=== PATIENT | female | born 1965 | race Caucasian/White ===

== ENCOUNTER 2023-07-30 04:08 | Emergency (ER) | payer OTHER, SELFPAY ==
[2023-07-30 04:13] VITALS: BP 110/76; PULSE 100; RESP 20; TEMP 36.5; O2SAT 95; BMI 40.0
--- NOTE | 2023-07-30 04:22 | ED.GENADUL1 ---
HPI - General Adult General Chief complaint: Urogenital-Female Stated complaint: flank/back pain Time Seen by Provider: 07/30/23 04:15 Source: patient Mode of arrival: walk-in Limitations: no limitations History of Present Illness HPI narrative: Patient developed right sided flank pain yesterday afternoon, which has been getting progressively worse since onset. She did not take anything for the pain. She is on macrobid for UTI diagnosed at [facility]. No fever or chills. No abdominal pain, nausea or vomiting. PMHx negative for kidney stones. Related Data Previous Rx's Medication Instructions Recorded levofloxacin 750 mg tablet 750 mg PO DAILY 6 days #6 tabs 07/30/23 metronidazole 500 mg tablet 500 mg PO Q8H 7 days #20 tabs 07/30/23 nabumetone 750 mg tablet 750 mg PO BID PRN pain #14 tabs 07/30/23 ondansetron 4 mg disintegrating 4 mg PO Q6H PRN nausea and 07/30/23 tablet vomiting #20 tabs Allergies Allergy/AdvReac Type Severity Reaction Status Date / Time codeine Allergy Unknown Verified 07/30/23 04:18 erythromycin base Allergy Unknown Verified 07/30/23 04:18 morphine Allergy Unknown Verified 07/30/23 04:18 tramadol [From Ultram] Allergy Unknown Verified 07/30/23 04:18 PFSH PFSH Social History Smoking status: Current every day smoker Exam Narrative Exam Narrative: Nurses notes and vital signs reviewed and patient is not hypoxic. afebrile General: Well-appearing and in no apparent distress. Skin: Warm, dry, no pallor noted. No rash to abdomen or flank. Eye: Pupils are equal, round and EOMI. No scleral icterus. Ears, Nose, Mouth, and Throat: Oral mucosa is moist Cardiovascular: Regular Rate and Rhythm without murmur, gallop or rub. Respiratory: No accessory muscle use or respiratory distress. Lungs are clear to auscultation, no wheezing, rales or rhonchi Back: No midline thoracic or lumbar vertebral tenderness. Right CVA tenderness Musculoskeletal: normal ROM GI: Abdomen is soft, non-distended. Normal bowel sounds. No masses appreciated. No tenderness to palpation. No rebound, guarding, or rigidity noted. Neurological: A&O x4. No cranial nerve dysfunction observed. No truncal ataxia. Moves all extremities. Sensation intact. Psychiatric: Cooperative and interactive. Normal mood and affect. Constitutional Vital Signs, click to edit/add: Last Vital Signs Temp 97.7 F 07/30/23 04:13 Pulse 100 H 07/30/23 04:13 Resp 20 07/30/23 04:13 BP 110/76 07/30/23 04:13 Pulse Ox 95 07/30/23 04:13 O2 Del Method Room Air 07/30/23 04:13 Course Vital Signs Vital signs: Vital Signs Temperature 97.7 F 07/30/23 04:13 Pulse Rate 100 H 07/30/23 04:13 Respiratory Rate 20 07/30/23 04:13 Blood Pressure 110/76 07/30/23 04:13 Pulse Oximetry 95 07/30/23 04:13 Oxygen Delivery Method Room Air 07/30/23 04:13 Temperature 97.7 F 07/30/23 04:13 Pulse Rate 100 H 07/30/23 04:13 Respiratory Rate 20 07/30/23 04:13 Blood Pressure 110/76 07/30/23 04:13 Pulse Oximetry 95 07/30/23 04:13 Oxygen Delivery Method Room Air 07/30/23 04:13 Medical Decision Making MDM Narrative Medical decision making narrative: peripheral IV established and blood drawn and sent for testing. Urine was also ordered to be sent for testing. Patient was ordered to undergo CT scanning of the abdomen pelvis without IV contrast. She was ordered to receive normal saline IV fluid bolus along with IV Zofran for nausea and IV Toradol for pain. White blood cell count. Normal electrolytes and renal function. CT scan, per radiologist, revealed 7mm appendix with some periappendiceal stranding. It also revealed pneumobilia and possible gas in the bladder. I called and spoke with Dr Newton, the general surgeon production engine repairer. It was decided that the patient would be treated non-surgically with antibiotics and instructions to see general surgeon for follow up if improving or return to the ED if she worsens or is not better within [address] Newton asked me to start the patient on Levaquin and Flagyl - she received the first dose of these in the ED before discharge. She is allergic to morphine and tramadol so I prescribed Relafen for pain.Zofran prescribed for nausea/vomiting. All this was explained to the patient and she was agreeable. Dr Alves is the general surgeon taking over call starting today and Dr Newton told me that he would speak to Dr Alves about this patient to ensure timely follow up. Lab Data Lab results reviewed: Yes I reviewed the patient's lab results Labs: Lab Results 07/30/23 07/30/23 Range/Units 04:20 05:20 WBC 10.6 (4.0-11.0) 10^3/uL RBC 5.08 (4.20-5.40) 10^6/uL Hgb 15.2 (12.0-16.0) g/dL Hct 45.7 (36.0-48.0) % MCV 90.0 (81.0-99.0) fL MCH 29.9 (26.7-34.0) pg MCHC 33.3 (29.9-35.2) g/dL RDW 13.0 (11.0-15.0) % Plt Count 254 (150-450) 10^3/uL MPV 8.8 L (9.5-13.5) fL Neut % (Auto) 70.1 (43.0-75.0) % Lymph % (Auto) 22.6 (20.5-60.0) % [place] % (Auto) 6.3 (1.7-12.0) % Eos % (Auto) 0.1 L (0.9-7.0) % Baso % (Auto) 0.3 (0.2-2.0) % Neut # (Auto) 7.5 H (1.4-6.5) 10^3/uL Lymph # (Auto) 2.4 (1.2-3.8) 10^3/uL [place] # (Auto) 0.7 (0.3-0.8) 10^3/uL Eos # (Auto) 0.0 (0.0-0.7) 10^3/uL Baso # (Auto) 0.0 (0.0-0.1) 10^3/uL Abs Immat Gran (auto) 0.06 H (0.00-0.03) 10^3/uL Imm/Tot Granulo (auto) 0.6 H (0.0-0.5) % Sodium 140 (136-145) mmol/L Potassium 4.1 (3.5-5.1) mmol/L Chloride 104 (98-107) mmol/L Carbon Dioxide 26.3 (21.0-32.0) mmol/L Anion Gap 13.8 BUN 6.0 L (7.0-18.0) mg/dL Creatinine 0.76 (0.55-1.02) mg/dL Est GFR ( Amer) >60 (>=60) Est GFR (Non-Af Amer) >60 (>=60) BUN/Creatinine Ratio 7.9 Glucose 101 (74-106) mg/dL Calcium 9.2 (8.5-10.1) mg/dL Total Bilirubin 0.4 (0.2-1.0) mg/dL AST 16 (15-37) U/L ALT 18 (14-59) U/L Alkaline Phosphatase 115 (46-116) U/L Total Protein 7.5 (6.4-8.2) g/dL Albumin 3.6 (3.4-5.0) g/dL Globulin 3.9 g/dL Albumin/Globulin Ratio 0.9 Urine Color Lt. yellow (YELLOW) Urine Clarity Clear (CLEAR) Urine pH 5.5 (5.0-9.0) Ur Specific [place] 1.025 (1.005-1.025) Urine Protein Negative (NEG/TRACE) mg/dL Urine Glucose (UA) Negative (NEGATIVE) mg/dL Urine Ketones Negative (NEGATIVE) mg/dL Urine Occult Blood Small A (NEGATIVE) Urine Nitrite Negative (NEGATIVE) Urine Bilirubin Negative (NEGATIVE) Urine Urobilinogen 0.2 (0.2-1.0) EU/dL Ur Leukocyte Esterase Small A (NEGATIVE) Urine RBC 2-5 A (0-2) #/HPF Urine WBC 2-5 A (NONE SEEN) #/HPF Ur Squamous Epith Cells Few A (NONE/RARE) #/LPF Urine Crystals None seen (None Seen) #/HPF Urine Bacteria Small A (NONE SEEN) #/HPF Urine Casts None seen (NONE SEEN) #/LPF Urine Mucus Small A (NONE SEEN) Ur Culture Indicated? Yes Imaging Data CT scan - abdomen: Radiologist's impression: Patient Name: ILIANA DOUGLAS MRN: [id number] date: 1965 Sex: F Assigned Patient Location: ER Current Patient Location: ED.MAIN Accession/Order Number: [id number] Exam Date: 07/30/2023 04:37 Report Date: 07/30/2023 05:24 At the request of: AMBER WINSOME Procedure: CT abdomen pelvis wo con EXAM: CT abdomen pelvis wo con HISTORY: right flank pain COMPARISON: Multiple priors, most recent CT abdomen pelvis 05/28/2022 TECHNIQUE: Multiple axial views CT abdomen pelvis with IV contrast. Coronal sagittal reformats. FINDINGS: Visualized lung bases demonstrate mild linear lung atelectasis. Visualized cardiac apex is unremarkable. Status post cholecystectomy. Mild pneumobilia, slightly increased compared to CT 05/28/2022. Liver, pancreas, spleen, adrenal glands, kidneys, and other pelvic structures are unremarkable. Uterus is surgically absent. A small focus of air within the urinary bladder lumen (image 132 series 3). 4.3 cm gastric diverticulum posterior to the gastric fundus, similar to prior exam. Mildly dilated appendix measuring 7 mm diameter with mild periappendiceal stranding (image 100 series 3). Scattered colonic diverticula. No evidence for small bowel obstruction, large ascites, or free air. No acute bony abnormality. IMPRESSION: Mildly dilated appendix measuring 7 mm diameter with mild periappendiceal stranding. Finding reflects acute appendicitis in the appropriate clinical setting. Recommend close clinical attention for right lower quadrant abdominal pain. A small focus of air within the urinary bladder lumen. Finding reflects sequela of recent instrumentation versus underlying gas forming infection. Correlate clinically and with urinalysis. Status post cholecystectomy. Mild pneumobilia, slightly increased compared to CT 05/28/2022. Posterior gastric diverticulum. Colonic diverticula. No radiopaque obstructing renal/ureteral stone or hydronephrosis. Electronically authenticated by: FINESSE MARISCAL Date: 07/30/2023 05:24 Discharge Plan Discharge Chief Complaint: Urogenital-Female Clinical Impression: Abdominal pain Patient Disposition: Home, Self-Care Time of Disposition Decision: 06:15 Prescriptions / Home Meds: New ondansetron 4 mg tablet,disintegrating 4 mg PO Q6H PRN (Reason: nausea and vomiting) Qty: 20 0RF nabumetone 750 mg tablet 750 mg PO BID PRN (Reason: pain) Qty: 14 0RF levofloxacin 750 mg tablet 750 mg PO DAILY 6 Days Qty: 6 0RF Rx Instructions: start 07/31/23 metronidazole 500 mg tablet 500 mg PO Q8H 7 Days Qty: 20 0RF Instructions: Abdominal Pain (ED) Stand Alone Forms: Portal Instructions Referrals: Pb Alves MD [Physician] - 07/31/23 (call to schedule appointment)
[2023-07-30 04:27] LABS: Basophils Percent Auto 0.3 % (0.2-2.0); Eosinophils Percent Auto 0.1 % (0.9-7.0); Hematocrit 45.7 % (36.0-48.0); Hemoglobin 15.2 g/dL (12.0-16.0); Immature Granulocytes Abs Auto 0.06 10^3/uL (0.00-0.03); Immature Granulocytes Pct Auto 0.6 % (0.0-0.5); Lymphocytes Absolute Auto 2.4 10^3/uL (1.2-3.8); Lymphocytes Percent Auto 22.6 % (20.5-60.0); Mean Corpuscular HGB Conc 33.3 g/dL (29.9-35.2); Mean Corpuscular Hemoglobin 29.9 pg (26.7-34.0); Mean Platelet Volume 8.8 fL (9.5-13.5); Monocytes Absolute Auto 0.7 10^3/uL (0.3-0.8); Monocytes Percent Auto 6.3 % (1.7-12.0); Neutrophils Absolute Auto 7.5 10^3/uL (1.4-6.5); Neutrophils Percent Auto 70.1 % (43.0-75.0); Platelet Count 254 10^3/uL (150-450); Red Blood Count 5.08 10^6/uL (4.20-5.40); White Blood Count 10.6 10^3/uL (4.0-11.0)
[2023-07-30] MEDS: KETOROLAC TROMETHAMINE 30 MG/ML VIAL IVP (04:30)
[2023-07-30] MEDS: 0.9 % SODIUM CHLORIDE 1,000 ML 999 ML IV (04:30)
[2023-07-30] MEDS: ONDANSETRON PF 4 MG/2 ML VIAL IV (04:35)
--- NOTE | 2023-07-30 04:40 | PC.NURSE ---
right side flank pain that started yesterday afternoon around 3-4pm. She states she has been taking Macrobid that she got from her PCP to treat a UTI. Her urine was not tested for a UTI, her father just , and she felt like she had a UTI, but was too busy to get into the doctor, so she called and asked for an antibiotic. The flank pain has been increasing in intensity since it began. She has not taken anything for the pain. She states there have been no changes in her urine, no change in frequency, no pain, no blood in her urine. She has never had a kidney stone, but states her daughter gets them frequently.
[2023-07-30 04:42] LABS: Alanine Aminotransferase 18 U/L (14-59); Albumin Globulin Ratio 0.9; Albumin Level 3.6 g/dL (3.4-5.0); Alkaline Phosphatase 115 U/L (46-116); Anion Gap 13.8; Aspartate Amino Transferase 16 U/L (15-37); BUN Creatinine Ratio 7.9; Bilirubin Total 0.4 mg/dL (0.2-1.0); Calcium 9.2 mg/dL (8.5-10.1); Carbon Dioxide 26.3 mmol/L (21.0-32.0); Chloride 104 mmol/L (98-107); Estimated GFR (African America >60 (>=60); Estimated GFR (Non-African Ame >60 (>=60); Globulin 3.9 g/dL; Glucose 101 mg/dL (74-106); Potassium 4.1 mmol/L (3.5-5.1); Sodium 140 mmol/L (136-145); Total Protein 7.5 g/dL (6.4-8.2)
[2023-07-30 05:24] LABS: Bilirubin Urine NEGATIVE (NEGATIVE); Blood Urine SMALL (NEGATIVE); Clarity Urine CLEAR (CLEAR); Color Urine LT. YELLOW (YELLOW); Glucose Urine UA NEGATIVE (NEGATIVE); Ketones Urine NEGATIVE (NEGATIVE); Leukocyte Esterase Urine SMALL (NEGATIVE); Nitrite Urine NEGATIVE (NEGATIVE); Protein Urine NEGATIVE (NEG/TRACE); Specific Gravity Urine 1.025 (1.005-1.025); Urobilinogen Urine 0.2 EU/dL (0.2-1.0); pH Urine 5.5 (5.0-9.0)
[2023-07-30 05:26] LABS: Urine Microscopic Indicated YES
[2023-07-30 05:31] LABS: Bacteria Urine SMALL #/HPF (NONE SEEN)
[2023-07-30 05:32] LABS: Cast Seen? NONE SEEN #/LPF (NONE SEEN); Crystals Seen? None Seen #/HPF (None Seen); Mucus Urine SMALL (NONE SEEN); Squamous Epithelial Cell Urine FEW #/LPF (NONE/RARE); Urine Culture Indicated YES
[2023-07-30] MEDS: HYDROMORPHONE HCL 0.5 MG/0.5 ML SYRINGE IV (06:15)
[2023-07-30] MEDS: LEVOFLOXACIN 750 MG TABLET PO (06:46)
[2023-07-30] MEDS: METRONIDAZOLE 250 MG TABLET 500 MG PO (06:46)
== END 2023-07-30 06:55 | disposition home or self-care (01) ==
PROVIDERS: Emergency Provider Emergency Medicine; PCP Family Medicine
DX: R10.9 Unspecified abdominal pain (principal); N39.0 Urinary tract infection, site not specified; Z79.899 Other long term (current) drug therapy; F17.210 Nicotine dependence, cigarettes, uncomplicated
CPT/HCPCS: 36415; 74176; 80053; 81001; 85025; 87086; 96374; 96375; 99284; J1170

== ENCOUNTER 2023-08-01 07:13 | Emergency (ER) | payer OTHER, SELFPAY ==
[2023-08-01 07:20] VITALS: BP 131/97; PULSE 84; RESP 20; TEMP 36.5; O2SAT 96; BMI 40.0
--- NOTE | 2023-08-01 07:40 | CT_ITS ---
[address] [address] Patient Name: ILIANA DOUGLAS MRN: [id number] date: 1965 Sex: F Assigned Patient Location: ER Current Patient Location: Accession/Order Number: [id number] Exam Date: 08/01/2023 07:52 Report Date: 08/01/2023 09:12 At the request of: ADI WHITESIDE Procedure: CT abdomen pelvis w con EXAMINATION: CT abdomen pelvis w con HISTORY: right lower quadrant pain, recent abnormal CT COMPARISON: CT abdomen pelvis 07/30/2023 TECHNIQUE: Axial, Coronal, and Sagittal images were obtained without and/or with IV contrast as indicated by examination type. Dose reduction techniques were achieved by using automated exposure control and/or adjustment of mA and/or kV according to patient size and/or use of iterative reconstruction technique. FINDINGS: LUNG BASES: No visible pulmonary or pleural disease. LIVER: No enlargement, atrophy, suspicious density, or significant focal lesion. BILIARY: Cholecystectomy. PANCREAS: No lesion, fluid collection, or abnormal duct dilatation. SPLEEN: No enlargement or focal lesion. ADRENALS: No mass or enlargement. KIDNEYS: No mass, obstruction, or calcification. BOWEL/MESENTERY: Stable, chronic gastric fundus diverticulum. No visible mass, obstruction, or bowel wall thickening. Normal appendix. AORTA/VASCULAR: No aneurysm or dissection. RETROPERITONEUM: No mass or adenopathy. LYMPH NODES: No adenopathy. URINARY BLADDER: No visible focal wall thickening, lesion, or calculus. PELVIC ORGANS: Hysterectomy. ABDOMINAL WALL: Eventration of the midline infraumbilical abdominal wall; no hernia sac. BONES: No bony lesion or fracture. OTHER: Negative. CT/CT abdomen pelvis w con IMPRESSION: 1. Normal, empty, noninflamed appendix. 2. No acute or suspicious findings to account for patient's symptoms. Electronically authenticated by: BLESSING THOMPSON Date: 08/01/2023 09:12
--- NOTE | 2023-08-01 07:41 | ED.ABDPAIN1 ---
HPI - Abdominal Pain General Chief Complaint: Abdominal Pain Stated Complaint: flank pain right side Time Seen by Provider: 08/01/23 07:32 Source: patient Mode of arrival: walk-in Limitations: no limitations History of Present Illness HPI narrative: [age] female presents for right lower quadrant abdominal pain. She was seen here on July 30 and at that time had a slightly enlarged appendix with. Appendiceal stranding. Surgery was consult today and she was discharged home on Levaquin and Flagyl which she has been taking. She has not been able to see the surgeon for follow-up. At 3:00 this morning the pain in her right lower quadrant became worse. It is severe and continuous. No fever or trauma. Related Data Previous Rx's Medication Instructions Recorded levofloxacin 750 mg tablet 750 mg PO DAILY 6 days #6 tabs 07/30/23 metronidazole 500 mg tablet 500 mg PO Q8H 7 days #20 tabs 07/30/23 nabumetone 750 mg tablet 750 mg PO BID PRN pain #14 tabs 07/30/23 ondansetron 4 mg disintegrating 4 mg PO Q6H PRN nausea and 07/30/23 tablet vomiting #20 tabs dicyclomine 10 mg capsule 10 mg PO QID PRN abdominal pain 08/01/23 #20 caps Allergies Allergy/AdvReac Type Severity Reaction Status Date / Time codeine Allergy Unknown Verified 07/30/23 04:18 erythromycin base Allergy Unknown Verified 07/30/23 04:18 morphine Allergy Unknown Verified 07/30/23 04:18 tramadol [From Ultram] Allergy Unknown Verified 07/30/23 04:18 Review of Systems ROS Narrative A ten point review of systems is negative except as noted above. PFSH PFSH Social History Smoking status: Current every day smoker Exam Narrative Exam Narrative: Nurses note and vital signs reviewed and patient is not hypoxic. General: The patient appears uncomfortable and in no apparent distress. Skin: Warm, dry, no pallor noted. There is no rash noted. Head: Normocephalic, atraumatic Eye: Normal conjunctiva, no drainage Ears, Nose, Mouth, and Throat: oral mucosa is moist. Nares patent. Mouth without vesicles. Ear canals patent. Tm's without Erythema Cardiovascular: Regular Rate and Rhythm Respiratory: Patient is in no distress, no accessory muscle use, lungs are clear to auscultation, no wheezing, rales or rhonchi Back: non-tender GI: tenderness present in the right lower quadrant Musculoskeletal: The patient has no evidence of calf tenderness, no pitting edema, symmetrical pulses noted bilaterally Neurological: A&O, normal speech Psychiatric: Cooperative Constitutional Vital Signs, click to edit/add: Last Vital Signs Temp 97.7 F 08/01/23 07:20 Pulse 87 08/01/23 10:40 Resp 18 08/01/23 10:09 BP 109/74 08/01/23 10:40 Pulse Ox 98 08/01/23 10:40 O2 Del Method Room Air 08/01/23 08:56 Course Vital Signs Vital signs: Vital Signs Temperature 97.7 F 08/01/23 07:20 Pulse Rate 84 08/01/23 07:20 Respiratory Rate 20 08/01/23 07:20 Blood Pressure 131/97 H 08/01/23 07:20 Pulse Oximetry 96 08/01/23 07:20 Temperature 97.7 F 08/01/23 07:20 Pulse Rate 87 08/01/23 10:40 Respiratory Rate 18 08/01/23 10:09 Blood Pressure 109/74 08/01/23 10:40 Pulse Oximetry 98 08/01/23 10:40 Oxygen Delivery Method Room Air 08/01/23 08:56 MDM - Abdominal Pain MDM Narrative Medical decision making narrative: workup including CAT scan is negative. She has an appointment with general surgeon tomorrow that she will keep. I discussed the case with him, Dr. Alves. Lab Data Labs: Lab Results 08/01/23 08/01/23 08/01/23 Range/Units 07:34 08:27 09:46 WBC 5.4 (4.0-11.0) 10^3/uL RBC 4.69 (4.20-5.40) 10^6/uL Hgb 14.2 (12.0-16.0) g/dL Hct 41.7 (36.0-48.0) % MCV 88.9 (81.0-99.0) fL MCH 30.3 (26.7-34.0) pg MCHC 34.1 (29.9-35.2) g/dL RDW 13.2 (11.0-15.0) % Plt Count 190 (150-450) 10^3/uL MPV 9.5 (9.5-13.5) fL Neut % (Auto) 61.0 (43.0-75.0) % Lymph % (Auto) 28.9 (20.5-60.0) % [place] % (Auto) 8.7 (1.7-12.0) % Eos % (Auto) 0.6 L (0.9-7.0) % Baso % (Auto) 0.4 (0.2-2.0) % Neut # (Auto) 3.3 (1.4-6.5) 10^3/uL Lymph # (Auto) 1.6 (1.2-3.8) 10^3/uL [place] # (Auto) 0.5 (0.3-0.8) 10^3/uL Eos # (Auto) 0.0 (0.0-0.7) 10^3/uL Baso # (Auto) 0.0 (0.0-0.1) 10^3/uL Abs Immat Gran (auto) 0.02 (0.00-0.03) 10^3/uL Imm/Tot Granulo (auto) 0.4 (0.0-0.5) % Sodium 139 (136-145) mmol/L Potassium 4.2 (3.5-5.1) mmol/L Chloride 104 (98-107) mmol/L Carbon Dioxide 25.9 (21.0-32.0) mmol/L Anion Gap 13.3 BUN 9.0 (7.0-18.0) mg/dL Creatinine 0.67 (0.55-1.02) mg/dL Est GFR ( Amer) >60 (>=60) Est GFR (Non-Af Amer) >60 (>=60) BUN/Creatinine Ratio 13.4 Glucose 96 (74-106) mg/dL Calcium 9.1 (8.5-10.1) mg/dL Urine Color Yellow (YELLOW) Urine Clarity Clear (CLEAR) Urine pH 5.0 (5.0-9.0) Ur Specific [place] 1.010 (1.005-1.025) Urine Protein Negative (NEG/TRACE) mg/dL Urine Glucose (UA) Negative (NEGATIVE) mg/dL Urine Ketones Negative (NEGATIVE) mg/dL Urine Occult Blood Trace-i (NEGATIVE) Urine Nitrite Negative (NEGATIVE) Urine Bilirubin Negative (NEGATIVE) Urine Urobilinogen 0.2 (0.2-1.0) EU/dL Ur Leukocyte Esterase Negative (NEGATIVE) Urine RBC 0-2 (0-2) #/HPF Urine WBC 0-2 A (NONE SEEN) #/HPF Ur Squamous Epith Cells Few A (NONE/RARE) #/LPF Urine Crystals None seen (None Seen) #/HPF Urine Bacteria Trace A (NONE SEEN) #/HPF Urine Casts None seen (NONE SEEN) #/LPF Urine Mucus None seen (NONE SEEN) Discharge Plan Discharge Chief Complaint: Abdominal Pain Clinical Impression: Abdominal pain Patient Disposition: Home, Self-Care Time of Disposition Decision: 10:49 Condition: Good Mode of Transportation: Private Vehicle Prescriptions / Home Meds: New dicyclomine 10 mg capsule 10 mg PO QID PRN (Reason: abdominal pain) Qty: 20 0RF No Action ondansetron 4 mg tablet,disintegrating 4 mg PO Q6H PRN (Reason: nausea and vomiting) Qty: 20 0RF nabumetone 750 mg tablet 750 mg PO BID PRN (Reason: pain) Qty: 14 0RF levofloxacin 750 mg tablet 750 mg PO DAILY 6 Days Qty: 6 0RF Rx Instructions: start 07/31/23 metronidazole 500 mg tablet 500 mg PO Q8H 7 Days Qty: 20 0RF Instructions: Abdominal Pain (ED) Additional Instructions: see Dr. Alves at your appointment tomorrow Stand Alone Forms: Portal Instructions Referrals: MIGUEL JUAREZ [Primary Care Provider] - 1 week
[2023-08-01] MEDS: ONDANSETRON PF 4 MG/2 ML VIAL IV (07:46)
[2023-08-01 07:54] LABS: Anion Gap 13.3; BUN Creatinine Ratio 13.4; Calcium 9.1 mg/dL (8.5-10.1); Carbon Dioxide 25.9 mmol/L (21.0-32.0); Chloride 104 mmol/L (98-107); Estimated GFR (African America >60 (>=60); Estimated GFR (Non-African Ame >60 (>=60); Glucose 96 mg/dL (74-106); Potassium 4.2 mmol/L (3.5-5.1); Sodium 139 mmol/L (136-145)
[2023-08-01] MEDS: HYDROMORPHONE HCL 1 MG/ML CARTRIDGE IV (08:29)
[2023-08-01 08:36] LABS: Basophils Percent Auto 0.4 % (0.2-2.0); Eosinophils Percent Auto 0.6 % (0.9-7.0); Hematocrit 41.7 % (36.0-48.0); Hemoglobin 14.2 g/dL (12.0-16.0); Immature Granulocytes Abs Auto 0.02 10^3/uL (0.00-0.03); Immature Granulocytes Pct Auto 0.4 % (0.0-0.5); Lymphocytes Absolute Auto 1.6 10^3/uL (1.2-3.8); Lymphocytes Percent Auto 28.9 % (20.5-60.0); Mean Corpuscular HGB Conc 34.1 g/dL (29.9-35.2); Mean Corpuscular Hemoglobin 30.3 pg (26.7-34.0); Mean Corpuscular Volume 88.9 fL (81.0-99.0); Mean Platelet Volume 9.5 fL (9.5-13.5); Monocytes Absolute Auto 0.5 10^3/uL (0.3-0.8); Monocytes Percent Auto 8.7 % (1.7-12.0); Neutrophils Absolute Auto 3.3 10^3/uL (1.4-6.5); Red Blood Count 4.69 10^6/uL (4.20-5.40); Red Cell Distribution Width 13.2 % (11.0-15.0); White Blood Count 5.4 10^3/uL (4.0-11.0)
[2023-08-01 08:56] VITALS: BP 104/59; PULSE 64; RESP 18; O2SAT 95
[2023-08-01 09:55] LABS: Bilirubin Urine NEGATIVE (NEGATIVE); Blood Urine TRACE-I (NEGATIVE); Clarity Urine CLEAR (CLEAR); Color Urine YELLOW (YELLOW); Glucose Urine UA NEGATIVE (NEGATIVE); Ketones Urine NEGATIVE (NEGATIVE); Leukocyte Esterase Urine NEGATIVE (NEGATIVE); Nitrite Urine NEGATIVE (NEGATIVE); Protein Urine NEGATIVE (NEG/TRACE); Urobilinogen Urine 0.2 EU/dL (0.2-1.0)
[2023-08-01 10:04] LABS: Bacteria Urine TRACE #/HPF (NONE SEEN); Mucus Urine NONE SEEN (NONE SEEN); RBC Urine 0-2 #/HPF (0-2); Squamous Epithelial Cell Urine FEW #/LPF (NONE/RARE); WBC Urine 0-2 #/HPF (NONE SEEN)
[2023-08-01 10:05] LABS: Cast Seen? NONE SEEN #/LPF (NONE SEEN); Crystals Seen? None Seen #/HPF (None Seen)
[2023-08-01 10:08] LABS: Platelet Count 190 10^3/uL (150-450)
[2023-08-01 10:09] VITALS: BP 114/69; PULSE 90; RESP 18; O2SAT 98
[2023-08-01 10:40] VITALS: BP 109/74; PULSE 87; O2SAT 98
== END 2023-08-01 11:10 | disposition home or self-care (01) ==
PROVIDERS: Emergency Provider Emergency Medicine; PCP Family Medicine
DX: R10.9 Unspecified abdominal pain (principal); F17.210 Nicotine dependence, cigarettes, uncomplicated; Z79.899 Other long term (current) drug therapy
CPT/HCPCS: 36415; 74177; 80048; 81001; 85025; 96374; 96375; 99285; J1170; Q9967

== ENCOUNTER 2024-02-26 06:06 | Emergency (ER) | payer OTHER, SELFPAY ==
[2024-02-26 06:10] VITALS: BP 113/76; PULSE 72; TEMP 36.6; O2SAT 93; BMI 40.4
--- OUTSIDE RECORDS SUMMARY | 2024-02-26 06:17 | XMS_ITS ---
"Patient Summarization (C-CDA 2.1 CCD) Created on: February 26, 2024 MRS. MARY DOUGLAS : 1965 Sex: Female Author Organization Sample organization Care Team Providers Care [employer] Name Role Phone Mulugeta Gotti Primary Care Provider [phone] Mulugeta Gotti Attending Provider Nina Montana Attending Provider Benjamin Mercado Attending Provider [phone] Mulugeta Gotti Primary Care Provider Mulugeta Gotti Attending Provider Chevy Ferreira Attending Provider [phone] Mulugeta Gotti Primary Care Provider Prasanna Weems Attending Provider Mulugeta Gotti DO Primary Care Provider Mata Cornejo MD Unavailable MULUGETA GOTTI Primary Care Physician [phone] Pushpa Chowdhury Unavailable Unavailable Prasanna Weems Unavailable DO Mulugeta Gotti Primary Care Provider DO Mulugeta Gotti Attending Provider DR MULUGETA GOTTI Primary Care Unavailable NEDRA, DR CHANELLE Maria Admitting Unavailable NEDRA, DR CHANELLE Maria Attending Unavailable NEDRA, DR CHANELLE Maria Consulting Unavailable FINESSE MARISCAL Consulting Unavailable BLESSING ZEPEDA Consulting Unavailable NEDRA, DR CHANELLE Maria Admitting Unavailable NEDRA, DR CHANELLE Maria Attending Unavailable SHEN, DR RIVERA Primary Care Unavailable NEDRA, DR CHANELLE Maria Consulting Unavailable Shawn Preston Consulting Unavailable DR MULUGETA GOTTI Primary Care Unavailable JOSEE DUNAWAY Admitting Unavailable JOSEE DUNAWAY Attending Unavailable OJSEE DUNAWAY Consulting Unavailable WILLIAMS PIZARRO Consulting Unavailable SALLY Stephens Attending Provider AB Andrew Attending Provider Nicky Alicia Unavailable Mulugeta Gotti DO Primary Care Provider Clemente PEGUERO, Mata Unavailable Sharla Benitez Unavailable Jose Lewis Unavailable Mulugeta Gotti DO Primary Care Provider Clemente PEGUERO, Mata Unavailable Rubia Mendosa Unavailable DO Mulugeta Gotti Primary Care Provider AB Benitez Attending Provider MD Finesse Tobar Attending Provider AB Frey Emergency Provider [phone] MULUGETA GOTTI Primary Care Unavailable SHAWN PRASAD JR Referring Unavailable DO Mulugeta Gotti Primary Care Provider AB Benitez Attending Provider BLESSING YANCEY Attending Unavailable SHAWN PRASAD JR Referring Unavailable MULUGETA GOTTI Primary Care Unavailable MULUGETA GOTTI Primary Care Unavailable CLEMENT RODAS Attending Unavailable ROSLYN, KHALED Referring Unavailable DO Denver Naranjo Emergency Provider DO Mulugeta Gotti Primary Care Provider [phone] AB Benitez Attending Provider [phone] DO Nina Montana Attending Provider [phone] DO Mulugeta Gotti Primary Care Provider AB Benitez Attending Provider [phone] DO Denver Naranjo Emergency Provider DO Nina Montana Attending Provider MD Prasanna Weems Attending Provider DO Mulugeta Gotti Primary Care Provider [phone] AB Benitez Attending Provider [phone] Lazara Barclay Unavailable RICE, Finesse W Referring Unavailable RICE, Finesse W Attending Unavailable NILLPb Attending Unavailable RICE, Finesse W Referring Unavailable RICE, Finesse W Attending Unavailable RICE, Finesse W Admitting Unavailable Orzech, Jada X Attending Unavailable Orzech, Jada X Admitting Unavailable Orzech, Jada X Attending Unavailable DO Mulugeta Gotti Primary Care Provider [phone] AB Benitez Attending Provider DO Mulugeta Gotti Primary Care Provider Eli, AB Maria Attending Provider [phone] MULUGETA GOTTI Attending Unavailable MULUGETA GOTTI Referring Unavailable NINA MONTANA Attending Unavailable Mulugeta Gotti DO Primary Care Provider SHAWN PRASAD JR Referring Unavailable MULUGETA GOTTI Primary Care Unavailable SHAWN PRASAD JR Referring Unavailable MULUGETA GOTTI Primary Care Unavailable SHAWN PRASAD JR Attending Unavailable MULUGETA GOTTI Primary Care Unavailable BENJAMIN MERCADO Referring Unavailable BENJAMIN MERCADO Attending Unavailable MULUGETA GOTTI Primary Care Unavailable BENJAMIN MERCADO Referring Unavailable MULUGETA GOTTI Primary Care Unavailable MULUGETA GOTTI Primary Care Unavailable BENJAMIN MERCADO Referring Unavailable BENJAMIN MERCADO Attending Unavailable MULUGETA GOTTI Primary Care Unavailable BENJAMIN MERCADO Referring Unavailable MULUGETA GOTTI Primary Care Unavailable MULUGETA GOTTI Primary Care Unavailable Mulugeta Gotti Primary Care Unavailable Dank, Prasanna S Admitting Unavailable Dank, Prasanna S Attending Unavailable Mulugeta Gotti Primary Care Unavailable Denver Naranjo Admitting Unavailable Denver Naranjo Attending Unavailable ItzNina miller Admitting Unavailable Nina Montana Attending Unavailable Mulugeta Gotti Primary Care Unavailable Mulugeta Gotti Primary Care Unavailable Dank, Prasanna S Admitting Unavailable Dank, Prasanna S Attending Unavailable Mulugeta Gotti Primary Care Unavailable Sharla Benitez R Admitting Unavailable Sharla Benitez R Attending Unavailable Mulugeta Gotti Primary Care Unavailable Sharla Benitez R Admitting Unavailable Sharla Benitez R Attending Unavailable Mulugeta Gotti Primary Care Unavailable Eli Sharla Crow Admitting Unavailable Eli Sharla Crow Attending Unavailable Unavailable Unavailable Unavailable Allergies Allergy Classification Reported Allergen(s) Allergy Type Date of Onset Reaction(s) Facility Barbiturates (4 sources) butalbital Drug Allergy 10-01-19 21 Itching [facility]on[facility] (8 sources) Codeine Drug Allergy 10-01-19 21 Vomiting, Nausea [facility] strawberry allergenic extract (4 sources) strawberry allergenic extract Drug Allergy 10-01-19 21 [facility] (20 sources) butalbital; Translations: [butalbital] Drug Allergy 10-20-19 20 Itching, Unknown [facility] (20 sources) Codeine; Translations: [codeine] Drug Allergy 09-30-19 08 GI Upset, Vomiting (disorder) [facility] Work Phone: (20 sources) strawberry allergenic extract; Translations: [strawberry] Drug Allergy 10-20-19 20 [facility] (20 sources) traMADol; Translations: [Tramadol] Drug Allergy 10-20-19 20 Vomiting (disorder) [facility] (20 sources) erythromycin base; Translations: [Erythromycin Base] Allergy to substance 08-29-20 19 Abdominal Pain, Abdominal Pain, diarrhea [facility] (20 sources) Erythromycin; Translations: [erythromycin] Drug Allergy 08-06-20 12 Diarrhea, Diarrhea (finding) [facility] Work Phone: (20 sources) traMADol; Translations: [TRAMADOL HCL] Drug Allergy 12-06-19 08 GI Upset [facility] (17 sources) environmental [Other] Propensity to adverse reactions 09-30-19 08 [facility] (16 sources) Acetaminophen / butalbital / Caffeine; Translations: [APAP/butalbital/ caffeine] Drug Allergy 05-17-20 23 Unknown (qualifier value), Itching, Itching (finding) [facility] [place] (20 sources) Codeine Drug Allergy vomiting [employer] Other (20 sources) Aspartame; Translations: [aspartame] Drug Allergy 01-25-20 22 Diarrhea [facility] (2 sources) traMADol; Translations: [Ultram] Drug Allergy 08-29-20 19 [facility] Repository (20 sources) Morphine; Translations: [MORPHINE] Drug Allergy 02-07-20 23 Unknown, Tremor (finding) [facility] (3 sources) OTHER; Translations: [OTHER] Propensity to adverse reactions (disorder) 09-30-19 08 [facility] Repository (2 sources) BUTALBITAL-ACETAM INOPHEN-CAFF; Translations: [BUTALBITAL-ACETA MINOPHEN-CAFF] Propensity to adverse reactions to drug (disorder) 05-17-20 23 [facility] Repository (1 source) Morphine Drug Allergy 10-24-19 [facility] Repository Encounters Encounter Date Encounter Type Care Provider Facility Start: 01-03-2024 End: 01-03-2024 ambulatory MULUGETA GOTTI Facility:[facility] Start: 01-03-2024 End: 01-03-2024 ambulatory Benjamin Mercado MD Work Phone: Hematology/Oncology Comment on above: Malignant neoplasm o f lower-outer quadrant of left breast of female, estrogen receptor positive (HCC) (Primary Dx); Encounter for screening for osteoporosis Start: 01-03-2024 End: 01-03-2024 Patient encounter procedure Benjamin Mercado MD Work Phone: Hematology/Oncology Start: 12-20-2023 End: 12-20-2023 ambulatory NINA MONTANA Not Available Start: 11-28-2023 End: 11-28-2023 ambulatory DO Mulugeta Gotti Work Phone: [facility] Work Phone: Start: 11-28-2023 End: 11-28-2023 Patient encounter procedure DO Mulugeta Gotti Work Phone: [facility] Work Phone: Start: 11-23-2023 Refill Benjamin Mercado MD Work Phone: Hematology/Oncology Comment on above: Refill Request Start: 11-12-2023 End: 11-12-2023 ambulatory MULUGETA GOTTI Not Available Start: 10-24-2023 End: 10-24-2023 ambulatory DO Mulugeta Gotti Work Phone: [facility] Work Phone: Start: 10-24-2023 End: 10-24-2023 Patient encounter procedure DO Mulugeta Gotti Work Phone: [facility] Work Phone: Start: 10-24-2023 End: 10-24-2023 Patient encounter procedure DO Mulugeta Gotti Work Phone: [facility] [place] Work Phone: Start: 10-24-2023 End: 10-24-2023 ambulatory DO Mulugeta Gotti Work Phone: [facility] Work Phone: Start: 10-04-2023 End: 10-04-2023 ambulatory Sharla Benitez Other [employer] Other Start: 10-04-2023 [facility] Start: 09-04-2023 End: 09-04-2023 ambulatory Sharla Benitez Other [employer] Other Start: 09-04-[address] [facility] Start: 08-29-2023 [facility] Weight Management f/u [facility] Start: 08-29-2023 Registered Recurring DO Mulugeta sheikh Work Phone: [facility] Work Phone: Start: 08-29-2023 End: 08-29-2023 ambulatory Mulugeta Gotti [facility] [employer] Other Start: 08-29-2023 End: 08-29-2023 Patient encounter procedure DO Mulugeta Gotti Work Phone: [facility] Work Phone: Start: 08-22-2023 End: 08-22-2023 ambulatory Lazara Barclay Other [employer] Other Start: 08-22-2023 Office outpatient vi sit 15 minutes Lazara Barclay [facility] Start: 08-22-2023 End: 08-22-2023 Patient encounter procedure DO Mulugeta Gotti Work Phone: [facility] Work Phone: Start: 08-07-2023 (PROC) PROCEDURE Prasanna Weems [facility] Start: 08-07-2023 End: 08-07-2023 ambulatory Prasanna Weems Other [employer] Other Start: 08-02-2023 End: 08-03-2023 ambulatory Pb Maria RUSSYuridia Facility: [place] Start: 08-02-2023 End: 08-02-2023 Patient encounter procedure Pb FOSS [facility] [place] Start: 07-30-2023 ambulatory Finesse TOBAR Facility: [facility] [place] Start: 07-25-2023 End: 07-25-2023 ambulatory Lazara Barclay Other [employer] Other Start: 07-25-2023 Office outpatient vi sit 15 minutes Lazara Barclay [facility] Start: 07-18-2023 (PROC) PROCEDURE Prasanna Weems [facility] Start: 07-18-2023 End: 07-18-2023 Admission to same day surgery center DO Mulugeta Gotti Work Phone: [facility] Work Phone: Start: 07-18-2023 End: 07-18-2023 ambulatory DO Mulugeta Gotti Work Phone: [facility] Work Phone: Start: 07-10-2023 End: 07-10-2023 Patient encounter procedure DO Mulugeta Gotti Work Phone: [facility] Work Phone: Start: 07-10-2023 End: 07-10-2023 ambulatory DO Mulugeta Gotti Work Phone: [employer] Other Start: 07-10-2023 Office outpatient vi sit 25 minutes Prasanna Weems [facility] Start: 06-22-2023 End: 06-22-2023 Patient encounter procedure DO Mulugeta Gotti Work Phone: [facility] Work Phone: Start: 06-22-2023 End: 06-22-2023 ambulatory DO Mulugeta Gotti Work Phone: [facility] Work Phone: Start: 05-28-2023 Registered Recurring DO Mulugeta sheikh Work Phone: [facility] Work Phone: Start: 05-28-2023 (FCCCWMNF/U) Weight Management [facility]u [facility] Start: 05-28-2023 End: 05-28-2023 ambulatory Sharla Benitez Other [employer] Other Start: 05-28-2023 Telephone encounter Sharla Hagenkendra [facility] Start: 05-19-2023 End: 05-19-2023 Emergency department patient visit DO Mulugeta Gotti Work Phone: [facility] Work Phone: Start: 05-17-2023 Telephone encounter Luis will MD Work Phone: Gastroenterology Comment on above: Patient Update (S/p ERCP with stent removal today) Start: 05-17-2023 ambulatory MULUGETA GOTTI Facility: [facility] Start: 05-17-2023 End: 05-17-2023 Subsequent hospital visit by physician Luis Xavier MD Work Phone: [facility] Endoscopy - ENDO Comment on above: Encounter for remova l of biliary stent [Z46.89] Start: 05-11-2023 ambulatory Luis Xavier MD Work Phone: [facility] - ENDO Start: 04-20-2023 End: 04-20-2023 ambulatory Sharla Benitez Other [employer] Other Start: 04-20-2023 Telephone encounter [facility] Comment on above: Results Start: 04-19-2023 End: 04-19-2023 ambulatory MULUGETA GOTTI Facility:[facility] Start: 04-18-2023 End: 04-18-2023 Patient encounter procedure DO Mulugeta Gotti Work Phone: [facility] [place] Work Phone: Start: 04-18-2023 End: 04-18-2023 ambulatory DO Mulugeta Gotti Work Phone: [facility] Work Phone: Start: 04-17-2023 End: 04-18-2023 ambulatory MULUGETA GOTTI Facility:[facility] Start: 04-16-2023 Registered Recurring DO Mulugeta sheikh Work Phone: [facility] Work Phone: Start: 04-16-2023 (FCCCWMNF/U) Weight Management f/u [facility] Start: 04-16-2023 End: 04-16-2023 ambulatory Sharla Benitez Other [employer] Other Start: 04-12-2023 ambulatory Shawn Prasad DO Work Phone: Gastgroenterology Comment on above: My symptoms Start: 04-10-2023 End: 04-10-2023 ambulatory Sharla Benitez Other [employer] Other Start: 04-10-2023 Telephone encounter Sharla Benitez [facility] Start: 04-04-2023 ([facility] RD FU) [facility] F/ U 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 Alicia Maxdione [facility] Start: 04-04-2023 End: 04-04-2023 ambulatory Alicia Saunders Other [employer] Other Start: 02-22-2023 End: 02-22-2023 ambulatory Sharla Benitez Other [employer] Other Start: 02-22-2023 Telephone encounter Sharla Benitez [facility] Start: 02-19-2023 ([facility] Weight Management f/u Sharla Benitez [facility] Start: 02-19-2023 End: 02-19-2023 ambulatory Sharla Benitez Other [employer] Other Start: 02-16-2023 End: 02-17-2023 ambulatory Jada X Orzech Facility[facility] Start: 02-16-2023 End: 02-17-2023 ambulatory Jada X Orzech Facility:[facility] Start: 02-16-2023 End: 02-16-2023 Lab Drop off Jada X [facility] Start: 02-16-2023 End: 02-16-2023 Patient encounter procedure Jada X Orzech [facility] Start: 2023 Telephone encounter Luis will MD Work Phone: Gastroenterology Comment on above: Follow Up (Needs rep eat ERCP for stent removal in 2 months) Start: 2023 ambulatory BLESSING YANCEY Facility:[facility] Start: 02-14-2023 ambulatory MULUGETA GOTTI Facility: [facility] Start: 02-09-2023 ambulatory SHAWN PRASAD JR Facili ty:[facility] Start: 02-09-2023 End: 02-09-2023 Subsequent hospital visit by physician [facility] Comment on above: Left without seen Start: 02-08-2023 ambulatory Luis Xavier MD Work Phone: [facility]oscopy - ENDO Start: 02-07-2023 Telephone encounter Shawn villagomez DO Work Phone: Gastroenterology Comment on above: Results Start: 02-06-2023 Telephone encounter Shawn villagomez DO Work Phone: Gastroenterology Comment on above: Procedure (Needs ERC P with Dr. Xavier) Start: 02-06-2023 End: 02-06-2023 ambulatory SHAWN PRASAD JR Facility:[facility] Start: 02-06-2023 End: 02-06-2023 Patient encounter procedure Shawn Prasad DO Work Phone: Gastgroenterology Comment on above: Choledocholithiasis (Primary Dx); RUQ abdominal pain; Irritable bowel syndrome with diarrhea Start: 01-11-2023 End: 01-11-2023 Emergency department patient visit DO Mulugeta Gotti Work Phone: [facility] Work Phone: Start: 01-08-2023 End: 01-08-2023 ambulatory DO Mulugeta Gotti Work Phone: [facility] Work Phone: Start: 01-08-2023 End: 01-08-2023 Patient encounter procedure DO Mulugeta Gotti Work Phone: [facility] [place] Work Phone: Start: 01-04-2023 End: 01-04-2023 ambulatory BENJAMIN MERCADO Facility:[facility] Start: 01-04-2023 End: 01-04-2023 ambulatory Benjamin Mercado MD Work Phone: Hematology/Oncology Comment on above: Malignant neoplasm o f lower-outer quadrant of left breast of female, estrogen receptor positive (HCC) (Primary Dx) Start: 01-04-2023 End: 01-04-2023 Patient encounter procedure Benjamin Mercado MD Work Phone: [facility] Start: 01-03-2023 End: 01-03-2023 ambulatory DO Mulugeta Gotti Work Phone: [facility] Work Phone: Start: 01-03-2023 End: 01-03-2023 Patient encounter procedure DO Mulugeta Gotti Work Phone: [facility] [place] Work Phone: Start: 12-25-2022 (FCCCWMNF/U) Weight Management f/u [facility] Start: 12-25-2022 End: 12-25-2022 ambulatory [facility] Other [employer] Other Start: 12-25-2022 Registered Recurring DO Mulugeta Wilkinson kori Work Phone: [facility] Work Phone: Start: 11-28-2022 End: 11-28-2022 ambulatory Rubia Mendosa Other [employer] Other Start: 11-28-2022 Refill Benjamin Mercado MD Work Phone: Hematology/Oncology Comment on above: Refill Request Start: 11-28-2022 Telephone encounter Rubia Mendosa [facility] Start: 10-30-2022 (FCCCWMNF/U) Weight Management f/u [facility] Start: 10-30-2022 End: 10-30-2022 ambulatory Sharla Missler Other [employer] Other Start: 10-16-2022 End: 10-16-2022 ambulatory [facility] Other [employer] Other Start: 10-16-2022 [facility] Start: 10-09-2022 End: 10-09-2022 ambulatory Sharlaher Hagenler Other [employer] Other Start: 10-09-2022 [facility]phone [facility] Start: 09-27-2022 (FCCCWMNF/U) [facility] f/[facility] Start: 09-27-2022 End: 09-27-2022 ambulatory Sharlaher Hagenler Other [employer] Other Start: 09-27-2022 IBT for Obesity init ial 30 min (Max charge 2 units) Alicia Saunders [facility] Start: 09-12-2022 End: 09-13-2022 ambulatory Finesse TOBAR Facility:[facility] Start: 09-12-2022 End: 09-12-2022 Patient encounter procedure Finesse TOBAR [facility] Start: 08-21-2022 (FCCCWMNF/U) [facility] f[facility] Start: 08-21-2022 End: 08-21-2022 ambulatory Sharlaher Hagenler Other [employer] Other Start: 08-17-2022 End: 08-18-2022 ambulatory Finesse TOBAR Facility:[facility] Start: 08-17-2022 End: 08-17-2022 Patient encounter procedure Finesse TOBAR [facility] Start: 08-15-2022 End: 08-15-2022 ambulatory Sharlaher Hagenler Other [employer] Other Start: 08-15-2022 Telephone encounter [facility] Start: 08-02-2022 End: 08-02-2022 ambulatory Aliciamanpreet Maxt Other [employer] Other Start: 08-02-2022 IBT FOR OBESITY GROU P 2-10 30M Alicia Saunders [facility] Start: 08-02-2022 Telephone encounter Jose Joshua [facility] Start: 07-25-2022 End: 07-25-2022 Patient encounter procedure RUBIA MEJÍA [facility] Start: 07-14-2022 End: 07-14-2022 ambulatory Sharla Benitez Other [employer] Other Start: 07-14-2022 Nutrition therapy Sharla [facility]itez [facility] Start: 07-06-2022 End: 07-06-2022 ambulatory Benjamin Mercado MD Work Phone: Hematology/Oncology Comment on above: Malignant neoplasm o f lower-outer quadrant of left breast of female, estrogen receptor positive (HCC) (Primary Dx) Start: 07-06-2022 End: 07-06-2022 Patient encounter procedure Benjamin Mercado MD Work Phone: [facility] Start: 06-30-2022 End: 06-30-2022 ambulatory Alicia Fitt Other [employer] Other Start: 06-30-2022 Telephone encounter Alicia Fields [facility] Start: 06-21-2022 End: 06-21-2022 ambulatory DO Mulugeta Gotti Work Phone: [facility] Work Phone: Start: 06-21-2022 End: 06-21-2022 Patient encounter procedure DO Mulugeta Gotti Work Phone: [facility] [place] Start: 06-21-2022 End: 06-21-2022 ambulatory DO Mulugeta Shen Work Phone: [facility] Work Phone: Start: 06-21-2022 End: 06-21-2022 Patient encounter procedure DO Mulugeta Gotti Work Phone: [facility] Start: 05-28-2022 End: 05-28-[address] MULUGETA GOTTI Facility: Start: 05-15-2022 End: 05-15-2022 Patient encounter procedure Finesse Rey EKATERINA [facility] Start: 04-27-2022 End: 04-27-2022 Patient encounter procedure DO Mulugeta Shen Work Phone: [facility] Start: 04-24-2022 End: 04-24-2022 [facility] Start: 04-24-2022 End: 04-24-2022 Patient encounter procedure Harris Quintanilla [facility] Start: 02-02-2022 End: 02-02-2022 ambulatory Prasanna Weems Other [employer] Other Start: 02-02-2022 Office outpatient vi sit 15 minutes Prasanna Weems [facility] Start: 01-25-2022 (Procedure) Short Prasanna Weems [facility] Start: 01-25-2022 End: 01-25-2022 ambulatory Prasanna Weems Other [employer] Other Start: 01-20-2022 End: 01-20-2022 ambulatory Prasanna Weems Other [employer] Other Start: 01-20-2022 Office outpatient vi sit 15 minutes Prasanna Dank [facility] [place] Start: 01-17-2022 End: 01-17-2022 Lab Drop off [facility] Start: 01-17-2022 End: 01-17-2022 Patient encounter procedure RUBIA Jose RAMOSRY [facility] Start: 12-14-2021 Telephone encounter Benjamin mcneil MD Work Phone: Hematology/Oncology Comment on above: Lab Orders Start: 11-16-2021 End: 11-17-[address] CHANELLE MEEK Facility:[facility] Start: 11-16-2021 End: 11-16-[address] MULUGETA GOTTI Facility:[facility] Start: 09-12-2021 End: 09-12-2021 ambulatory Prasanna Dank Other [employer] Other Start: 09-12-2021 Office outpatient vi sit 15 minutes Prasanna Dank [facility] Start: 08-19-2021 End: 08-19-2021 ambulatory Prasanna Dank Other [employer] Other Start: 08-19-2021 Office outpatient vi sit 15 minutes Prasanna Dank [facility] [place] Start: 02-26-2021 End: 02-26-2021 Patient encounter procedure Mulugeta Gotti Work Phone: -MRI [facility] Start: 02-22-2021 End: 02-22-2021 Patient encounter procedure Mulugeta Gotti Work Phone: -XRay [facility] Start: 01-26-2021 End: 01-26-2021 Admission to same day surgery center Mulugeta Gotti Work Phone: -[facility] Start: 01-24-2021 End: 01-24-2021 Patient encounter procedure Mulugeta Gotti Work Phone: -Pre-Surgical Testing Start: 11-02-2020 End: 11-02-2020 Patient encounter procedure [facility] Start: 10-22-2020 End: 10-22-2020 Patient encounter procedure [facility] Start: 10-01-2020 End: 10-01-2020 Admission to day surgery Mulugeta Gotti [place] [facility] [place] Start: 09-29-2020 End: 09-29-2020 Patient encounter procedure Mulugeta Gotti Pre-Surgica l Testing Start: 09-24-2020 End: 09-24-2020 Departed Referred Mulugeta Gotti -Pre-Surgical Testin g Start: 09-24-2020 End: 09-24-2020 Patient encounter procedure uMlugeta Gotti Pre-Surgica l Testing Start: 09-09-2020 End: 09-09-2020 Emergency department patient visit [facility] Start: 08-31-2020 End: 08-31-2020 Admission to day surgery [facility] Start: 08-23-2020 End: 08-23-2020 Patient encounter procedure Mulugeta Gotti [facility] Start: 08-20-2020 End: 08-20-2020 Patient encounter procedure [facility] Start: 08-12-2020 End: 08-12-2020 Patient encounter procedure [facility]geta [facility] Medical Equipment Procedure Code Equipment Code Equipment Origin al Text Equipment Identifier Dates Biopsy, breast, with lumpectomy Imaging lesion localization marker, implantable [id number] FDA Start: 10-01-2020 Arthroplasty, knee, total, minimally invasive [id number] FDA Start: 11-03-2019 Arthroplasty, knee, total, minimally invasive Uncoated knee femur prosthesis [id number] FDA Start: 11-03-2019 Arthroplasty, knee, total, minimally invasive Tibial insert ()[id number] FDA Start: 11-03-2019 Arthroplasty, knee, total, minimally invasive Polyethylene patella prosthesis ()[id number] FDA Start: 11-03-2019 Arthroplasty, knee, total, minimally invasive Knee stem ()[id number] FDA Start: 11-03-2019 Arthroplasty, knee, total, minimally invasive Uncoated knee tibia prosthesis, metallic ()[id number] FDA Start: 11-03-2019 See Instructions , 30 gm, Refill(s) 1, apply a pea-sized amount 3x weekly, [facility], 167, cm, 07/20/21 8:40:00 EST, Height/Length Dosing, 136, kg, 07/20/21 8:40:00 EST, Weight Dosing Start: 09-09-2021 See Instructions , 30 gm, Refill(s) 1, apply a pea-sized amount 3x weekly, [facility], 167, cm, 07/20/21 8:40:00 EST, Height/Length Dosing, 136, kg, 07/20/21 8:40:00 EST, Weight Dosing Start: 09-09-2021 Stent Wallflex 1 0mm 8.5fr Permalume 60mm Biliary Rapid Exchange Self Expand - [id number] Start: 2023 Stent Wallflex 1 0mm 8.5fr Permalume 60mm Biliary Rapid Exchange Self Expand - [id number] Start: 05-17-2023 Goals Date Patient Goal Desired Activity /State Immunizations Immunization Date Immunization Notes Care Provider Rebecca muñoz 04-29-2021 SARS-CoV-2 (COVID-19 ) Ad26 vaccine, recombinant RUBIA MEJÍA [facility] 04-27-2021 COVID-19 Pfizer Prasanna Weems Other [facility] 04-08-2021 SARS-CoV-2 (COVID-19 ) Ad26 vaccine, recombinant RUBIA MEJÍA [facility] 04-06-2021 COVID-19 Pfizer Prasanna Dank Other [facility] 10-07-2019 influenza virus vaccine, unspecified formulation RUBIA MEJÍA [facility] 10-07-2019 Influenza, injectabl e, Madin [place] Canine Kidney, preservative free, quadrivalent DO Mulugeta Gotti Work Phone: [facility] 10-07-2019 Influenza, injectabl e, Madin [place] Canine Kidney, quadrivalent with preservative Prasanna Dank Other [facility] 06-13-2018 influenza virus vaccine, unspecified formulation RUBIA MEJÍA [facility] 06-13-2018 influenza, injectabl e, quadrivalent, contains preservative Benjamin Mercado MD Work Phone: [facility] 06-13-2018 influenza, injectabl e, quadrivalent, preservative free Benjamin Mercado MD Work Phone: [facility] 10-18-2017 pneumococcal polysaccharide vaccine, 23 valent Prasanna Weems Other [facility] 10-05-2017 influenza, seasonal, injectable, preservative free Benjamin Mercado MD Work Phone: [facility] 10-05-2017 tetanus toxoid, reduced diphtheria toxoid, and acellular pertussis vaccine, adsorbed Benjamin Mercado MD Work Phone: [facility] 10-03-2017 diphtheria, tetanus toxoids and acellular pertussis vaccine Prasanna Weems Other [facility] 10-03-2017 diphtheria, tetanus toxoids and acellular pertussis vaccine, unspecified formulation DO Mulugeta Gotti Work Phone: [facility] 10-03-2017 influenza virus vaccine, unspecified formulation RUBIA ALFONZO [facility] 10-03-2017 influenza, high dose seasonal, preservative-free Prasanna Dank Other [facility] 10-03-2017 influenza, injectabl e, quadrivalent, preservative free Sharla Benitez Other [employer] Other 10-26-2016 influenza virus vaccine, unspecified formulation RUBIA MEJÍA [facility] 10-26-2016 influenza, high dose seasonal, preservative-free Prasanna Dank Other [facility] 10-26-2016 influenza, injectabl e, quadrivalent, preservative free Benjamin Mercado MD Work Phone: [facility] 10-26-2016 tetanus and diphther ia toxoids, adsorbed, preservative free, for adult use (5 Lf of tetanus toxoid and 2 Lf of diphtheria toxoid) DO Mulugeta Gotti Work Phone: [facility] 10-26-2016 tetanus toxoid, reduced diphtheria toxoid, and acellular pertussis vaccine, adsorbed Prasanna Dank Other [facility] 10-06-2016 tetanus and diphther ia toxoids, adsorbed, preservative free, for adult use (2 Lf of tetanus toxoid and 2 Lf of diphtheria toxoid) RUBIA ALFONZO [facility] 10-06-2016 tetanus and diphther ia toxoids, adsorbed, preservative free, for adult use (5 Lf of tetanus toxoid and 2 Lf of diphtheria toxoid) Benjamin Mercado MD Work Phone: [facility] NEGATED: Highlighted row has not occurred!08-02-2023 influenza virus vaccine, unspecified formulation Pb SOLANOYuridia [facility] [place] Medications Current Medications Medication Drug Class(es) Dates Sig (Normalized) Sig (Original) 0.5 ML semaglutide 1 MG/ML Auto-Injector [Wegovy] (10 sources) Start: 09-27-2022 inject 0.5 mL by subcutaneous injection every week Wegovy 0.5 MG/0.5ML 0.5 mL Subcutaneous once weekly for 28 days Sep, Active inject 0.5 mg by sub cutaneous injection every week Wegovy 0.5 MG/0.5ML 0.5mg Subcutaneous once weekly for 90 days Active Aimovig SureClick 70 mg/mL subcutaneous solution (2 sources) Start: 05-12-2020 inject 70 mg by subcutaneous injection every month Aimovig SureClick 70 mg/mL subcutaneous solution 70 mg, SubCutaneous, qMonth, Refills(s) 0, Migraine headache Start Date: 05/12/20 Status: Ordered [id number] 200 actuat albuterol 0.09 mg/actuat metered dose inhaler (18 sources) beta2-Adrener gic Agonist Start: 05-19-2023 Albuterol Sulfate (Ventolin Hfa) 90 mcg/actuation HFA aerosol inhaler Active 1 INH INHALATION EVERY 4-6 HOURS 6.7 May 19, 2023 12:00am take 1 puff(s) by in halation every four to six hours as needed for wheezing Albuterol Sulfate HFA 108 (90 Base) MCG/ACT INHALE 1 PUFF EVERY 4-6 HOURS NEEDED FOR SHORTNESS OF BREATH OR WHEEZING Inhalation for 30 Days Active take 1 puff(s) by in halation every four to six hours as needed for wheezing Albuterol Sulfate HFA 108 (90 Base) MCG/ACT INHALE 1 PUFF EVERY 4-6 HOURS NEEDED FOR SHORTNESS OF BREATH OR WHEEZING Inhalation for 30 Days Active take 1 puff(s) by in halation every four to six hours as needed for wheezing Albuterol Sulfate HFA 108 (90 Base) MCG/ACT INHALE 1 PUFF EVERY 4-6 HOURS NEEDED FOR SHORTNESS OF BREATH OR WHEEZING Inhalation for 30 Days Active amoxicillin 500 mg oral tablet (20 sources) Penicillin-class Antibacterial Start: 12-31-2023 take 2000 mg by mouth once Amoxicillin Active 2000 MG PO once 4 1 December 31, 2023 12:00am Start: 11-28-2022 Amoxicillin 50 0 MG Take 2 grams 1 hour before dental procedure Orally as directed for 1 days Nov, Not-Taking/PRN anastrozole 1 mg oral tablet (20 sources) Aromatase Inhibitor Start: 12-07-2021 End: 11-23-2023 take 1 mg by mouth once daily Anastrozole Active 1 MG PO Daily July 18, 2023 1:00am Comment on above: Take 1 tablet by [facility] once daily. TAKE ONE TABLET BY OUT EVERY DAY take 1 tablet by [facility] once daily {1 (ascorbic acid 7540 MG / polyethylene glycol 3350 51627 MG / potassium chloride 1200 MG / sodium ascorbate 03657 MG / sodium chloride 3200 MG Powder for Oral Solution) / 1 (polyethylene glycol 3350 025424 MG / potassium chloride 1000 MG / sodium chloride 2000 MG / sodium sulfate 9000 MG Powder for Oral Solution) } Pack [Plenvu] (6 sources) Osmotic Laxative, Vitamin C Start: 01-19-2021 Plenvu 140 GM dose 1 pouch at 4pm, dose 2 pouch A & B at 11pm Orally BID for 1 days BIN:[id number] PCN: [id number] GROUP:[id number] ID:[id number] January, Active Start: 01-19-2021 Plenvu 140 GM dose 1 pouch at 4pm, dose 2 pouch A & B at 11pm Orally BID for 1 days BIN:[id number]: CNRXGROUP:[id number] January, Active Calcium Carbonate / vitamin D3 (14 sources) calcium carbonat e/vitamin D3 (CALCIUM WITH VITAMIN D ORAL) Take by mouth once daily. 0 Active Comment on above: Take by mouth once d aily. carBAMazepine 200 mg oral tablet (20 sources) Mood Stabilizer carBAMazepine (T EGRETOL) 200 mg tablet Take 50 mg by mouth once daily. 0 Active carBAMazepine (T EGRETOL) 200 mg tablet Take by mouth. 0 Active Comment on above: Take by mouth. colestipol hydrochloride 1000 mg oral tablet (7 sources) Bile Acid Sequestrant Start: 3 End: 3 take 2 tablets by mouth once daily colestipol (COLESTID) 1 gram tablet Take 2 tablets by mouth once daily. 60 tablet 2 04/17/2023 Active Comment on above: Take 2 tablets by mo [facility] once daily. NXZI-QLCO-WRAZRWN-FOS- BROMELN ORAL (17 sources) [id number]-[id number] E- FOS-BROMELN ORAL Take by mouth. 0 Active Comment on above: Take by mouth. Cranberry preparation (20 sources) Non-Standardized Food Allergenic Extract, Non-Standardized Plant Allergenic Extract Cranberry 94300 MG as directed Orally Active CRANBERRY cyanocobalamin, vitamin B-12, (VITAMIN B-12 ORAL) (14 sources) cyanocobalamin, vitamin B-12, (VITAMIN B-12 ORAL) Take by mouth once daily. 0 Active Comment on above: Take by mouth once d aily. d-mannose (4 sources) Start: 10-24-19 take 2 capsules by mouth once daily d-mannose Active 2 CAP PO Daily October 24, 2023 1:00am Start: 10-24-2023 take 2 capsules by out once daily d-mannose Active 2 CAP PO Daily October 24, 2023 12:00am diclofenac sodium 75 mg delayed release oral tablet (20 sources) Nonsteroidal Anti-inflammatory Drug Start: 10-23-2023 apply 2 g topically twice daily Diclofenac Sodium Active 2 GM TOPICAL Twice daily October 23, 2023 1:00am Start: 10-23-2023 take 75 mg by mouth twice cally y Diclofenac Sodium Active 75 MG PO Twice daily October 23, 2023 1:00am Start: 08-19-2021 take 1 tablet by [facility] every twelve hours Diclofenac Sodium 75 MG 1 tablet as needed Orally Twice a day for 30 days PRN Aug, Active Start: 04-21-2021 Diclofenac Sod ium 1 % as directed topically 2-3 grams to painful areas 2-3 times daily for 30 days Apr, Active dicyclomine hydrochloride 20 mg oral tablet (10 sources) Anticholinergic Start: 04-17-2023 End: 07-16-2023 take 1 tablet by mouth twice daily dicyclomine (BENTYL) 20 mg tablet Take 1 tablet by mouth twice daily. 60 tablet 2 04/17/2023 07/16/2023 Active Start: 04-16-2023 take 2 tablets by mo [facility] twice daily Start: 02-06-2023 End: 03-08-2023 take 1 tablet by mouth three times daily dicyclomine (BENTYL) 20 mg tablet Indications: Choledocholithiasis , RUQ abdominal pain , Irritable bowel syndrome with diarrhea Take 1 tablet by mouth three times daily. 90 tablet 0 02/06/2023 03/08/2023 Active Comment on above: Take 1 tablet by [facility] three times daily. Take 1 tablet by [facility] twice daily. estrogens, conjugated (group home) 0.625 mg/ml vaginal cream (20 sources) Estrogen Start: 09-09-2021 conjugated estrogens 0.625 mg/g vaginal cream with applicator See Instructions, 30 gm, Refill(s) 1, apply a pea-sized amount 3x weekly, [facility], 167, cm, 07/20/21 8:40:00 EST, Height/Length Dosing, 136, kg, 07/20/21 8:40:00 EST, Weight Dosing Start Date: 09/09/21 Status: Ordered Start: 06-08-2021 conjugated est rogens (PREMARIN) vaginal cream See Instructions, 30 gm, Refill(s) 1, apply a pea-sized amount with the fingertip topically to the urethra and just inside the labia, [facility], 167, cm, 06/08/21 8:49:00 EDT, Height/Length Dosing, 136, kg, 06/08/21 8:49:00 EDT, We... 0 06/08/2021 Active Comment on above: See Instructions, 30 gm, Refill(s) 1, apply a pea-sized amount with the fingertip topically to the urethra and just inside the labia, [facility], 167, cm, 06/08/21 8:49:00 EDT, Height/Length Dosing, 136, kg, 06/08/21 8:49:00 EDT, We... fluconazole 150 mg oral tablet (7 sources) Azole Antifungal Start: 2 take 1 tablet by mouth once Diflucan 150 mg Tab 150 mg = 1 tab(s), Oral, Once, # 1 tab(s), Refills(s) 0, Pharmacy: [facility], 167, cm, 04/24/22 15:08:00 EDT, Height/Length Dosing, 136, kg, 04/24/22 15:08:00 EDT, Weight Dosing Start Date: 04/28/22 Status: Ordered Fluconazole 150 MG 1 tablet Orally Active gabapentin 300 mg oral capsule (20 sources) Anti-epileptic Agent Start: 10-20-2019 take 300 mg by mouth once daily at bedtime Gabapentin Active 300 MG PO Daily at bedtime October 20, 2019 2:42pm Start: 10-20-2019 End: 07-18-2023 take 1 capsule by mouth three times daily Gabapentin (Neurontin) 300 mg Capsule Discontinued 300 MG PO Three times daily October 20, 2019 1:00am July 18, 2023 10:44am Comment on above: Take 300 mg by mouth three times daily. green tea leaf extract (4 sources) Start: 10-24-2023 take 6000 mg by mouth once daily green tea leaf extract Active 6000 MG PO Daily October 24, 2023 1:00am Start: 10-24-2023 take 6000 mg by mouth once rhina ly green tea leaf extract Active 6000 MG PO Daily October 24, 2023 12:00am ibuprofen 800 mg oral tablet (20 sources) Nonsteroidal Anti-inflammatory Drug Start: 10-23-2023 take 1 tablet by mouth three times daily Ibuprofen (Ibu) 800 mg tablet Active 800 MG PO Three times daily October 23, 2023 1:46pm Start: 12-07-2021 End: 10-23-2023 take 1 tablet by mouth twice daily Ibuprofen (Ibu) 800 mg tablet Discontinued 800 MG PO Twice daily December 07, 2021 12:00am October 23, 2023 2:00pm Start: 12-06-2021 End: 12-07-2021 Ibuprofen Discontinued 800 M G PO Twice daily December 06, 2021 12:14am December 07, 2021 1:21pm do not exceed 4 doses in a 24 hour period Start: 10-01-2020 End: 12-06-2021 Ibuprofen Discontinued 600 M G PO EVERY 4-6 HOURS 16 06October 01, 2020 1:00am December 06, 2021 12:14am do not exceed 4 doses in a 24 hour period take 1 tablet by [facility] three times daily at mealtime as needed Ibuprofen 800 MG 1 tablet with food or milk as needed Orally Three times a day Active L.acid/L.casei/B.bif/B.kulwant/F OS (PROBIOTIC BLEND ORAL) (17 sources) L.acid/L.casei/B .bif/B.kulwant/FOS (PROBIOTIC BLEND ORAL) Take by mouth. 0 Active Comment on above: Take by mouth. Lactobacillus Combination No .4 (Probiotic) 3 billion cell capsule (4 sources) Sta rt: take 3 capsules by mouth once daily Lactobacillus Combination No.4 (Probiotic) 3 billion cell capsule Active 3000 MMU CELLS PO Daily October 23, 2023 1:00am administer with a meal Start: 10-23-2023 take 3 capsules by m outh once daily Lactobacillus Combination No.4 (Probiotic) 3 billion cell capsule Active 3000 MMU CELLS PO Daily October 23, 2023 12:00am administer with a meal montelukast 10 mg oral tablet (6 sources) Leukotriene Receptor Antagonist take 1 tablet by mouth every twenty-four hours Montelukast Sodium 10 MG 1 tablet Orally Once a day Active nitrofurantoin, macrocrystals 25 mg / nitrofurantoin, monohydrate 75 mg oral capsule (19 sources) Nitrofuran Antibacterial Start: 023 End: 023 take 1 capsule by mouth twice daily Macrobid 100 mg Cap 100 mg = 1 cap(s), Oral, BID, X 5 day(s), # 10 cap(s), Refills(s) 0, Pharmacy: [facility]/pharmacy #[id number], 167, cm, 02/16/23 12:08:00 EDT, Height/Length Dosing, 117, kg, 02/16/23 12:08:00 EDT, Weight Dosing Start Date: 02/16/23 Stop Date: 02/21/23 Status: Ordered 24 hr oxybutynin chloride 5 mg extended release oral tablet (20 sources) Cholinergic Muscarinic Antagonist Start: 022 End: 024 take 5 mg by mouth once daily Oxybutynin Chloride Active 5 MG PO Daily October 23, 2023 1:00am Start: 09-09-2020 End: 11-28-2021 take 5 mg by mouth twice daily Oxybutynin Chloride Dis continued 5 MG PO Twice daily September 09, 2020 1:00am November 28, 2021 1:16pm take 1 tablet by yuni twice daily oxybutynin ER (DITROPAN XL) 10 mg 24 hr tablet Take 10 mg by mouth twice daily. 0 Active Comment on above: Take 10 mg by mouth twice daily. Ozempic (0.25 mg or 0.5 mg dose) (8 sources) Start: 05-12-2020 Ozempic (0.25 mg or 0.5 mg dose) 0.5 mg, SubCutaneous, Sunday, Refills(s) 0 Start Date: 05/12/20 Status: Ordered phenazopyridine hydrochloride 100 mg oral tablet (19 sources) Start: 02-16-2023 End: 02-19-2023 take 1 tablet by mouth three times daily as needed Pyridium 100 mg Tab 100 mg = 1 tab(s), Oral, TID, PRN Urinary discomfort, X 3 day(s), # 9 tab(s), Refills(s) 0, Pharmacy: [facility]/pharmacy #[id number], 167, cm, 02/16/23 12:08:00 EDT, Height/Length Dosing, 117, kg, 02/16/23 12:08:00 EDT, Weight Dosing Start Date: 02/16/23 Stop Date: 02/19/23 Status: Ordered Start: 04-24-2022 End: 04-30-2022 take 1 tablet by mouth three times daily as needed Pyridium 100 mg Tab 100 mg = 1 tab(s), Oral, TID, PRN Urinary discomfort, X 3 day(s), # 9 tab(s), Refills(s) 1, Pharmacy: [facility]/pharmacy #[id number], 167, cm, 04/24/22 15:08:00 EDT, Height/Length Dosing, 136, kg, 04/24/22 15:08:00 EDT, Weight Dosing Start Date: 04/24/22 Stop Date: 04/30/22 Status: Ordered Start: 04-12-2021 End: 11-28-2021 take 1 tablet by mouth three times daily Phenazopyridine (Pyridium) 200 mg tablet Discontinued 200 MG PO Three times daily April 12, 2021 12:00am November 28, 2021 1:16pm administer with a full glass of water with each meal phentermine hydrochloride 37.5 mg oral tablet (20 sources) Sympathomimetic Amine Anorectic Start: 10-24-2023 End: 11-28-2023 take 37.5 mg by mouth once daily 30 minutes after breakfast Phentermine Active 37.5 MG PO Every morning November 28, 2023 3:34pm must administer 30 minutes before or 1-2 hours after breakfast Start: 11-08-2018 End: 12-04-2018 take 1 tablet by mouth once daily Phentermine (Adipex-P) 37.5 mg Tablet Discontinued 37.5 MG PO Daily November 08, 2018 1:00am December 04, 2018 8:25am Phentermine HCl (ADIPEX-P) 37.5 mg capsule Take 37.5 mg by mouth. 0 Active Comment on above: Take 37.5 mg by mout h. 24 hr phentermine 7.5 mg / topiramate 46 mg extended release oral capsule (20 sources) Sympathomimetic Amine Anorectic Start: take 1 capsule by mouth every twenty-four hours Qsymia 7.5-46 MG 1 capsule Orally Once a day for 30 days May, Active Start: 05-28-2023 take 1 capsule by mo uth once daily as needed, then take 1-14 capsules by mouth once daily as needed Qsymia 3.75-23 MG 1 capsule days 1-14 Orally Once a day for 14 days May, Not-Taking/PRN Start: 05-27-2023 Qsymia 7.5 mg- 46 mg oral capsule, extended release Refill(s) 0, Oral, 0 Refill(s) Start Date: 05/27/23 Status: Ordered probiotic (20 sources) probiotic as dir ected Active rizatriptan 10 mg disintegrating oral tablet (20 sources) Serotonin-1b and Serotonin-1d Receptor Agonist Start: 09-09-2020 Rizatriptan (Maxalt-Overlay Operator) 10 mg Tablet,Disintegrating Active 10 MG PO As Directed September 09, 2020 1:00am Start: 05-12-2020 Maxalt 10 mg T ab 10 mg = 1 tab(s), Oral, may repeat dose once in 2 hours, Refills(s) 0 Start Date: 05/12/20 Status: Ordered Ozempic (2 sources) Start: 02-16-2023 Ozempic SubCutaneous, qWeek, Refill(s) 0 Start Date: 02/16/23 Status: Ordered tiZANidine 4 mg oral tablet (20 sources) Central alpha-2 Adrenergic Agonist Start: 10-23-2023 take 1 tablet by mouth three times daily Tizanidine (Zanaflex) 4 mg tablet Active 4 MG PO Three times daily October 23, 2023 1:48pm Start: 08-02-2023 tizanidine Ref ills(s) 0 Start Date: 08/02/23 Status: Ordered Start: 12-07-2021 End: 10-23-2023 take 1 tablet by mouth once daily Tizanidine (Zanaflex) 4 mg tablet Discontinued 4 MG PO Daily December 07, 2021 12:00am October 23, 2023 2:00pm Start: 09-09-2020 End: 12-07-2021 take 1 capsule by mouth three times daily Tizanidine (Zanaflex) 4 mg Capsule Discontinued 4 MG PO Three times daily September 09, 2020 1:00am December 07, 2021 1:32pm take 1 capsule by mo [facility] once daily at bedtime tiZANidine HCl 2 mg capsule Take 2 mg by mouth daily at bedtime. 0 Active [facility] tiZANidine HCl 4 MG 1 tablet as needed Orally Three times a day Active Comment on above: Take 2 mg by mouth d aily at bedtime. topiramate 50 mg oral tablet (20 sources) Start: 11-28-2023 Topiramate Active 50 MG PO Daily November 28, 2023 12:00am Take half tab daily days 1 through 7 take 3 tablets by mo [facility] every twenty-four hours Topamax 25 MG 3 tablets Orally Once a da y Not-Taking/PRN traZODone hydrochloride 50 mg oral tablet (20 sources) Serotonin Reuptake Inhibitor Start: 08-02-2023 take 1 tablet by mouth twice daily traZODONE 50 mg Tab 50 mg = 1 tab(s), Oral, BID, Refills(s) 0 Start Date: 08/02/23 Status: Ordered Start: 09-09-2020 take 50 mg by mouth once daily at bedtime Trazodone Active 50 MG PO Daily at bedtime September 09, 2020 1:00am trazodone HCl (T RAZODONE ORAL) Take by mouth daily at bedtime. 0 Active Comment on above: Take by mouth daily at bedtime. vitamin B12 (12 sources) Vitamin B12 Start: 10-23-2023 take 1000 ug by mouth once daily Cyanocobalamin (Vitamin B-12) Active 1000 MCG PO Daily October 23, 2023 1:00am Start: 10-23-2023 take 1000 ug by mout h once daily Cyanocobalamin (Vitamin B-12) Active 1000 MCG PO Daily October 23, 2023 12:00am take 1 tablet by [facility] every twenty-four hours Vitamin B12 1000 MCG 1 tablet Orally Once a day Active take 2 tablets by mo uth every twenty-four hours Vitamin B 12 500 MCG 2 tablets Orally Once a day Not-Taking/PRN Vitamin B12 1000 MCG (13 sources) take 1 tablet by mouth once daily Vitamin B12 1000 MCG 1 tablet Orally Once a day Active WEGOVY 0.5 mg/0.5 mL pen injector (14 sources) Start: WEGOVY 0.5 mg/0.5 mL pen injector Administer the contents of one prefilled pen subcutaneously once weekly as directed 0 11/24/2022 Active Comment on above: Administer the maggie nts of one prefilled pen subcutaneously once weekly as directed Completed/Discontinued Medications Medication Drug Class(es) Dates Sig (Normalized) Sig (Original) 0.5 ML semaglutide 0.5 MG/ML Auto-Injector [Wegovy] (20 sources) Start: 07-14-2022 Wegovy 0.25 MG/0.5ML 0.25mg once weekly for four weeks, then increase to 0.5mg once weekly for four weeks Subcutaneous once weekly for 28 days Aware that medication is not currently available from batting machine operator. Assessing for insurance coverage. Thanks Jul, Not-Taking Start: 07-14-2022 Wegovy 0.25 MG /0.5ML 0.25mg once weekly for four weeks, then increase to 0.5mg once weekly for four weeks Subcutaneous once weekly for 28 days Aware that medication is not currently available from [facility] [employer]. Assessing for insurance coverage. Thanks Jul, Active 0.5 ML semaglutide 2 MG/ML Auto-Injector [Wegovy] (15 sources) Start: 12-25-2022 inject 1 mg by subcutaneous injection every week Wegovy 1 MG/0.5ML 1mg Subcutaneous once weekly for 28 days Dec, Not-Taking Start: 12-25-2022 inject 1 mg by subcu taneous injection every week Wegovy 1 MG/0.5ML 1mg Subcutaneous once weekly for 28 days Dec, Active 0.75 ML semaglutide 2.27 MG/ML Auto-Injector [Wegovy] (12 sources) Start: 02-23-2023 inject 1.7 mg by subcutaneous injection every week Wegovy 1.7 MG/0.75ML 1.7mg Subcutaneous once weekly for 28 days Feb, Not-Taking Start: 02-23-2023 inject 1.7 mg by sub cutaneous injection every week Wegovy 1.7 MG/0.75ML 1.7mg Subcutaneous once weekly for 28 days Feb, Active acetaminophen 325 mg oral tablet (20 sources) Start: 11-05-2019 End: 09-09-2020 take 650 mg by mouth every four hours Acetaminophen Discontinued 650 MG PO Q4H 0 November 05, 2019 1:00am September 09, 2020 12:55pm acetaminophen 325 mg / oxyCODONE hydrochloride 5 mg oral tablet (20 sources) Opioid Agonist Start: 10-01-2020 End: 01-26-2021 take 1 tablet by mouth every four to six hours Oxycodone-Acetamin ophen (Percocet) 5-325 mg tablet Discontinued 1 TAB PO EVERY 4-6 HOURS 10 October 01, 2020 January 26, 2021 11:29am amoxicillin 875 mg / clavulanate 125 mg oral tablet (15 sources) Penicillin-class Antibacterial Start: 12-08-2021 End: 01-25-2022 take 1 tablet by mouth twice daily Amoxicillin-Pot Clavulanate Discontinued 1 TAB PO Twice daily 8 December 08, 2021 12:00am January 25, 2022 10:34am azithromycin 250 mg oral tablet (20 sources) Macrolide Antimicrobial Start: 09-09-2020 End: 09-24-2020 take 2-5 tablets by mouth once daily Azithromycin (Zithromax Z-Montrell) 250 mg Tablet Discontinued 1 dose pk PO as directed on dose pack September 09, 2020 1:00am September 24, 2020 4:24pm take 500 mg today (day 1), then 250 mg for 4 days (days 2-5) baclofen 10 mg oral tablet (20 sources) gamma-Aminobutyric Acid-ergic Agonist Start: 09-01-2016 End: 09-09-2020 take 10 mg by mouth three times daily Baclofen Discontinued 10 MG PO Three times daily April 30, 2018 12:00am September 09, 2020 12:55pm biotin 10 mg oral tablet (20 sources) Start: 10-24-2018 End: 10-20-2019 take 1 tablet by mouth once daily Biotin Discontinued 1 TAB PO Daily October 24, 2018 1:00am October 20, 2019 3:39pm cephalexin 500 mg oral capsule (20 sources) Cephalosporin Antibacterial Start: 01-11-2023 End: 07-18-2023 take 500 mg by mouth every six hours Cephalexin Discontinued 500 MG PO Q6H 40 January 11, 2023 12:00am July 18, 2023 10:45am Start: 04-24-2022 End: 05-01-2022 take 1 capsule by mouth twice daily Keflex 500 mg Cap 500 mg = 1 cap(s), Oral, BID, X 7 day(s), # 14 cap(s), Refills(s) 0, Pharmacy: [facility]/pharmacy #[id number], 167, cm, 04/24/22 15:08:00 EDT, Height/Length Dosing, 136, kg, 04/24/22 15:08:00 EDT, Weight Dosing Start Date: 04/24/22 Stop Date: 05/01/22 Status: Ordered Start: 04-12-2021 End: 08-24-2021 take 500 mg by mouth twice daily Cephalexin Discontinued 500 MG PO Twice daily 10 April 12, 2021 12:00am August 24, 2021 10:14am Start: 10-18-2018 End: 10-24-2018 take 1 g by mouth every twelve hours Cephalexin (Keflex) 500 mg capsule Discontinued 1 GM PO Q12H 28 October 18, 2018 1:00am October 24, 2018 9:29am space evenly during waking hours take 1 tablet by yuni th every twelve hours Cephalexin 500 mg tab Take 500 mg by mouth every 12 hours. 0 Active Comment on above: Take 500 mg by mouth every 12 hours. ciprofloxacin 500 mg oral tablet (2 sources) Quinolone Antimicrobial Start: 07-26-20 Cipro 500 mg Tab 500 mg = 1 tab(s), Oral, As Directed, Patient to take 1 tab the day before procedure and the 2nd tab the day of procedure once completed, # 2 tab(s), Refills(s) 0, Pharmacy: [facility], 167, cm, 07/25/22 13:24:00 EST, Height/Elías... Start Date: 07/26/22 Status: Ordered docusate sodium 100 mg oral capsule (20 sources) Start: 10-23-19 End: 10-24-19 take 100 mg by mouth once daily Docusate Sodium Discontinued 100 MG PO Daily October 23, 2023 1:00am October 24, 2023 4:18pm Start: 11-05-2019 End: 09-24-2020 take 1 capsule by mouth twice daily Docusate Sodium (Dok) 100 mg Capsule Discontinued 100 MG PO Twice daily 0 November 05, 2019 1:00am September 24, 2020 4:24pm take 1 capsule by [facility] every twenty-four hours Colace 100 MG 1 capsule as needed Orally Once a day Active doxepin hydrochloride 10 mg oral capsule (20 sources) Tricyclic Antidepressant Start: 10-20-2019 End: 09-09-2020 take 10 mg by mouth once daily at bedtime Doxepin Discontinued 10 MG PO Daily at bedtime October 20, 2019 1:00am September 09, 2020 12:55pm doxycycline hyclate 100 mg oral capsule (8 sources) Tetracycline-class Drug Start: 05-19-2023 End: 10-23-2023 take 100 mg by mouth twice daily Doxycycline Hyclate Discontinued 100 MG PO Twice daily 16 03May 19, 2023 12:00am October 23, 2023 1:46pm 1 ml erenumab-aooe 70 mg/ml auto-injector (20 sources) Start: 05-12-2020 End: 10-23-2023 inject 70 mg by subcutaneous injection every month Erenumab-Aooe (Aimovig Autoinjector) 70 mg/mL Auto-Injector Discontinued 70 MG SUBCUT every month September 09, 2020 1:00am October 23, 2023 1:46pm famotidine 20 mg oral tablet (20 sources) Histamine-2 Receptor Antagonist Start: 09-09-2020 End: 01-26-2021 take 1 tablet by mouth twice daily Famotidine (Pepcid) 20 mg tablet Discontinued 20 MG PO Twice daily September 24, 2020 4:26pm January 26, 2021 11:29am furosemide 20 mg oral tablet (1 source) Loop Diuretic furosemide (LASIX) 20 mg tablet Take 20 mg by mouth as needed. 0 Active Comment on above: Take 20 mg by mouth as needed. hydrOXYzine pamoate 25 mg oral capsule (20 sources) Antihistamine Start: 11-05-2019 End: 09-09-2020 take 25 mg by mouth every three hours Hydroxyzine Pamoate Discontinued 25 MG PO Q3H 0 November 05, 2019 1:00am September 09, 2020 12:55pm HYLAN G-F 20 (20 sources) Start: 04-03-2019 Synvisc Apr, 2 mL Start: 03-27-2019 Synvisc Mar ketorolac tromethamine 10 mg oral tablet (20 sources) Nonsteroidal Anti-inflammatory Drug, Cyclooxygenase Inhibitor Start: 11-05-2019 End: 09-09-2020 take 10 mg by mouth four times daily Ketorolac Discontinued 10 MG PO Four times daily November 05, 2019 3:23pm September 09, 2020 12:55pm lactobacillus acidophilus 10 mg oral tablet (20 sources) Start: 10-24-2018 End: 10-20-2019 take 10 mg by mouth once daily Lactobacillus Acidophilus Discontinued 10 MG PO Daily October 24, 2018 1:00am October 20, 2019 3:40pm 3 ml liraglutide 6 mg/ml pen injector (20 sources) GLP-1 Receptor Agonist Start: 08-24-2021 End: 11-28-2021 Liraglutide (Weight Loss) (Saxenda) 3 mg/0.5 mL (18 mg/3 mL) Pen Injector Discontinued 1.8 MG SUBCUT Daily August 24, 2021 1:00am November 28, 2021 1:15pm Start: 07-20-2021 inject 1 mg by subcu taneous injection once daily Saxenda mg, SubCutaneous, Daily, Refills(s) 0 Start Date: 07/20/21 Status: Ordered Start: 10-20-2019 End: 09-09-2020 Liraglutide (Victoza 2-Montrell) 0.6 mg/0.1 mL (18 mg/3 mL) Pen Injector Discontinued 1.8 MG SUBCUT Daily October 20, 2019 1:00am September 09, 2020 12:56pm Start: 06-03-2019 End: 10-20-2019 Liraglutide (Victoza 3-Montrell) 0.6 mg/0.1 mL (18 mg/3 mL) Pen Injector Discontinued 0.6 MG SUBCUT Daily June 03, 2019 12:00am October 20, 2019 3:41pm Comment on above: Inject 1.8 mg subcut aneously once daily. meloxicam 15 mg oral tablet (20 sources) Nonsteroidal Anti-inflammatory Drug Start: 04-21-20 21 take 0.5-1 tablets by mouth once daily as needed Meloxicam 15 MG 1/2-1 tab Orally Once a day for 90 day(s) Apr, Not-Taking/PRN nabumetone 750 mg oral tablet (1 source) Nonsteroidal Anti-inflammatory Drug Start: 07-30-20 23 ondansetron 8 mg oral tablet (20 sources) Serotonin-3 Receptor Antagonist Start: 12-07-19 End: 10-23-19 24 take 8 mg by mouth every eight hours Ondansetron Hcl Discontinued 8 MG PO Q8H December 06, 2021 12:00am October 23, 2023 1:47pm Start: 10-18-2018 End: 11-08-2018 take 4 mg by mouth every six hours Ondansetron Discontinued 4 MG PO Q6H 7 October 18, 2018 1:00am November 08, 2018 8:52am Start: 05-01-2018 ondansetron 4 mg Tab Oral, 0 Refill(s), Refills(s) 0 Start Date: 05/01/18 Status: Ordered Start: 05-01-2018 End: 05-06-2018 take 1 tablet by mouth every eight hours Ondansetron (Zofran Odt) 8 mg tablet,disintegrating Discontinued 8 MG PO Q8H 10 5 May 01, 2018 12:00am May 06, 2018 12:02am oxyCODONE hydrochloride 30 mg oral tablet (20 sources) Opioid Agonist Start: 04-30-2018 End: 10-20-2019 take 30 mg by mouth every four to six hours Oxycodone Discontinued 30 MG PO EVERY 4-6 HOURS April 30, 2018 12:00am October 20, 2019 3:40pm predniSONE 50 mg oral tablet (18 sources) Start: 05-19-2023 End: 07-18-2023 take 50 mg by mouth once daily Prednisone Discontinued 50 MG PO Daily 5 5 May 19, 2023 12:00am July 18, 2023 10:44am prednisone 15mg tab 1 tablet bid Not-Taking/PRN prednisone 15mg tab 1 tablet bid Active promethazine hydrochloride 25 mg oral tablet (15 sources) Phenothiazine Start: 11-28-2021 End: 07-18-2023 take 25 mg by mouth every six hours Promethazine Discontinued 25 MG PO Q6H November 28, 2021 12:00am July 18, 2023 10:44am rivaroxaban 10 mg oral tablet (20 sources) Factor Xa Inhibitor Start: 11-05-2019 End: 09-09-2020 take 1 tablet by mouth once daily Rivaroxaban (Xarelto) 10 mg Tablet Discontinued 10 MG PO Daily November 05, 2019 1:00am September 09, 2020 12:56pm sulfamethoxazole 800 mg / trimethoprim 160 mg oral tablet (20 sources) Dihydrofolate Reductase Inhibitor Antibacterial, Sulfonamide Antimicrobial Start: 09-09-2020 End: 09-24-2020 take 1 tablet by mouth twice daily Sulfamethoxazole- Trimethoprim (Bactrim Ds) 800-160 mg Tablet Discontinued 1 TAB PO Twice daily September 09, 2020 1:00am September 24, 2020 4:25pm SUMAtriptan 25 mg oral tablet (20 sources) Serotonin-1b and Serotonin-1d Receptor Agonist Start: 10-15-2018 End: 09-09-2020 take 1 tablet by mouth once daily Sumatriptan Succinate (Imitrex) 25 mg Tablet Discontinued 25 MG PO Daily October 15, 2018 1:00am September 09, 2020 12:56pm Turmeric extract (20 sources) Start: 10-24-2018 End: 10-20-2019 take 1 tablet by mouth once daily Turmeric Discontinued 1 TAB PO Daily October 24, 2018 9:13am October 20, 2019 3:40pm Start: 10-24-2018 End: 10-20-2019 take 1 tablet by mouth once daily Turmeric Discontinued 1 TAB PO Daily October 24, 2018 8:13am October 20, 2019 2:40pm Start: 10-24-2018 End: 10-20-2019 take 1 tablet by mouth once daily Turmeric Discontinued 1 TAB PO Daily October 24, 2018 12:00am October 20, 2019 2:40pm Start: 10-24-2018 End: 10-20-2019 take 1 tablet by mouth once daily Turmeric Discontinued 1 TAB PO Daily October 24, 2018 1:00am October 20, 2019 3:40pm varenicline 1 mg oral tablet (20 sources) Partial Cholinergic Nicotinic Agonist Start: 10-20-2019 End: 09-09-2020 take 1 mg by mouth twice daily Varenicline Discontinued 1 MG PO Twice daily October 20, 2019 1:00am September 09, 2020 12:56pm Start: 10-15-2018 End: 10-18-2018 take 1 tablet by mouth twice daily Varenicline (Chantix Continuing Month Box) 1 mg Tablet Discontinued 1 MG PO Twice daily October 15, 2018 1:00am October 18, 2018 2:37pm varenicline tart rate (CHANTIX ORAL) Take by mouth. 0 Active Comment on above: Take by mouth. 24 hr venlafaxine 150 mg extended release oral capsule (20 sources) Serotonin and Norepinephrine Reuptake Inhibitor Start: 04-30-20 18 End: 07-18-20 23 take 1 capsule by mouth once daily in the morning Venlafaxine (Effexor Xr) 150 mg Capsule,Extended Release 24hr Discontinued 150 MG PO Every morning April 30, 2018 12:00am July 18, 2023 10:44am Start: 09-01-2016 take 150 mg by mouth once cally y Effexor 150 mg, Oral, Daily, Other (see comment) Start Date: 09/01/16 Status: Ordered Venlafaxine HCl ER Not-Taking/PRN Venlafaxine HCl ER Active Comment on above: Take 150 mg by mouth once daily. Vitamin B 12 500 MCG (15 sources) take 2 tablets by mouth once daily Vitamin B 12 500 MCG 2 tablets Orally Once a day Not-Taking take 2 tablets by mouth once rhina ly Vitamin B 12 500 MCG 2 tablets Orally Once a day Active wegovy 0.25 mg/0.5ml solution auto-injector (4 sources) Start: 07-14-2022 Wegovy 0.25 MG /0.5ML 0.25mg once weekly for four weeks, then increase to 0.5mg once weekly for four weeks Subcutaneous once weekly for 28 days Aware that medication is not currently available from [facility] [employer]. Assessing for insurance coverage. Thanks Jul, Not-Taking/PRN wegovy 1 mg/0.5ml solution auto-injector (4 sources) Start: 12-25-2022 inject 1 mg by subcutaneous injection every week as needed Wegovy 1 MG/0.5ML 1mg Subcutaneous once weekly for 28 days Dec, Not-Taking/PRN wegovy 1.7 mg/0.75ml solution auto-injector (4 sources) Start: 02-23-2023 inject 1.7 mg by subcutaneous injection every week as needed Wegovy 1.7 MG/0.75ML 1.7mg Subcutaneous once weekly for 28 days Feb, Not-Taking/PRN Payers Date Payer Category Payer Private Health Insurance [employer] TPA [id number] 2023-Present [address] [place] [id number] PPO [id number] 2023 Self-pay [id number] 2022 Private Health Insurance [id number] 2022 Private Health Insurance [id number] 2022 Self-pay [id number] 2015 Unknown MMO MMO [employer] [id number] 2015-Present [phone] [address] [address] [place] [address] Indemnity [id number] 2007 Unknown [id number] 1967 Unknown [id number] 3 1967 Unknown [id number] 3 1967 Unknown [id number] 3 1967 Unknown [id number] [id number] 7 1967 Unknown [id number] 2.16.840.1.659644.3.579.2.72 7 1967 Unknown [id number] [id number] 7 1967 Unknown [id number] 2.16.840.1.982255.3.579.2.72 7 1967 Unknown [id number] 2.16.840.1.231219.3.579.2.72 7 1967 Unknown [id number] 2.16.840.1.445198.3.579.2.12 59 1967 Unknown [id number] 59 1959 Unknown [id number] 1 Unknown [id number] [id number] 1 Unknown [id number] 2.16.840.1.572172.3.579.2.53 1 Unknown [id number] [id number] 1 Unknown [id number] [id number] 1 Unknown [id number] [id number] 1 Unknown [id number] 1 Plan of Treatment Date Care Activity Detail Author Start: 10-05-2027 Urine microalbumin profile [facility] Start: 10-03-2027 Urine microalbumin profile DTAP,TDAP,TD (3 - Td or Tdap) [facility] Start: 01-02-2027 Diabetes Screening Diabetes Screening [facility] Start: 04-17-2026 DIABETES SCREEN DIABETES SCREEN [facility] Start: 04-17-2026 Diabetes Screening Diabetes Screening [facility] Start: 01-04-2026 DIABETES SCREEN DIABETES SCREEN [facility] Start: 07-06-2025 DIABETES SCREEN DIABETES SCREEN [facility] Start: 06-23-2024 DIABETES SCREEN DIABETES SCREEN [facility] Start: 06-22-2024 Screening for malignant neoplasm of breast Mammogram Screening [facility] Start: 05-04-2024 Influenza vaccination Influenza Vaccine (Season Ended) [facility] Start: 01-03-2024 End: 04-03-2024 Cancer Ag 27-29 [Units/volume] in Serum or Plasma [facility] Work Phone: Comment on above: Expected: 01/03/2024, Expires: Start: 09-03-2023 Behavioral Health Screening Behavioral Health Screening [facility] Start: 09-03-2023 Depression Assessment Depression Assessment [facility] Start: 07-18-2023 [facility] Start: 05-19-2023 Plain chest X-ray XR chest 1V portable [facility] Start: 05-19-2023 XR Chest Single view [facility] Start: 05-04-2023 Covid-19 Vaccine ( season) Covid-19 Vaccine ( season) [facility] Start: 05-04-2023 Influenza vaccination [facility] Start: 04-17-2023 End: 06-17-2023 Comprehensive metabolic 2000 panel - Serum or Plasma [facility] Work Phone: Comment on above: Expected: 04/17/2023, Expires: 3 Start: 02-06-2023 End: 04-08-2023 aPTT in Platelet poor plasma by Coagulation assay [facility] Work Phone: Comment on above: Expected: 02/06/2023, Expires: 3 Start: 02-06-2023 End: 04-08-2023 CBC W Auto Differential panel - Blood [facility] Work Phone: Comment on above: Expected: 02/06/2023, Expires: 3 Start: 02-06-2023 End: 04-08-2023 Hepatic function 2000 panel - Serum or Plasma [facility] Work Phone: Comment on above: Expected: 02/06/2023, Expires: 3 Start: 02-06-2023 End: 04-08-2023 PT panel - Platelet poor plasma by Coagulation assay [facility] Work Phone: Comment on above: Expected: 02/06/2023, Expires: 3 Start: 01-11-2023 Bacteria identified in Urine by Culture [facility] Start: 01-11-2023 [facility] Start: 01-08-2023 Bacteria identified in Urine by Culture [facility] Start: 09-03-2022 DEPRESSION ASSESSMENT DEPRESSION ASSESSMENT [facility] Start: 08-20-2022 Colonoscopy COLONOSCOPY [facility] Start: 08-20-2022 COLORECTAL CANCER SCREENING COLORECTAL CANCER SCREENING [facility] Start: 08-20-2022 Screening for malignant neoplasm of colon [facility] Start: 06-29-2022 Adult depression screening assessment DEPRESSION SCREENING [facility] Start: 05-04-2022 Influenza vaccination [facility] Start: 12-14-2021 End: 02-13-2022 Cancer Ag 27-29 [Units/volume] in Serum or Plasma CA 27.29 BLOOD Lab Routine Malignant neoplasm of female breast, unspecified estrogen receptor status, unspecified laterality, unspecified site of breast (HCC) Expected: 12/14/2021, Expires: 02/13/2022 [facility] Work Phone: Comment on above: Expected: 12/14/2021, Expires: 2 Start: 12-14-2021 End: 02-13-2022 CBC W Auto Differential panel - Blood CBC + DIFF Lab Routine Malignant neoplasm of female breast, unspecified estrogen receptor status, unspecified laterality, unspecified site of breast (HCC) Expected: 12/14/2021, Expires: 02/13/2022 [facility] Work Phone: Comment on above: Expected: 12/14/2021, Expires: 2 Start: 12-14-2021 End: 02-13-2022 Comprehensive metabolic 2000 panel - Serum or Plasma COMP METABOLIC PANEL Lab Routine Malignant neoplasm of female breast, unspecified estrogen receptor status, unspecified laterality, unspecified site of breast (HCC) Expected: 12/14/2021, Expires: 02/13/2022 [facility] Work Phone: Comment on above: Expected: 12/14/2021, Expires: 2 Start: 09-03-2021 DEPRESSION ASSESSMENT DEPRESSION ASSESSMENT [facility] Start: 06-24-2021 COVID-19 VACCINE (4 - Booster for Pfizer series) COVID-19 VACCINE (4 - Booster for Pfizer series) [facility] Start: 06-24-2021 COVID-19 VACCINE (4 - Pfizer series) COVID-19 VACCINE (4 - Pfizer series) [facility] Start: 06-22-2021 COVID-19 VACCINE (3 - Booster for Pfizer series) COVID-19 VACCINE (3 - Booster for Pfizer series) [facility] Start: 05-25-2021 COVID-19 VACCINE (3 - Pfizer risk 4-dose series) COVID-19 VACCINE (3 - Pfizer risk 4-dose series) [facility] Start: 10-18-2018 PNEUMOCOCCAL (2 - PCV) PNEUMOCOCCAL (2 - PCV) [facility] Start: 10-18-2018 Pneumococcal vaccination [facility] Start: 05-17-2017 PAP TESTING PAP TESTING [facility] Start: 05-17-2017 Screening for malignant neoplasm of cervix Pap Testing [facility] Start: 2017 Influenza vaccination LUNG CANCER SCREENING [facility] Start: 2017 Screening for malignant neoplasm of lung Lung Cancer Screening [facility] Start: 2017 SHINGRIX VACCINE (1 of 2) SHINGRIX VACCINE (1 of 2) [facility] Start: 05-17-2012 Mammography [facility] Start: 05-17-2012 Screening for malignant neoplasm of breast Mammogram Screening [facility] Start: 02-16-2012 COLOGUARD (FIT-DNA) COLOGUARD (FIT-DNA) [facility] Start: 02-16-[address] COLONOGRAPHY [facility] Start: 02-16-2012 FECAL OCCULT BLOOD FECAL OCCULT BLOOD [facility] Start: 02-16-2012 Lipid 1996 panel - Serum or Plasma Lipid Screening [facility] Start: 02-16-2012 Lipid panel Lipid Screening [facility] Start: 02-16-2012 LIPID SCREEN LIPID SCREEN [facility] Start: 02-16-2012 Screening for malignant neoplasm of colon [facility] Start: 02-16-2012 SIGMOIDOSCOPY SIGMOIDOSCOPY [facility] Start: 1997 HPV TESTING HPV TESTING [facility] Start: 1997 Screening for malignant neoplasm of cervix HPV Testing [facility] Start: 1986 Hepatitis B Vaccine (1 of 3 - 19+ 3-dose series) Hepatitis B Vaccine (1 of 3 - 19+ 3-dose series) [facility] Start: 1985 HEPATITIS C SCREENING HEPATITIS C SCREENING [facility] Start: 1985 Hepatitis C screening Hepatitis C Screening [facility] Start: 1985 HIV SCREENING HIV SCREENING [facility] Start: 1985 HIV screening HIV Screening [facility] Start: 1967 HEPATITIS B (1 of 3 - 3-dose series) HEPATITIS B (1 of 3 - 3-dose series) [facility] Start: 1967 Hepatitis B Vaccine (1 of 3 - 3-dose series) Hepatitis B Vaccine (1 of 3 - 3-dose series) [facility] Clostridioides difficile toxin genes [Presence] in Stool by IGLESIA with probe detection C. DIFFICILE PCR Lab Routine Diarrhea, unspecified type Ordered: 04/17/2023 [facility] Work Phone: Comment on above: Ordered: 04/17/2023 End: 02-01-2025 DXA Skeletal system.axial Views for bone density DXA-AXIAL SKELETON Radiology Routine Malignant neoplasm of lower-outer quadrant of left breast of female, estrogen receptor positive (HCC) Encounter for screening for osteoporosis 1 Occurrences starting 01/03/2024 until 02/01/2025 [facility] Comment on above: 1 Occurrences starting 01/03/2024 until 02/01/2025 End: 02-07-2024 ERCP ERCP Endoscopy ABDON Choledocholithiasis RUQ abdominal pain 1 Occurrences starting 02/06/2023 until 02/07/2024 [facility] Work Phone: Comment on above: 1 Occurrences starting 02/06/2023 until 02/07/2024 End: 02-16-2024 ERCP ERCP Endoscopy Routine Encounter for removal of biliary stent 1 Occurrences starting 2023 until 02/16/2024 [facility] Work Phone: Comment on above: 1 Occurrences starting 2023 until 02/16/2024 Lipoprotein a [Moles/volume] in Serum or Plasma [facility] End: 02-01-2025 MG Breast - bilateral Diagnostic DANTE DIAGNOSTIC BILATERAL Radiology Routine Malignant neoplasm of lower-outer quadrant of left breast of female, estrogen receptor positive (HCC) 1 Occurrences starting 01/03/2024 until 02/01/2025 [facility] Comment on above: 1 Occurrences starting 01/03/2024 until 02/01/2025 Patient Education [facility] Patient referral [facility] End: 03-07-2024 US ABD RIGHT UPPER QUADRANT US ABD RIGHT UPPER QUADRANT Radiology Today Choledocholithiasis RUQ abdominal pain 1 Occurrences starting 02/06/2023 until 03/07/2024 [facility] Work Phone: Comment on above: 1 Occurrences starting 02/06/2023 until 03/07/2024 Yeast detection [facility] Problems Active Problems Problem Classification Problem Date Documented Da te Episodic/Chronic Biliary tract disease (20 sources) Disorder of biliary tract; Translations: [Disease of biliary tract, unspecified] 12-06-2021 Chronic Calculus of urinary tract (17 sources) Kidney stone; Translations: [Calculus of kidney] 05-25-2015 Episodic Cancer of breast (20 sources) Malignant tumor of breast ; Translations: [Malignant neoplasm of unspecified site of left female breast] Onset: Chronic Diseases of white blood cells (15 sources) Leukocytosis; Translations: [Elevated white blood cell count, unspecified] 12-06-2021 Chronic Disorders of lipid metabolism (20 sources) Hypercholesterolemia; Translations: [Pure hypercholesterolemia, unspecified] 05-25-2015 Chronic Diverticulosis and diverticulitis (1 source) Diverticulosis of colon 07-31-2023 Chronic Fluid and electrolyte disorders (15 sources) Dehydration; Translations: [Dehydration] 12-05-2021 Episodic Genitourinary symptoms and ill-defined conditions (11 sources) Incontinence 05-04-2020 Chronic Genitourinary symptoms and ill-defined conditions (20 sources) Increased frequency of urination; Translations: [Nocturia] Onset: 2 06-08-2020 Episodic Headache; including migraine (20 sources) Migraine; Translations: [Migraine, unspecified, not intractable, without status migrainosus] Onset: 4 Chronic Miscellaneous mental health disorders (20 sources) Psychophysiologic insomnia; Translations: [Psychophysiologic insomnia] Chronic Mood disorders (20 sources) Major depressive disorder, single episode, unspecified; Translations: [Depression] Onset: 2 Chronic Nausea and vomiting (15 sources) Nausea and vomiting; Translations: [Nausea with vomiting, unspecified] 12-06-2021 Episodic Nonspecific chest pain (20 sources) Atypical chest pain; Translations: [Other chest pain] 09-09-2020 Episodic Osteoarthritis (20 sources) Arthritis; Translations: [Unspecified osteoarthritis, unspecified site] 05-25-2015 Chronic Other aftercare (1 source) Other detention (current) drug therapy; 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] Onset: 2 Episodic Other connective tissue disease (20 sources) History of total knee arthroplasty; Translations: [Presence of right artificial knee joint] 11-04-2019 Chronic Other connective tissue disease (20 sources) Fibromyalgia; Translations: [Fibromyalgia] 05-25-2015 Episodic Other diseases of bladder and urethra (3 sources) Detrusor overactivity; Translations: [Overactive bladder] Onset: 2 Chronic Other diseases of bladder and urethra (9 sources) Overactive bladder 04-24-2022 Chronic Other diseases of bladder and urethra (12 sources) Urethral stricture; Translations: [Other urethral stricture, female] Onset: 3 06-08-2020 Episodic Other diseases of kidney and ureters (17 sources) Infectious disorder of kidney; Translations: [Renal tubulo-interstitial disease, unspecified] 05-25-2015 Chronic Other disorders of stomach and duodenum (1 source) Gastric diverticulum 07-31-2023 Episodic Other gastrointestinal disorders (1 source) Irritable bowel syndrome with diarrhea; Translations: [Irritable bowel syndrome with diarrhea] Chronic Other gastrointestinal disorders (18 sources) Chronic constipation; Translations: [Other constipation] 08-29-2021 Episodic Comment on above: Outside Source Comme nt: Overview: colonoscopy 2006 nl Other gastrointestinal disorders (16 sources) Diarrhea; Translations: [Diarrhea, unspecified] 12-06-2021 Episodic Other lower respiratory disease (20 sources) Snoring; Translations: [Snoring] 10-23-2023 Episodic Other nervous system disorders (17 sources) Chronic pain syndrome; Translations: [Chronic pain syndrome] Onset: 5 05-25-2015 Chronic Other nervous system disorders (20 sources) Chronic pain; Translations: [Other chronic pain] 10-23-2023 Chronic Other nervous system disorders (20 sources) Other chronic pain; Translations: [Other chronic pain] Onset: 1 Resolved: 2 Chronic Other nervous system disorders (1 source) Other chronic pain; Translations: [Other chronic pain] Onset: 3 Chronic Other nutritional; endocrine; and metabolic disorders (17 sources) Body mass index 30+ - obesity; Translations: [Body mass index (BMI) 39.0-39.9, adult] Onset: 5 05-25-2015 Chronic Other nutritional; endocrine; and metabolic disorders (20 sources) Body mass index 40+ - severely obese; Translations: [Body mass index (BMI) 45.0-49.9, adult] Onset: 3 06-08-2020 Chronic Other nutritional; endocrine; and metabolic disorders (20 sources) Morbid obesity; Translations: [Morbid obesity] Onset: 3 Chronic Other nutritional; endocrine; and metabolic disorders (20 sources) Obesity, unspecified; Translations: [Obesity, unspecified] Onset: 2 Chronic Other nutritional; endocrine; and metabolic disorders (4 sources) Body mass index (BMI) 45.0-49.9, adult; Translations: [BODY MASS INDEX BMI 45.0-49.9 ADULT] Onset: 2 Chronic Other nutritional; endocrine; and metabolic disorders (20 sources) Insulin resistance; Translations: [Metabolic syndrome] 10-23-2023 Chronic Other nutritional; endocrine; and metabolic disorders (20 sources) Obesity; Translations: [Obesity, unspecified] 10-24-2023 Chronic Other nutritional; endocrine; and metabolic disorders (10 sources) Metabolic syndrome Chronic Other nutritional; endocrine; and metabolic disorders (3 sources) Morbid (severe) obesity due to excess calories; Translations: [Morbid obesity] 10-24-2023 Chronic Other screening for suspected conditions (not mental disorders or infectious disease) (1 source) Patient encounter status; Translations: [Encounter for screening for osteoporosis] 01-03-2024 Episodic Other upper respiratory infections (8 sources) Viral upper respiratory tract infection; Translations: [Acute upper respiratory infection, unspecified] 05-19-2023 Episodic Pleurisy; pneumothorax; pulmonary collapse (15 sources) Atelectasis; Translations: [Atelectasis] 12-07-2021 Episodic Pneumonia (except that caused by tuberculosis or sexually transmitted disease) (20 sources) Pneumonitis; Translations: [Pneumonia, unspecified organism] 05-25-2015 Episodic Pulmonary heart disease (15 sources) Dilatation of pulmonary artery; Translations: [Other diseases of pulmonary vessels]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 Facility: [facility] Address: [address] [place] [address] Performed By: #### 2 4323-8 ####[facility] LABCLIA [id number] [place] [address] ALP [Catalytic activity/Vol] 129 U/L High 34-123 [facility] Comment on above: Order Comment: Speci men Type: BLOOD SPECIMENOrdering Facility: [facility] Address: [address] [place] [address] Performed By: #### 2 4323-8 ####[facility] LABCLIA [id number] [place] [address] ALT [Catalytic activity/Vol] 14 U/L Normal 7-38 [facility] Comment on above: Order Comment: Speci men Type: BLOOD SPECIMENOrdering Facility: [facility] Address: [address] [place] [address] Performed By: #### 2 4323-8 ####[facility] LABCLIA [id number] [place] [address] Anion gap [Moles/Vol] 10 mmol/L Normal 9-18 [facility] Comment on above: Order Comment: Speci men Type: BLOOD SPECIMENOrdering Facility: [facility] Address: [address] [place] [address] Performed By: #### 2 4323-8 ####[facility] LABCLIA [id number] [place] [address] AST [Catalytic activity/Vol] 14 U/L Normal 13-35 [facility] Comment on above: Order Comment: Speci men Type: BLOOD SPECIMENOrdering Facility: [facility] Address: [address] [place] [address] Performed By: #### 2 4323-8 ####[facility] LABCLIA [id number] [place] [address] Bilirubin [Mass/Vol] 0.2 mg/dL Normal 0.2-1.3 [facility] Comment on above: Order Comment: Speci men Type: BLOOD SPECIMENOrdering Facility: [facility] Address: [address] [place] [address] Performed By: #### 2 4323-8 ####[facility] LABCLIA [id number] [place] [address] Calcium [Mass/Vol] 9.8 mg/dL Normal 8.5-10.2 [facility] Comment on above: Order Comment: Speci men Type: BLOOD SPECIMENOrdering Facility: [facility] Address: [address] [place] [address] Performed By: #### 2 4323-8 ####[facility] LABCLIA [id number] [place] [address] Chloride [Moles/Vol] 104 mmol/L Normal 97-105 [facility] Comment on above: Order Comment: Speci men Type: BLOOD SPECIMENOrdering Facility: [facility] Address: [address] [place] [address] Performed By: #### 2 4323-8 ####[facility] LABCLIA [id number] [place] [address] CO2 [Moles/Vol] 28 mmol/L Normal 22-30 [facility] Comment on above: Order Comment: Speci men Type: BLOOD SPECIMENOrdering Facility: [facility] Address: [address] [place] [address] Performed By: #### 2 4323-8 ####[facility] LABCLIA [id number] [place] [address] Creatinine [Mass/Vol] 0.59 mg/dL Normal 0.58-0.96 [facility] Comment on above: Order Comment: Speci men Type: BLOOD SPECIMENOrdering Facility: [facility] Address: [address] [place] [address] Performed By: #### 2 4323-8 ####[facility] LABCLIA [id number] [place] [address] Creatinine and Glomerular filtration rate.predicted panel (S/P/Bld) 106 mL/min/1.73m??? Normal >=60 [facility] Comment on above: Order Comment: Speci men Type: BLOOD SPECIMENOrdering Facility: [facility] Address: [address] [place] [address] Result Comment: Nesha mated Glomerular Filtration Rate (eGFR) is calculated using the 2020 CKD-EPI creatinine equation. This equation utilizes serum creatinine, sex, and age as parameters. The creatinine assay has traceable calibration to isotope dilution-mass spectrometry. Refer to KDIGO guidelines for clinical interpretation. In patients with unstable renal function, e.g. those with acute kidney injury, the eGFR may not accurately reflect actual GFR. Performed By: #### 2 4323-8 ####[facility] LABCLIA [id number] [place] [address] Glucose [Mass/Vol] 95 mg/dL Normal 74-99 [facility] Comment on above: Order Comment: Speci men Type: BLOOD SPECIMENOrdering Facility: [facility] Address: [address] [place] [address] Result Comment: The [place] Diabetes Association (ADA) provides guidance for cutoff values for fasting glucose and random glucose. The ADA defines fasting as no caloric intake for at least 8 hours. Fasting plasma glucose results between 100 to 125 mg/dL indicate increased risk for diabetes (prediabetes). Fasting plasma glucose results greater than or equal to 126 mg/dL meet the criteria for diagnosis of diabetes. In the absence of unequivocal hyperglycemia, results should be confirmed by repeat testing. In a patient with classic symptoms of hyperglycemia or hyperglycemic crisis, random plasma glucose results greater than or equal to 200 mg/dL meet the criteria for diagnosis of diabetes. Reference: Standards of Medical Care in Diabetes 2016, [place] Diabetes Association. Diabetes Care. 2016.39(Suppl 1). Performed By: #### 2 4323-8 ####[facility] LABCLIA [id number] [place] [address] Potassium [Moles/Vol] 3.8 mmol/L Normal 3.7-5.1 [facility] Comment on above: Order Comment: Speci men Type: BLOOD SPECIMENOrdering Facility: [facility] Address: [address] [place] [address] Performed By: #### 2 4323-8 ####[facility] LABCLIA [id number] [place] [address] Protein [Mass/Vol] 7.3 g/dL Normal 6.3-8.0 [facility] Comment on above: Order Comment: Speci men Type: BLOOD SPECIMENOrdering Facility: [facility] Address: [address] [place] [address] Performed By: #### 2 4323-8 ####[facility] LABCLIA [id number] [place] [address] Sodium [Moles/Vol] 142 mmol/L Normal 136-144 [facility] Comment on above: Order Comment: Speci men Type: BLOOD SPECIMENOrdering Facility: [facility] Address: [address] [place] [address] Performed By: #### 2 4323-8 ####[facility] LABCLIA [id number] [place] [address] Urea nitrogen [Mass/Vol] 9 mg/dL Normal 03-23 [facility] Comment on above: Order Comment: Speci men Type: BLOOD SPECIMENOrdering Facility: [facility] Address: [address] [place] [address] Performed By: #### 2 4323-8 ####[facility] LABCLIA [id number] [place] [address] No Panel InformationOrdered By: Sandrita Giron on 01-03-2024 Interpretation and review of laboratory results Abnormal [facility] A1C with Estimated Average G luon 10-24-2023 Glucose [Mass/Vol] 105 mg/dL Normal [facility] Comment on above: Order Comment: Reaso n for Exam Obesity;Depression;Snores;DARREL (obstructive sleep apnea);[place] Result Comment: PERF ORMED BY: [facility] [address] [place] [address] PATHOLOGIST PLASTIC 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 Performed By: #### C MP, CBCNO, TSH3 wRFLX, A1C WT eA, LIPID ####[facility] [id number] [place] [id number] [place]#### LIPA ####[facility] , Alanine aminotransferase [En zymatic activity/volume] in Serum or PlasmaOrdered By: Sharla Benitez on 10-24-2023 ALT [Catalytic activity/Vol] 15 U/L Normal [facility] Comment on above: Order Comment: Reaso n for Exam Obesity;Depression;Snores;DARREL (obstructive sleep apnea);[place] Performed By: #### C MP, CBCNO, TSH3 wRFLX, A1C WT eA, LIPID ####[facility] [place] [address] [place]#### LIPA ####[facility] , Albumin [Mass/volume] in Ser um or Plasma by Bromocresol green (BCG) dye binding methoOrdered By: Sharlaher Hagenkendra on 10-24-2023 Albumin BCG dye [Mass/Vol] 4.3 g/dL 3.5-5.7 [facility] Alkaline phosphatase [Enzyma tic activity/volume] in Serum or PlasmaOrdered By: Sharla ekndra on 10-24-2023 ALP [Catalytic activity/Vol] 101 U/L Normal 34-104 [facility] Comment on above: Order Comment: Reaso n for Exam Obesity;Depression;Snores;DARREL (obstructive sleep apnea);[place] Performed By: #### C MP, CBCNO, TSH3 wRFLX, A1C [facility] eA, LIPID ####[place] [id number] [address]#### LIPA ####[facility] , Aspartate aminotransferase [ Enzymatic activity/volume] in Serum or PlasmaOrdered By: Sharla kendra on 10-24-2023 AST [Catalytic activity/Vol] 15 U/L Normal 13-39 [facility] Comment on above: Order Comment: Reaso n for Exam Obesity;Depression;Snores;DARREL (obstructive sleep apnea);[place] Performed By: #### C MP, CBCNO, TSH3 wRFLX, A1C [facility] eA, [place] ####[place] [address] [place]#### LIPA ####[facility] , Bilirubin.total [Mass/volume ] in Serum or PlasmaOrdered By: Sharla Benitez on 10-24-2023 Bilirubin [Mass/Vol] 0.4 mg/dL Normal 0.3-1.0 [facility] Comment on above: Order Comment: Reaso n for Exam Obesity;Depression;Snores;DARREL (obstructive sleep apnea);[place] Performed By: #### C MP, CBCNO, TSH3 wRFLX, A1C [facility] eA, LIPID ####[facility] [place] [address] [place]#### LIPA ####[facility] , Calcium [Mass/volume] in Ser um or PlasmaOrdered By: Sharla Benitez on 10-24-2023 Calcium [Mass/Vol] 9.5 mg/dL Normal 8.6-10.3 [facility] Comment on above: Order Comment: Reaso n for Exam Obesity;Depression;Snores;DARREL (obstructive sleep apnea);[place] Performed By: #### C MP, CBCNO, TSH3 wRFLX, A1C [facility] eA, [place]IP[place] ####[place] [address] [place]#### LIPA ####[facility] , Carbon dioxide, total [Moles /volume] in Serum or PlasmaOrdered By: Sharla Benitez on 10-24-2023 CO2 [Moles/Vol] 25.5 mmol/L Normal 21.0-31.0 [facility] Comment on above: Order Comment: Reaso n for Exam Obesity;Depression;Snores;DARREL (obstructive sleep apnea);[place] Performed By: #### C MP, CBCNO, TSH3 wRFLX, A1C [facility] eA, LIPID ####[address]#### LIPA ####[facility] , Chloride [Moles/volume] in S lito or PlasmaOrdered By: Sharla Benitez on 10-24-2023 Chloride [Moles/Vol] 107 mmol/L Normal 98-107 [facility] Comment on above: Order Comment: Reaso n for Exam Obesity;Depression;Snores;DARREL (obstructive sleep apnea);[place] Performed By: #### C MP, CBCNO, TSH3 wRFLX, A1C [facility] eA, LIPID ####[place] [address] [place]#### LIPA ####[facility] , Cholesterol [Mass/volume] in Serum or PlasmaOrdered By: Sharla Benitez on 10-24-2023 Cholesterol [Mass/Vol] 230 mg/dL High 140-200 [facility] Comment on above: Chol less than 200 m g/dl low riskChol 201-239 mg/dl borderline riskChol 240 mg/dl and greater high risk Order Comment: Reaso n for Exam Obesity;Depression;Snores;DARREL (obstructive sleep apnea);[place] Result Comment: Chol less than 200 mg/dl low risk Chol 201-239 mg/dl borderline risk Chol 240 mg/dl and greater high risk Performed By: #### C MP, CBCNO, TSH3 wRFLX, A1C WT eA, LIPID ####[facility] [id number]#### LIPA ####[facility] , Cholesterol in LDL Calc [Mas s/Vol]Ordered By: Sharla Benitez on 10-24-2023 Cholesterol in LDL [Mass/Vol] 164 mg/dL 0-100 [facility] Comment on above: LDL ATP III CLASSIFI CATIONLDL less than 100 mg/dL OptimalLDL 100-129 mg/dL Near or above optimalLDL 130-159 mg/dL Borderline highLDL 160-189 mg/dL HighLDL greater than 189 mg/dL Very high Cholesterol in VLDL Calc [Ma ss/Vol]Ordered By: Sharla Benitez on 10-24-2023 Cholesterol in VLDL [Mass/Vol] 28 mg/dL [facility] Comprehensive Metabolic Pane kulwant 10-24-2023 Albumin [Mass/Vol] 4.3 g/dL Normal 3.5-5.7 [facility] Comment on above: Order Comment: Reaso n for Exam Obesity;Depression;Snores;DARREL (obstructive sleep apnea);[place] Performed By: #### C MP, CBCNO, TSH3 wRFLX, A1C [facility] eA, LIPID ####[facility] [id number] [place] [address] [place]#### LIPA ####[facility] , GFR/1.73 sq M.predicted MDRD (S/P/Bld) [Vol rate/Area] mL/min/{1.73_m2} Normal [facility] Comment on above: Order Comment: Reaso n for Exam Obesity;Depression;Snores;DARREL (obstructive sleep apnea);[place] Performed By: #### C MP, CBCNO, TSH3 wRFLX, A1C [facility] eA, LIPID ####[address]#### LIPA ####[facility] , Creatinine [Mass/volume] in Serum or PlasmaOrdered By: Sharla Benitez on 10-24-2023 Creatinine [Mass/Vol] 0.61 mg/dL Normal 0.60-1.20 [facility] Comment on above: Order Comment: Reaso n for Exam Obesity;Depression;Snores;DARREL (obstructive sleep apnea);[place] Performed By: #### C MP, CBCNO, TSH3 wRFLX, A1C [facility] eA, LIPID ####[address]#### LIPA ####[facility] , Erythrocyte distribution wid th [Ratio] by Automated countOrdered By: Sharla Benitez on 10-24-2023 Erythrocyte distribution width (RBC) [Ratio] 14.3 % Normal 11.9-15.3 [facility] Comment on above: Order Comment: Reaso n for Exam Obesity;Depression;Snores;DARREL (obstructive sleep apnea);[place] Performed By: #### C MP, CBCNO, TSH3 wRFLX, A1C [facility] eA, LIPID ####[address]#### LIPA ####[facility] , Erythrocytes [#/volume] in B lood by Automated countOrdered By: Sharla Benitez on 10-24-2023 RBC (Bld) [#/Vol] 5.15 10*6/uL High 3.60-5.00 [facility] Comment on above: Order Comment: Reaso n for Exam Obesity;Depression;Snores;DARREL (obstructive sleep apnea);[place] Performed By: #### C MP, CBCNO, TSH3 wRFLX, A1C W[facility] eA, LIPID ####[facility] [place] [address] [place]#### LIPA ####[facility] , Glucose [Mass/volume] in Ser um or PlasmaOrdered By: Sharla Benitez on 10-24-2023 Glucose [Mass/Vol] 90 mg/dL Normal 70-100 [facility] Comment on above: ADA recommended refe rence rangeRandom Glucose Reference Range is dependent on time and content of last meal. Glucose of more than 200 mg/dL in a nonstressed, ambulatory subject supports the diagnosis of Diabetes Mellitus. Order Comment: Reaso n for Exam Obesity;Depression;Snores;DARREL (obstructive sleep apnea);[place] Result Comment: [place] om Glucose Reference Range is dependent on time and content of last meal. Glucose of more than 200 mg/dL in a nonstressed, ambulatory subject supports the diagnosis of Diabetes Mellitus. ADA recommended reference range Performed By: #### C MP, CBCNO, TSH3 wRFLX, A1C [facility] eA, LIPID ####[place] [id number] [address]#### LIPA ####[facility] , Glucose mean value [Mass/vol ume] in Blood Estimated from glycated hemoglobinOrdered By: Sharla Benitez on 10-24-2023 Average glucose Estimated from glycated hemoglobin (Bld) [Mass/Vol] 105 mg/dL [facility] Hematocrit [Volume Fraction] of Blood by Automated countOrdered By: Sharla Benitez on 10-24-2023 Hematocrit (Bld) [Volume fraction] 44.4 % Normal 34.0-46.4 [facility] Comment on above: Order Comment: Reaso n for Exam Obesity;Depression;Snores;DARREL (obstructive sleep apnea);[place] Performed By: #### C MP, CBCNO, TSH3 wRFLX, A1C WTH eA, LIPID ####[place] [address] [place] [address] [place]#### LIPA ####[facility] , Hemoglobin A1c percentageOrd ered By: Sharla Benitez on 10-24-2023 HbA1c (Bld) [Mass fraction] 5.3 % Normal 4.3-5.6 [facility] Comment on above: Increased risk for d iabetes: 5.7 - 6.4diabetes: >6.4glycemic control for adults with diabetes: <7.0 Order Comment: Reaso n for Exam Obesity;Depression;Snores;DARREL (obstructive sleep apnea);[place] Result Comment: Incr eased risk for diabetes: 5.7 - 6.4 diabetes: >6.4 glycemic control for adults with diabetes: <7.0 Performed By: #### C MP, CBCNO, TSH3 wRFLX, A1C W[facility] eA, LIPID ####[address]#### LIPA ####[facility] , Hemoglobin [Mass/volume] in BloodOrdered By: Sharla Benitez on 10-24-2023 Hemoglobin (Bld) [Mass/Vol] 15.5 g/dL High 11.8-15.4 [facility] Comment on above: Order Comment: Reaso n for Exam Obesity;Depression;Snores;DARREL (obstructive sleep apnea);[place] Performed By: #### C MP, CBCNO, TSH3 wRFLX, A1C WTH eA, LIPID ####[address]#### LIPA ####[facility] , Hemogram CBC Without Diffon 10-24-2023 Mean Corpuscular HGB Conc 35.0 g/dL Normal 32.0-35.0 [facility] Comment on above: Order Comment: Reaso n for Exam Obesity;Depression;Snores;DARREL (obstructive sleep apnea);[place] Performed By: #### C MP, CBCNO, TSH3 wRFLX, A1C WTH eA, LIPID ####[place] [address] [place]#### LIPA ####[facility] , WBC (Bld) [#/Vol] 6.6 10*3/uL Normal 3.8-11.6 [facility] Comment on above: Order Comment: Reaso n for Exam Obesity;Depression;Snores;DARREL (obstructive sleep apnea);[place] Performed By: #### C MP, CBCNO, TSH3 wRFLX, A1C WT eA, LIPID ####[facility] [place] [address] [place]#### LIPA ####[facility] , Leukocytes [#/volume] correc cherry for nucleated erythrocytes in Blood by Automated counOrdered By: Sharla Benitez on 10-24-2023 WBC corrected for nucl RBC Auto (Bld) [#/Vol] 6.6 10*3/uL 3.8-11.6 [facility] Lipid Panelon 10-24-2023 LDL Cholesterol,Calculate d 164 mg/dL High 0-100 [facility] Comment on above: Order Comment: Reaso n for Exam Obesity;Depression;Snores;DARREL (obstructive sleep apnea);Janice Result Comment: LDL ATP III CLASSIFICATION LDL less than 100 mg/dL Optimal LDL 100-129 mg/dL Near or above optimal LDL 130-159 mg/dL Borderline high LDL 160-189 mg/dL High LDL greater than 189 mg/dL Very high Performed By: #### C MP, CBCNO, TSH3 wRFLX, A1C [facility] eA, LIPID ####[facility]#### LIPA ####[facility] , Triglyceride w/Reflex 144 mg/dL Normal 0-149 [facility] Comment on above: Order Comment: Reaso n for Exam Obesity;Depression;Snores;DARREL (obstructive sleep apnea);Janice Result Comment: TRIG ATP III CLASSIFICATION TRIG less than 150 mg/dL Normal TRIG 150-199 mg/dL Borderline high TRIG 200-500 mg/dL High TRIG greater than 500 mg/dL Very high Standard traceable to the Center for Disease Conrtrol and Prevention (CDC) test method. Performed By: #### C MP, CBCNO, TSH3 wRFLX, A1C WTH eA, LIPID ####[facility] [place] [address] [place]#### LIPA ####[facility] , VLDL CHOLESTEROL 28 mg/dL Normal [facility] Comment on above: Order Comment: Reaso n for Exam Obesity;Depression;Snores;DARREL (obstructive sleep apnea);Janice Performed By: #### C MP, CBCNO, TSH3 wRFLX, A1C WTH eA, LIPID ####[place] [address] [address]#### LIPA ####[facility] , Lipoprotein (a)on 10-24-2023 Lipoprotein a [Mass/Vol] 35.7 mg/dL Normal <75.0 [facility] Comment on above: Order Comment: Reaso n for Exam Obesity;Depression;Snores;DARREL (obstructive sleep apnea);Janice Result Comment: Note : Values greater than or equal to 75.0 nmol/L may indicate an independent risk factor for CHD, but must be evaluated with caution when applied to non- populations due to the influence of genetic factors on Lp(a) across ethnicities. Performed at: [facility] [place] [id number] Lead Recreation Assistant: Jayjay Oakley PhD, Phone: [phone] PERFORMED BY: [facility] [address] [place] [address] PATHOLOGIST PLASTIC 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 Performed By: #### C MP, CBCNO, TSH3 wRFLX, A1C WT eA, LIPID ####[address]#### LIPA ####[facility] , MCH [Entitic mass] by Deb carey countOrdered By: Sharla Benitez on 10-24-2023 MCH (RBC) [Entitic mass] 30.2 pg Normal 24.7-34.3 [facility] Comment on above: Order Comment: Reaso n for Exam Obesity;Depression;Snores;DARREL (obstructive sleep apnea);[place] Performed By: #### C MP, CBCNO, TSH3 wRFLX, A1C WT eA, LIPID ####[address]#### LIPA ####[facility] , MCHC Auto (RBC) [Mass/Vol]Or dered By: Sharla Eli on 10-24-2023 MCHC (RBC) [Mass/Vol] 35.0 g/dL 32.0-35.0 [facility] MCV [Entitic volume] by Auto mated countOrdered By: Sharlaher Hagenkendra on 10-24-2023 MCV (RBC) [Entitic vol] 86.2 fL Normal 80-100 [facility] Comment on above: Order Comment: Reaso n for Exam Obesity;Depression;Snores;DARREL (obstructive sleep apnea);[place] Performed By: #### C MP, CBCNO, TSH3 wRFLX, A1C WT eA, LIPID ####[address]#### LIPA ####[facility] , No Panel InformationOrdered By: Sharla Benitez on 10-24-2023 Estimated GFR (CKD-EPI) > 60.0 mL/Min [facility] Creatinine Clearance (Chem N/A [facility] Platelet mean volume [Entiti c volume] in Blood by Automated countOrdered By: Sharla Benitez on 10-24-2023 Platelet mean volume (Bld) [Entitic vol] 7.1 fL Normal 6.3-10.7 [facility] Comment on above: Order Comment: Reaso n for Exam Obesity;Depression;Snores;DARREL (obstructive sleep apnea);Janice Result Comment: PERF ORMED BY: [facility] [address] [place] [address] PATHOLOGIST PLASTIC 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 Performed By: #### C MP, CBCNO, TSH3 wRFLX, A1C WT eA, LIPID ####[place] [address] [address]#### LIPA ####[facility] , Platelets [#/volume] in Bloo d by Automated countOrdered By: Sharla Benitez on 02-21-2024 Platelets (Bld) [#/Vol] 260 10*3/uL Normal 150-450 [facility] Comment on above: Order Comment: Reaso n for Exam Obesity;Depression;Snores;DARREL (obstructive sleep apnea);[place] Performed By: #### C MP, CBCNO, TSH3 wRFLX, A1C [facility] eA, LIPID ####[address]#### LIPA ####[facility] , Potassium [Moles/volume] in Serum or PlasmaOrdered By: Sharla Benitez on 10-24-2023 Potassium [Moles/Vol] 4.0 mmol/L Normal 3.5-5.1 [facility] Comment on above: Order Comment: Reaso n for Exam Obesity;Depression;Snores;DARREL (obstructive sleep apnea);[place] Performed By: #### C MP, CBCNO, TSH3 wRFLX, A1C [facility] eA, LIPID ####[address]#### LIPA ####[facility] , Protein [Mass/volume] in Ser um or PlasmaOrdered By: Sharla Benitez on 10-24-2023 Protein [Mass/Vol] 7.2 g/dL Normal 6.4-8.9 [facility] Comment on above: Order Comment: Reaso n for Exam Obesity;Depression;Snores;DARREL (obstructive sleep apnea);[place] Performed By: #### C MP, CBCNO, TSH3 wRFLX, A1C [facility] eA, [place] ####[place] [address] [place]#### LIPA ####[facility] , Serum globulin measurement b y calculation (mass/volume)Ordered By: Sharla Benitez on 10-24-2023 Globulin (S) [Mass/Vol] 2.9 g/dL [facility] Comment on above: Order Comment: Reaso n for Exam Obesity;Depression;Snores;DARREL (obstructive sleep apnea);[place] Performed By: #### C MP, CBCNO, TSH3 wRFLX, A1C WT eA, LIPID ####[facility] [place] [address] [place]#### LIPA ####[facility] , Serum or plasma albumin/glob ulin mass ratioOrdered By: Sharla Benitez on 10-24-2023 Albumin/Globulin [Mass ratio] 1.5 {ratio} Normal [facility] Comment on above: Order Comment: Reaso n for Exam Obesity;Depression;Snores;DARREL (obstructive sleep apnea);[place] Performed By: #### C MP, CBCNO, TSH3 wRFLX, A1C WT eA, LIPID ####[place] [address] [address]#### LIPA ####[facility] , Serum or plasma anion gap de terminationOrdered By: Sharla Benitez on 10-24-2023 Anion gap [Moles/Vol] 12.5 mmol/L Normal 6.0-15.0 [facility] Comment on above: Order Comment: Reaso n for Exam Obesity;Depression;Snores;DARREL (obstructive sleep apnea);[place] Performed By: #### C MP, CBCNO, TSH3 wRFLX, [address] eA, LIPID ####[address]#### LIPA ####[facility] , Serum or plasma high density lipoprotein (HDL) cholesterol measurementOrdered By: Sharla Benitez on 10-24-2023 Cholesterol in HDL [Mass/Vol] 37 mg/dL Normal 23-92 [facility] Comment on above: HDL CHOL ATP-III CLA SSIFICATION Cardiovascular RiskHDL > or equal to 60 mg/dL LOWHDL < 40 mg/dL HIGH Order Comment: Reaso n for Exam Obesity;Depression;Snores;DARREL (obstructive sleep apnea);[place] Result Comment: HDL CHOL ATP-III CLASSIFICATION Cardiovascular Risk HDL > or equal to 60 mg/dL LOW HDL < 40 mg/dL HIGH Performed By: #### C MP, CBCNO, TSH3 wRFLX, A1C WT eA, LIPID ####[facility] [place] [address] [place]#### LIPA ####[facility] , Serum or plasma lipoprotein a measurement (moles/volume)Ordered By: Sharla Benitez on 10-24-2023 Lipoprotein a [Moles/Vol] 35.7 nmol/L <75.0 [facility] Comment on above: Note: Values greater than or equal to 75.0 nmol/L may indicate an independent risk factor for CHD, but must be evaluated with caution when applied to non- populations due to the influence of genetic factors on Lp(a) across ethnicities.Performed at: [facility] [place] [id number] Director: Jayjay Oakley PhD, Phone: [phone] Serum or plasma total choles terol/high density lipoprotein (HDL) cholesterol mass ratOrdered By: Sharla Benitez on 10-24-2023 Cholesterol.total/Cho lesterol in HDL [Mass ratio] 6.2 {ratio} Normal <5.0 [facility] Comment on above: Order Comment: Reaso n for Exam Obesity;Depression;Snores;DARREL (obstructive sleep apnea);[place] Performed By: #### C MP, CBCNO, TSH3 wRFLX, A1C [facility] eA, LIPID ####[facility] [place] [address] [place]#### LIPA ####[facility] , Sodium [Moles/volume] in Ser um or PlasmaOrdered By: Sharla Benitez on 10-24-2023 Sodium [Moles/Vol] 141 mmol/L Normal 136-145 [facility] Comment on above: Order Comment: Reaso n for Exam Obesity;Depression;Snores;DARREL (obstructive sleep apnea);[place] Performed By: #### C MP, CBCNO, TSH3 wRFLX, A1C WTH eA, LIPID ####[facility] [place] [address] [place]#### LIPA ####[facility] , Thyroid Stim Hormone w/Rflxo n 10-24-2023 Thyroid Stim Hormone w/Rflx 3.21 u[iU]/mL Normal 0.45-5.33 [facility] Comment on above: Order Comment: Reaso n for Exam Obesity;Depression;Snores;DARREL (obstructive sleep apnea);[place] Result Comment: PERF ORMED BY: [facility] [place] [id number] PATHOLOGIST PLASTIC 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 Performed By: #### C MP, CBCNO, TSH3 wRFLX, A1C WT eA, LIPID ####[facility]#### LIPA ####[facility] , Thyrotropin [Units/volume] i n Serum or PlasmaOrdered By: Sharla Benitez on 10-24-2023 TSH Qn 3.21 m[IU]/L 0.45-5.33 [facility] Triglyceride [Mass/volume] i n Serum or PlasmaOrdered By: Sharla Benitez on 10-24-2023 Triglyceride [Mass/Vol] 144 mg/dL 0-149 [facility] Comment on above: TRIG ATP III CLASSIF ICATIONTRIG less than 150 mg/dL NormalTRIG 150-199 mg/dL Borderline highTRIG 200-500 mg/dL High TRIG greater than 500 mg/dL Very highStandard traceable to the Center for Disease Conrtrol and Prevention (CDC) test method. Urea nitrogen [Mass/volume] in Serum or PlasmaOrdered By: Sharla Benitez on 10-24-2023 Urea nitrogen [Mass/Vol] 10 mg/dL Normal 7-25 [facility] Comment on above: Order Comment: Reaso n for Exam Obesity;Depression;Snores;DARREL (obstructive sleep apnea);[place] Performed By: #### C MP, CBCNO, TSH3 wRFLX, A1C WTH eA, LIPID ####[facility] [place] [id number] [facility]#### LIPA ####[facility] , Ambulatory Visit Summaryon 1 10-02-2022 Ambulatory Visit Summary MARY DOUGLAS :1965 Visit Date:08/02/2023 Ambulatory Visit Instructions Your Care Team Attending Physician - PRUDENCE PEGUERO, Pb Maria Primary Care Physician - MULUGETA GOTTI DO This Is Your Medications List Contact prescribing physician if questions or concerns anastrozole (anastrozole 1 mg Tab) dicyclomine (dicyclomine 20 mg Tab) nabumetone (nabumetone 750 mg Tab) ondansetron (ondansetron 4 mg Tab) oxybutynin (Ditropan XL 5 mg Tab-ER) phentermine-topiramate (Qsymia 7.5 mg-46 mg oral capsule, extended release) rizatriptan (Maxalt 10 mg Tab) tizanidine trazodone (traZODONE 50 mg Tab) Procedures Performed Right Shoulder Arthroscopy (09/14/2016), Arthroplasty of right knee, Bunionectomy, Cholecystectomy, Colonoscopy, Excision of axillary lymph node, left knee arthroscopy, Lumpectomy of left breast, Tonsillectomy, VH - Vaginal hysterectomy. Discharge Vitals Heart Rate (Peripheral) 84 Respiratory Rate 16 Blood Pressure 113/74 Height 167 cm Height 66 in Weight 116.4 kg Weight 256.08 lb BMI 41.74 Medications What How Much When Instructions Unchanged anastrozole (anastrozole 1 mg Tab) 1 Tablets By Mouth Every day Contact prescribing physician if questions or concerns Unchanged dicyclomine (dicyclomine 20 mg Tab) 2 times a day 20 Unknown, ORAL, 2 Refill(s), Take 1 tablet by mouth twice daily. Contact prescribing physician if questions or concerns Unchanged nabumetone (nabumetone 750 mg Tab) 750 Unknown, Oral, 0 Refill(s) Contact prescribing physician if questions or concerns Unchanged ondansetron (ondansetron 4 mg Tab) Oral, 0 Refill(s) Contact prescribing physician if questions or concerns Unchanged oxybutynin (Ditropan XL 5 mg Tab-ER) 1 Tablets By Mouth Every day Duration: 90 Days Contact prescribing physician if questions or concerns Unchanged phentermine-topiramate (Qsymia 7.5 mg-46 mg oral capsule, extended release) Oral, 0 Refill(s) Contact prescribing physician if questions or concerns Unchanged rizatriptan (Maxalt 10 mg Tab) 1 Tablets By Mouth may repeat dose once in 2 hours Contact prescribing physician if questions or concerns Unchanged tizanidine Contact prescribing physician if questions or concerns Unchanged trazodone (traZODONE 50 mg Tab) 1 Tablets By Mouth 2 times a day Contact prescribing physician if questions or concerns Medications and Immunizations Administered Not Given influenza virus vaccine, inactivated, Patient Refuses Allergies Fioricet (Itching) Ultram (Vomiting) codeine (Vomiting) erythromycin (intestinal pain, Diarrhea) morphine (Tremor) Problems Ongoing - Any problem that you are currently receiving treatment for. Abdominal pain Asymptomatic microscopic hematuria BMI 40.0-44.9, adult Chronic constipation Colonic diverticulum Feeling of incomplete bladder emptying Former smoker Frequency of urination Gastric diverticulum History of breast cancer Mixed incontinence Morbid obesity with body mass index (BMI) of 45.0 to 49.9 in adult Nocturia OAB (overactive bladder) Other urethral stricture, female Pneumobilia Recurrent UTI Right flank pain Urinary urgency UTI symptoms Historical - Any problem that you are no longer receiving treatment for. Smoker Patient Survey You may receive a survey via text or e-mail asking about your office visit. Please share your experience with us by completing your survey. We appreciate your feedback and thank you for choosing us for your care. Normal [facility] ED Note-Physicianon 08-01-20 ED Note-Physician [id number]#[id number] [facility] RAD - CT Reporton 08-01-2023 RAD - CT Report [id number]#[id number] [facility] XR lumbar spine AP/LAT/FLX/E XTon 07-10-2023 XR lumbar spine AP/LAT/FLX/EXT [facility] [place] [address] XRay Report Signed Patient: Mary Douglas MR#: [id number] 0 : 1965 Acct:[id number] Age/Sex: 58 / F ADM Date: 07/10/23 Loc: XD Room: Type: [facility] Attending Dr: Prasanna Weems MD Copies to: Prasanna Weems MD Ordering Provider: Prasanna Weems MD Date of Service: 07/10/23 XR/XR lumbar spine AP/LAT/FLX/EXT: Spondylosis of lumbosacral region without myelopathy or radi LUMBAR SPINE WITH FLEXION AND EXTENSION VIEWS - 4 views COMPARISON: 02/22/2021 and graft clinical data: Low back pain radiating down the legs, greater on the right. No recent injury. COMPARISON: 02/22/[address] 01/11/2023 Standing AP as well as lateral views in neutral, flexion and extension were obtained. There is osteopenia. There is rotatory thoracolumbar levoscoliotic curvature. This slightly limits assessment on the lateral views. There are no suspected acute compression fractures. There is still minimal retrolisthesis of L1 on L2 and anterolisthesis of L5 on S1. Alignment does not change significantly with flexion or extension. There is no prominent disc space narrowing. There are tiny endplate spurs. There is lower lumbar facet disease, greatest at the lumbosacral junction. The SI joints are intact. No paraspinal soft tissue abnormalities are noted. XR/XR lumbar spine AP/LAT/FLX/EXT IMPRESSION: SCOLIOSIS AND DEGENERATIVE CHANGES. Impression dictated by: Phyllis Dowd M.D.07/10/2023 4:35 PM Dictation Location: [place] [address] Transcribed By: [facility] 07/10/23 1635 Dictated By: Phyllis Dowd MD 07/10/23 1632 Signed By: 07/10/23 1635 Normal [facility] MM diagnostic mammo BI w/CAD on 06-22-2023 MM diagnostic mammo BI w/CAD [facility] [place] [address] [place] [address] Mammography Report Signed Patient: Mary Douglas MR#: [id number] 0 : 1965 Acct:[id number] Age/Sex: 58 / F ADM Date: 06/22/23 Loc: [place] Room: Type: [facility] Attending Dr: Nina Montana DO Copies to: DO Mulugeta Cooper DO Ordering Provider: Nina Montana DO Date of Service: 06/22/23 MM/MM diagnostic mammo BI w/CAD: Z85.3 CLINICAL DATA: History of left-sided breast cancer with lumpectomy BILATERAL DIAGNOSTIC MAMMOGRAMS - FULL FIELD DIGITAL WITH TOMOSYNTHESIS AND CAD Tomosynthesis craniocaudal and mediolateral oblique views of both breasts were obtained using low- dose digital technique. Comparison is made to prior studies from 06/21/2022, 12/20/2019, 06/20/2021, and 09/30/2020. This examination was reviewed with the aid of CAD. The breast parenchyma has been largely replaced by fat. Similar surgical clips are noted along the central and inferior aspect of the left breast and in the right axilla. There are scattered punctate benign-appearing calcifications. There are similar postsurgical scarring and architectural distortion in the inferior aspect of the left breast which is unchanged. There is also skin thickening in the left breast which is presumably treatment related. There are no dominant masses, typically malignant calcifications or architectural distortion. There has been no significant interval change. MM/MM diagnostic mammo BI w/CAD IMPRESSION: NO MAMMOGRAPHIC EVIDENCE OF MALIGNANCY. ROUTINE FOLLOW-UP IS RECOMMENDED IN ONE YEAR. RESULT CODE: 2 Benign Findings(s) DENSITY CODE: 2 (approximately 25-50% glandular) FOLLOW UP: 1YR The false-negative rate of mammography is approximately 10-percent. Management of a palpable abnormality must be based on clinical grounds. Patient was entered into a reminder system with a target due date for the next mammogram. Impression dictated by: Chanelle Barahona M.D.06/22/2023 11:19 AM Dictation Location: [facility] Transcribed By: [facility] 06/22/23 111 Dictated By: Chanelle Barahona II, MD 06/22/23 1116 Signed By: 06/22/23 1119 Normal [facility] XR chest 1V portableon 05-20 XR chest 1V portable [facility] [place] [address] XRay Report Signed Patient: Mary Douglas MR#: [id number] 0 : 1965 Acct:[id number] Age/Sex: 58 / F ADM Date: 05/19/23 Loc: ER Room: Type: [facility] ER Attending Dr: Copies to: Denver Naranjo DO Ordering Provider: Denver Naranjo DO Date of Service: 05/19/23 XR/XR chest 1V portable: Shortness of Breath/Dyspnea XR chest 1V portable 05/19/2023 10:09 PM SIGNS AND SYMPTOMS: Shortness of Breath/Dyspnea PROTOCOL: Frontal radiograph of the chest COMPARISON: 12/05/2021 FINDINGS: The trachea is midline. The heart and mediastinal structures are within normal limits. The lung parenchyma is clear. Surgical clips are present in the lateral aspect of the left breast. The bony thorax is intact. XR/XR chest 1V portable IMPRESSION: No acute cardiopulmonary pathology. Impression dictated by: Chanelle Barahona M.D.05/20/2023 10:48 AM Dictation Location: [place] [address] Transcribed By: [facility] 05/20/23 1048 Dictated By: Chanelle Barahona II, MD 05/20/23 1047 Signed By: 05/20/23 1048 Normal [facility] Automated basophil %Ordered By: Denver Naranjo on 05-19-2023 Basophils/100 WBC (Bld) 1.0 % Normal . [facility] Comment on above: Performed By: #### B MP, CBC #### [facility] [address] [place] [address] Automated basophil countOrde red By: Denver Naranjo on 05-19-2023 Basophils (Bld) [#/Vol] 0.1 10*3/uL Normal 0.0-0.2 [facility] Comment on above: Result Comment: PERF ORMED BY: [place] [address] PATHOLOGIST PLASTIC 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 Performed By: #### B MP, CBC #### [facility] [address] [place] [address] Automated blood monocyte cou ntOrdered By: Denver Naranjo on 05-19-2023 Monocytes (Bld) [#/Vol] 0.7 10*3/uL Normal 0.0-0.8 [facility] Comment on above: Performed By: #### B MP, CBC #### [address] Automated eosinophil %Ordere d By: Denver Naranjo on 05-19-2023 Eosinophils/100 WBC (Bld) 0.0 % Normal . [facility] Comment on above: Performed By: #### B MP, CBC #### [address] Automated eosinophil countOr dered By: Denver Naranjo on 05-19-2023 Eosinophils (Bld) [#/Vol] 0.0 10*3/uL Normal 0.0-0.45 [facility] Comment on above: Performed By: #### B MP, CBC #### [address] Automated monocyte %Ordered By: Denver Naranjo on 05-19-2023 Monocytes/100 WBC (Bld) 8.6 % Normal . [facility] Comment on above: Performed By: #### B MP, CBC #### [address] Automated neutrophil %Ordere d By: Denver Marcella on 05-19-2023 Neutrophils/100 WBC (Bld) 69.7 % Normal . [facility] Comment on above: Performed By: #### B MP, CBC #### [address] BNP ser/plasOrdered By: Kaur Naranjo on 05-19-2023 Natriuretic peptide B (Bld) [Mass/Vol] 20.0 pg/mL Normal 5-100 [facility] Comment on above: Result Comment: PERF ORMED BY: [place] [address] PATHOLOGIST PLASTIC 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 Performed By: #### H S TROP, BNP #### [address] Basic Metabolic Panelon 05-04 Creatinine Clr Calc Pharmacy 121.07 Normal [facility] Comment on above: Result Comment: PERF ORMED BY: [address] [place] [address] PATHOLOGIST PLASTIC 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 Performed By: #### B MP, CBC #### [facility] [address] [place] [address] [place] GFR/1.73 sq M.predicted MDRD (S/P/Bld) [Vol rate/Area] mL/min/{1.73_m2} Normal [facility] Comment on above: Performed By: #### B MP, CBC #### [facility] [address] [place] [address] COVID CepheidOrdered By: PRO VIDER TEMP on 05-19-2023 SARS-CoV-2 (COVID-19) Ab IA Ql Negative Negative [facility] Comment on above: This is a duplicate Cepheid Xpert Xpress CoV-2/Flu/RSV Plus RNA by RT-PCR result to be used for statistical tracking purpose only. COVID CepheidOrdered By: Faustino Naranjo on 05-19-2023 SARS-CoV-2 (COVID-19) RNA IGLESIA+probe Ql (Unsp spec) [facility] COVID-19 / Flu A/B / RSV PCR on 05-19-2023 SARS-CoV-2 (COVID-19) RNA IGLESIA+probe Ql (Unsp spec) COVID-19 Cepheid Result Negative for SARS-CoV-2 RNA by RT-PCR Flu A Cepheid Result Negative for Flu A RNA by RT-PCR Flu B Cepheid Result Negative for Flu B RNA by RT-PCR RSV Cepheid Result Negative for RSV RNA by RT-PCR COVID19 Blank Space -- Reference: Negative COVID19 Blank Space -- Cepheid Disclaimer The Cepheid Xpert Xpress CoV-2/Flu/RSV Plus has Cepheid Disclaimer not been FDA cleared or approved; this test has Cepheid Disclaimer been authorized by FDA under an EUA for use by Cepheid Disclaimer authorized laboratories; this test has been Cepheid Disclaimer authorized only for the simultaneous qualitative Cepheid Disclaimer detection and differentiation of nucleic acids from Cepheid Disclaimer SARS-CoV-2, influenza A, influenza B, and Cepheid Disclaimer respiratory syncytial virus (RSV), and not for any Cepheid Disclaimer other viruses or pathogens; and this test is only Cepheid Disclaimer authorized for the duration of the declaration that Cepheid Disclaimer circumstances exist justifying the authorization of Cepheid Disclaimer emergency use of in vitro diagnostic tests for Cepheid Disclaimer detection and/or diagnosis of COVID-19 under Cepheid Disclaimer Section 564(b)(1) of the Act, 21 U.S.C. 360bbb- Cepheid Disclaimer 3(b)(1), unless the authorization is terminated or Cepheid Disclaimer revoked sooner. PERFORMED BY: [place] [address] PATHOLOGIST PLASTIC 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 Normal [facility] Comment on above: Performed By: #### C EPHEID NEG, COVID19 FLU RSV #### [place] [address] [place] Calcium [Mass/volume] in Ser um or PlasmaOrdered By: Denver Naranjo on 05-19-2023 Calcium [Mass/Vol] 8.9 mg/dL Normal 8.6-10.3 [facility] Comment on above: Performed By: #### B MP, CBC #### [place] [address] [place] Carbon dioxide, total [Moles /volume] in Serum or PlasmaOrdered By: Denver Naranjo on 05-19-2023 CO2 [Moles/Vol] 26.6 mmol/L Normal 21.0-31.0 [facility] Comment on above: Performed By: #### B MP, CBC #### [place] [address] [place] Cepheid COVID PCR Negativeon 05-19-2023 SARS-CoV-2 (COVID-19) RNA IGLESIA+probe Ql (Unsp spec) Negative Normal Negative [facility] Comment on above: Result Comment: This is a duplicate Cepheid Xpert Xpress CoV-2/Flu/RSV Plus RNA by RT-PCR result to be used for statistical tracking purpose only. PERFORMED BY: [place] [address] PATHOLOGIST PLASTIC 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 Performed By: #### C EPHEID NEG, COVID19 FLU RSV #### [address] Chloride [Moles/volume] in S lito or PlasmaOrdered By: Denver Naranjo on 05-19-2023 Chloride [Moles/Vol] 106 mmol/L Normal 98-107 [facility] Comment on above: Performed By: #### B MP, CBC #### [address] Complete Blood Count Auto Di ffon 05-19-2023 Mean Corpuscular HGB Conc 33.9 g/dL Normal 32.0-35.0 [facility] Comment on above: Performed By: #### B MP, CBC #### [place] [address] [place] Monocytes/100 WBC (Bld) 19.18 % Normal 0.00-20.00 [facility] Comment on above: Performed By: #### B MP, CBC #### [place] [address] [place] NRBC% 0.0 /100{WBC} Normal 0-0.5 [facility] Comment on above: Performed By: #### B MP, CBC #### [address] Creatinine [Mass/volume] in Serum or PlasmaOrdered By: Denver Naranjo on 05-19-2023 Creatinine [Mass/Vol] 0.66 mg/dL Normal 0.60-1.20 [facility] Comment on above: Performed By: #### B MP, CBC #### [facility] [address] [id number] [facility] ECG 12 lead ECGon 05-19-2023 ECG 12 lead ECG [facility] Main [place] [address] [place] [address] Electrocardiograph Report Signed Patient: Mary Douglas MR#: [id number] 0 : 1965 Acct:[id number] Age/Sex: 58 / F ADM Date: 05/19/23 Loc: ER Room: Type: [facility] ER Attending Dr: Ordering Provider: Denver Naranjo DO Date of Service: 05/19/23 ECG/ECG 12 lead ECG: Shortness of Breath/Dyspnea Copies to: Test Reason : Blood Pressure : / mmHG Vent. Rate : 101 BPM Atrial Rate : 101 BPM P-R Int : 140 ms QRS Dur : 080 ms QT Int : 342 ms P-R-T Axes : 053 -28 056 degrees QTc Int : 443 ms Sinus tachycardia Nonspecific T wave abnormality Abnormal ECG When compared with ECG of 05-DEC-2021 16:53, Nonspecific T wave abnormality now evident in Anterior leads Confirmed by Denver Naranjo DO ([id number]) on 05/20/2023 12:40:21 AM Referred By: Electronically Signed By:Denver Naranjo DO Transcribed By: MUS Signed By Denver Naranjo DO 3 0040 Normal [facility] Erythrocyte distribution wid th [Ratio] by Automated countOrdered By: Denver Naranjo on 05-19-2023 Erythrocyte distribution width (RBC) [Ratio] 14.2 % Normal 11.9-15.3 [facility] Comment on above: Performed By: #### B MP, CBC #### [facility] [address] [place], [place] [id number] [facility] Erythrocytes [#/volume] in B lood by Automated countOrdered By: Denver Naranjo on 05-19-2023 RBC (Bld) [#/Vol] 4.70 10*6/uL Normal 3.60-5.00 [facility] Comment on above: Performed By: #### B MP, CBC #### [facility] [address] Glucose [Mass/volume] in Ser um or PlasmaOrdered By: Denver Naranjo on 05-19-2023 Glucose [Mass/Vol] 87 mg/dL Normal 70-100 [facility] Comment on above: ADA recommended refe rence rangeRandom Glucose Reference Range is dependent on time and content of last meal. Glucose of more than 200 mg/dL in a nonstressed, ambulatory subject supports the diagnosis of Diabetes Mellitus. Result Comment: [place] om Glucose Reference Range is dependent on time and content of last meal. Glucose of more than 200 mg/dL in a nonstressed, ambulatory subject supports the diagnosis of Diabetes Mellitus. ADA recommended reference range Performed By: #### B MP, CBC #### [facility] [address] [place] [address] Hematocrit [Volume Fraction] of Blood by Automated countOrdered By: Denver Naranjo on 05-19-2023 Hematocrit (Bld) [Volume fraction] 41.7 % Normal 34.0-46.4 [facility] Comment on above: Performed By: #### B MP, CBC #### [facility] [address] [place] [address] Hemoglobin [Mass/volume] in BloodOrdered By: Denver Naranjo on 05-19-2023 Hemoglobin (Bld) [Mass/Vol] 14.1 g/dL Normal 11.8-15.4 [facility] Comment on above: Performed By: #### B MP, CBC #### [address] Leukocytes [#/volume] correc cherry for nucleated erythrocytes in Blood by Automated counOrdered By: Denver Naranjo on 05-19-2023 WBC corrected for nucl RBC Auto (Bld) [#/Vol] 8.5 10*3/uL 3.8-11.6 [facility] Leukocytes [#/volume] in Blo od by Automated countOrdered By: Denver Naranjo on 05-19-2023 WBC (Bld) [#/Vol] 8.5 10*3/uL Normal 3.8-11.6 [facility] Comment on above: Performed By: #### B MP, CBC #### [place] [address] [place] Lymphocytes [#/volume] in Bl ood by Automated countOrdered By: Denver Naranjo on 05-19-2023 Lymphocytes (Bld) [#/Vol] 1.8 10*3/uL Normal 1.00-4.8 [facility] Comment on above: Performed By: #### B MP, CBC #### [address] Lymphocytes/100 leukocytes i n Blood by Automated countOrdered By: Denver Naranjo on 05-19-2023 Lymphocytes/100 WBC (Bld) 20.7 % Normal . [facility] Comment on above: Performed By: #### B MP, CBC #### [address] MCH [Entitic mass] by [place] cherry countOrdered By: Denver Naranjo on 05-19-2023 MCH (RBC) [Entitic mass] 30.1 pg Normal 24.7-34.3 [facility] Comment on above: Performed By: #### B MP, CBC #### [address] MCHC Auto (RBC) [Mass/Vol]Or dered By: Denver Naranjo on 05-19-2023 MCHC (RBC) [Mass/Vol] 33.9 g/dL 32.0-35.0 [facility] MCV [Entitic volume] by Auto mated countOrdered By: Denver Naranjo on 05-19-2023 MCV (RBC) [Entitic vol] 88.6 fL Normal 80-100 [facility] Comment on above: Performed By: #### B MP, CBC #### [address] Monocyte distribution width [Entitic volume] in Blood by AutomatedOrdered By: Denver Naranjo on 05-19-2023 Monocyte distribution width Auto (Bld) [Entitic vol] 19.18 % 0.00-20.00 [facility] Neutrophils [#/volume] in Bl ood by Automated countOrdered By: Denver Naranjo on 05-19-2023 Neutrophils (Bld) [#/Vol] 6.0 10*3/uL Normal 1.8-7.7 [facility] Comment on above: Performed By: #### B MP, CBC #### [facility] [address] [place] [address] No Panel InformationOrdered By: Denver Naranjo on 05-19-2023 Estimated GFR (CKD-EPI) > 60.0 mL/Min [facility] Creatinine Clearance (Chem 121.07 [facility] Nucleated erythrocytes [Pres ence] in Blood by Automated countOrdered By: Denver Naranjo on 05-19-2023 Nucleated RBC Auto Ql (Bld) 0.0 /100{WBC} 0-0.5 [facility] Platelet mean volume [Entiti c volume] in Blood by Automated countOrdered By: Denver Naranjo on 05-19-2023 Platelet mean volume (Bld) [Entitic vol] 7.2 fL Normal 6.3-10.7 [facility] Comment on above: Performed By: #### B MP, CBC #### [address] Platelets [#/volume] in Bloo d by Automated countOrdered By: Denver Naranjo on 05-19-2023 Platelets (Bld) [#/Vol] 237 10*3/uL Normal 150-450 [facility] Comment on above: Performed By: #### B MP, CBC #### [facility] [address] [place] [address] Potassium [Moles/volume] in Serum or PlasmaOrdered By: Denver Naranjo on 05-19-2023 Potassium [Moles/Vol] 3.9 mmol/L Normal 3.5-5.1 [facility] Comment on above: Performed By: #### B MP, CBC #### [facility] [address] [place] [address] Serum or plasma anion gap de terminationOrdered By: Denver Naranjo on 05-19-2023 Anion gap [Moles/Vol] 10.3 mmol/L Normal 6.0-15.0 [facility] Comment on above: Performed By: #### B MP, CBC #### [facility] [address] [place] [address] Sodium [Moles/volume] in Ser um or PlasmaOrdered By: Denver Naranjo on 05-19-2023 Sodium [Moles/Vol] 139 mmol/L Normal 136-145 [facility] Comment on above: Performed By: #### B MP, CBC #### [address] Troponin I High Sensitivityo n 05-19-2023 Troponin I High Sensitivity 4.9 pg/mL Normal 0.0-15.0 [facility] Comment on above: Result Comment: PERF ORMED BY: [place] [address] PATHOLOGIST PLASTIC 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 Performed By: #### H S TROP, BNP #### [address] Troponin I.cardiac [Mass/vol ume] in Serum or Plasma by Detection limit <= 0.01 ng/Ordered By: Denver Naranjo on 05-19-2023 Troponin I.cardiac DL <= 0.01 ng/mL [Mass/Vol] 4.9 pg/mL 0.0-15.0 [facility] Urea nitrogen [Mass/volume] in Serum or PlasmaOrdered By: Denver Naranjo on 05-19-2023 Urea nitrogen [Mass/Vol] 11 mg/dL Normal 7-25 [facility] Comment on above: Performed By: #### B MP, CBC #### [facility] [address] [place] [address] ANES POSTPROC EVALon 023 ANES POSTPROC EVAL HNO ID: [id number] Author: Don Torres MD Service: Anesthesiology Author Type: Anesthesiologist Type: Anesthesia Postprocedure Evaluation Filed: 05/17/2023 8:57 AM Note Text: POST ANESTHESIA EVALUATION NOTE : 1965 Procedure Summary Date: 05/17/23 Room / Location: [facility] - ENDO Anesthesia Start: 741 Anesthesia Stop: 804 Procedure: ERCP Diagnosis: Encounter for removal of biliary stent (Biliary stent removal) Scheduled Providers: Luis Xavier MD; Don Torres MD; Clement Rodas APRN.SENIOR QA ENGINEER Responsible Provider: Don Torres MD Anesthesia Type: MAC ASA Status: 3 Anesthesia Type: MAC Last Vitals Vitals Value Taken Time BP 97/80 05/17/23 0830 Temp 36 ?C (96.8 ?F) 05/17/23 0801 Pulse 79 05/17/23 0831 Resp 21 05/17/23 0831 SpO2 98 % 05/17/23 0830 Vitals shown include unvalidated device data. Post Anesthesia Patient Status Patient Evaluation: PACU. PACU/ICU Patient Condition: stable. Neurological Status: aware and responsive. Pulmonary Status: breathing comfortably on room air Airway Control: returned to baseline unsupported. Cardiovascular Status: stable. Pain Management: clinically adequate Postoperative Hydration: acceptable. Intraoperative Events: no significant anesthesia events Post Operative Nausea/Vomiting Status: no significant post operative nausea or vomiting Recommendation: continue current plan of care. Anesthesia Observations No Documentation SIGNATURE: Don Torres MD PATIENT NAME: Mary Douglas DATE: May 17, 2023 TIME: 8:57 AM CSN: [id number] Normal [facility] ANES PRE-OPon 05-17-2023 ANES PRE-OP HNO ID: [id number] Author: Don Torres MD Service: Anesthesiology Author Type: Anesthesiologist Type: Anesthesia Preprocedure Evaluation Filed: 05/17/2023 7:13 AM Note Text: ANESTHESIOLOGY DAY OF SURGERY NOTE : 1965 Procedure Information Date/Time: 05/17/23729 Scheduled providers: Luis Xavier MD; Don Torres MD; Clement Rodas APRN.SENIOR QA ENGINEER Procedure: ERCP Location: [facility] - ENDO Estimated body mass index is 41.97 kg/m? as calculated from the following: Height as of 02/06/23: 167.6 cm (5' 6 ). Weight as of 02/06/23: 117.9 kg (260 lb). Most recent hematocrit and potassium results: Hematocrit 47.2 04/17/2023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 dioxide, total [Moles /volume] in Serum or PlasmaOrdered By: Sharla Benitez on 04-18-2023 CO2 [Moles/Vol] 23.2 mmol/L Normal 21.0-31.0 [facility] Comment on above: Order Comment: Reaso n for Exam Obesity;Diarrhea, unspecified;Right upper quadrant abdominal Performed By: #### L IPASE, BEAU, CBC, CMP ####[facility] [address] [place] [address] [facility] Chloride [Moles/volume] in S lito or PlasmaOrdered By: Sharla Benitez on 04-18-2023 Chloride [Moles/Vol] 106 mmol/L Normal 98-107 [facility] Comment on above: Order Comment: Reaso n for Exam Obesity;Diarrhea, unspecified;Right upper quadrant abdominal Performed By: #### L IPASE, BEAU, CBC, CMP ####[facility] [id number] [place] [address] [facility] Complete Blood Count Auto Di ffon 04-18-2023 Basophils (Bld) [#/Vol] 0.043353734 10*3/uL Normal 0.0-0.2 10*3/uL [employer] Other Basophils/100 WBC (Bld) 0.700 % . % [employer] Other Eosinophils (Bld) [#/Vol] 0.728878233 10*3/uL Normal 0.0-0.45 10*3/uL [employer] Other Eosinophils/100 WBC (Bld) 0.000 % . % [employer] Other Erythrocyte distribution width (RBC) [Ratio] 14.200 % Normal 11.9-15.3 % [employer] Other Hematocrit (Bld) [Volume fraction] 43.400 % Normal 34.0-46.4 % [employer] Other Hemoglobin (Bld) [Mass/Vol] 14.469611 g/dL Normal 11.8-15.4 g/dL [employer] Other Lymphocytes (Bld) [#/Vol] 2.341489965 10*3/uL Normal 1.00-4.8 10*3/uL [employer] Other Lymphocytes/100 WBC (Bld) 28.900 % . % [employer] Other MCH (RBC) [Entitic mass] 29.9000 pg Normal 24.7-34.3 pg [employer] Other MCV (RBC) [Entitic vol] 88.2000 fL Normal 80-100 fL [employer] Other Mean Corpuscular HGB Conc 33.9 g/dL Normal 32.0-35.0 [facility] Comment on above: Order Comment: Reaso n for Exam Obesity;Diarrhea, unspecified;Right upper quadrant abdominal Performed By: #### L IPASE, BEAU, CBC, CMP ####[facility] [id number] [place] [address] [facility] Monocytes (Bld) [#/Vol] 0.278927132 10*3/uL Normal 0.0-0.8 10*3/uL [employer] Other Monocytes/100 WBC (Bld) 7.800 % . % [employer] Other Neutrophils (Bld) [#/Vol] 4.413166331 10*3/uL Normal 1.8-7.7 10*3/uL [employer] Other Neutrophils/100 WBC (Bld) 62.600 % . % [employer] Other NRBC% 0.1 /100{WBC} Normal 0-0.5 [facility] Comment on above: Order Comment: Reaso n for Exam Obesity;Diarrhea, unspecified;Right upper quadrant abdominal Performed By: #### L IPASE, BEAU, CBC, CMP ####[facility] [id number] [place] [address] [facility] Platelet mean volume (Bld) [Entitic vol] 7.2000 fL Normal 6.3-10.7 fL [employer] Other WBC (Bld) [#/Vol] 7.291924164 10*3/uL Normal 3.8 -11.6 10*3/uL [employer] Other Complete Blood Count Auto Diff 7.8 10*3/uL Normal 3.8-11.6 10*3/uL [employer] Other Complete Blood Count Auto Diff 33.9 g/dL Normal 32.0-35.0 g/dL [employer] Other Complete Blood Count Auto Diff 0.1 /100{WBC} Normal 0-0.5 /100{WBC} [employer] Other Comprehensive Metabolic Pane kulwant 04-18-2023 Albumin [Mass/Vol] 4.640077 g/dL Normal 3.5-5.7 g/dL [employer] Other Albumin [Mass/Vol] 4.3 g/dL Normal 3.5-5.7 [facility] Comment on above: Order Comment: Reaso n for Exam Obesity;Diarrhea, unspecified;Right upper quadrant abdominal Performed By: #### L IPASE, BEAU, CBC, CMP ####[facility] [id number] Bilirubin [Mass/Vol] 0.6462725 mg/dL Normal 0.3- 1.0 mg/dL [employer] Other Calcium [Mass/Vol] 9.2553248 mg/dL Normal 8.6-10 .3 mg/dL [employer] Other CO2 [Moles/Vol] 23.94803089 mmol/L Normal 21.0-3 1.0 mmol/L [employer] Other Creatinine [Mass/Vol] 0.25888241 mg/dL Low 0. 60-1.20 mg/dL [employer] Other GFR/1.73 sq M.predicted MDRD (S/P/Bld) [Vol rate/Area] mL/min/{1.73_m2} Normal [employer] Other Comment on above: Order Comment: Reaso n for Exam Obesity;Diarrhea, unspecified;Right upper quadrant abdominal Performed By: #### L IPASE, BEAU, CBC, CMP ####[place] [address] [place] [id number] [facility] Potassium [Moles/Vol] 4.54128565 mmol/L Normal 3 .5-5.1 mmol/L [facility] [employer] Other Protein [Mass/Vol] 7.973360 g/dL Normal 6.4-8.9 g/dL [facility] [employer] Other Comprehensive Metabolic Panel 3.0 g/dL [facility] [employer] Other Creatinine [Mass/volume] in Serum or PlasmaOrdered By: Sharla Benitez on 04-18-2023 Creatinine [Mass/Vol] 0.57 mg/dL Low 0.60-1.20 [facility] Comment on above: Order Comment: Reaso n for Exam Obesity;Diarrhea, unspecified;Right upper quadrant abdominal Performed By: #### L IPASE, BEAU, CBC, CMP ####[place] [id number] [facility] Erythrocyte distribution wid th [Ratio] by Automated countOrdered By: Sharla Benitez on 04-18-2023 Erythrocyte distribution width (RBC) [Ratio] 14.2 % Normal 11.9-15.3 [facility] Comment on above: Order Comment: Reaso n for Exam Obesity;Diarrhea, unspecified;Right upper quadrant abdominal Performed By: #### L IPASE, BEAU, CBC, CMP ####[place] [id number] [facility] Erythrocytes [#/volume] in B lood by Automated countOrdered By: Sharla Benitez on 04-18-2023 RBC (Bld) [#/Vol] 4.92 10*6/uL Normal 3.60-5.00 [facility] Comment on above: Order Comment: Reaso n for Exam Obesity;Diarrhea, unspecified;Right upper quadrant abdominal Performed By: #### L IPASE, BEAU, CBC, CMP ####[place] [id number] [facility] Glucose [Mass/volume] in Ser um or PlasmaOrdered By: Sharla Benitez on 04-18-2023 Glucose [Mass/Vol] 82 mg/dL Normal 70-100 [facility] Comment on above: ADA recommended refe rence rangeRandom Glucose Reference Range is dependent on time and content of last meal. Glucose of more than 200 mg/dL in a nonstressed, ambulatory subject supports the diagnosis of Diabetes Mellitus. Order Comment: Reaso n for Exam Obesity;Diarrhea, unspecified;Right upper quadrant abdominal Result Comment: [place] om Glucose Reference Range is dependent on time and content of last meal. Glucose of more than 200 mg/dL in a nonstressed, ambulatory subject supports the diagnosis of Diabetes Mellitus. ADA recommended reference range Performed By: #### L IPASE, BEAU, CBC, CMP ####[facility] [address] [place] [id number] [facility] Hematocrit [Volume Fraction] of Blood by Automated countOrdered By: Sharla Benitez on 04-18-2023 Hematocrit (Bld) [Volume fraction] 43.4 % Normal 34.0-46.4 [facility] Comment on above: Order Comment: Reaso n for Exam Obesity;Diarrhea, unspecified;Right upper quadrant abdominal Performed By: #### L IPASE, BEAU, CBC, CMP ####[place] [id number] [facility] Hemoglobin [Mass/volume] in BloodOrdered By: Sharla Benitez on 04-18-2023 Hemoglobin (Bld) [Mass/Vol] 14.7 g/dL Normal 11.8-15.4 [facility] Comment on above: Order Comment: Reaso n for Exam Obesity;Diarrhea, unspecified;Right upper quadrant abdominal Performed By: #### L IPASE, BEAU, CBC, CMP ####[facility] [id number] [place] [address] [facility] Leukocytes [#/volume] correc cherry for nucleated erythrocytes in Blood by Automated counOrdered By: Sharla Benitez on 04-18-2023 WBC corrected for nucl RBC Auto (Bld) [#/Vol] 7.8 10*3/uL 3.8-11.6 [facility] Leukocytes [#/volume] in Blo od by Automated countOrdered By: Sharla Benitez on 04-18-2023 WBC (Bld) [#/Vol] 7.8 10*3/uL Normal 3.8-11.6 [facility] Comment on above: Order Comment: Reaso n for Exam Obesity;Diarrhea, unspecified;Right upper quadrant abdominal Performed By: #### L IPASE, BEAU, CBC, CMP ####[place] [address] [place] [address] [facility] Lipaseon 04-18-2023 Lipase [Catalytic activity/Vol] 30.06039 U/L Normal 11.0-82.0 U/L [employer] Other Lipase [Enzymatic activity/v olume] in Serum or PlasmaOrdered By: Sharla Benitez on 04-18-2023 Lipase [Catalytic activity/Vol] 30.0 U/L Normal 11.0-82.0 [facility] Comment on above: Order Comment: Reaso n for Exam Obesity;Diarrhea, unspecified;Right upper quadrant abdominal Result Comment: PERF ORMED BY: [facility] [address] [place] [address] PATHOLOGIST PLASTIC 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 Performed By: #### L IPASE, BEAU, CBC, CMP ####[place] [address] [place] [address] [facility] Lymphocytes [#/volume] in Bl ood by Automated countOrdered By: Sharla Benitez on 04-18-2023 Lymphocytes (Bld) [#/Vol] 2.3 10*3/uL Normal 1.00-4.8 [facility] Comment on above: Order Comment: Reaso n for Exam Obesity;Diarrhea, unspecified;Right upper quadrant abdominal Performed By: #### L IPASE, BEAU, CBC, CMP ####[place] [address] [place] [address] [facility] Lymphocytes/100 leukocytes i n Blood by Automated countOrdered By: Sharla Benitez on 04-18-2023 Lymphocytes/100 WBC (Bld) 28.9 % Normal . [facility] Comment on above: Order Comment: Reaso n for Exam Obesity;Diarrhea, unspecified;Right upper quadrant abdominal Performed By: #### L IPASE, BEAU, CBC, CMP ####[address] [place] [address] [place] MCH [Entitic mass] by Automa cherry countOrdered By: Sharla Benitez on 04-18-2023 MCH (RBC) [Entitic mass] 29.9 pg Normal 24.7-34.3 [facility] Comment on above: Order Comment: Reaso n for Exam Obesity;Diarrhea, unspecified;Right upper quadrant abdominal Performed By: #### L IPASE, BEAU, CBC, CMP ####[address] MCHC Auto (RBC) [Mass/Vol]Or dered By: Sharla Benitez on 04-18-2023 MCHC (RBC) [Mass/Vol] 33.9 g/dL 32.0-35.0 [facility] MCV [Entitic volume] by Auto mated countOrdered By: Sharla Benitez on 04-18-2023 MCV (RBC) [Entitic vol] 88.2 fL Normal 80-100 [facility] Comment on above: Order Comment: Reaso n for Exam Obesity;Diarrhea, unspecified;Right upper quadrant abdominal Performed By: #### L IPASE, BEAU, CBC, CMP ####[address] Neutrophils [#/volume] in Bl ood by Automated countOrdered By: Sharla Benitez on 04-18-2023 Neutrophils (Bld) [#/Vol] 4.9 10*3/uL Normal 1.8-7.7 [facility] Comment on above: Order Comment: Reaso n for Exam Obesity;Diarrhea, unspecified;Right upper quadrant abdominal Performed By: #### L IPASE, BEAU, CBC, CMP ####[address] No Panel InformationOrdered By: Sharla Benitez on 04-18-2023 Estimated GFR (CKD-EPI) > 60.0 mL/Min [facility] Creatinine Clearance (Chem N/A [facility] Nucleated erythrocytes [Pres ence] in Blood by Automated countOrdered By: Sharla Benitez on 04-18-2023 Nucleated RBC Auto Ql (Bld) 0.1 /100{WBC} 0-0.5 [facility] Platelet mean volume [Entiti c volume] in Blood by Automated countOrdered By: Sharla Benitez on 04-18-2023 Platelet mean volume (Bld) [Entitic vol] 7.2 fL Normal 6.3-10.7 [facility] [facility] Comment on above: Order Comment: Reaso n for Exam Obesity;Diarrhea, unspecified;Right upper quadrant abdominal Performed By: #### L IPASE, BEAU, CBC, CMP ####[address] Platelets [#/volume] in Bloo d by Automated countOrdered By: Sharla Benitez on 04-18-2023 Platelets (Bld) [#/Vol] 250 10*3/uL Normal 150-450 [facility] Comment on above: Order Comment: Reaso n for Exam Obesity;Diarrhea, unspecified;Right upper quadrant abdominal Performed By: #### L IPASE, BEAU, CBC, CMP ####[address] Potassium [Moles/volume] in Serum or PlasmaOrdered By: Sharla Benitez on 04-18-2023 Potassium [Moles/Vol] 4.1 mmol/L Normal 3.5-5.1 [facility] Comment on above: Order Comment: Reaso n for Exam Obesity;Diarrhea, unspecified;Right upper quadrant abdominal Performed By: #### L IPASE, BEAU, CBC, CMP ####[place] [id number] [facility] Protein [Mass/volume] in Ser um or PlasmaOrdered By: Sharla Benitez on 04-18-2023 Protein [Mass/Vol] 7.3 g/dL Normal 6.4-8.9 [facility] Comment on above: Order Comment: Reaso n for Exam Obesity;Diarrhea, unspecified;Right upper quadrant abdominal Performed By: #### L IPASE, BEAU, CBC, CMP ####[place] [id number] [facility] Serum globulin measurement b y calculation (mass/volume)Ordered By: Sharla Benitez on 04-18-2023 Globulin (S) [Mass/Vol] 3.0 g/dL [facility] Comment on above: Order Comment: Reaso n for Exam Obesity;Diarrhea, unspecified;Right upper quadrant abdominal Performed By: #### L IPASE, BEAU, CBC, CMP ####[place] [address] Serum or plasma albumin/glob ulin mass ratioOrdered By: Sharla Benitez on 04-18-2023 Albumin/Globulin [Mass ratio] 1.4 {ratio} [facility] Comment on above: Order Comment: Reaso n for Exam Obesity;Diarrhea, unspecified;Right upper quadrant abdominal Performed By: #### L IPASE, BEAU, CBC, CMP ####[address] Serum or plasma anion gap de terminationOrdered By: Sharla Benitez on 04-18-2023 Anion gap [Moles/Vol] 11.9 mmol/L Normal 6.0-15.0 [facility] Comment on above: Order Comment: Reaso n for Exam Obesity;Diarrhea, unspecified;Right upper quadrant abdominal Performed By: #### L IPASE, BEAU, CBC, CMP ####[address] Sodium [Moles/volume] in Ser um or PlasmaOrdered By: Sharla Benitez on 04-18-2023 Sodium [Moles/Vol] 137 mmol/L Normal 136-145 [facility] Comment on above: Order Comment: Reaso n for Exam Obesity;Diarrhea, unspecified;Right upper quadrant abdominal Performed By: #### L IPASE, BEAU, CBC, CMP ####[address] Urea nitrogen [Mass/volume] in Serum or PlasmaOrdered By: Sharla Benitez on 04-18-2023 Urea nitrogen [Mass/Vol] 10 mg/dL Normal 7-25 [facility] Comment on above: Order Comment: Reaso n for Exam Obesity;Diarrhea, unspecified;Right upper quadrant abdominal Performed By: #### L IPASE, BEAU, CBC, CMP ####[facility] [id number] [place] [address] [facility] CBC W Auto Differential pane l (Bld)on 04-17-2023 Basophils (Bld) [#/Vol] <0.11 k/uL [facility] Basophils (Bld) [#/Vol] 10*3/uL Normal <0.11 [facility] Comment on above: Order Comment: Speci men Type: BLOOD SPECIMENOrdering Facility: [facility] Address: [address] [place] [address] Performed By: #### 5 7021-8 ####[facility] LABCLIA [id number] [place] [address] Basophils/100 WBC (Bld) 0.1 % [facility] Basophils/100 WBC (Bld) 0.1 % Normal [facility] Comment on above: Order Comment: Speci men Type: BLOOD SPECIMENOrdering Facility: [facility] Address: [address] [place] [address] Performed By: #### 5 7021-8 ####[facility] LABCLIA [id number] [place] [address] Differential cell count method Nom (Bld) Auto [facility] Differential cell count method Nom (Bld) Auto Normal [facility] Comment on above: Order Comment: Speci men Type: BLOOD SPECIMENOrdering Facility: [facility] Address: [address] [place] [address] Performed By: #### 5 7021-8 ####[facility] LABCLIA [id number] [place] [address] Eosinophils (Bld) [#/Vol] <0.46 k/uL [facility] Eosinophils (Bld) [#/Vol] 10*3/uL Normal <0.46 [facility] Comment on above: Order Comment: Speci men Type: BLOOD SPECIMENOrdering Facility: [facility] Address: [address] [place] [address] Performed By: #### 5 7021-8 ####[facility] LABCLIA [id number] [place] [address] Eosinophils/100 WBC (Bld) 0.0 % [facility] Eosinophils/100 WBC (Bld) 0.0 % Normal [facility] Comment on above: Order Comment: Speci men Type: BLOOD SPECIMENOrdering Facility: [facility] Address: [address] [place] [address] Performed By: #### 5 7021-8 ####[facility] LABCLIA [id number] [place] [address] Erythrocyte distribution width (RBC) [Ratio] 13.4 % 11.5 - 15.0 % [facility] Erythrocyte distribution width (RBC) [Ratio] 13.4 % Normal 11.5-15.0 [facility] Comment on above: Order Comment: Speci men Type: BLOOD SPECIMENOrdering Facility: [facility] Address: [address] [place] [address] Performed By: #### 5 7021-8 ####[facility] LABCLIA [id number] [place] [address] Hematocrit (Bld) [Volume fraction] 47.2 % High 36.0 - 46.0 % [facility] Hematocrit (Bld) [Volume fraction] 47.2 % High 36.0-46.0 [facility] Comment on above: Order Comment: Speci men Type: BLOOD SPECIMENOrdering Facility: [facility] Address: [address] [place] [address] Performed By: #### 5 7021-8 ####[facility] LABCLIA [id number] [place] [address] Hemoglobin (Bld) [Mass/Vol] 15.6 g/dL High 11.5 - 15.5 g/dL [facility] Hemoglobin (Bld) [Mass/Vol] 15.6 g/dL High 11.5-15.5 [facility] Comment on above: Order Comment: Speci men Type: BLOOD SPECIMENOrdering Facility: [facility] Address: [address] [place], [place] [address] Performed By: #### 5 7021-8 ####[facility] LABCLIA [id number] [place] [address] Immature granulocytes (Bld) [#/Vol] <0.10 k/uL [facility] Immature granulocytes (Bld) [#/Vol] 10*3/uL Normal <0.10 [facility] Comment on above: Order Comment: Speci men Type: BLOOD SPECIMENOrdering Facility: [facility] Address: [address] [address] Performed By: #### 5 7021-8 ####[facility] [id number] [place] [address] Immature granulocytes/100 WBC (Bld) 0.2 % [facility] Immature granulocytes/100 WBC (Bld) 0.2 % Normal [facility] Comment on above: Order Comment: Speci men Type: BLOOD SPECIMENOrdering Facility: [facility] Address: [address] [address] Performed By: #### 5 7021-8 ####[facility] LABIA [id number] [place] [address] Lymphocytes (Bld) [#/Vol] 2.28 10*3/uL 1.00 - 4.00 k/uL [facility] Lymphocytes (Bld) [#/Vol] 2.28 10*3/uL Normal 1.00-4.00 [facility] Comment on above: Order Comment: Speci men Type: BLOOD SPECIMENOrdering Facility: [facility] Address: [address] [address] Performed By: #### 5 7021-8 ####[facility] LABIA [id number] [place] [address] Lymphocytes/100 WBC (Bld) 28.4 % [facility] Lymphocytes/100 WBC (Bld) 28.4 % Normal [facility] Comment on above: Order Comment: Speci men Type: BLOOD SPECIMENOrdering Facility: [facility] Address: [address] [address] Performed By: #### 5 7021-8 ####[facility] LABCLIA [id number] [place] [address] MCH (RBC) [Entitic mass] 30.0 pg 26.0 - 34.0 pg [facility] MCH (RBC) [Entitic mass] 30.0 pg Normal 26.0-34.0 [facility] Comment on above: Order Comment: Speci men Type: BLOOD SPECIMENOrdering Facility: [facility] Address: [address] [address] Performed By: #### 5 7021-8 ####[facility] LABCLIA [id number] [place] [address] MCHC (RBC) [Mass/Vol] 33.1 g/dL 30.5 - 36.0 g/dL [facility] MCHC (RBC) [Mass/Vol] 33.1 g/dL Normal 30.5-36.0 [facility] Comment on above: Order Comment: Speci men Type: BLOOD SPECIMENOrdering Facility: [facility] Address: [address] [place] [address] Performed By: #### 5 7021-8 ####[facility] LABCLIA [id number] [place] [address] MCV (RBC) [Entitic vol] 90.8 fL 80.0 - 100.0 fL [facility] MCV (RBC) [Entitic vol] 90.8 fL Normal 80.0-100.0 [facility] Comment on above: Order Comment: Speci men Type: BLOOD SPECIMENOrdering Facility: [facility] Address: [address] [place] [address] Performed By: #### 5 7021-8 ####[facility] LABCLIA [id number] [place] [address] Monocytes (Bld) [#/Vol] 0.61 10*3/uL <0.87 k/uL [facility] Monocytes (Bld) [#/Vol] 0.61 10*3/uL Normal <0.87 [facility] Comment on above: Order Comment: Speci men Type: BLOOD SPECIMENOrdering Facility: [facility] Address: [address] [place] [address] Performed By: #### 5 7021-8 ####[facility] LABCLIA [id number] [place] [address] Monocytes/100 WBC (Bld) 7.6 % [facility] Monocytes/100 WBC (Bld) 7.6 % Normal [facility] Comment on above: Order Comment: Speci men Type: BLOOD SPECIMENOrdering Facility: [facility] Address: [address] [place] [address] Performed By: #### 5 7021-8 ####[facility] LABCLIA [id number] [place] [address] Neutrophils (Bld) [#/Vol] 5.10 10*3/uL 1.45 - 7.50 k/uL [facility] Neutrophils (Bld) [#/Vol] 5.10 10*3/uL Normal 1.45-7.50 [facility] Comment on above: Order Comment: Speci men Type: BLOOD SPECIMENOrdering Facility: [facility] Address: [address] [place] [address] Performed By: #### 5 7021-8 ####[facility] LABCLIA [id number] [place] [address] Neutrophils/100 WBC (Bld) 63.7 % [facility] Neutrophils/100 WBC (Bld) 63.7 % Normal [facility] Comment on above: Order Comment: Speci men Type: BLOOD SPECIMENOrdering Facility: [facility] Address: [address] [place] [address] Performed By: #### 5 7021-8 ####[facility] LABCLIA [id number] [place] [address] Nucleated RBC (Bld) [#/Vol] <0.01 k/uL [facility] Nucleated RBC (Bld) [#/Vol] 10*3/uL Normal <0.01 [facility] Comment on above: Order Comment: Speci men Type: BLOOD SPECIMENOrdering Facility: [facility] Address: [address] [place] [address] Performed By: #### 5 7021-8 ####[facility] LABIA [id number] [place] [address] Nucleated RBC/100 WBC (Bld) [Ratio] 0.0 /100 WBC [facility] Nucleated RBC/100 WBC (Bld) [Ratio] 0.0 /100 WBC Normal [facility] Comment on above: Order Comment: Speci men Type: BLOOD SPECIMENOrdering Facility: [facility] Address: [address] [place] [address] Performed By: #### 5 7021-8 ####[facility] [id number] [place] [address] Platelet mean volume (Bld) [Entitic vol] 9.0 fL 9.0 - 12.7 fL [facility] Platelet mean volume (Bld) [Entitic vol] 9.0 fL Normal 9.0-12.7 [facility] Comment on above: Order Comment: Speci men Type: BLOOD SPECIMENOrdering Facility: [facility] Address: [address] [place] [address] Performed By: #### 5 7021-8 ####[facility] [id number] [place] [address] Platelets (Bld) [#/Vol] 242 10*3/uL 150 - 400 k/uL [facility] Platelets (Bld) [#/Vol] 242 10*3/uL Normal 150-400 [facility] Comment on above: Order Comment: Speci men Type: BLOOD SPECIMENOrdering Facility: [facility] Address: [address] [place] [address] Performed By: #### 5 7021-8 ####[facility] LABCLIA [id number] [place] [address] RBC (Bld) [#/Vol] 5.20 10*6/uL 3.90 - 5.20 m/uL [facility] RBC (Bld) [#/Vol] 5.20 10*6/uL Normal 3.90-5.20 [facility] Comment on above: Order Comment: Speci men Type: BLOOD SPECIMENOrdering Facility: [facility] Address: [address] [place] [address] Performed By: #### 5 7021-8 ####[facility] LABCLIA [id number] [place] [address] WBC (Bld) [#/Vol] 8.02 10*3/uL 3.70 - 11.00 k/uL [facility] WBC (Bld) [#/Vol] 8.02 10*3/uL Normal 3.70-11.00 [facility] Comment on above: Order Comment: Speci men Type: BLOOD SPECIMENOrdering Facility: [facility] Address: [address] [place] [address] Performed By: #### 5 7021-8 ####[facility] LABIA [id number] [place] [address] Comprehensive metabolic 2000 panelon 04-17-2023 Albumin [Mass/Vol] 4.4 g/dL Normal 3.9-4.9 [facility] Comment on above: Order Comment: Speci men Type: BLOOD SPECIMENOrdering Facility: [facility] Address: [address] [place] [address] Performed By: #### 2 4323-8 ####[facility] LABIA [id number] [place] [address] ALP [Catalytic activity/Vol] 136 U/L High 34-123 [facility] Comment on above: Order Comment: Speci men Type: BLOOD SPECIMENOrdering Facility: [facility] Address: [address] [place] [address] Performed By: #### 2 4323-8 ####[facility] LABCLIA [id number] [place] [address] ALT [Catalytic activity/Vol] 16 U/L Normal 7-38 [facility] Comment on above: Order Comment: Speci men Type: BLOOD SPECIMENOrdering Facility: [facility] Address: [address] [place] [address] Performed By: #### 2 4323-8 ####[facility] LABCLIA [id number] [place] [address] Anion gap [Moles/Vol] 14 mmol/L Normal 9-18 [facility] Comment on above: Order Comment: Speci men Type: BLOOD SPECIMENOrdering Facility: [facility] Address: [address] [place] [address] Performed By: #### 2 4323-8 ####[facility] LABCLIA [id number] [place] [address] AST [Catalytic activity/Vol] 18 U/L Normal 13-35 [facility] Comment on above: Order Comment: Speci men Type: BLOOD SPECIMENOrdering Facility: [facility] Address: [address] [place] [address] Performed By: #### 2 4323-8 ####[facility] LABCLIA [id number] [place] [address] Bilirubin [Mass/Vol] mg/dL Low 0.2-1.3 [facility] Comment on above: Order Comment: Speci men Type: BLOOD SPECIMENOrdering Facility: [facility] Address: [address] [place] [address] Performed By: #### 2 4323-8 ####[facility] LABCLIA [id number] [place] [address] Calcium [Mass/Vol] 9.4 mg/dL Normal 8.5-10.2 [facility] Comment on above: Order Comment: Speci men Type: BLOOD SPECIMENOrdering Facility: [facility] Address: [address] [place] [address] Performed By: #### 2 4323-8 ####[facility] LABCLIA [id number] [place] [address] Chloride [Moles/Vol] 106 mmol/L High 97-105 [facility] Comment on above: Order Comment: Speci men Type: BLOOD SPECIMENOrdering Facility: [facility] Address: [address] [place] [address] Performed By: #### 2 4323-8 ####[facility] LABCLIA [id number] [place] [address] CO2 [Moles/Vol] 21 mmol/L Low 22-30 [facility] Comment on above: Order Comment: Speci men Type: BLOOD SPECIMENOrdering Facility: [facility] Address: [address] [place] [address] Performed By: #### 2 4323-8 ####[facility] LABCLIA [id number] [place] [address] Creatinine [Mass/Vol] 0.70 mg/dL Normal 0.58-0.96 [facility] Comment on above: Order Comment: Speci men Type: BLOOD SPECIMENOrdering Facility: [facility] Address: [address] [place] [address] Performed By: #### 2 4323-8 ####[facility] LABCLIA [id number] [place] [address] ESTIMATED GLOMERULAR FILTRATION RATE 102 mL/min/1.73m??? Normal >=60 [facility] Comment on above: Order Comment: Speci men Type: BLOOD SPECIMENOrdering Facility: [facility] Address: [address] [place] [address] Result Comment: Nesha mated Glomerular Filtration Rate (eGFR) is calculated using the 2020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 [id number] [place] [address] A1C with Estimated Average G luon 01-03-2023 HbA1c (Bld) [Mass fraction] 5.600 % Normal 4.3-5.6 % [employer] [facility] [employer] Other HbA1c (Bld) [Mass fraction] 114 mg/dL [facility] [employer] Other Alanine aminotransferase [En zymatic activity/volume] in Serum or PlasmaOrdered By: Sharla Benitez on 01-03-2023 ALT [Catalytic activity/Vol] 15 U/L 7-52 [facility] Albumin [Mass/volume] in Ser um or Plasma by Bromocresol green (BCG) dye binding methoOrdered By: Sharla Benitez on 01-03-2023 Albumin BCG dye [Mass/Vol] 4.3 g/dL 3.5-5.7 [facility] Alkaline phosphatase [Enzyma tic activity/volume] in Serum or PlasmaOrdered By: Sharla Benitez on 01-03-2023 ALP [Catalytic activity/Vol] 135 U/L 34-104 [facility] Aspartate aminotransferase [ Enzymatic activity/volume] in Serum or PlasmaOrdered By: Sharla Benitez on 01-03-2023 AST [Catalytic activity/Vol] 17 U/L 13-39 [facility] Bilirubin.total [Mass/volume ] in Serum or PlasmaOrdered By: Sharla Benitez on 01-03-2023 Bilirubin [Mass/Vol] 0.4 mg/dL 0.3-1.0 [facility] Calcium [Mass/volume] in Ser um or PlasmaOrdered By: Sharla Benitez on 01-03-2023 Calcium [Mass/Vol] 9.3 mg/dL 8.6-10.3 [facility] Carbon dioxide, total [Moles /volume] in Serum or PlasmaOrdered By: Sharla Benitez on 01-03-2023 CO2 [Moles/Vol] 27.5 mmol/L 21.0-31.0 [facility] Chloride [Moles/volume] in S lito or PlasmaOrdered By: Sharla Benitez on 01-03-2023 Chloride [Moles/Vol] 104 mmol/L 98-107 [facility] Cholesterol [Mass/volume] in Serum or PlasmaOrdered By: Sharla Benitez on 01-03-2023 Cholesterol [Mass/Vol] 231 mg/dL 140-200 [facility] Comment on above: Chol less than 200 m g/dl low riskChol 201-239 mg/dl borderline riskChol 240 mg/dl and greater high risk Cholesterol in LDL Calc [Mas s/Vol]Ordered By: Sharla Benitez on 01-03-2023 Cholesterol in LDL [Mass/Vol] 164 mg/dL 0-100 [facility] Comment on above: LDL ATP III CLASSIFI CATIONLDL less than 100 mg/dL OptimalLDL 100-129 mg/dL Near or above optimalLDL 130-159 mg/dL Borderline highLDL 160-189 mg/dL HighLDL greater than 189 mg/dL Very high Cholesterol in VLDL Calc [Ma ss/Vol]Ordered By: Sharla Benitez on 01-03-2023 Cholesterol in VLDL [Mass/Vol] 30 mg/dL [facility] Comprehensive Metabolic Pane kulwant 01-03-2023 Albumin [Mass/Vol] 4.852355 g/dL Normal 3.5-5.7 g/dL [employer] Other Bilirubin [Mass/Vol] 0.3219401 mg/dL Normal 0.3- 1.0 mg/dL [employer] Other Calcium [Mass/Vol] 9.3675187 mg/dL Normal 8.6-10 .3 mg/dL [employer] Other CO2 [Moles/Vol] 27.53065607 mmol/L Normal 21.0-3 1.0 mmol/L [employer] Other Creatinine [Mass/Vol] 0.42354205 mg/dL Normal 0. 60-1.20 mg/dL [employer] Other GFR/1.73 sq M.predicted MDRD (S/P/Bld) [Vol rate/Area] mL/min/{1.73_m2} [employer] Other Potassium [Moles/Vol] 5.10538506 mmol/L Normal 3 .5-5.1 mmol/L [employer] Other Protein [Mass/Vol] 7.144741 g/dL Normal 6.4-8.9 g/dL [employer] Other Comprehensive Metabolic Panel 2.9 g/dL [place] [employer] Other Creatinine [Mass/volume] in Serum or PlasmaOrdered By: Sharla Benitez on 01-03-2023 Creatinine [Mass/Vol] 0.77 mg/dL 0.60-1.20 [facility] Globulin Calc (S) [Mass/Vol] Ordered By: Sharla Benitez on 01-03-2023 Globulin (S) [Mass/Vol] 2.9 g/dL [facility] Glucose [Mass/volume] in Ser um or PlasmaOrdered By: Sharla Benitez on 01-03-2023 Glucose [Mass/Vol] 83 mg/dL 70-100 [facility] Comment on above: ADA recommended refe rence rangeRandom Glucose Reference Range is dependent on time and content of last meal. Glucose of more than 200 mg/dL in a nonstressed, ambulatory subject supports the diagnosis of Diabetes Mellitus. Glucose mean value [Mass/vol ume] in Blood Estimated from glycated hemoglobinOrdered By: Sharla Benitez on 01-03-2023 Average glucose Estimated from glycated hemoglobin (Bld) [Mass/Vol] 114 mg/dL [facility] Hemoglobin A1c percentageOrd ered By: Sharla Benitez on 01-03-2023 HbA1c (Bld) [Mass fraction] 5.6 % 4.3-5.6 [facility] Comment on above: Increased risk for d iabetes: 5.7 - 6.4diabetes: >6.4glycemic control for adults with diabetes: <7.0 Lipid Panelon 01-03-2023 Cholesterol in LDL Elph Qn 164 mg/dL High 0-100 mg/dL [facility] [employer] Other Lipid Panel 153 mg/dL High 0-149 mg/dL [employer] [facility] [employer] Other Lipid Panel 30 mg/dL [facility] [employer] Other No Panel InformationOrdered By: Sharla Benitez on 01-03-2023 Estimated GFR (CKD-EPI) > 60.0 mL/Min [facility] Creatinine Clearance (Chem N/A [facility] Potassium [Moles/volume] in Serum or PlasmaOrdered By: Sharla Benitez on 01-03-2023 Potassium [Moles/Vol] 5.0 mmol/L 3.5-5.1 [facility] Protein [Mass/volume] in Ser um or PlasmaOrdered By: Sharla Benitez on 01-03-2023 Protein [Mass/Vol] 7.2 g/dL 6.4-8.9 [facility] Serum or plasma albumin/glob ulin mass ratioOrdered By: Sharla Benitez on 01-03-2023 Albumin/Globulin [Mass ratio] 1.5 {ratio} [facility] Serum or plasma anion gap de terminationOrdered By: Sharla Benitez on 01-03-2023 Anion gap [Moles/Vol] 13.5 mmol/L 6.0-15.0 [facility] Serum or plasma high density lipoprotein (HDL) cholesterol measurementOrdered By: Shalra Benitez on 01-03-2023 Cholesterol in HDL [Mass/Vol] 36 mg/dL 35-85 [facility] Comment on above: HDL CHOL ATP-III CLA SSIFICATION Cardiovascular RiskHDL > or equal to 60 mg/dL LOWHDL < 40 mg/dL HIGH Serum or plasma total choles terol/high density lipoprotein (HDL) cholesterol mass ratOrdered By: Sharla Benitez on 01-03-2023 Cholesterol.total/Cho lesterol in HDL [Mass ratio] 6.4 {ratio} <5.0 [facility] Sodium [Moles/volume] in Ser um or PlasmaOrdered By: Sharla Benitez on 01-03-2023 Sodium [Moles/Vol] 140 mmol/L 136-145 [facility] Triglyceride [Mass/volume] i n Serum or PlasmaOrdered By: Sharla Benitez on 01-03-2023 Triglyceride [Mass/Vol] 153 mg/dL 0-149 [facility] Comment on above: TRIG ATP III CLASSIF ICATIONTRIG less than 150 mg/dL NormalTRIG 150-199 mg/dL Borderline highTRIG 200-500 mg/dL High TRIG greater than 500 mg/dL Very highStandard traceable to the Center for Disease Conrtrol and Prevention (CDC) test method. Urea nitrogen [Mass/volume] in Serum or PlasmaOrdered By: Sharla Benitez on 01-03-2023 Urea nitrogen [Mass/Vol] 10 mg/dL 7-25 [facility] Vitamin B12 ser/plasOrdered By: Sharla Benitez on 01-03-2023 Cobalamin (Vitamin B12) [Mass/Vol] 518 pg/mL 180-914 [facility] Ambulatory Visit Summaryon 0 09-12-2022 Ambulatory Visit Summary MARY DOUGLAS :1965 Visit Date:09/12/2022 Ambulatory Visit Instructions Your Diagnosis Other urethral stricture, female Recurrent UTI OAB (overactive bladder) Asymptomatic microscopic hematuria Tests Performed Urnls Dip Stick Auto w/o Microscopy POC 99179 Your Care Team Attending Physician - Finesse TOBAR MD Primary Care Physician - MULUGETA GOTTI DO Referring Physician - Finesse TOBAR MD This Is Your Medications List Contact prescribing physician if questions or concerns baclofen ciprofloxacin (Cipro 500 mg Tab) conjugated estrogens topical (conjugated estrogens 0.625 mg/g vaginal cream with applicator) erenumab ([employer] SureClick 70 mg/mL subcutaneous solution) gabapentin liraglutide (Saxenda) oxybutynin (Ditropan XL 5 mg Tab-ER) rizatriptan (Maxalt 10 mg Tab) semaglutide (Ozempic (0.25 mg or 0.5 mg dose)) venlafaxine (Effexor) Procedures Performed Right Shoulder Arthroscopy (09/14/2016), Cholecystectomy, Colonoscopy, H/O: hysterectomy, left knee arthroscopy, Tonsillectomy. Discharge Vitals Heart Rate (Peripheral) 78 Respiratory Rate 16 Blood Pressure 104/69 Height 167 cm Height 66 in Weight 136 kg Weight 299.2 lb BMI 48.76 What to do next You Need to Schedule the Following Appointments Follow Up with EKATERINA PEGUERO, RENALDO [place] When: Where: [address] [place] [address]- Medications What How Much When Why Instructions Unchanged baclofen 10 Milligram By Mouth 3 times a day Contact prescribing physician if questions or concerns Unchanged ciprofloxacin (Cipro 500 mg Tab) 1 Tablets By Mouth As Directed Patient to take 1 tab the day before procedure and the 2nd tab the day of procedure once completed Contact prescribing physician if questions or concerns Unchanged conjugated estrogens topical (conjugated estrogens 0.625 mg/ g vaginal cream with applicator) See instructions Recurrent UTI apply a pea-sized amount 3x weekly Contact prescribing physician if questions or concerns Unchanged erenumab (A[employer] SureClick 70 mg/ mL subcutaneous solution) 70 Milligram Subcutaneous Once a month Contact prescribing physician if questions or concerns Unchanged gabapentin 300 Milligram By Mouth 3 times a day Contact prescribing physician if questions or concerns Unchanged liraglutide (Saxenda) Subcutaneous Every day Contact prescribing physician if questions or concerns Unchanged oxybutynin (Ditropan XL 5 mg Tab-ER) 1 Tablets By Mouth Every day Contact prescribing physician if questions or concerns Unchanged rizatriptan (Maxalt 10 mg Tab) 1 Tablets By Mouth may repeat dose once in 2 hours Contact prescribing physician if questions or concerns Unchanged semaglutide (Ozempic (0.25 mg or 0.5 mg dose)) 0.5 Milligram Subcutaneous Sunday Contact prescribing physician if questions or concerns Unchanged venlafaxine (Effexor) 150 Milligram By Mouth Every day Contact prescribing physician if questions or concerns Test Results Urnls Dip Stick Auto w/o Microscopy POC 50988 (09/12/2022) Bilirubin Urine Dipstick - Negative Blood Urine Dipstick - Trace-intact Glucose Urine Dipstick - Negative Ketones Urine Dipstick - Negative Leukocytes Urine Dipstick - Trace Nitrite Urine Dipstick - Negative Protein Urine Dipstick - Negative Specific [employer] Urine Dipstick - 1.025 Urine Appearance Urine Dipstick - Clear Urine Color Urine Dipstick - Yellow Urobilinogen Urine Dipstick - Normal 0.2-1 EU/dl pH Urine Dipstick - 6.5 Allergies Fioricet (Unknown) Ultram (Vomiting) codeine (Vomiting) erythromycin (intestinal pain, Diarrhea) Problems Ongoing - Any problem that you are currently receiving treatment for. Abdominal pain Asymptomatic microscopic hematuria Feeling of incomplete bladder emptying Former smoker Frequency of urination History of breast cancer Mixed incontinence Morbid obesity with body mass index (BMI) of 45.0 to 49.9 in adult Nocturia OAB (overactive bladder) Other urethral stricture, female Recurrent UTI Right flank pain Smoker Urinary urgency UTI symptoms [employer] Urethral Stricture Urethral stricture is narrowing of the tube (urethra) that carries urine from the bladder out of the body. The urethra can become narrow due to scar tissue from an injury or infection. This can make it difficult to pass urine. In women, the urethra opens above the vaginal opening. In men, the urethra opens at the tip of the penis, and the urethra is much longer than it is in women. Because of the length of the male urethra, urethral stricture is much more common in men. This condition is treated with surgery. What are the causes? In both men and women, common causes of urethral stricture include: ? Urinary tract infection (UTI). ? Sexually transmitted infection (STI). ? Use of a tube placed into the urethra to drain urine from the bladder (urinary c (more content not included)... Normal [facility] Patient Educationon 09-12-19 23 Patient Education Urology Urethral Stricture Urethral stricture is narrowing of the tube (urethra) that carries urine from the bladder out of the body. The urethra can become narrow due to scar tissue from an injury or infection. This can make it difficult to pass urine. In women, the urethra opens above the vaginal opening. In men, the urethra opens at the tip of the penis, and the urethra is much longer than it is in women. Because of the length of the male urethra, urethral stricture is much more common in men. This condition is treated with surgery. What are the causes? In both men and women, common causes of urethral stricture include: ? Urinary tract infection (UTI). ? Sexually transmitted infection (STI). ? Use of a tube placed into the urethra to drain urine from the bladder (urinary catheter). ? Urinary tract surgery. In men, common causes of urethral stricture include: ? A severe injury to the pelvis. ? Prostate surgery. ? Injury to the penis. In many cases, the cause of urethral stricture is not known. What increases the risk? You are more likely to develop this condition if you: ? Are male. Men who have had prostate surgery are at risk of developing this condition. ? Use a urinary catheter. ? Have had urinary tract surgery. What are the signs or symptoms? The main symptom of this condition is difficulty passing urine. This may cause decreased urine flow, dribbling, or spraying of urine. Other symptom of this condition may include: ? Frequent UTIs. ? Blood in the urine. ? Pain when urinating. ? Swelling of the penis in men. ? Inability to pass urine (urinary obstruction). How is this diagnosed? This condition may be diagnosed based on: ? Your medical history and a physical exam. ? Urine tests to check for infection or bleeding. ? X-rays. ? Ultrasound. ? Retrograde urethrogram. This is a type of test in which dye is injected into the urethra and then an X-ray is taken. ? Urethroscopy. This is when a thin tube with a light and camera on the end (urethroscope) is used to look at the urethra. How is this treated? This condition is treated with surgery. The type of surgery that you have depends on the severity of your condition. You may have: ? Urethral dilation. In this procedure, the narrow part of the urethra is stretched open (dilated) with dilating instruments or a small balloon. ? Urethrotomy. In this procedure, a urethroscope is placed into the urethra, and the narrow part of the urethra is cut open with a surgical blade inserted through the urethroscope. ? Open surgery. In this procedure, an incision is made in the urethra, the narrow part is removed, and the urethra is reconstructed. Follow these instructions at home: ? Take bwxf-nlp-dfdacrf and prescription medicines only as told by your health care provider. ? If you were prescribed an antibiotic medicine, take it as told by your health care provider. Do not stop taking the antibiotic even if you start to feel better. ? Drink enough fluid to keep your urine pale yellow. ? Keep all follow-up visits as told by your health care provider. This is important. Contact a health care provider if: ? You have signs of a urinary tract infection, such as: ? Frequent urination or passing small amounts of urine frequently. ? Needing to urinate urgently. ? Pain or burning with urination. ? Urine that smells bad or unusual. ? Cloudy urine. ? Pain in the lower abdomen or back. ? Trouble urinating. ? Blood in the urine. ? Vomiting or being less hungry than normal. ? Diarrhea or abdominal pain. ? Vaginal discharge, if you are female. ? Your symptoms are getting worse instead of better. Get help right away if: ? You cannot pass urine. ? You have a fever. ? You have swelling, bruising, or discoloration of your genital area. This includes the penis, scrotum, and inner thighs for men, and the outer genital organs (vulva) and inner thighs for women. ? You develop swelling in your legs. ? You have difficulty breathing. Summary ? Urethral stricture is narrowing of the tube (urethra) that carries urine from the bladder out of the body. The urethra can become narrow due to scar tissue from an injury or infection. ? This condition can make it difficult to pass urine. ? This condition is treated with surgery. The type of surgery that you have depends on the severity of your condition. ? Contact a health care provider if your symptoms get worse or you have signs of a urinary tract infection. This information is not intended to replace advice given to you by your health care provider. Make sure you discuss any questions you have with your health care provider. Document Released: 09/15/2016 Document Revised: 04/02/2019 Document Reviewed: 04/02/2019 [employer] Patient Education ? 2019 [employer] [facility] Urology Office/Clinic Noteon 09-12-2022 Urology Office/Clinic Note Chief Complaint F/U to Cysto/UD HPI Staff This is a 57 year old female here for F/U to Cysto/UD done 08/17/22. Previous DX: recurrent UTI, OAB, Rt. flank pain, nocturia and asymptomatic micro hematuria. Pt. taking Oxybutynin 5 mg QD, Estrogen cream 3x/week, D-mannose, cranberry and probiotic. Dysuria: no Incomplete bladder emptying: no Hematuria: UA shows trace today Frequency: no Urgency: no Nocturia: 2x's occasionally more Stream: good stream Leaking: no Post void dripping: no Wearing pads/ Depends: no Urge incontinence: no Stress incontinence: no Incontinence without Sensory Awareness: no Abdominal pain: no Flank pain: no History of Present Illness Tests reviewed: reviewed UA I have reviewed the previous health record information and history for this patient from Dr. Tobar. I have reviewed and verified the staff HPI to be accurate for this encounter. There have been no associated fever, chills, flank pain, or blood in the urine. Denies any urinary infections since last encounter. Review of Systems ROS - Provider Constitutional: denies weight loss, denies hot flashes. Eyes: denies eye problems. Gastrointestinal: denies nausea, denies vomiting. Cardiovascular: denies chest pain or angina. Integumentary: no dryness Musculoskeletal: denies musculoskeletal symptoms. ENMT: denies otolaryngeal symptoms. Respiratory: no shortness of breath. Heme/Lymph: denies easy bleeding tendency, denies easy bruising tendency. Psychiatric: no confusion, no anxiety. Genitourinary: denies vaginal discharge, denies incontinence, denies dysuria, denies hematuria, denies urinary frequency, denies amenorrhea, denies menorrhagia, denies abnormal bleeding, denies pelvic pain, denies genital sores, and denies decreased libido. Physical Exam Vitals & Measurements HR: 78(Peripheral) RR: 16 BP: 104/69 HT: 66 in HT: 167 cm WT: 136 kg WT: 299.2 lb BMI: 48.76 General Appearance: alert , no acute distress, well nourished, well developed female. Genitourinary: bladder nonpalpable, no flank pain. Assessment/Plan 1. Other urethral stricture, female (N35.82: Other urethral stricture, female) S/p Cysto/UD done 08/17/22. Pt. reports she is doing better since procedure. Pt. understands that a dilation may need repeated in the future and she is to call when she needs it repeated. Follow up PRN. All questions/concerns were discussed. Pt. to call the office if sheencounters any issues prior. Pt. acknowledges understanding. 2. Recurrent UTI (N39.0: Urinary tract infection, site not specified) 01/2022 - Citrobacter 50,000 - Keflex x 21 days 03/2022 - (PCP) Macrobid x 7 days 04/2022 - E Coli - Keflex x 7 days. 05/2022 - Strep/Klebsiella/Ureaplasm a - Amox x 14 d, Macrobid x 14 d Continue Estrogen cream 3x/week. Pt. to continue Taking D-mannose, cranberry pill(s) and probiotic daily. UA today shows trace-intact blood and trace NANCY. Feels she is doing well. 3. OAB (overactive bladder) (N32.81: Overactive bladder) Oxybutynin 5mg ER daily. No issues at this time. 4. Asymptomatic microscopic hematuria (R31.21: Asymptomatic microscopic hematuria) UA today shows TRACE-INTACT blood. Denies gross hematuria. Recent neg CT. Cysto done 08/17/22 neg for b.t. or lesions. Pt. to call the office if she would experience gross hematuria. This patient is done well since her cystoscopy UDA and has had no infections and got a good stream. With control. Told to drink lots of water I will see her as needed she can call me in 6 months or 6 years and if she feels she needs another dilatation that will happen Follow-up With When Contact Information EKATERINA PEGUERO, Finesse Rey, L [address] [place] [address]- Additional Instructions: PRN Patient Education Urethral Stricture I, Judie Morgan, personally scribed for Dr. Tobar on 09/12/2022 13:40:42. Documentation recorded by the scribe, Judie Morgan, accurately reflects the services(s) I performed and decisions made by me. Authenticated by Dr. Tobar on 09/12/2022 13:44:03.13:40:42. Problem List/Past Medical History Ongoing Abdominal pain Asymptomatic microscopic hematuria Feeling of incomplete bladder emptying Former smoker Frequency of urination History of breast cancer Mixed incontinence Morbid obesity with body mass index (BMI) of 45.0 to 49.9 in adult Nocturia OAB (overactive bladder) Other urethral stricture, female Recurrent UTI Right flank pain Smoker Urinary urgency UTI symptoms Historical No qualifying data Procedure/Surgical History Right Shoulder Arthroscopy (09/14/2016), Cholecystectomy, Colonoscopy, H/O: hysterectomy, left knee arthroscopy, Tonsillectomy. Medications [employer] SureClick 70 mg/mL subcutaneous solution, 70 mg, SubCutaneous, qMonth baclofen, 10 mg, Oral, TID Cipro 500 mg Tab, 500 mg= 1 tab(s), Oral, As Directed conjugated estrogens 0.625 mg/g vaginal c (more content not included)... Normal [facility] Comment on above: Result Comment: Elec tronically Signed By: Finesse TOBAR MD\\.br\\Date and Time Signed: 09/12/22 13:44 EST\\.br\\Electronically Co-Signed By: Judie Morgan\\.br\\Date and Time Co-Signed: 09/12/22 13:40 EST Coding Summary.on 08-21-2022 Coding Summary. [id number] Gh0bWw +PGhlYWQ+XC1XUAKpR76wsZHdm B5QH5pVIG8DIXFQEDJVDP0HRY6 azTN4IUrtY8VqxwMo ZzekuPJdHQ63EVw2CWK6xCrtAC lcqZ2cnLYlA1q4KlPgSW19aI84 IVcsDGNlObP0GvCtybvnvHVb X5auMyLpfFJfFlg+PHRhYmxlIH jwUJVeXEkjJGSqUtXgvWvzQN1n Og8xRHUqYYWfdFybgRSsIzSg g6jkWLYoTKcnGV8prYwzL3KcqP D4ESAxq0s3Bs10uWC+PHRkIHN0 dLcxSYyws387UaByo9suOXT6 oXGdFYvjGJQ2Y10uy7O7UUKxXT TiZRB7eAG4bU8uwJqjezbsG5Nd qYLcZtE0YXS6lCWcgC5pfOok cfmgxV3yCrr+C73JCM4ERRCJWV 1EFhk5R8FiTzikwMQ+XX26GQSq WR36xNCjmJCtb7gdzNe5FxCn DRNqOMC1nEasHKylb3EkMOPaW8 5maJNru3U0YSApiMgnkVWfNtJq gMK2dT7sDIhslyekb4ghtwsw Zxxhk7gqdn11wS80K74zBSxpHF NdORW5UQWfEIHavBmavu0bjH3d Ii8+YAdgb8krm9akrLo8BtOl AYGnkvZszJysJJF4k6RjZv64N2 PmnRuus0ZiYdj4hi10sTGnx7N5 sTS0AThiIPMzcO4uUHpkJmR8 YTRqBcVgaS00pLTtJXhmNt8orM ockFaxWF4kZXUhdhnvJMDpwT3r AJUfoOZnjUkbTZ6nKSVlbexd z241LtFfBSJ9ELOaxOPtS6UslW 1nBrJyWDFrFPGxR4PmsIExGCow X624BUkfIkK6NDTngcInJ6Ga MGZeyBeoKaO9y3C8Pp3Bg1Qemp sjJCT9NQbcKMVsNjK5FuAzBxV0 Q3LdIfg8CUXgcEzbVP0nD7Rx RNRfswcpoksgvQS1XIQrTUIkkM 99xFOhQHzfOx9zr7I0e830XJZa ZYKrvD92Fo4ukGwrFSWpmVDX iJ4lqlzqi8kctsjxDnMgJIBoFD e8GVl1QVOggRwcWiEoLOZ7OiX4 AZN8jNSudE1bkCgtloqdlE9w Oyc+X77sfF7nZUN4TYQ8anacAW DmynTtVG15OK55L5JpZlmrtYEy bGU+EDJbgmJpxHulEF3iCoIt f4kbl5YeXPsxX8EoXMCvGUemSj n2ANHdIBB0yKE0iZ9eEQUvTTex m3C6dKF1M3FlldUwjv9mi3cv VSPkMRqkW52klCLax5P8TUIwgR F4QBGhxDltAcVrfQ88Dgy+PGNv xJjgg5JeDzdot4plu2nfsJn9 UfDlJADuvoPauAwySAK9k6GrNt 02L54aZAulDCUvHEFbGCTjAVNp sBlsua1zpR4mRc0+PGNvbCB3 nNM3dO2mRWUoPaM2FQicJ039Zw HntUZhFddfj6kfy1pqqVx7QrQy WZEywzDvnMwjOWW4x5PeNi01 S79dGHmqGMIpGRTnMLVyUEVjpU cvai0fgQ1aTe5+XH1cw1poaf58 hD02dRQ+SFGxUEZ9tBzgONpn IGPcoV3rGYyqYwE0JKDxWgNzvW 86cWHnVPkgDm7cdMtxeUkfJC0x HDBkbozop752GhWxg0ycEVIm gNIwUKqqHER5C37wy1G4QAFeZA DgBYF2kEO9yI2ejPfoqrgdrKQq pDqntfSwlRhtGSryOMmsB006 IHRvcDsnPlBhdGllbnQgTmFtZT t4G1YvGzw0JHCrrLsgWM6ehOPh FStyKy3avRsynEfgMM2uWKUy ennkr589RmBwv1cnISPorWUqSG kvZQI2U16vd7K5EXQnSJYfEJV9 aNL7tJ2jhKqpmgjkjNEzfFur xnCemWxhFAcoWTgjS851XQRbsS rmVkQactTvMWHsaIU2SC40NK38 zMRxu0H9eRE0Z9NcILAfkdxv yieoxJE0UPLlPWAxpT55Nh4rrB fyQj2gHLKuXXY8UGYxlKQvP1Nr eV1tSkWpNGFxCNGmW4EprGIt SUfcP378HYtrXzT3WTEzxzEhY5 IbDJGuxNzoBvX2a8A7Wz6BL8W5 QU01DX80eKToa1O3zJS4X1Qh QPTtxnlcahikdEL9VDQsAAJzvO 82Wa0fcDtlJb8nGVQqKVV8NNTv sBBsD7AfzD8pSnVaFZDyVOYm L4TzoTEeHNumM462AVrcCfI6UN PzhmKcP7DuZNMqxTcgDuR1f6P1 Sy5DJRj2IA66AZ47eHKtr3F5 pZX6V5ZmXBNvugkfnierbTM5BC FeVFWibT33Qu0wlOhqEu1iGENp HBE2AQWfcKUqN4BviL4pUvJu SPBvCBIoR3UpdWMdRVhsU331AA anLyH5WWCujoByE4QdBHWvwPao RnY4r8V8Lp4IHXTdRL18IGM0 gMG3MO86KT30W5VqAbbktPRxsC U+PHRhYmxlIHdpZHRoPScxMDAl ReWjeAmxEZ7kEq6zUBOnTFOj wJkytEYfObUjy0ajACQpEQdnCJ 7txCjuS8HvhSB2RZTcu3i6Jb15 E07sL6EooAX+DBDaqSY3bVH4 bR8iFdLjSwM3HApjP870GgGcmO ZtBsaua2bwy3zqjBc2ErD9KPLc kbRfjWzeTPQ3k4PjTz23B81i IHdpZHRoPSIxNSUiIHZhbGlnbj 4xtW8vYs8+BHUuwXU9dCW0aY9k LxUuEhC1AEkrD451FdPtfXRd Tlaxo4bgt2vntUw1JpPhIUWcue UvhKaiAMP2y4TsKk88S6WfwJhh g7VaWrh2xs96hAMyg7D8lUT6 Z1LjQCBbwozkrYLlwSijLC3eBP LbfdeySCUchM2pFMFpV7h4RlYs JgS6NPenE3MzxkQ7CSMlnWIf MFqhBXL9H20sj8H8YDGbPWGkJT Z6vOA2vI1rnRmctsioqANwsZjp miUyyZrrFGweGEuxZ964EKQb nRnnTZRqqG2sIFKknLLvqGuvIJ 4wNTBpbjsnPkFMQkVSVCwgTUFS ATUSVT60GU62qOXnf6J4gNS6 U0CuKIIjeqfuridttAU8UIDkNU FspQ88nXMsPXrvQl9vu1Y8d443 MBVuCOVblU67Fx2xmGnyGCSk eXEWwV8czengs8meafsrJlYkTZ ZzNRh7CUr5ILPfcLtwEyGpIOQ3 ZdS0CKQ1zOGjuQ1hxLojguwh oG4sMrd+EJDwRYLbWHq4PefuaQ Q+PDOkAFQ8kNzoHSzpPTNodY5z KCDxG6d1DiEuDsX4BUrhS1Gb YODeswvwFf79dS5mSaXiPqN2NU yhH7PclwX0XBLfvMNnUJvkRJB9 O04cm1U0SYUuQAPjXLB3uKA2 dY8xzXojzxpdmUQmjAlbwaJtxH phEFtvEZrrW018HLWjnPltWcD3 QFepVXOvPK62PM27zDIcm5D0 oAK5S1AeNOJijltrbxffcMS4GE ExGBPdfO01pGMvUBumZu8qa7Q8 d165QKFaHFQxqB16Rc5hcOkd HHQvdKFQxT6omgyoh9fcvxuyUt FgPOYaKKo8SEi5LDHeoSduQuAr GOO2UxF2UOA5oJTclG0ryBbb skqcsI0tAvu+TzYyGWxtYY72AR 05tLZxq8N1gZK4N9WhBOUbpycr zezcjHG3VSZjOHRzaY36fGGj XQouSx8ze9F0c830LQQmRHRszL 79De4cmEtaBNHroIKWaJ9kpmkq u0cpowgyZjTmLKTxRPo4ABb7 HLWafEojGbZcJYR1SiV3ZPO6jL WaaR9lzEvzxwkfkJ0fRgn+T3V0 zSQ1bUMnkNncrPB+TP99qc24 W1UyRwjbIwm4RRFxQPV9cFM2hQ 3bKFOsASiyv8T7jDY7H6NwywSi fy7ys0zfPWEgRSjnZ23llRYv l0A5NXSiiGN9PJYxlPbfXcOztA 93Oyc+HPEkxNlwe1LlLouhs4yi w9ujrRi6EjQlDXGwwxTnyEdz FFK9e3GbFd92J35lGClbVYUmAT JuBEGlLWHneOscap5hnF2vMd7+ YXFewSU6dFH3mU4bOjZoTlP1 YYuwP232MtOihHKiDplmw4nbx1 srwTf9CpBiVGRzfiYiqBzzWGI6 t7IaPn15X4SdtSodr9NkYso0 tm73pOLqq3E4lOJ5H1ZnKYFutv vxmJSpfYhmBM2bGKZbjxwjLCWf jI0gVKUrU0f9FyLqKoG7AQei J0QakiQ6VZDeiOJhUMBiuFENmV 0lrmuvl7yqozpiHgOuCIEuASe6 NDu7EPJmhTlwNfOkAKV5WkQ2 GBA8aVZsgI1tdZojgovgnL7kWg c+NQp3h9nswLLfIL0lgLB2NW04 QC26dJHhz4I6gXE8X3LqOFTh laphlpffhCC9FFKwNEJsrE39Kk 2vtCduPt5lSBNzHBO4PYAtfRDh A1FvhL5fQzViRNVtCRPbW9Nn tBJcOBgdY935BCsaRjX1JGZsdm ZxV0VrLSCndRmeUsM9h6R2Gl4E VW28QQ28JZ85yHFyb2E5yOS4 Y9SaIKVcahtgeplzoJH0POCjTB UktT08Yr8itSxuSv4tNTKjWGY7 NAGyqJNqW0AmeM1uKhFcVPFa SXRbP1OgnZCsVSqvX779CKtyNa B8EHWcvbEeE3XqXYNotQsvFqM8 h1V0Us4EIz61QO43MC51aRNn u0M7nCL8B7AwZQLswkixfknwdF W1LEWjPQDycP52Yq6ocChuZc1u CLVoFKR0UAGepMLjK0YuaX3w JuBnHBGxFSCqK0NleBEpOCjzD8 54AIroCuW0OXLtgzXnU9ByHKPf pZkiJmZ3p2Q7Ss9GZZrtchx5 W8ApGmkxdZS+FV67WNGvJE92aA CstRLro8zfqBm2HtGiNULqZSC9 zAvkTRvct1BgGPMpI89okPVi c2U6 (more content not included)... Normal [facility] C Urineon 08-19-2022 Bacteria identified Cx Nom (U) Microbiology PROCEDURE: Urine Culture [R1] SOURCE: U Cath BODY SITE: COLLECTED DATE/TIME: 08/17/2022 09:04 EST RECEIVED DATE/TIME: 08/17/2022 16:02 EST START DATE/TIME: 08/17/2022 16:02 EST FREE TEXT SOURCE: clarissa TOBAR MD, Finesse TOBAR MD, Finesse Rey FINAL REPORTS Final Report [] Verified Date/Time: 08/19/2022 09:11 EST No growth at 2 days. Performing Locations R1: [facility] [address] [place] [address], [facility] , , [facility] Comment on above: Performed By: #### 2 [id number] ####[place] [address] Consent for Procedure/Surger yon 08-17-2022 Consent for Procedure/Surgery [id number]#[id number]:127 [facility] Consent for Treatmenton 08-03 Consent for Treatment [id number]#1.00CD:[address] [facility] Inpatient Patient Summaryon 08-17-2022 Inpatient Patient Summary [address] [address] Clinical Summary Person Information Name: MARY DOUGLAS Age: 57 Years : 1965 Sex: Female PCP: MULUGETA GOTTI DO Marital Status: Race: White Ethnicity: Non- or Language: Anguillan Visit Id: Visit Reason: RECURRENT UTI Speciality: Acuity: Enc Type: Outpatient Med Service: Surgery Arrival: 08/17/2022 08:07:34 Discharge: Dispo Type: Address: [address] [place] [address] [phone] Provider Notes: Diagnosis: Problems Active Right flank pain OAB (overactive bladder) UTI symptoms History of breast cancer Morbid obesity with body mass index (BMI) of 45.0 to 49.9 in adult Former smoker Other urethral stricture, female Smoker Urinary urgency Frequency of urination Asymptomatic microscopic hematuria Mixed incontinence Abdominal pain Nocturia Feeling of incomplete bladder emptying Recurrent UTI Smoking Status: Functional Status: Sensory Deficits: History of Falls: Mobility Assistance Prior to Admission: ADLs: Current Level of Assistance for Self-Care/Mobility: Cognitive Status: Allergies codeine (Vomiting) Ultram (Vomiting) erythromycin (Diarrhea) (intestinal pain) Fioricet (Unknown) Laboratory or Other Results This Visit (last charted value for your 08/17/2022 visit) No Laboratory or Other Results This Visit Measurements: Height: 167.6 cm Weight: Blood Pressure: Not Valued / Not Valued BMI: Procedures No Procedures Documented Immunizations No Immunizations Documented This Visit Final Med List: baclofen 10 Milligram By Mouth 3 times a day. ciprofloxacin (Cipro 500 mg Tab) 1 Tablets By Mouth As Directed. Patient to take 1 tab the day before procedure and the 2nd tab the day of procedure once completed. Refills: 0. conjugated estrogens topical (conjugated estrogens 0.625 mg/g vaginal cream with applicator) apply a pea-sized amount 3x weekly. Refills: 1. erenumab (Aimovig SureClick 70 mg/mL subcutaneous solution) 70 Milligram Subcutaneous once a month. gabapentin 300 Milligram By Mouth 3 times a day. liraglutide (Saxenda) Subcutaneous every day. oxybutynin (Ditropan XL 5 mg Tab-ER) 1 Tablets By Mouth every day. Refills: 11. rizatriptan (Maxalt 10 mg Tab) 1 Tablets By Mouth. may repeat dose once in 2 hours. semaglutide (Ozempic (0.25 mg or 0.5 mg dose)) 0.5 Milligram Subcutaneous Sunday. venlafaxine (Effexor) 150 Milligram By Mouth every day. Care Team Members: Attending Physician: Finesse TOBAR MD Consulting Physician: Referring Physician: Finesse TOBAR MD Follow up: With: Address: When: Finesse TOBAR [address] [place] [address] Business (1) Within 2 to 4 weeks With: Address: When: [place] [address] [facility] (1) Patient Education Information: [facility] IntraOperative Documentson 1 10-18-2021 IntraOperative Documents [id number]:127 [facility] Main OR Intraoperative Recor don 08-17-2022 Main OR Intraoperative Record IntraOp Document Type FTURO Summary Primary Physician: Finesse TOBAR MD Finalized Date/Time: 08/17/22 09:15:53 Pt. Name: MARY DOUGLAS/Sex: 1965 Female Med Rec #: [id number] Physician: Finesse TOBAR MD Financial #: [id number] Pt. Type: O Room/Bed: / Admit/Disch: 08/17/22 08:07:34 - Institution: Case Times FTURO Entry 1 Patient Times In Room 08/17/22 09:01:00 Out Room 08/17/22 09:13:00 Procedure Times Start 08/17/22 09:03:00 Stop 08/17/22 09:10:00 Anesthesia Times Last Modified By: Melisa Oliver RN 08/17/22 09:15:47 Case Attendance FTURO Entry 1 Entry 2 Entry 3 Case Attendee EKATERINA PEGUERO, Finesse Durbin [employer]K HOUSE WORKER, Perla Oliver RN, Melisa Shanks Role Performed Surgeon - Primary Scrub - Primary Gaggerman - Primary Time In 08/17/22 09:01:00 08/17/22 09:01:00 08/17/22 09:01:00 Time Out 08/17/22 09:13:00 08/17/22 09:13:00 08/17/22 09:13:00 Procedure CYSTOSCOPY LOCAL WITH CYSTOSCOPY LOCAL WITH CYSTOSCOPY LOCAL WITH URETHRAL DILATION(.) URETHRAL DILATION(.) URETHRAL DILATION(.) Comments Last Modified By: Benito FELIX, Melisa Oliver RN, Melisa Haddad RN 08/17/22 09:15:48 08/17/22 09:15:48 08/17/22 09:15:48 Surgical Procedures FTURO Entry 1 Procedure Description Procedure CYSTOSCOPY LOCAL WITH Modifiers . URETHRAL DILATION Surgeon Description CYSTOSCOPY LOCAL WITH URETHRAL DILATION Primary Procedure Yes Primary Surgeon EKATERINA PEGUERO, Finesse Rey Start 08/17/22 09:03:00 Stop 08/17/22 09:10:00 Anesthesia Type Local Surgical Service Urology Wound Class 2 - Clean-Contaminated Last Modified By: Melisa Oliver RN 08/17/22 09:11:23 General Case Data FTURO Pre-Care Text: Classifies surgical wound, implements aseptic technique, initiates traffic control Entry 1 Case Information OR URO 1 FT Case Level None Wound Class 2 - Clean-Contaminated Specialty Urology Preop Diagnosis RECURRENT UTI Postop Same As Preop Yes Postop Diagnosis RECURRENT UTI Outcomes Met? Yes Last Modified By: Melisa Oliver RN 08/17/22 09:07:34 Post-Care Text: The patient is free from signs and symptoms of infection EU IntraOp - FTURO Pre-Care Text: Implements protective measures prior to operative or invasive procedure, confirms identity before the operative or invasive procedure, verifies operative procedure, surgical site, and laterality Entry 1 EU Perioperative Protocols Procedure(s) CYSTOSCOPY LOCAL WITH Patient Identity Birthday, ID Band URETHRAL DILATION(.) Verified (select at Check, Patient least 2): Participation Consents / H and P HandP, Surgery/Procedure Operative Site N/A Verified Consent Marking Verified Surgical Site Yes Laterality Verified Yes Verified Procedure Verified Yes Correct Patient Yes Position Verified Availability Equipment, Medication Time Out Finesse TOBAR MD, Verified (If Participants Perla Durbin CST, Applicable) Melisa Oliver RN Time Out Complete 08/17/22 09:02:00 Allergies Reviewed? Yes Allergies Reviewed Self/Patient With Body Position Supine Prep Area PERINEUM Prep Agents Betadine Solution Skin. Condition Dry, Warm, Unable to Description UNABLE TO VISUALIZE DUE Visualize TO PATIENT PARTIALLY CLOTHED Additional Other (See Comment) Specimens Comment URINE CULTURE Specimens Collected Vitals - EU Blood Pressure 101/70 Pulse 82 bpm Respirations 18 br/min SPO2 95 % EBL 0 IandO - EU Total Intake 0 mL Total Output 0 mL Outcomes Met? Yes Last Modified By: Melisa Oliver RN 08/17/22 09:09:09 Post-Care Text: The patient is free from signs and symptoms of injury caused by extraneous objects Sign Out FTURO Entry 1 Before Patient Leaves OR Nurse verbally Yes Nurse verbally Yes confirms with the confirms with the team the name of team that the procedure(s) instrument, sponge, recorded and needle counts are correct (or N/A) Nurse verbally Yes Nurse verbally Yes confirms with the confirms with the team how the team whether there specimen is labeled are any equipment (including patient problems to be name), if applicable addressed Sign Out Complete 08/17/22 09:10:00 Last Modified By: Melisa Oliver RN 08/17/22 09:11:22 Case Comments Finalized By: Melisa Oliver RN Document Signatures Signed By: Melisa Oliver RN 08/17/22 09:15 [facility] Main OR Preoperative Recordo n 08-17-2022 Main OR Preoperative Record Holding Area Document Type FTURO Summary Primary Physician: Finesse TOBAR MD Finalized Date/Time: 08/17/22 09:07:06 Pt. Name: MARY DOUGLAS/Sex: 1965 Female Med Rec #: [id number] Physician: Finesse TOBAR MD Financial #: [id number] Pt. Type: O Room/Bed: / Admit/Disch: 08/17/22 08:07:34 - Institution: Case Times Holding FTURO Pre-Care Text: Verifies consent for planned procedure, identifies individual values and wishes concerning care, includes family members in perioperative teaching Secures patient's records' belongings, and valuables, maintains patient's dignity and privacy, and maintains patient confidentiality Entry 1 In Holding 08/17/22 08:15:00 Outcomes Met? Yes Last Modified By: Sharla Shaw LPN 08/17/22 08:15:46 Post-Care Text: The patient participates in decisions affecting his or her perioperative plan of care The patient's right to privacy is maintained Surgery Checklist FTURO Entry 1 Patient Birthday, Patient Procedure History and Physical, Identification: Participation Verification: Surgical Consent NPO after Midnight: Yes Date/Time: 08/17/22 08:15:00 Personal Items: Glasses, Jewelry Personal Items clothes Comment: Limitations: na Complaints of Pain: Yes Pain Comment: fibromyalgia Skin Integrity Intact, [place], Warm, & Dry Vitals - EU Blood Pressure 101/70 Pulse 82 bpm Respirations 18 br/min SPO2 95 % RN Reviewed Yes Last Modified By: Melisa Oliver RN 08/17/22 09:07:05 Finalized By: Melisa Oliver RN Document Signatures Signed By: Sharla Shaw LPN 08/17/22 08:17 Melisa Oliver RN 08/17/22 09:[address] [facility] Operative Reporton Operative Report Patient: EMILY DOULGAS Age: 57 years Sex: Female : 1965 Associated Diagnoses: None Author: Finesse TOBAR MD Procedure Operative Information Details: Date/ Time: 08/17/2022 09:12:00. Pre-Op Dx: Hx of UTI's - Z87.440, Urethral Stricture - Other Post Infective Female - N35.12. Post-Op Dx: Same. Anesthesia Type: Local. Procedure: Local Cystoscopy with Urethral Dilation. Complications: None. Risks/Benefits/Informed Consent: Surgical risks, benefits, details of the procedure have been explained to the patient, Full informed consent has been obtained. Intraoperative Information Prepped: Patient is brought back to the endoscopy suite, Patient is placed in modified dorso/lithotomy position, Patient prepped in the usual fashion with Betadine solution, 2% Xylocaine Jelly is placed per Urethra, After waiting several minutes the Cystoscope is introduced. The Urethra is: Tight. The Bladder is: Trabeculated Mild (1). The ureteral orifices: Show efflux of clear urine. The Urethra was dilated to: 28 Faroese w/ sounds. Specimens Removed: UA AUDIO VISUAL ARTS DIRECTOR dilated the patient's urethra to 28 Faroese bladder mucosa was good distended well I put 250 cc and washed out the bladder leaving the 250 and they are coughing and straining there is no descensus of the ureterovesical angle there is no evidence of stress urinary incontinence negative Holden test. Bladder drained urine culture is pending but the urine looked very clear hopefully the urethral dilatation and bladder washing will help break the wiyot of chronic infections.. Devices Implanted: None. Removal: Cystoscope is removed, The patient tolerated it well. Postoperative Information Discharge: Patient is discharged home with antibiotic coverage, Follow up arranged. [facility] Comment on above: Result Comment: Elec tronically Signed By: Finesse TOBAR MD\\.br\\Date and Time Signed: 08/17/22 09:13 EST Outpatient Surgery Discharge Instructionon 08-17-2022 Outpatient Surgery Discharge Instruction [address] [address] Patient Discharge Instructions PERSON INFORMATION Name: MARY DOUGLAS Date of : 1965 Current Date: 08/17/2022 09:11:31 PHYSICIANS Admitting Physician: Finesse TOBAR MD Comment: Discharge Diagnosis: MARY DOUGLAS has been given the following list of follow-up instructions, prescriptions, and patient education materials: IF UNABLE TO CONTACT YOUR PHYSICIAN AND YOU FEEL IT IS AN EMERGENCY, GO TO THE NEAREST EMERGENCY ROOM OR CALL 911 Follow up: With: Address: When: Finesse [address] [address] [facility] (1) Within 2 to 4 weeks With: Address: When: Finesse [address] [address] [facility] (1) Comment: PATIENT EDUCATION INFORMATION Instructions: Unruly MARY DOUGLAS, have received the attached patient education materials/instructions and have verbalized understanding: May we do a follow up call? Yes No I was present when discharge instructions were given Patient Signature _ Date Clinican/Nurse Signature Date You may receive a survey from Judah Zavala asking you to rate your care experience. Your feedback is important and will help us understand what we do well and how we can improve the quality of care we provide to you, your loved ones and our community. It?s an honor to serve you. Thank you for choosing [facility] Patient Educationon 08-17-[address] [facility] Ferritin [Mass/volume] in Se rum or PlasmaOrdered By: Racquel Andrew on 06-21-2022 Ferritin [Mass/Vol] 84.9 ng/mL 11-306.8 [facility] Folate [Mass/volume] in Seru m or PlasmaOrdered By: Racquel Andrew on 06-21-2022 Folate [Mass/Vol] 6.8 ng/mL >5.9 [facility] Comment on above: Folate reference ran ge: >5.9 ng/mlThe WHO technical consultation on folate and vitamin q10ssfbhcyjssjj has determined that folate concentrations lessthan 4 ng/ml are considered deficient. Laboratory - Chemistry and C hemistry - challengeOrdered By: Racquel Andrew on 06-21-2022 Cobalamin (Vitamin B12) [Mass/Vol] 217 pg/mL 180-914 [facility] Magnesium [Mass/Vol] 1.9 mg/dL 1.6-2.6 [facility] Phosphate [Mass/volume] in S lito or PlasmaOrdered By: Racquel Andrew on 06-21-2022 Phosphate [Mass/Vol] 3.4 mg/dL 2.5-4.6 [facility] TSH DL <= 0.005 mIU/L QnOrde red By: Racquel Andrew on 06-21-2022 TSH Qn 2.76 m[IU]/L 0.45-5.33 [facility] CBC AUTO DIFFon 05-28-2022 BASO # 0.1 103/ul Normal 0.0-0.1 [facility] Comment on above: Performed By: #### C BC ####[facility] [address] [place], [place] [address]Dr. Gaurang Womack Basophils/100 WBC (Bld) 0.7 % Normal 0.2-2.0 [facility] Comment on above: Performed By: #### C BC ####[facility] [address] [place], [place] [address]Dr. Gaurang Womack EO # 0.6 103/ul Normal 0.0-0.7 [facility] Comment on above: Performed By: #### C BC ####[facility] [address] [place], [place] [address]Dr. Gaurang Womack Eosinophils/100 WBC (Bld) 5.6 % Normal 0.9-7.0 [facility] Comment on above: Performed By: #### C BC ####[facility] [address] [place], [place] [address]Dr. Gaurang Womack Erythrocyte distribution width (RBC) [Ratio] 13.8 % Normal 11.0-15.0 [facility] Comment on above: Performed By: #### C BC ####[facility] [address] [place] [address]Dr. Leaiwlliam Womack Hematocrit (Bld) [Volume fraction] 45.0 % Normal 36.0-48.0 [facility] Comment on above: Performed By: #### C BC ####[facility] [address] [place] [address]Dr. Gaurang Womack Hemoglobin (Bld) [Mass/Vol] 15.0 g/dL Normal 12.0-16.0 [facility] Comment on above: Performed By: #### C BC ####[facility] [address] [place] [address]Dr. Gaurang Womack IG # 0.06 10e3/ul Critically high 0.00-0.03 [facility] Comment on above: Performed By: #### C BC ####[facility] [address] [place] [address]Dr. Gaurang Womack IG % 0.6 % Critically high 0.0-0.5 [facility] Comment on above: Performed By: #### C BC ####[facility] [address] [place], [place] [address]Dr. Gaurang Womack LYMPH # 2.3 103/ul Normal 1.2-3.8 [facility] Comment on above: Performed By: #### C BC ####[facility] [address] [place] [address]Dr. Gaurang Womack Lymphocytes/100 WBC (Bld) 23.6 % Normal 20.5-60.0 [facility] Comment on above: Performed By: #### C BC ####[facility] [address] [place], [place] [address]Dr. Gaurang Womack MANUAL DIFF REQ NO Normal [facility] Comment on above: Performed By: #### C BC ####[facility] [address] [place], [place] [address]Dr. Gaurang Womack MCH (RBC) [Entitic mass] 29.5 pg Normal 26.7-34.0 [facility] Comment on above: Performed By: #### C BC ####[facility] [address] [place] [address]Dr. Gaurang Vu MCHC (RBC) [Mass/Vol] 33.3 g/dL Normal 29.9-35.2 [facility] Comment on above: Performed By: #### C BC ####[facility] [address] [place] [address]Dr. Leawilliam Womack MCV (RBC) [Entitic vol] 88.4 fL Normal 81.0-99.0 [facility] Comment on above: Performed By: #### C BC ####[facility] [address] [place] [address]Dr. Gaurang Womack MONO # 0.7 103/ul Normal 0.3-0.8 [facility] Comment on above: Performed By: #### C BC ####[facility] [address] [place], [place] [address]Dr. Gaurang Womack Monocytes/100 WBC (Bld) 7.5 % Normal 1.7-12.0 [facility] Comment on above: Performed By: #### C BC ####[facility] [address] [place], [place] [address]Dr. Gaurang Womack NEUT # 6.0 103/ul Normal 1.4-6.5 [facility] Comment on above: Performed By: #### C BC ####[facility] [address] [place], [place] [address]Dr. Gaurang Womack Neutrophils/100 WBC (Bld) 62.0 % Normal 43.0-75.0 [facility] Comment on above: Performed By: #### C BC ####[facility] [address] [place], [place] [address]Dr. Gaurang Womack Platelet mean volume (Bld) [Entitic vol] 8.8 fL Critically low 9.5-13.5 [facility] Comment on above: Performed By: #### C BC ####[facility] [address] [place], [place] [address]Dr. Gaurang Womack PLT 273 103/ul Normal 150-450 [facility] Comment on above: Performed By: #### C BC ####[facility] [address] [place], [place] [address]XiEb Womack RBC 5.09 106/ul Normal 4.20-5.40 [facility] Comment on above: Performed By: #### C BC ####[facility] [address] [place], [place] [address]KcEb Womack WBC 9.7 103/ul Normal 4.0-11.0 [facility] Comment on above: Performed By: #### C BC ####[facility] [id number] [place], [place] [address]QbEb W[address] CT ABD/PELVIS WO CONon 05-28 CT ABD/PELVIS WO CON CT ABDOMEN/PELVIS W ITHOUT IV CONTRAST. INDICATION: CALCULUS OF KIDNEY COMPARISON: 11/15/2021 TECHNIQUE: Contiguous axial images were obtained from the lung bases to the pelvic floor without intravenous or oral contrast. Coronal and sagittal reformations are provided. FINDINGS: LOWER LUNGS: Clear. LIVER/BILIARY TREE: No discrete lesion. No intrahepatic ductal dilatation. Mild hepatomegaly. GALLBLADDER: Status post cholecystectomy. CBD: Normal CBD. SPLEEN: Normal in size. PANCREAS: No appreciable peripancreatic fluid. No pancreatic ductal dilatation. No discrete lesion. ADRENALS: Normal. KIDNEYS: No hydronephrosis. No radiopaque calculus. STOMACH AND BOWEL: Redemonstrated gastric diverticulum. No dilated bowel loops. No bowel wall thickening. Colonic diverticulosis. APPENDIX: Normal appendix. PERITONEAL CAVITY: No fluid. No fat stranding. ABDOMINAL WALL: No subcutaneous stranding. No subcutaneous fluid collection. LYMPH NODES: No mesenteric or retroperitoneal lymphadenopathy by CT criteria. ABDOMINAL AORTA: No aneurysm. PELVIS: No acute abnormality. MUSCULOSKELETAL: No acute osseous abnormality. IMPRESSION: No acute abnormality in the abdomen or pelvis. No obstructive uropathy. Electronically authenticated by: WILLIAMS PIZARRO Date: 2022-05-28 14:15 Normal [facility] CULTURE BLOODon 05-28-2022 Microscopic examination of blood, culture Culture Observations: NO GROWTH AT 5 DAYS. Normal [facility] Comment on above: Performed By: #### B LDCX2 #### [facility] [address] [place], [place] [address] Dr. Gaurang Womack Performed By: #### B LDCX1 ####[facility] [id number] [place] [address]Dr. Gaurang Womack ER URINE PROFILEon 2 Bilirubin Ql (U) Negative Normal NEGATIVE [facility] Comment on above: Performed By: #### U MICRO, ERUR #### [facility] [address] [place] [address] [address] Gaurang Womack Clarity (U) CLEAR Normal CLEAR [facility] Comment on above: Performed By: #### U MICRO, ERUR #### [facility] [address] [place] [address] [address] Gaurang Womack Color (U) LT. YELLOW Normal YELLOW [facility] Comment on above: Performed By: #### U MICRO, ERUR #### [facility] [address] [place] [address] Dr. Gaurang Womack ERUAHD A micrscopic examina tion will be performed if indicated. Normal [facility] Comment on above: Performed By: #### U MICRO, ERUR #### [facility] [address] [address] [address] Gaurang Womack Glucose Ql (U) Negative Normal NEGATIVE [facility] Comment on above: Performed By: #### U MICRO, ERUR #### [facility] [address] [address] [address] aGurang Womack Hemoglobin Ql (U) TRACE-INTACT Abnormal NEGATIVE [facility] Comment on above: Performed By: #### U MICRO, ERUR #### [facility] [address] [address] [address] Gaurang Womack Ketones Ql (U) Negative Normal NEGATIVE [facility] Comment on above: Performed By: #### U MICRO, ERUR #### [facility] [address] [place] [address] [address] Gaurang Womack LEUKOCYTES Negative Normal NEGATIVE [facility] Comment on above: Performed By: #### U MICRO, ERUR #### [facility] [address] [place] [address] [address] Gaurang Womack Nitrite Ql (U) Negative Normal NEGATIVE [facility] Comment on above: Performed By: #### U MICRO, ERUR #### [facility] [address] [place] [address] Dr. Gaurang Womack pH (U) 6.0 [pH] Normal 5-9 [facility] Comment on above: Performed By: #### U MICRO, ERUR #### [facility] [address] [place] [address] Dr. Gaurang Womack SPEC GRAVITY 1.020 Normal 1.005-<=1. 025 [facility] Comment on above: Performed By: #### U MICRO, ERUR #### [facility] [address] [place] [address] Dr. Gaurang Womack UA PROTEIN Negative Normal NEGATIVE/ TRACE [facility] Comment on above: Performed By: #### U MICRO, ERUR #### [facility] [address] [place] [address] Dr. Gaurang Womack UR MICRO IND INDICATED Normal [facility] Comment on above: Performed By: #### U MICRO, ERUR #### [facility] [address] [place] [address] Dr. Gaurang Womack Urobilinogen Qn (U) 0.2 {Sharmin'U}/dL Normal 0.2 - 1. 0 [facility] Comment on above: Performed By: #### U MICRO, ERUR #### [facility] [address] [place] [address] Dr. Gaurang Womack LACTATE/LACTIC ACIDon 2021 Lactate [Moles/Vol] 1.2 mmol/L Normal 0.4-1.9 [facility] Comment on above: Performed By: #### L ACT #### [facility] [address] [place] [address] Dr. Gaurang Womack PROF 14(COMP METB)on 022 Albumin [Mass/Vol] 3.6 g/dL Normal 3.4-5.0 [facility] Comment on above: Performed By: #### C MP #### [facility] [address] [place] [address] Dr. Gaurang Womack Albumin/Globulin [Mass ratio] 0.9 {ratio} Normal [facility] Comment on above: Performed By: #### C MP #### [facility] [address] [place] [address] [address] Gaurang Womack ALP [Catalytic activity/Vol] 132 U/L Critically high 46-116 [facility] Comment on above: Performed By: #### C MP #### [facility] [address] [place] [address] [address] Gaurang Womack ALT [Catalytic activity/Vol] 25 U/L Normal 14-59 [facility] Comment on above: Performed By: #### C MP #### [facility] [address] [address] [address] Gaurang Womack Anion gap [Moles/Vol] 13.1 mmol/L Normal [facility] Comment on above: Performed By: #### C MP #### [facility] [address] [place] [address] [address] Gaurang Womack AST [Catalytic activity/Vol] 18 U/L Normal 15-37 [facility] Comment on above: Performed By: #### C MP #### [facility] [address] [place] [address] [address] Gaurang Womack Bilirubin [Mass/Vol] 0.2 mg/dL Normal 0.2-1.0 [facility] Comment on above: Performed By: #### C MP #### [facility] [address] [address] [address] Gaurang Womack Calcium [Mass/Vol] 8.9 mg/dL Normal 8.5-10.1 [facility] Comment on above: Performed By: #### C MP #### [facility] [address] [place] [address] [address] Gaurang Womack Chloride [Moles/Vol] 104 mmol/L Normal 98-107 [facility] Comment on above: Performed By: #### C MP #### [facility] [address] [place] [address] [address] Gaurang Womack CO2 [Moles/Vol] 23.5 mmol/L Normal 21.0-32.0 [facility] Comment on above: Performed By: #### C MP #### [facility] [address] [place] [address] [address] Gaurang Womack Creatinine [Mass/Vol] 0.60 mg/dL Normal 0.55-1.02 [facility] Comment on above: Performed By: #### C MP #### [facility] [address] [place] [address] [address] Gaurang Womack EGFR-AF PERUVIAN >60 Normal >=60 [facility] [place] [facility] Comment on above: Performed By: #### C MP #### [facility] [address] [place] [address] [address] Gaurang Womack EGFR-NON AF PERUVIAN >60 Normal >=60 [facility] Comment on above: Performed By: #### C MP #### [facility] [address] [place] [address] Dr. Gaurang Womack Globulin (S) [Mass/Vol] 4.1 g/dL Normal [facility] Comment on above: Performed By: #### C MP #### [facility] [address] [place] [address] Dr. aGurang Womack Glucose [Mass/Vol] 92 mg/dL Normal 74-106 [facility] Comment on above: Performed By: #### C MP #### [facility] [address] [place] [address] Dr. Gaurang Womack Potassium [Moles/Vol] 3.6 mmol/L Normal 3.5-5.1 [facility] Comment on above: Performed By: #### C MP #### [facility] [address] [place] [address] Dr. Gaurang Womack Protein [Mass/Vol] 7.7 g/dL Normal 6.4-8.2 [facility] Comment on above: Performed By: #### C MP #### [facility] [address] [place] [address] Dr. Gaurang Womack Sodium [Moles/Vol] 137 mmol/L Normal 136-145 [facility] Comment on above: Performed By: #### C MP #### [facility] [address] [place] [address] Dr. Gaurang Womack Urea nitrogen [Mass/Vol] 8.0 mg/dL Normal 7.0-18.0 [facility] Comment on above: Performed By: #### C MP #### [facility] [address] [place] [address] Dr. Gaurang Womack Urea nitrogen/Creatinine [Mass ratio] 13.3 mg/mg Normal [facility] Comment on above: Performed By: #### C MP #### [facility] [address] [place] [address] [address] Gaurang Womack URINE MICROSCOPIC ONLYon BACTERIA NONE SEEN Normal NONE SEEN [facility] Comment on above: Performed By: #### U MICRO, ERUR #### [facility] [address] [place] [address] Dr. Gaurang Womack Bacteria identified Cx Nom (U) NOT INDICATED Normal [facility] Comment on above: Performed By: #### U MICRO, ERUR #### [facility] [address] [place] [address] Dr. Gaurang Womack CAST NONE SEEN Normal NONE SEEN [facility] Comment on above: Performed By: #### U MICRO, ERUR #### [facility] [address] [place] [address] Dr. Gaurang Womack Crystals LM Nom (Urine sed) NONE SEEN Normal NONE SEEN [facility] Comment on above: Performed By: #### U MICRO, ERUR #### [facility] [address] [place] [address] Dr. Gaurang Womack Epithelial cells LM Ql (Urine sed) MODERATE Abnormal NONE SEEN /RARE [facility] Comment on above: Performed By: #### U MICRO, ERUR #### [facility] [address] [place] [address] Dr. Gaurang Womack MUCOUS NONE SEEN Normal NONE SEEN [facility] Comment on above: Performed By: #### U MICRO, ERUR #### [facility] [address] [place] [address] Dr. Gaurang Womack RBC NONE SEEN Abnormal 0-2 [facility] Comment on above: Performed By: #### U MICRO, ERUR #### [facility] [address] [place] [address] [address] Gaurang Womack WBC NONE SEEN Normal NONE SEEN [facility] Comment on above: Performed By: #### U MICRO, ERUR #### [facility] [address] [place] [address] [address] Gaurang Womack Creatinine and Glomerular fi ltration rate.predicted panel (S/P/Bld)Ordered By: Mulugeta Gotti on 04-27-2022 Creatinine [Mass/Vol] 0.51 mg/dL 0.44-1.03 [facility] Estimated glomerular filtrat ion rate (GFR) non- AmericanOrdered By: Mulugeta Gotti on 04-27-2022 GFR/1.73 sq M.predicted among non-blacks MDRD (S/P/Bld) [Vol rate/Area] > 60 mL/Min [facility] Glucose mean value [Mass/vol ume] in Blood Estimated from glycated hemoglobinOrdered By: Mulugeta Gotti on 04-27-2022 Average glucose Estimated from glycated hemoglobin (Bld) [Mass/Vol] 111 mg/dL [facility] Hemoglobin A1c percentageOrd ered By: Mulugeta Gotti on 04-27-2022 HbA1c (Bld) [Mass fraction] 5.5 % 4.3-5.6 [facility] Comment on above: Increased risk for d iabetes: 5.7 - 6.4 diabetes: >6.4 glycemic control for adults with diabetes: <7.0 Increased risk for d iabetes: 5.7 - 6.4diabetes: >6.4glycemic control for adults with diabetes: <7.0 No Panel InformationOrdered By: Mulugeta Gotti on 04-27-2022 Estimated GFR () > 60 mL/Min [facility] Comment on above: GFR estimated refere nce range: According to KDOQI guidelines, <60 ml/min/1.73m2 is sufficient to diagnose a patient with chronic kidney disease. Pharmacy Creatinine Clearance (Chem N/A [facility] Serum or plasma calcium reinier urement (mass/volume)Ordered By: Mulugeta Gotti on 04-27-2022 Calcium [Mass/Vol] 9.0 mg/dL 8.2-10.2 [facility] Serum or plasma chloride nuria surement (moles/volume)Ordered By: Mulugeta Gotti on 04-27-2022 Chloride [Moles/Vol] 105 mmol/L 95-114 [facility] Serum or plasma glucose reinier urement (mass/volume)Ordered By: Mulugeta Gotti on 04-27-2022 Glucose [Mass/Vol] 87 mg/dL 70-100 [facility] Comment on above: ADA recommended refe rence range Random Glucose Reference Range is dependent on time and content of last meal. Glucose of more than 200 mg/dL in a nonstressed, ambulatory subject supports the diagnosis of Diabetes Mellitus. ADA recommended refe rence rangeRandom Glucose Reference Range is dependent on time and content of last meal. Glucose of more than 200 mg/dL in a nonstressed, ambulatory subject supports the diagnosis of Diabetes Mellitus. Serum or plasma potassium me asurement (moles/volume)Ordered By: Mulugeta Gotti on 04-27-2022 Potassium [Moles/Vol] 3.9 mmol/L 3.5-5.1 [facility] Serum or plasma sodium measu rement (moles/volume)Ordered By: Mulugeta Gotti on 04-27-2022 Sodium [Moles/Vol] 135 mmol/L 136-146 [facility] Serum or plasma total carbon dioxide measurement (moles/volume)Ordered By: Mulugeta Gotti on 04-27-2022 CO2 [Moles/Vol] 23.1 mmol/L 22.0-30.0 [facility] Serum or plasma urea nitroge n measurement (mass/volume)Ordered By: Mulugeta Gotti on 04-27-2022 Urea nitrogen [Mass/Vol] 10 mg/dL 9-23 [facility] Q - DAVY MULTIPLEX W/ REFLEX TO 11 ANTIBODY CASCADEon 12-12-2021 ANACHOICE(R) SCREEN Negative Normal NEGATIVE [facility] [employer] Comment on above: Order Comment: [facility] performed at: QPT, [facility], [address], [address] [facility], [place], [address], Structural Shop Helper: Anshu Da Silva MD [facility] Collection Date/Time: [facility] Results Received Date/Time: [facility] Reported Date/Time: Result Comment: A ne gative DAVY Multiplex, with Reflex to 11 Antibody Cross indicates the absence of detectable antibodies to component analytes consisting of double stranded DNA (dsDNA), chromatin, ribonucleoprotein (EXPLOSIVE ORDNANCE DISPOSAL MANAGER), Meek/EXPLOSIVE ORDNANCE DISPOSAL MANAGER (Sm/EXPLOSIVE ORDNANCE DISPOSAL MANAGER), Meek (Sm), SS-A, SS-B, Karissa-1, centromere B, Scl-70 and ribosomal P. A negative result should be interpreted in the context of the clinical and laboratory findings and does not rule out autoimmune disease characterized by other autoantibody specificities such as rheumatoid arthritis, autoimmune hepatitis, primary biliary cirrhosis, autoimmune thyroiditis, Ham's disease, pernicious anemia, autoimmune neuropathies, vasculitis, celiac disease, and bullous disease. For additional information, please refer to http://education.FreshBooks/faq/VCK632 (This link is being provided for informational/ educational purposes only.) Performed By: #### 1 [id number] #### [facility] [address] [place] [address] RBC Sedimentation Rateon ESR (Bld) [Velocity] 25.00 mm/h Normal 0.00-30.00 [facility] Comment on above: Performed By: #### E SR, RF #### [facility] [address] [place], [place] [id number] Rheumatoid Factoron 12-13-19 RF <10 Normal [facility] Comment on above: Performed By: #### E SR, RF #### [facility] [address] [place], [place] [id number] AMYLASEon 11-16-2021 Amylase [Catalytic activity/Vol] 34 U/L Normal 31-110 [facility] Comment on above: Performed By: #### C MP, BEAU, LIPA #### [facility] [address] [place] [address] Dr. Gaurang Womack CBC AUTO DIFFon 11-16-2021 BASO # 0.0 103/ul Normal 0.0-0.1 [facility] Comment on above: Performed By: #### C BC #### [facility] [address] [address] [address] Gaurang Womack Basophils/100 WBC (Bld) 0.3 % Normal 0.2-2.0 [facility] Comment on above: Performed By: #### C BC #### [facility] [address] [place] [address] Dr. Gaurang Womack EO # 0.2 103/ul Normal 0.0-0.7 [facility] Comment on above: Performed By: #### C BC #### [facility] [address] [place] [address] Dr. Gaurang Womack Eosinophils/100 WBC (Bld) 3.0 % Normal 0.9-7.0 [facility] Comment on above: Performed By: #### C BC #### [facility] [address] [place] [address] Dr. Gaurang Womack Erythrocyte distribution width (RBC) [Ratio] 14.4 % Normal 11.0-15.0 [facility] Comment on above: Performed By: #### C BC #### [facility] [address] [place] [address] Dr. Gaurang Womack Hematocrit (Bld) [Volume fraction] 42.0 % Normal 36.0-48.0 [facility] Comment on above: Performed By: #### C BC #### [facility] [address] [place] [address] Dr. Gaurang Womack Hemoglobin (Bld) [Mass/Vol] 14.0 g/dL Normal 12.0-16.0 [facility] Comment on above: Performed By: #### C BC #### [facility] [address] [place] [address] Dr. Gaurang Womack IG # 0.03 10e3/ul Normal 0.00-0.03 [facility] Comment on above: Performed By: #### C BC #### [facility] [address] [place] [address] Dr. Gaurang Womack IG % 0.4 % Normal 0.0-0.5 [facility] Comment on above: Performed By: #### C BC #### [facility] [address] [place] [address] Dr. Gaurang Womack LYMPH # 2.0 103/ul Normal 1.2-3.8 [facility] Comment on above: Performed By: #### C BC #### [facility] [address] [place] [address] Dr. Gaurang Womack Lymphocytes/100 WBC (Bld) 25.5 % Normal 20.5-60.0 [facility] Comment on above: Performed By: #### C BC #### [facility] [address] [place] [address] Dr. Gaurang Womack MANUAL DIFF REQ NO Normal [facility] Comment on above: Performed By: #### C BC #### [facility] [address] [place] [address] Dr. Gaurang Womack MCH (RBC) [Entitic mass] 29.4 pg Normal 26.7-34.0 [facility] Comment on above: Performed By: #### C BC #### [facility] [address] [place] [address] Dr. Gaurang Womack MCHC (RBC) [Mass/Vol] 33.3 g/dL Normal 29.9-35.2 [facility] Comment on above: Performed By: #### C BC #### [facility] [address] [place] [address] Dr. Gaurang Womack MCV (RBC) [Entitic vol] 88.1 fL Normal 81.0-99.0 [facility] Comment on above: Performed By: #### C BC #### [facility] [address] [place] [address] Dr. Gaurang Womack MONO # 0.8 103/ul Normal 0.3-0.8 [facility] Comment on above: Performed By: #### C BC #### [facility] [address] [place] [address] Dr. Gaurang Womack Monocytes/100 WBC (Bld) 9.5 % Normal 1.7-12.0 [facility] Comment on above: Performed By: #### C BC #### [facility] [address] [place] [address] Dr. Gaurang Womack NEUT # 4.9 103/ul Normal 1.4-6.5 [facility] Comment on above: Performed By: #### C BC #### [facility] [address] [address] [address] Gaurang Womack Neutrophils/100 WBC (Bld) 61.3 % Normal 43.0-75.0 [facility] Comment on above: Performed By: #### C BC #### [facility] [address] [address] [address] Gaurang Womack Platelet mean volume (Bld) [Entitic vol] 8.7 fL Critically low 9.5-13.5 [facility] Comment on above: Performed By: #### C BC #### [facility] [address] [place] [address] [address] Gaurang Womack PLT 273 103/ul Normal 150-450 [facility] Comment on above: Performed By: #### C BC #### [facility] [address] [place] [address] Dr. Gaurang Womack RBC 4.77 106/ul Normal 4.20-5.40 [facility] Comment on above: Performed By: #### C BC #### [facility] [address] [address] [address] Gaurang Womack WBC 7.9 103/ul Normal 4.0-11.0 [facility] Comment on above: Performed By: #### C BC #### [facility] [address] [place] [address] ABD/PELVIS WO CONon 11-16 CT ABD/PELVIS WO CON EXAMINATION: CT ABD /PELVIS WO CON, 11/15/2021 8:47 PM MDT HISTORY: CALCULUS OF KIDNEY HISTORY: 56 year-old history with right rib pain radiating to the back TECHNIQUE: CT images of the abdomen and pelvis were obtained without contrast. Dose reduction techniques were achieved by using automated exposure control and/or adjustment of mA and/or kV according to patient size and/or use of iterative reconstruction technique. COMPARISON: CT abdomen/pelvis 01/17/2021 FINDINGS: Lung Bases: Dependent atelectasis bilaterally. Lower Heart: Unremarkable. Liver: Normal in contour. Isodense to the spleen. Gallbladder: Surgically absent. Spleen: Normal in size. No perisplenic fluid. Pancreas: Unremarkable. Adrenal Glands: Unremarkable. Kidneys / Ureters / Bladder: No hyperdense stone. No hydronephrosis. Hypodensity anterior to the distal right ureter noted (3:113), likely phlebolith. Ureters normal in course and caliber. Punctate antidependent air within the bladder. No perivesicular inflammatory change. Bowel / Mesentery: No evidence of obstruction. No free intraabdominal air. 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 Scattered colonic diverticula without surrounding inflammatory change. Normal appendix. Nonspecific mesenteric gr of the left upper quadrant without adenopathy or mass effect. Lymph Nodes: No adenopathy by size criteria. Vasculature: Limited in the absence of intravenous contrast. Scattered atherosclerotic calcifications without aneurysmal dilation. Reproductive Organs: Punctate focus of air within the vaginal cuff. Surgically absent uterus. No suspicious adnexal mass. Soft Tissues: Abdominal wall diastases. Bones: No acute osseous findings. Lumbar spondylosis. IMPRESSION: 1. No urinary tract stone identified. Punctate focus of air within the bladder. Correlate for recent instrumentation or catheter placement. Findings of uncertain clinical significance. 2. Nonspecific left upper quadrant mesenteric graying without focal lesion, a nonspecific finding. Consider follow-up CT in 3-6 months to ensure stability, if clinically indicated. 3. No evidence of bowel obstruction. Normal appendix. Scattered colonic diverticula without surrounding inflammatory change. 4. Stable appearance of the large gastric diverticulum. Electronically authenticated by: BLESSING ZEPEDA Date: 2021-11-15 23:41 Normal [facility] LACTATE/LACTIC ACIDon 2021 Lactate [Moles/Vol] 1.3 mmol/L Normal 0.7-2.0 [facility] Comment on above: Performed By: #### L ACT ####[facility] [id number] [place] [id number] Womack LIPASEon 11-16-2021 Lipase [Catalytic activity/Vol] 153.0 U/L Normal 23.0-300.0 [facility] Comment on above: Performed By: #### C MP, BEAU, LIPA ####[facility] [id number] [place] [id number] Womack PROF 14(COMP METB)on 022 Albumin [Mass/Vol] 3.4 g/dL Critically low 3.5-5.0 [facility] Comment on above: Performed By: #### C BEAU ELIZABETH LIPA ####[facility] [id number] [place] [address]Dr. Leawilliam Womack Albumin/Globulin [Mass ratio] 0.8 {ratio} Normal [facility] Comment on above: Performed By: #### C BEAU ELIZABETH LIPA ####[facility] [id number] [place] [address]Dr. Gaurang Vu ALP [Catalytic activity/Vol] 149 U/L Critically high 38-126 [facility] Comment on above: Performed By: #### C BEAU ELIZABETH LIPA ####[facility] [id number] [place] [address]Dr. Gaurang Womack ALT [Catalytic activity/Vol] 29 U/L Normal 9-52 [facility] Comment on above: Performed By: #### C BEAU ELIZABETH LIPA ####[facility] [id number] [place] [address]Dr. Leawilliam Womack Anion gap [Moles/Vol] 13.9 mmol/L Normal [facility] Comment on above: Performed By: #### C BEAU ELIZABETH, LIPA ####[facility] [id number] [place] [address]Dr. Leawilliam Womack AST [Catalytic activity/Vol] 21 U/L Normal 14-36 [facility] Comment on above: Performed By: #### C BEAU ELIZABETH LIPA ####[facility] [id number] [place] [address]Dr. Gaurang Womack Bilirubin [Mass/Vol] 0.2 mg/dL Normal 0.2-1.3 [facility] Comment on above: Performed By: #### C BEAU ELIZABETH, LIPA ####[facility] [id number] [place] [address]Dr. Gaurang Womack Calcium [Mass/Vol] 9.0 mg/dL Normal 8.4-10.2 [facility] Comment on above: Performed By: #### C MP, BEAU, LIPA ####[facility] [id number] [place] [address]Dr. Gaurang Womack Chloride [Moles/Vol] 104 mmol/L Normal 98-107 [facility] Comment on above: Performed By: #### C MP, BEAU, LIPA ####[facility] [place] [id number] [place] [address]Dr. Gaurang Womack CO2 [Moles/Vol] 25.6 mmol/L Normal 22.0-30.0 [facility] Comment on above: Performed By: #### C MP, BEAU, LIPA ####[facility] [id number] [place], [place] [address]Dr. Gaurang Womack Creatinine [Mass/Vol] 0.75 mg/dL Normal 0.52-1.04 [facility] Comment on above: Performed By: #### C MP, BEAU, LIPA ####[facility] [id number] [place], [place] [address]Dr. Gaurang Womack EGFR-AF PERUVIAN >60 Normal >=60 [facility] Comment on above: Performed By: #### C MP, BEAU, LIPA ####[facility] [id number] [place], [place] [address]Dr. Gaurang Womack EGFR-NON AF PERUVIAN >60 Normal >=60 [facility] Comment on above: Performed By: #### C MP, BEAU, LIPA ####[facility] [id number] [place], [place] [address]Dr. Gaurang Womack Globulin (S) [Mass/Vol] 4.1 g/dL Normal [facility] Comment on above: Performed By: #### C MP, BEAU, LIPA ####[facility] [place] [id number] [place], [place] [address]Dr. Gaurang Womack Glucose [Mass/Vol] 109 mg/dL Critically high 74-106 [facility] Comment on above: Performed By: #### C MP, BEAU, LIPA ####[facility] [address] [address]Dr. Gaurang Womack Potassium [Moles/Vol] 3.5 mmol/L Normal 3.4-5.0 [facility] Comment on above: Performed By: #### C BEAU ELIZABETH LIPA ####[facility] [address] [place] [address]Dr. Gaurang Womack Protein [Mass/Vol] 7.5 g/dL Normal 6.1-8.2 [facility] Comment on above: Performed By: #### C BEAU ELIZABETH LIPA ####[facility] [address] [address]Dr. Gaurang Womack Sodium [Moles/Vol] 140 mmol/L Normal 137-145 [facility] Comment on above: Performed By: #### C BEAU ELIZABETH LIPA ####[facility] [address] [address]Dr. Gaurang Womack Urea nitrogen [Mass/Vol] 10.0 mg/dL Normal 7.0-17.0 [facility] Comment on above: Performed By: #### C BEAU ELIZABETH LIPA ####[facility] [address] [address]Dr. Gaurang Womack Urea nitrogen/Creatinine [Mass ratio] 13.3 mg/mg Normal [facility] Comment on above: Performed By: #### C BEAU ELIZABETH LIPA ####[facility] [address] [place] [address]Dr. Gaurang Womack US SINGLE QUAD RT UPPERon US SINGLE QUAD RT UPPER EXAM: Sound of the right upper quadrant HISTORY: . Right upper quadrant pain . COMPARISON: None. TECHNIQUE: Grayscale and color imaging was performed FINDINGS: The head and body of pancreas appears normal. The tail was partially obscured due to overlying bowel gas. The gallbladder is absent. Common bile duct measures 7 mm. The liver is enlarged measuring 20 cm. There is increased echogenicity of liver. Color-flow is noted in the portal and hepatic veins. Grossly no masses are noted. Right kidney measures 11.5 x 5.6 x 6.5 cm. Color-flow is noted. No solid renal cortical masses or hydronephrosis is noted. No fluid is noted in the right upper quadrant. IMPRESSION: 1. The liver is enlarged measuring 20 cm. There is slight increased echogenicity of liver consistent with fatty infiltration of the liver. 2. Gallbladder is absent. 3. Common bile duct measures 7 mm. This is most likely due to previous gallbladder disease. 4. The head and body of pancreas appears normal. The tail was obscured due to overlying bowel gas. Electronically authenticated by: SHAWN PRESTON Date: 2021-11-16 07:54 Normal [facility] XR CHEST 1 Von 11-16-2021 XR CHEST 1 V EXAM: XR CHEST 1 V HISTORY: CHEST PAIN, UNSPECIFIED COMPARISON: Chest x-ray 07/28/2020 TECHNIQUE: Single frontal view chest x-ray FINDINGS: Borderline prominent heart size. No lobar consolidation, large pleural effusions, pneumothorax, or acute bony abnormality. IMPRESSION: Borderline prominent heart size. No radiographic lung consolidation, effusions, or discrete acute bony abnormality. Electronically authenticated by: FINESSE MARISCAL Date: 2021-11-15 22:44 Normal [facility] Complete Blood Counton 11-04 Erythrocyte distribution width (RBC) [Ratio] 14.5 % Normal 11.0-15.0 [facility] Comment on above: Performed By: #### C MP, LIPD, CBC #### [facility] [address], [place] [id number] Hematocrit (Bld) [Volume fraction] 43.1 % Normal 35.0-47.0 [facility] Comment on above: Performed By: #### C MP, LIPD, CBC #### [facility] [address] [place], [place] [id number] Hemoglobin (Bld) [Mass/Vol] 14.1 g/dL Normal 11.6-15.5 [facility] Comment on above: Performed By: #### C MP, LIPD, CBC #### [facility] [address] [place], [place] [id number] MCH (RBC) [Entitic mass] 28.9 pg Normal 27.0-33.0 [facility] Comment on above: Performed By: #### C MP, LIPD, CBC #### [facility] [address] [place], [place] [id number] MCHC (RBC) [Mass/Vol] 32.7 g/dL Normal 32.0-36.0 [facility] Comment on above: Performed By: #### C MP, LIPD, CBC #### [facility] [address] [place], [place] [id number] MCV (RBC) [Entitic vol] 88 fL Normal 80-100 [facility] Comment on above: Performed By: #### C MP, LIPD, CBC #### [facility] [address] [place], [place] [id number] Platelet mean volume (Bld) [Entitic vol] 9.30 fL Normal 7.50-12.50 [facility] Comment on above: Performed By: #### C MP, LIPD, CBC #### [facility] [address] [place], [place] [id number] Platelets (Bld) [#/Vol] 276 10*3/uL Normal 140-400 [facility] Comment on above: Performed By: #### C MP, LIPD, CBC #### [facility] [address] [place], [place] [id number] RBC (Bld) [#/Vol] 4.88 10*6/uL Normal 3.90-5.20 [facility] Comment on above: Performed By: #### C MP, LIPD, CBC #### [facility] [address] [place], [place] [id number] RDW-SD 46.8 fL Normal 37.0-50.0 [facility] Comment on above: Performed By: #### C MP, LIPD, CBC #### [facility] [address] [place], [place] [id number] WBC (Bld) [#/Vol] 10.4 10*3/uL Normal 3.8-11.0 [facility] Comment on above: Performed By: #### C MP, LIPD, CBC #### [facility] [address] [place], [place] [id number] Comprehensive Metabolic Pane kulwant 11-04-2021 Albumin [Mass/Vol] 4.2 g/dL Normal 3.6-5.1 [facility] Comment on above: Performed By: #### C MP, LIPD, CBC #### [facility] [address] [place], [place] [id number] Albumin/Globulin [Mass ratio] 1.7 {ratio} Normal 1.0-2.5 [facility] Comment on above: Performed By: #### C MP LIPD, CBC #### [facility] [address] [place], [place] [id number] ALP [Catalytic activity/Vol] 160 U/L High 35-119 [facility] Comment on above: Performed By: #### C MP, LIPD, CBC #### [facility] [address] [place], [place] [id number] ALT [Catalytic activity/Vol] 17 U/L Normal 6-33 [facility] Comment on above: Result Comment: 08/03 Female reference range changed. Performed By: #### C MP, LIPD, CBC #### [facility] [address] [place], [place] [id number] Anion gap [Moles/Vol] 18 mmol/L Normal 12-20 [facility] Comment on above: Result Comment: Effe ctive 09/08/2019 reference range changed. Performed By: #### C MP, LIPD, CBC #### [facility] [address] [place], [place] [id number] AST [Catalytic activity/Vol] 18 U/L Normal 9-34 [facility] Comment on above: Performed By: #### C MP, LIPD, CBC #### [facility] [address] [place], [place] [id number] Bilirubin [Mass/Vol] 0.31 mg/dL Normal 0.30-1.20 [facility] Comment on above: Performed By: #### C MP, LIPD, CBC #### [facility] [address] [place], [place] [id number] BUN/CREA 15 Ratio Normal 6-22 [facility] Comment on above: Performed By: #### C MP, LIPD, CBC #### [facility] [address] [place], [place] [id number] Calcium [Mass/Vol] 9.3 mg/dL Normal 8.6-10.2 [facility] Comment on above: Performed By: #### C MP, LIPD, CBC #### [facility] [address] [facility] [place] [id number] Chloride [Moles/Vol] 108 mmol/L High 98-107 [facility] Comment on above: Performed By: #### C CLARA LIPD, CBC #### [facility] [address] [place], [place] [id number] CO2 [Moles/Vol] 20 mmol/L Normal 20-31 [facility] Comment on above: Performed By: #### C CLARA LIPD, CBC #### [facility] [address] [place], [place] [id number] Creatinine [Mass/Vol] 0.5 mg/dL Low 0.6-1.4 [facility] Comment on above: Performed By: #### C CLARA LIPD, CBC #### [facility] [address] [place], [place] [id number] eGFRAA 176 mL/min/1.73m2 Normal >60 [facility] Comment on above: Performed By: #### C CLARA LIPD, CBC #### [facility] [address] [place], [place] [id number] eGFRNAA 145 mL/min/1.73m2 Normal >60 [facility] Comment on above: Performed By: #### C CLARA LIPD, CBC #### [facility] [address] [place], [place] [id number] Globulin (S) [Mass/Vol] 2.5 g/dL Normal 1.9-3.7 [facility] Comment on above: Performed By: #### C CLARA LIPD, CBC #### [facility] [address] [place], [place] [id number] Glucose [Mass/Vol] 97 mg/dL Normal 65-99 [facility] Comment on above: Result Comment: For FASTING Glucose --- ADA reference ranges: Normal 65-99 mg/dl Prediabetes 100-125 Diabetes >/= 126 Performed By: #### C CLARA LIPD, CBC #### [facility] [address] [place], [place] [id number] Potassium [Moles/Vol] 4.1 mmol/L Normal 3.5-5.5 [facility] Comment on above: Performed By: #### C MP, LIPD, CBC #### [facility] [address] [place], [place] [id number] Protein [Mass/Vol] 6.7 g/dL Normal 6.1-8.1 [facility] Comment on above: Performed By: #### C MP, LIPD, CBC #### [facility] [address] [place], [place] [id number] Sodium [Moles/Vol] 142 mmol/L Normal 135-146 [facility] [employer] Comment on above: Performed By: #### C MP, LIPD, CBC #### [facility] [address] [place], [place] [id number] Urea nitrogen [Mass/Vol] 7 mg/dL Normal 7-25 [facility] Comment on above: Performed By: #### C MP, LIPD, CBC #### [facility] [address] [place], [place] [id number] Lipid Panelon 11-04-2021 Cholesterol [Mass/Vol] 199 mg/dL Normal 125-200 [facility] Comment on above: Result Comment: Low risk < 200mg/dL Borderline risk 201-239 mg/dl High risk > or equal to 240 Performed By: #### C MP, LIPD, CBC #### [facility] [address] [place], [place] [id number] Cholesterol in HDL [Mass/Vol] 34 mg/dL Low >40 [facility] Comment on above: Result Comment: High Cardiovascular Risk HDL <40 mg/dL Low Cardiovascular Risk HDL > or equal to 60 mg/dl Performed By: #### C MP, LIPD, CBC #### [facility] [address] [place], [place] [id number] Cholesterol in LDL [Mass/Vol] 133 mg/dL Normal [facility] Comment on above: Result Comment: LDL ATP III CLASSIFICATION LDL less than 100 mg/dl Optimal LDL 100-129 mg/dl Near or above optimal LDL 130-159 Borderline high LDL 160-189 High LDL greater than 189 mg/dl Very High Performed By: #### C MP, LIPD, CBC #### [facility] [address] [place], [place] [id number] Cholesterol in VLDL [Mass/Vol] 32 mg/dL Normal [facility] [employer] Comment on above: Performed By: #### C MP, LIPD, CBC #### [facility] [address] [place], [place] [id number] Cholesterol.total/Cho lesterol in HDL [Mass ratio] 6 {ratio} Normal [facility] [employer] Comment on above: Performed By: #### C MP, LIPD, CBC #### [facility] [address] [place], [place] [id number] Triglyceride [Mass/Vol] 159 mg/dL High 30-150 [facility] [employer] Comment on above: Result Comment: TRIG ATPIII CLASSIFICATIONS TRIG less than 150 mg/dl Normal TRIG 150-199 mg/dl Borderline High TRIG 200-500 mg/dl High TRIG greather than 500 mg/dl Very High Performed By: #### C MP, LIPD, CBC #### [facility] [address] [place], [place] [id number] COVID-19 SOFIAon 01-24-2021 SARS-CoV+SARS-CoV-2 (COVID-19) Ag IA.rapid Ql (Resp) Negative Negative [facility] Comment on above: This is a duplicate [facility] SARS Antigen (ANUM) result to be used for statistical tracking purpose only. No Panel Informationon 01-24 SARS Antigen (LFIA) [facility] No Panel Informationon 11-02 Reverse Triiodothyronine (T3) 16.5 ng/dL [facility] Comment on above: This test was develo ped and its performance characteristicsdetermined by [facility]. It has not been cleared orapproved by the Food and Drug Administration.Performed at: [address] [id number] Director: Neymar Ibarra MD, Phone: [phone] Serum or plasma thyroid stim ulating hormone (TSH) measurement by high sensitivity meton 11-02-2020 TSH Qn 2.96 u[iU]/mL 0.45-5.33 [facility] TSH DL <= 0.005 mIU/L Qnon 0 11-02-2020 TSH Qn 2.96 m[IU]/L 0.45-5.33 [facility] Thyroxine (T4) free [Mass/vo lume] in Serum or Plasmaon 11-02-2020 Free T4 [Mass/Vol] 0.62 ng/dL 0.61-1.12 [facility] Triiodothyronine (T3) Free [ Mass/volume] in Serum or Plasmaon 11-02-2020 Free T3 [Mass/Vol] 3.49 pg/mL 2.50-3.90 [facility] COVID-19 Positive/Negativeon 09-29-2020 COVID-19 Positive/Negative Negative Negative [facility] Comment on above: Testing for SARS-CoV -2 by RT-PCRThis test was developed and its performance characteristics determined by [employer] and validated at the [facility]. This test has not been FDA cleared or approved. This test has been authorized by FDA under an Emergency Use Authorization (EUA). This test has been validated in accordance with the FDA's Guidance Document (Policy for Diagnostics Testing in Laboratories Certified to Perform High Complexity Testing under CLIA prior to Emergency Use Authorization for Coronavirus Disease-2019 during the Public Health Emergency) issued on December 04, 2019. This test is only authorized for the duration of time the declaration that circumstances exist justifying the authorization of the emergency use of in vitro diagnostic tests for detection of SARS-CoV-2 virus and/or diagnosis of COVID-19 infection under section 564(b)(1) of the Act, 21 U.S.C. 360bbb-3(b)(1), unless the authorization is terminated or revoked sooner. Otheron 09-29-2020 Coronavirus 2019 PCR Interp N/A [facility] Activated partial thrombopla stin time (aPTT) in platelet poor plasma by coagulation aon 09-09-2020 aPTT Coag (PPP) [Time] 36.1 s 23.0-35.0 [facility] Automated basophil %on 09-09 Basophils/100 WBC (Bld) 0.6 % [facility] Automated basophil counton 0 09-09-2020 Basophils (Bld) [#/Vol] 0.1 10*3/uL 0.0-0.2 [facility] Automated blood lymphocyte c ount (number/volume)on 09-09-2020 Lymphocytes (Bld) [#/Vol] 2.3 10*3/uL 1.00-4.8 [facility] Automated blood lymphocyte c ount as percentage of total leukocyteson 09-09-2020 Lymphocytes/100 WBC (Bld) 26.0 % [facility] Automated blood monocyte cou nton 09-09-2020 Monocytes (Bld) [#/Vol] 0.8 10*3/uL 0.0-0.8 [facility] Automated blood platelet cou nt (count/volume)on 09-09-2020 Platelets (Bld) [#/Vol] 280 10*3/uL 150-450 [facility] Automated blood platelet nuria n volume measurementon 09-09-2020 Platelet mean volume (Bld) [Entitic vol] 7.3 fL 6.3-10.7 [facility] Automated eosinophil %on Eosinophils/100 WBC (Bld) 2.3 % [facility] Automated eosinophil counton 09-09-2020 Eosinophils (Bld) [#/Vol] 0.2 10*3/uL 0.0-0.45 [facility] Automated erythrocyte distri bution width ratioon 09-09-2020 Erythrocyte distribution width (RBC) [Ratio] 14.3 % 11.9-15.3 [facility] Automated erythrocyte mean c orpuscular hemoglobin (mass per erythrocyte)on 09-09-2020 MCH (RBC) [Entitic mass] 29.2 pg 24.7-34.3 [facility] Automated erythrocyte mean c orpuscular hemoglobin concentration measurement (mass/volon 09-09-2020 MCHC (RBC) [Mass/Vol] 33.8 g/dL 32.0-35.0 [facility] Automated erythrocyte mean c orpuscular volumeon 09-09-2020 MCV (RBC) [Entitic vol] 86.3 fL 80-100 [facility] Automated monocyte %on 09-09 Monocytes/100 WBC (Bld) 9.1 % [facility] Automated neutrophil %on Neutrophils/100 WBC (Bld) 62.0 % [facility] Blood erythrocytes automated count (number/volume)on 09-09-2020 RBC (Bld) [#/Vol] 4.62 10*6/uL 3.60-5.00 [facility] Blood hemoglobin measurement (mass/volume)on 09-09-2020 Hemoglobin (Bld) [Mass/Vol] 13.5 g/dL 11.8-15.4 [facility] Blood leukocytes automated c ount (number/volume)on 09-09-2020 WBC (Bld) [#/Vol] 9.0 10*3/uL 4.5-11.0 [facility] Blood neutrophil count by au tomated method (number/volume)on 09-09-2020 Neutrophils (Bld) [#/Vol] 5.6 10*3/uL 1.8-7.7 [facility] Body fluid albumin measureme nt (mass/volume)on 09-09-2020 Albumin (Body fld) [Mass/Vol] 3.6 g/dL 3.2-5.5 [facility] COVID-19 SOFIAon 09-09-2020 COVID-19 NARGIS Negative Negative [facility] Comment on above: This is a duplicate test result based off of the [facility] SARS Antigen (ANUM) test performed within the Microbiology department. [facility] 09-09-2020 Natriuretic peptide B (Bld) [Mass/Vol] 7.0 pg/mL 5-100 [facility] Creatine kinase [Enzymatic a ctivity/volume] in Serum or Plasmaon 09-09-2020 CK [Catalytic activity/Vol] 81 U/L 22-269 [facility] Estimated glomerular filtrat ion rate (GFR) non- Americanon 09-09-2020 GFR/1.73 sq M predicted among non-blacks MDRD (S/P/Bld) [Vol rate/Area] mL/min/{1.73_m2} [facility] Hematocrit [Volume Fraction] of Blood by Automated counton 09-09-2020 Hematocrit (Bld) [Volume fraction] 39.9 % 34.0-46.4 [facility] Hematologyon 09-09-2020 PT Coag (PPP) [Time] 11.9 s 9.0-12.9 [facility] Otheron 09-09-2020 GFR/1.73 sq M.predicted MDRD (S/P/Bld) [Vol rate/Area] mL/min/{1.73_m2} [facility] Comment on above: GFR estimated refere nce range: According to KDOQI guidelines, <60 ml/min/1.73m2 is sufficient to diagnose a patient with chronic kidney disease. Lipase [Catalytic activity/Vol] 28.0 U/L 22-51 [facility] Nucleated RBC/100 WBC (Bld) [Ratio] 0.2 % 0-0.5 [facility] Creatinine Clearance (Chem 143.58 [facility] SARS Antigen (LFIA) [facility] Platelet poor plasma interna tional normalized ratio (INR) by coagulation assay (relaton 09-09-2020 INR Coag (PPP) [Relative time] 1.1 {INR} [facility] Comment on above: INR Therapeutic Rang e A) Pre- and Peroperative OAT started two weeks before surgery. NOT HIP SURGERY: 1.5 - 2.5 HIP SURGERY: 2 - 3B) Primary and secondary prevention of venous THROMBOSIS: 2 - 3C) Active venous thrombosis, pulmonary embolismand prevention of recurrent venous thrombosis: 2 - 3D) Prevention of arterial thromboembolismincluding patients with mechanical heart valves: 3 - 4.5 Protein [Mass/volume] in Ser um or Plasmaon 09-09-2020 Protein [Mass/Vol] 7.0 g/dL 6.1-7.9 [facility] Serum globulin measurement b y calculation (mass/volume)on 09-09-2020 Globulin (S) [Mass/Vol] 3.4 g/dL [facility] Serum or plasma alanine allen otransferase measurement without P-5'-P (enzymatic activion 09-09-2020 ALT No additional P-5'-P [Catalytic activity/Vol] 25 U/L 10-60 [facility] Serum or plasma albumin/glob ulin mass ratioon 09-09-2020 Albumin/Globulin [Mass ratio] 1.1 {ratio} [facility] Serum or plasma alkaline alexis sphatase measurement (enzymatic activity/volume)on 09-09-2020 ALP [Catalytic activity/Vol] 101 U/L 32-92 [facility] Serum or plasma amylase reinier urement (enzymatic activity/volume)on 09-09-2020 Amylase [Catalytic activity/Vol] 34 U/L 28-100 [facility] Serum or plasma aspartate am inotransferase measurement (enzymatic activity/volume)on 09-09-2020 AST [Catalytic activity/Vol] 30 U/L 10-42 [facility] Serum or plasma calcium reinier urement (mass/volume)on 09-09-2020 Calcium [Mass/Vol] 8.9 mg/dL 8.2-10.2 [facility] Serum or plasma cardiac trop onin I measurement (mass/volume)on 09-09-2020 Troponin I.cardiac [Mass/Vol] ng/mL 0-0.02 [facility] Comment on above: JAMA SD Cut off value > or equal to 0.03 ng/mL in conjunction with clinical conditions of myocardial infarction.([email or web address].org/guidelines) Serum or plasma chloride nuria surement (moles/volume)on 09-09-2020 Chloride [Moles/Vol] 103 mmol/L 95-114 [facility] Serum or plasma creatine kin ase MB (CKMB)/total creatine kinase (CK) ratio by calculaon 09-09-2020 CK.MB Calc [Catalytic fraction] 1.6 0.00-2.50 [facility] Serum or plasma creatine kin ase MB measurement (mass/volume)on 09-09-2020 CK.MB [Mass/Vol] 1.3 ng/mL 0.6-6.3 [facility] Serum or plasma creatinine m easurement with calculation of estimated glomerular filtron 09-09-2020 Creatinine [Mass/Vol] 0.64 mg/dL 0.44-1.03 [facility] Serum or plasma glucose reinier urement (mass/volume)on 09-09-2020 Glucose [Mass/Vol] 104 mg/dL 70-100 [facility] Comment on above: ADA recommended refe rence rangeRandom Glucose Reference Range is dependent on time and content of last meal. Glucose of more than 200 mg/dL in a nonstressed, ambulatory subject supports the diagnosis of Diabetes Mellitus. Serum or plasma potassium me asurement (moles/volume)on 09-09-2020 Potassium [Moles/Vol] 3.5 mmol/L 3.5-5.1 [facility] Serum or plasma sodium measu rement (moles/volume)on 09-09-2020 Sodium [Moles/Vol] 137 mmol/L 136-146 [facility] Serum or plasma total biliru bin measurement (mass/volume)on 09-09-2020 Bilirubin [Mass/Vol] 0.3 mg/dL 0.3-1.2 [facility] Serum or plasma total carbon dioxide measurement (moles/volume)on 09-09-2020 CO2 [Moles/Vol] 21.1 mmol/L 22.0-30.0 [facility] Serum or plasma urea nitroge n measurement (mass/volume)on 09-09-2020 Urea nitrogen [Mass/Vol] 9 mg/dL 9-23 [facility] Social History Date Type Detail Facility Start: 01-04-2023 End: 02-06-2023 Sex Assigned At Female [facility] [employer] Other Start: 06-26-2022 End: 07-06-2022 Exposure to SARS-CoV-2 (event) Not sure [facility] Start: 01-17-2022 End: 08-02-2023 Tobacco smoking status Heavy tobacco smoker (finding) [facility] [place] Start: 12-06-2021 End: 10-23-2023 Tobacco smoking status NHIS Smoker (finding) [facility] Start: 06-23-2021 End: 01-04-2023 Cigarettes smoked current (pack per day) - Reported 1 [facility] Start: 06-23-2021 End: 07-06-2022 Tobacco use and exposure Smokeless tobacco non-user [facility] Start: 06-23-2021 End: 05-17-2023 Alcohol intake Current non-drinker of alcohol (finding) [facility] Start: 09-24-2020 End: 07-06-2022 Tobacco smoking status NHIS Current some day smoker [facility] Start: 11-03-2019 End: 01-26-2021 Tobacco smoking status NHIS Ex-smoker (finding) [facility] Start: 08-06-2012 History SDOH Alcohol Comment RARE [facility] Start: 1965 Sex Assigned At Female F [facility] Start: 1965 Sex Assigned At Not on file [facility] History of tobacco use Cigarette Smoker [facility] Tobacco smoking status Never [facility] [place] History of tobacco use Passive smoker [facility] Vital Signs Date Time Vital Sign Value Performing Clinician Facility 01-03-2024 14:20-0400 Body height 167.6 cm Benjamin Mercado MD Work Phone: [facility] 01-03-2024 14:20-0400 Body mass index (BMI) [Ratio] 41.83 kg/m2 Benjamin Mercado MD Work Phone: [facility] 01-03-2024 14:20-0400 Body temperature 97.2 [degF] Benjamin Mercado MD Work Phone: [facility] 01-03-2024 14:20-0400 Body weight 117.5 kg Benjamin Mercado MD Work Phone: [facility] 01-03-2024 14:20-0400 Diastolic blood pressure 84 mm[Hg] Benjamin Mercado MD Work Phone: [facility] 01-03-2024 14:20-0400 Heart rate 88 /min Benjamin Mercado MD Work Phone: [facility] 01-03-2024 14:20-0400 Respiratory rate 16 /min Benjamin Mercado MD Work Phone: [facility] 01-03-2024 14:20-0400 SaO2% (BldA) [Mass fraction] 96 % Benjamin Mercado MD Work Phone: [facility] 01-03-2024 14:20-0400 Systolic blood pressure 123 mm[Hg] Benjamin Mercado MD Work Phone: [facility] 11-28-2023 14:02-0400 Body height 168.91 cm DO Mulugeta Shen Work Phone: [facility] 11-28-2023 14:02-0400 Body mass index (BMI) [Ratio] 41.3 kg/m2 DO Mulugeta Shen Work Phone: [facility] 11-28-2023 14:02-0400 Body weight 118.01 kg DO Mulugeta Mirandaer Work Phone: [facility] 11-28-2023 14:02-0400 Diastolic blood pressure 65 mm[Hg] DO Mulugeta Mirandaer Work Phone: [facility] 11-28-2023 14:02-0400 Heart rate 89 /min DO Mulugeta Mirandaer Work Phone: [facility] 11-28-2023 14:02-0400 Respiratory rate 18 /min DO Mulugeta Mirandaer Work Phone: [facility] 11-28-2023 14:02-0400 SaO2% (BldA) [Mass fraction] 96 % DO Mulugeta Mirandaer Work Phone: [facility] 11-28-2023 14:02-0400 Systolic blood pressure 91 mm[Hg] DO Mulugeta Mirandaer Work Phone: [facility] 10-24-2023 14:46-0500 Body height 168.91 cm DO Mulugeta Mirandaer Work Phone: [facility] 10-24-2023 14:46-0500 Body mass index (BMI) [Ratio] 41.6 kg/m2 DO Mulugeta Mirandaer Work Phone: [facility] 10-24-2023 14:46-0500 Body weight 118.84 kg DO Mulugeta Mirandaer Work Phone: [facility] 10-24-2023 14:46-0500 Diastolic blood pressure 69 mm[Hg] DO Mulugeta Shen Work Phone: [facility] 10-24-2023 14:46-0500 Heart rate 89 /min DO Mulugeta Mirandaer Work Phone: [facility] 10-24-2023 14:46-0500 SaO2% (BldA) [Mass fraction] 98 % DO Mulugeta Gotti Work Phone: [facility] 10-24-2023 14:46-0500 Systolic blood pressure 100 mm[Hg] DO Mulugeta Gotti Work Phone: [facility] 08-29-2023 07:15-0500 Body height 168.91 cm Sharla Missler Other [facility] 08-29-2023 07:15-0500 Body mass index (BMI) [Ratio] 40.57 kg/m2 Sharla Missler Other [employer] Other 08-29-2023 07:15-0500 Body weight 115.76 kg Sharla Missler Other [employer] Other 08-29-2023 07:15-0500 Body weight 115.75 kg DO Mulugeta Gotti Work Phone: [facility] 08-29-2023 07:15-0500 Diastolic blood pressure 78 mm[Hg] Sharla Missler Other [facility] 08-29-2023 07:15-0500 Respiratory rate 18 /min Sharla Missler Other [employer] Other 08-29-2023 07:15-0500 SaO2% (BldA) [Mass fraction] 96 % Sharla Missler Other [employer] Other 08-29-2023 07:15-0500 Systolic blood pressure 111 mm[Hg] Sharla Missler Other [facility] 08-22-2023 09:00-0500 Body height 168.91 cm Lazara Barclay Other [facility] 08-22-2023 09:00-0500 Diastolic blood pressure 57 mm[Hg] Lazara Barclay Other [facility] 08-22-2023 09:00-0500 Systolic blood pressure 89 mm[Hg] Lazara Barclay Other [facility] 08-02-2023 14:23-0500 Blood Pressure Location Pb RUSSL [facility] [place] 08-02-2023 14:23-0500 Diastolic blood pressure 74 mm[Hg] Pb NILL [facility] [place] 08-02-2023 14:23-0500 Heart rate 84 /min Pb NILL [facility] [place] 08-02-2023 14:23-0500 Respiratory rate 16 /min Pb NILL [facility] [place] 08-02-2023 14:23-0500 Systolic blood pressure 113 mm[Hg] Pb NILL [facility] 07-25-2023 09:00-0500 Body height 168.91 cm Lazara Barclay Other [employer] [facility] [employer] Other 07-25-2023 09:00-0500 SaO2% (BldA) [Mass fraction] 96 % Lazara Barclay Other [employer] Other 07-18-2023 12:15-0500 Diastolic blood pressure 84 mm[Hg] DO Mulugeta Mirandaer Work Phone: [facility] 07-18-2023 12:15-0500 Heart rate 92 /min DO Mulugeta Shen Work Phone: [facility] 07-18-2023 12:15-0500 Respiratory rate 16 /min DO Mulugeta Shen Work Phone: [facility] 07-18-2023 12:15-0500 SaO2% (BldA) [Mass fraction] 99 % DO Mulugeta Gotti Work Phone: [facility] 07-18-2023 12:15-0500 Systolic blood pressure 124 mm[Hg] DO Mulugeta Gotti Work Phone: [facility] 07-18-2023 11:14-0500 Inhaled oxygen flow rate 3 L/min DO Mulugeta Gotti Work Phone: [facility] 07-18-2023 09:40-0500 Body height 167.64 cm DO Mulugeta Gotti Work Phone: [facility] 07-18-2023 09:40-0500 Body weight 112.49 kg DO Mulugeta Gotti Work Phone: [facility] 07-10-2023 11:00-0500 Body height 168.91 cm Prasanna Weems Other [employer] Other 07-10-2023 11:00-0500 Body mass index (BMI) [Ratio] 40.54 kg/m2 Prasanna Weems Other [employer] Other 07-10-2023 11:00-0500 Body weight 115.67 kg Prasanna Weems Other [employer] Other 07-10-2023 11:00-0500 Diastolic blood pressure 80 mm[Hg] Prasanna Weems Other [employer] Other 07-10-2023 11:00-0500 SaO2% (BldA) [Mass fraction] 97 % Prasanna Weems Other [employer] Other 07-10-2023 11:00-0500 Systolic blood pressure 110 mm[Hg] Prasanna Weems Other [employer] Other 05-28-2023 08:15-0400 Body height 168.91 cm Sharla Missler Other [employer] Other 05-28-2023 08:15-0400 Body mass index (BMI) [Ratio] 39.71 kg/m2 Sharla Missler Other [employer] Other 05-28-2023 08:15-0400 Body weight 113.31 kg Sharla Missler Other [employer] Other 05-28-2023 08:15-0400 Diastolic blood pressure 83 mm[Hg] Sharla Missler Other [employer] Other 05-28-2023 08:15-0400 Respiratory rate 18 /min Sharla Missler Other [employer] Other 05-28-2023 08:15-0400 SaO2% (BldA) [Mass fraction] 95 % Sharla Missler Other [employer] Other 05-28-2023 08:15-0400 Systolic blood pressure 114 mm[Hg] Sharla Missler Other [employer] Other 05-19-2023 22:51-0400 Diastolic blood pressure 53 mm[Hg] DO Mulugeta Shen Work Phone: [facility] 05-19-2023 22:51-0400 Heart rate 88 /min DO Mulugeta Shen Work Phone: [facility] 05-19-2023 22:51-0400 Respiratory rate 22 /min DO Mulugeta Shen Work Phone: [facility] 05-19-2023 22:51-0400 SaO2% (BldA) [Mass fraction] 95 % DO Mulugeta Shen Work Phone: [facility] 05-19-2023 22:51-0400 Systolic blood pressure 113 mm[Hg] DO Mulugeta Gotti Work Phone: [facility] 05-19-2023 21:05-0400 Body temperature 98.5 [degF] DO Mulugeta Gotti Work Phone: [facility] 05-19-2023 21:04-0400 Body height 167.64 cm DO Mulugeta Gotti Work Phone: [facility] 05-19-2023 21:04-0400 Body weight 112.49 kg DO Mulugeta Gotti Work Phone: [facility] 05-17-2023 08:15-0400 Diastolic blood pressure 71 mm[Hg] Luis Xavier MD Work Phone: [facility] 05-17-2023 08:15-0400 Heart rate 76 /min Luis Xavier MD Work Phone: [facility] 05-17-2023 08:15-0400 Respiratory rate 17 /min Luis Xavier MD Work Phone: [facility] 05-17-2023 08:15-0400 SaO2% (BldA) [Mass fraction] 95 % Luis Xavier MD Work Phone: [facility] 05-17-2023 08:15-0400 Systolic blood pressure 96 mm[Hg] Luis Xavier MD Work Phone: [facility] 05-17-2023 08:01-0400 Body temperature 96.8 [degF] Luis Xavier MD Work Phone: [facility] 04-16-2023 08:15-0400 Body height 168.91 cm Sharla Benitez Other [employer] Other 04-16-2023 08:15-0400 Body mass index (BMI) [Ratio] 39.47 kg/m2 Sharla Benitez Other [employer] Other 04-16-2023 08:15-0400 Body weight 112.63 kg Sharla Missler Other [employer] Other 04-16-2023 08:15-0400 Diastolic blood pressure 68 mm[Hg] Sharla Missler Other [employer] Other 04-16-2023 08:15-0400 Respiratory rate 20 /min Sharla Missler Other [employer] Other 04-16-2023 08:15-0400 SaO2% (BldA) [Mass fraction] 96 % Sharla Missler Other [employer] Other 04-16-2023 08:15-0400 Systolic blood pressure 94 mm[Hg] Sharla Missler Other [employer] Other 04-04-2023 15:15-0400 Body height 168.91 cm Alicia Fitt Other [employer] Other 04-04-2023 15:15-0400 Body mass index (BMI) [Ratio] 39.79 kg/m2 Alicia Fitt Other [employer] Other 04-04-2023 15:15-0400 Body weight 113.54 kg Alicia Fitt Other [employer] Other 02-19-2023 08:30-0400 Body height 168.91 cm Sharla Missler Other [employer] Other 02-19-2023 08:30-0400 Body mass index (BMI) [Ratio] 41.11 kg/m2 Sharla Missler Other [employer] Other 02-19-2023 08:30-0400 Body weight 117.3 kg Sharla Missler Other [employer] Other 02-19-2023 08:30-0400 Diastolic blood pressure 72 mm[Hg] Sharla Missler Other [employer] Other 02-19-2023 08:30-0400 Respiratory rate 18 /min Sharla Missler Other [employer] Other 02-19-2023 08:30-0400 SaO2% (BldA) [Mass fraction] 97 % Sharla Missler Other [employer] Other 02-19-2023 08:30-0400 Systolic blood pressure 101 mm[Hg] Sharla Missler Other [employer] Other 02-16-2023 12:04-0400 Blood Pressure Location Jada Orzech [facility] 02-16-2023 12:04-0400 Body temperature 98.6 [degF] Jada Orzech [facility] 02-16-2023 12:04-0400 Diastolic blood pressure 78 mm[Hg] Jada Orzech [facility] 02-16-2023 12:04-0400 Heart rate 68 /min Jada Orzech [facility] 02-16-2023 12:04-0400 SaO2% (BldA) [Mass fraction] 96 % Jada Orzech [facility] 02-16-2023 12:04-0400 Systolic blood pressure 120 mm[Hg] Jada Orzech [facility] 02-06-2023 07:38-0400 Body height 167.6 cm Shawn Prasad Jr., DO Work Phone: [facility] 02-06-2023 07:38-0400 Body weight 117.94 kg Shawn Prasad Jr., DO Work Phone: [facility] 02-06-2023 07:38-0400 Diastolic blood pressure 72 mm[Hg] Shawn Prasad Jr., DO Work Phone: [facility] 02-06-2023 07:38-0400 Heart rate 86 /min Shawn Prasad Jr., DO Work Phone: [facility] 02-06-2023 07:38-0400 SaO2% (BldA) [Mass fraction] 97 % Shawn Prasad Jr., DO Work Phone: [facility] 02-06-2023 07:38-0400 Systolic blood pressure 106 mm[Hg] Shawn Prasad Jr., DO Work Phone: [facility] 01-11-2023 13:55-0400 Diastolic blood pressure 66 mm[Hg] DO Mulugeta Shen Work Phone: [facility] 01-11-2023 13:55-0400 Heart rate 71 /min DO Mulugeta Shen Work Phone: [facility] 01-11-2023 13:55-0400 Respiratory rate 17 /min DO Mulugeta Shen Work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 [place] [address] Referral ID Status Reason Start Date Expiration Date V isits Requested Visits Authorized [id number] Closed Auto-Generate d Referral 2023 02/16/2024 1 1 [facility] Advance Directives No Advanced Directives Records Found Advance Directive Response Recorded Date/ Time Advance Directives No August 1:49pm Advance Directive Response Recorded Date/ Time Advance Directives No August 2:49pm Chief Complaint and Reason for Visit Chief Complaint r06.09 Screening Chief Complaint r06.09 Screening R92.8 Chief Complaint r06.09 Screening R92.8 Breast mass Chief Complaint r06.09 Screening R92.8 Breast mass chest pain Left Breast Cancer Chief Complaint r06.09 Screening R92.8 Breast mass chest pain Chief Complaint r06.09 Screening R92.8 Breast mass chest pain Left Breast Cancer Left Breast Cancer Left Breast Cancer Post menopausal state E03.9 Chief Complaint E03.9 rectal bleeding, RLQ abdominal pain Chief Complaint E03.9 rectal bleeding, RLQ abdominal pain rectal bleeding, RLQ abdominal pain Chief Complaint rectal bleeding, RLQ abdominal pain rectal bleeding, RLQ abdominal pain M47.817 Chief Complaint rectal bleeding, RLQ abdominal pain rectal bleeding, RLQ abdominal pain M47.817 m47.817 Chief Complaint N39.0 R73.03 Chief Complaint N39.0 R73.03 C50.512, Z17.0 G25.81 Chief Complaint Obesity E66.9 F32.9 E88.81 R06.83 G89.29 C50.919 Chief Complaint Obesity E66.9 F32.9 E88.81 R06.83 G89.29 C50.919 n39.0 Chief Complaint Obesity E66.9 F32.9 E88.81 R06.83 G89.29 C50.919 n39.0 right flank pain Chief Complaint Obesity E66.9;R19.7;r10.11 Chief Complaint Obesity E66.9;R19.7;r10.11 dif breathing Chief Complaint E66.9;R19.7;r10.11 dif breathing Obesity Z85.3 Chief Complaint E66.9;R19.7;r10.11 dif breathing Obesity Z85.3 M47.817;G89.29;M46.1;M54.16 Chief Complaint dif breathing Obesity Z85.3 M47.817;G89.29;M46.1;M54.16 [id number], [id number] Chief Complaint 2 Week Follow Up Wmn Obesity E66.9;F32.9;R06.83;G47.33;Z76.89;E53.8;R73.01;R10. Reason for Visit Back pain Chronic pain Depression Fibromyalgia Impaired fasting glucose Obesity Obstructive sleep apnea RUQ abdominal pain Snores Vitamin B12 deficiency Encounter for weight management Chief Complaint 2 Week Follow Up Wmn Obesity E66.9;F32.9;R06.83;G47.33;Z76.89;E53.8;R73.01;R10. Reason for Visit Back pain Cardiovascular risk factor Chronic pain Cigarette nicotine dependence Depression Fibromyalgia Hyperlipidemia Impaired fasting glucose Morbid obesity Obesity Obstructive sleep apnea Vitamin B12 deficiency Encounter for weight management Chief Complaint E66.9;F32.9;R06.83;G 47.33;Z76.89;E53.8;R73.01;R10. Reason for Visit Back pain Cardiovascular risk factor Chronic pain Cigarette nicotine dependence Depression Fibromyalgia Hyperlipidemia Impaired fasting glucose Morbid obesity Obesity Obstructive sleep apnea Vitamin B12 deficiency Encounter for weight management Reason for Visit Cardiovascular risk factor Cigarette nicotine dependence Hyperlipidemia Impaired fasting glucose Obesity, Class III, BMI 40-49.9 (morbid obesity) Obstructive sleep apnea Vitamin B12 deficiency Encounter for weight management Assessments No Assessments Information AvailableNo Assessments Information AvailableNo Assessments Information AvailableNo Assessments Information AvailableNo Assessments Information AvailableNo Assessments Information Available Family History No Family History Records Found Relationship Condition Age at Onset Recorded Date/T artie father Coronary artery disease Unknown Diabetes mellitus Unknown Myocardial infarction Unknown Obesity Unknown daughter Migraine headache Unknown Not Specified Myocardial infarction Unknown Osteoarthritis Unknown Thyroiditis Unknown brother Obesity Unknown Relationship Condition Age at Onset Recorded Date/T artie father Diabetes mellitus Unknown Coronary artery disease Unknown Myocardial infarction Unknown Obesity Unknown daughter Migraine headache Unknown Not Specified Thyroiditis Unknown Osteoarthritis Unknown brother Thyroiditis Unknown Relationship Condition Age at Onset Recorded Date/T artie father Diabetes mellitus Unknown Coronary artery disease Unknown Myocardial infarction Unknown Obesity Unknown Heart disease Unknown Unknown daughter Migraine headache Unknown Parathyroid neoplasm Unknown Calculus of kidney Unknown Not Specified Thyroiditis Unknown Osteoarthritis Unknown Fibromyalgia Unknown brother Thyroiditis Unknown family member Family history of thyroid disease Unknow n Not Specified Unknown Hypertension Unknown Diabetes mellitus Unknown Arthritis Unknown Summary Purpose Additional Source Comments Goals (unrecognized section and content) Goals may be documented in a n alternate sectionGoals may be documented in an alternate sectionGoals may be documented in an alternate sectionGoals may be documented in an alternate section No data available for this section No data available for this sectionNo InformationNo InformationNo InformationNo InformationNo Information No data available for this section No data available for this sectionGoals may be documented in an alternate section No data available for this sectionGoals may be documented in an alternate sectionGoals may be documented in an alternate sectionNo InformationNo Information No data available for this sectionNo InformationNo Information No data available for this section No data available for this sectionNo InformationNo InformationNo InformationNo InformationNo InformationNo InformationNo InformationNo InformationNo InformationGoals may be documented in an alternate sectionNo InformationGoals may be documented in an alternate sectionGoals may be documented in an alternate section No data available for this section No data available for this sectionNo InformationNo InformationNo InformationNo InformationNo InformationGoals may be documented in an alternate sectionNo InformationNo InformationGoals may be documented in an alternate sectionNo InformationNo InformationGoals may be documented in an alternate sectionNo InformationGoals may be documented in an alternate sectionNo InformationNo Information No data available for this sectionNo InformationNo InformationNo InformationNo InformationNo InformationGoals may be documented in an alternate sectionGoals may be documented in an alternate sectionGoals may be documented in an alternate sectionGoals may be documented in an alternate section INFORMATION SOURCE (unrecogn ized section and content) DATE CREATED AUTHOR 12/13/2021 [facility] dical Specialist DATE CREATED AUTHOR AUTHOR'S ORGANIZ ATION 06/14/2022 [facility] DATE CREATED AUTHOR AUTHOR'S ORGANIZ ATION 02/14/2023 [facility] DATE CREATED AUTHOR AUTHOR'S ORGANIZ ATION 05/18/2023 [facility] DATE CREATED AUTHOR AUTHOR'S ORGANIZ ATION 08/03/2023 [facility] DATE CREATED AUTHOR AUTHOR'S ORGANIZ ATION 12/22/2023 [facility] dical Specialists EPIC DATE CREATED AUTHOR AUTHOR'S ORGANIZ ATION 01/05/2024 [facility] DATE CREATED AUTHOR AUTHOR'S ORGANIZ ATION 02/02/2024 [facility] [address] y[facility] Source Comments (unrecognize d section and content) In the event this informatio n is protected by the Federal Confidentiality of Alcohol and Drug Abuse Patient Records regulations: The Federal rules restrict any use of the information to criminally investigate or prosecute any alcohol or drug abuse patient.[facility] the event this information is protected by the Federal Confidentiality of Alcohol and Drug Abuse Patient Records regulations: The Federal rules restrict any use of the information to criminally investigate or prosecute any alcohol or drug abuse patient.[facility] Hospital[facility] the event this information is protected by the Federal Confidentiality of Alcohol and Drug Abuse Patient Records regulations: The Federal rules restrict any use of the information to criminally investigate or prosecute any alcohol or drug abuse patient.[facility] HospitalIn the event this information is protected by the Federal Confidentiality of Alcohol and Drug Abuse Patient Records regulations: The Federal rules restrict any use of the information to criminally investigate or prosecute any alcohol or drug abuse patient.[facility] the event this information is protected by the Federal Confidentiality of Alcohol and Drug Abuse Patient Records regulations: The Federal rules restrict any use of the information to criminally investigate or prosecute any alcohol or drug abuse patient.[facility] the event this information is protected by the Federal Confidentiality of Alcohol and Drug Abuse Patient Records regulations: The Federal rules restrict any use of the information to criminally investigate or prosecute any alcohol or drug abuse patient.[facility] the event this information is protected by the Federal Confidentiality of Alcohol and Drug Abuse Patient Records regulations: The Federal rules restrict any use of the information to criminally investigate or prosecute any alcohol or drug abuse patient.[facility] the event this information is protected by the Federal Confidentiality of Alcohol and Drug Abuse Patient Records regulations: The Federal rules restrict any use of the information to criminally investigate or prosecute any alcohol or drug abuse patient.[facility] the event this information is protected by the Federal Confidentiality of Alcohol and Drug Abuse Patient Records regulations: The Federal rules restrict any use of the information to criminally investigate or prosecute any alcohol or drug abuse patient.[facility] the event this information is protected by the Federal Confidentiality of Alcohol and Drug Abuse Patient Records regulations: The Federal rules restrict any use of the information to criminally investigate or prosecute any alcohol or drug abuse patient.[facility] the event this information is protected by the Federal Confidentiality of Alcohol and Drug Abuse Patient Records regulations: The Federal rules restrict any use of the information to criminally investigate or prosecute any alcohol or drug abuse patient.[facility] the event this information is protected by the Federal Confidentiality of Alcohol and Drug Abuse Patient Records regulations: The Federal rules restrict any use of the information to criminally investigate or prosecute any alcohol or drug abuse patient.[facility] the event this information is protected by the Federal Confidentiality of Alcohol and Drug Abuse Patient Records regulations: The Federal rules restrict any use of the information to criminally investigate or prosecute any alcohol or drug abuse patient.[facility] HospitalIn the event this information is protected by the Federal Confidentiality of Alcohol and Drug Abuse Patient Records regulations: The Federal rules restrict any use of the information to criminally investigate or prosecute any alcohol or drug abuse patient.[facility] HospitalIn the event this information is protected by the Federal Confidentiality of Alcohol and Drug Abuse Patient Records regulations: The Federal rules restrict any use of the information to criminally investigate or prosecute any alcohol or drug abuse patient.[facility] HospitalIn the event this information is protected by the Federal Confidentiality of Alcohol and Drug Abuse Patient Records regulations: The Federal rules restrict any use of the information to criminally investigate or prosecute any alcohol or drug abuse patient.[facility] HospitalIn the event this information is protected by the Federal Confidentiality of Alcohol and Drug Abuse Patient Records regulations: The Federal rules restrict any use of the information to criminally investigate or prosecute any alcohol or drug abuse patient.[facility] Reason for Visit (unrecogniz ed section and content) Reason Comments Lab Orders Reason Comments Breast Cancer 6 month follow up Reason Comments Refill Request Reason Comments Pain Including nausea and diarrhea Reason Comments Procedure Needs ERCP with Dr. Xavier Reason Comments Results Reason Comments Follow Up Needs repeat ERCP fo r stent removal in 2 months Reason Comments Patient Update S/p ERCP with stent removal today Reason Comments Breast Cancer Care Teams (unrecognized sec tion and content) Team Status: Active Member Role Status Kapil Gotti DO Primary Care Provider Active Team Status: Inactive Member Role Status Kapil Gotti DO Primary Care Provider Active Sharla Benitez APRN Attending Provider Active Team Status: Active Member Role Status Kapil Gotti DO Primary Care Provider Active Sharla Benitez APRN Attending Provider Active [employer] Relationship Specialty Start Date End Date Mulugeta Gotti DO PCP - General 09/30/07 Mata Cornejo MD [address] [place] [address] [place] [address] Physician Radiation Oncology 10/20/20 Team Status: Inactive Member Role Status Kapil Gotti DO Primary Care Provider, Attending Prov ider Active Team Status: Inactive Member Role Status Kapil Gotti DO Primary Care Provider Active Racquel Andrew APRN Attending Provider Active Team Status: Inactive Member Role Status Kapil Gotti DO Primary Care Provider Active Jaylene Stephens PA-C Attending Provider Active [employer] Relationship Specialty Start Date End Date Mulugeta Gotti DO PCP - General 09/30/07 Mata Cornejo MD [address] [facility] [place] [address] Physician Radiation Oncology 10/20/20 Team Status: Inactive Member Role Status Dates Mulugeta Gotti DO Primary Care Provider Active Finesse Tobar MD Attending Provider Active Team Status: Inactive Member Role Status Dates Mulugeta Gotti DO Primary Care Provider Active Kellie Frey APRN Emergency Provider Active [employer] Relationship Specialty Start Date End Date Mulugeta Gotti, DO PCP - General 09/30/07 Mata Cornejo MD [address] [facility] [place] [address] Physician Radiation Oncology 10/20/20 [employer] Relationship Specialty Start Date End Date Mulugeta Gotti, DO PCP - General 09/30/07 Mata Cornejo MD [address] [facility] [place] [address] Physician Radiation Oncology 10/20/20 [employer] Relationship Specialty Start Date End Date Mulugeta Gotti DO PCP - General 09/30/07 Mata Cornejo MD [address] [facility] [place] [address] Physician Radiation Oncology 10/20/20 [employer] Relationship Specialty Start Date End Date Mulugeta Gotti DO PCP - General 09/30/07 Mata Cornejo MD [address] [facility] [place] [address] Physician Radiation Oncology 10/20/20 [employer] Relationship Specialty Start Date End Date Mulugeta Gotti DO PCP - General 09/30/07 Mata Cornejo MD [address] [place] [address] Physician Radiation Oncology 10/20/20 [employer] Relationship Specialty Start Date End Date Mulugeta Gotti, DO PCP - General 09/30/07 Mata Cornejo MD [address] [place] [address] Physician Radiation Oncology 10/20/20 [employer] Relationship Specialty Start Date End Date Mulugeta Gotti, PCP - General 09/30/07 Mata Cornejo MD [address] [place] [address] Physician Radiation Oncology 10/20/20 [employer] Relationship Specialty Start Date End Date Mulugeta Gotti DO PCP - General 09/30/07 Mata Cornejo MD [address] [place] [address] Physician Radiation Oncology 10/20/20 [employer] Relationship Specialty Start Date End Date Mulugeta Gotti DO PCP - General 09/30/07 Mata Cornejo MD [address] [place] [address] Physician Radiation Oncology 10/20/20 [employer] Relationship Specialty Start Date End Date Mulugeta Gotti DO PCP - General 09/30/07 Mata Cornejo MD [address] [facility] [place] [address] Physician Radiation Oncology 10/20/20 [employer] Relationship Specialty Start Date End Date Mulugeta Gotti DO PCP - General 09/30/07 Mata Cornejo MD [address] [place] [place] [address] Physician Radiation Oncology 10/20/20 Team Status: Inactive Member Role Status Dates Mulugeta Gotti DO Primary Care Provider Active Denver Naranjo , DO Emergency Provider Active Team Status: Inactive Member Role Status Dates Mulugeta Gotti DO Primary Care Provider Active Nina Montana , Attending Provider Active Team Status: Inactive Member Role Status Dates Mulugeta Gotti DO Primary Care Provider Active Prasanna Weems MD Attending Provider Active Team Status: Inactive Member Role Status Dates Lazara Barclay NP Attending Provider Active Start: August 22, 2023 End: August 22, 2023 Team Status: Inactive Member Role Status Dates Sharla Benitez APRN Attending Provider Active Start: August 29, 2023 End: August 29, 2023 Team Status: Active Member Role Status Dates Mulugeta Gotti DO Primary Care Provider Active St art: August 29, 2023 Sharla Benitez APRN Attending Provider Active Start: August 29, 2023 Team Status: Active Member Role Status Kapil Gotti DO Primary Care Provider Active St art: October 24, 2023 Sharla Benitez APRN Attending Provider Active Start: October 24, 2023 Team Status: Inactive Member Role Status Kapil Gotti DO Primary Care Provider Active St art: October 24, 2023 End: October 24, 2023 Sharla Benitez APRN Attending Provider Active Start: October 24, 2023 End: October 24, 2023 [employer] Relationship Specialty Start Date End Date Mulugeta Gotti DO PCP - General 09/30/07 Mata Cornejo MD [address] [place] [address] [place] [address] Physician Radiation Oncology 10/20/20 Team Status: Inactive Member Role Status Dates Mulugeta Gotti DO Primary Care Provider Active St art: November 28, 2023 End: November 28, 2023 Sharla Benitez APRN Attending Provider Active Start: November 28, 2023 End: November 28, 2023 FOR RECORDS PERTAINING TO PATIENTS WHO ARE OR HAVE BEEN ENROLLED IN A CHEMICAL DEPENDENCY/SUBSTANCEABUSE PROGRAM, SOME INFORMATION MAY BE OMITTED. This clinical summary was aggregated from multiple sources. Caution should be exercised in using it in the provision of clinical care. This summary normalizes information from multiple sources, and as a consequence, information in this document may materially change the coding, format and clinical context of patient data. In addition, data may be omitted in some cases. CLINICAL DECISIONS SHOULD BE BASED ON THE PRIMARY CLINICAL RECORDS. [employer] [facility]. provides no warranty or guarantee of the accuracy or completeness of information in this document."
--- NOTE | 2024-02-26 06:24 | CT_ITS ---
The [address] [address] Patient Name: ILIANA DOUGLAS MRN: [id number] date: 1965 Sex: F Assigned Patient Location: ER Current Patient Location: ER Accession/Order Number: [id number] Exam Date: 02/26/2024 06:50 Report Date: 02/26/2024 07:28 At the request of: EMI MARKER Procedure: CT abdomen pelvis wo con CLINICAL HISTORY: Rt flank and RLQ abd pain. EXAMINATION: Unenhanced CT scan of the abdomen and pelvis: 02/26/2024. COMPARISON: Unenhanced CT scan of the abdomen and pelvis: 07/30/2023. TECHNIQUE: 3 mm axial images from lung bases through ischial tuberosities without intravenous or oral contrast were obtained. Sagittal, coronal reconstructions were also performed. FINDINGS: There is a linear appearing density particularly at the right lung base probably representing some discoid atelectasis. The remaining visualized lung bases seem normal. The heart size seems normal. CT ABDOMEN: There are no discrete lesions in the liver. The patient is status post cholecystectomy. For a noncontrast study the spleen, adrenal glands appear normal. The pancreas is normal in appearance. There is no hydronephrosis or nephrolithiasis involving the left or the right kidney. Abdominal aorta has normal caliber. There is no retroperitoneal or mesenteric adenopathy. No abnormally dilated loops of small or large bowel are seen. Appendix is not seen. CT PELVIS: There is some hazy density near the sigmoid colon in the pelvis however no significant diverticular disease is seen. The bladder seems normal. There is no ureterolithiasis. Uterus, ovaries are not identified. There is no pelvic adenopathy. There are no focal fluid collections. The visualized osseous structures demonstrate no gross abnormalities. CT/CT abdomen pelvis wo con IMPRESSION: 1. There is some haziness along part of the sigmoid colon in the pelvis without significant associated diverticular disease with some induration of the fat as well as thickening of the underlying sigmoid colon, images 107-109 without perforation or abscess formation. There are some reactive fluid in the vicinity. 2. No nephro or ureterolithiasis. 3. Prior cholecystectomy as well as hysterectomy. 4. Appendix is not seen but no secondary signs of acute appendicitis. 5. There is a diverticulum along the proximal greater curvature of the stomach, essentially unchanged. Electronically authenticated by: DOUGLAS CRUZ Date: 02/26/2024 07:28
--- NOTE | 2024-02-26 06:26 | ED.FEMALEGU1 ---
Documented by User: Dara Oneal MD 02/26/24 06:33 HPI - Female Genitourinary General Chief complaint: Urogenital-Female Stated complaint: RIGHT FLANK PAIN Time Seen by Provider: 02/26/24 06:14 Source: patient Mode of arrival: walk-in Limitations: no limitations History of Present Illness HPI Narrative: This 59-year-old presents for evaluation of right-sided flank pain that wraps around to the right lower quadrant of her abdomen. The patient did a home urinalysis and states that it was positive for leukocyte esterase. She has been treating herself with Azo and drinking plenty of fluids. She states her symptoms started on Sunday and have been persistent since that time. She is now extremely uncomfortable with right flank pain that radiates to the right lower quadrant. She is not having any nausea or vomiting. She has not had any fever or shaking chills. She denies any blood in her urine or history of kidney stones. She denies any chest pain or shortness of breath. She states she has not had much of an appetite for the past several days. She has not had any vomiting diarrhea or constipation. Related Data Home Medications ?Medication ?Instructions ?Recorded ?Confirmed anastrozole 1 mg tablet 1 mg PO DAILY 02/26/24 02/26/24 oxybutynin chloride 5 mg 5 mg PO DAILY 02/26/24 02/26/24 tablet,extended release 24 hr trazodone 50 mg tablet 50 mg PO DAILY 02/26/24 02/26/24 Previous Rx's ?Medication ?Instructions ?Recorded levofloxacin 500 mg tablet 500 mg PO DAILY 7 days #7 tabs 02/26/24 oxycodone-acetaminophen 5 mg-325 1 tab PO Q6H #10 tabs 02/26/24 mg tablet (Percocet) Allergies Allergy/AdvReac Type Severity Reaction Status Date / Time codeine Allergy Unknown Verified 02/26/24 06:13 erythromycin base Allergy Unknown Verified 02/26/24 06:13 morphine Allergy Unknown Verified 02/26/24 06:13 tramadol [From Ultram] Allergy Unknown Verified 02/26/24 06:13 Review of Systems ROS Status of ROS 10 or more systems reviewed and unremarkable except as noted in history and below [facility] Medical History (Updated 02/26/24 @ 06:42 by Mary Rhodes) Bladder spasms ?N32.89 - Other specified disorders of bladder (ICD-10) UTI (urinary tract infection) ?N39.0 - Urinary tract infection, site not specified (ICD-10) Social History Smoking status: Current every day smoker Exam Narrative Exam Narrative: Vital signs and Nursing Notes reviewed: Patient is afebrile with a normal pulse, normal blood pressure, she is moderately hypoxic with pulse ox of 93% on room air General: Awake, alert, oriented, uncomfortable appearing overweight female, no respiratory distress HEENT: Normocephalic atraumatic, mucous membranes are moist and pink, eyes are clear, normal conjunctiva, vision is grossly intact Chest: Lungs are clear to auscultation with good air entry, there is no wheezing rhonchi or rales appreciated no accessory muscle use, patient is speaking in complete sentences-no chest wall tenderness to palpation CVS: Regular rate and rhythm S1-S2, no murmurs rubs or gallops, pulses are brisk and equal bilaterally ABD: Obese, soft, nondistended, there is tenderness in the right lower lateral lumbar region and along the right medial flank and right lower quadrant. Abdomen is obese. Is unclear if this is at McBurney's point however there is negative Rovsing sign and no pain with movement of the right leg Extremities: Moving all extremities, no lower extremity tenderness or swelling noted, tenderness to palpation in the right lower and right lateral flank Skin: Normal in appearance without rash,pallor, petechiae or purpura Neuro: No focal deficits Constitutional Vital Signs, click to edit/add: Last Vital Signs Temp 97.9 F 02/26/24 06:10 Pulse 72 02/26/24 06:10 Resp 18 02/26/24 06:10 BP 113/76 02/26/24 06:10 Pulse Ox 93 L 02/26/24 06:10 O2 Del Method Room Air 02/26/24 06:10 Course Vital Signs Vital signs: Vital Signs Temperature 97.9 F 02/26/24 06:10 Pulse Rate 72 02/26/24 06:10 Respiratory Rate 18 02/26/24 06:10 Blood Pressure 113/76 02/26/24 06:10 Pulse Oximetry 93 L 02/26/24 06:10 Oxygen Delivery Method Room Air 02/26/24 06:10 Temperature 97.9 F 02/26/24 06:10 Pulse Rate 72 02/26/24 06:10 Respiratory Rate 18 02/26/24 06:10 Blood Pressure 113/76 02/26/24 06:10 Pulse Oximetry 93 L 02/26/24 06:10 Oxygen Delivery Method Room Air 02/26/24 06:10 MDM - Female Genitourinary MDM Narrative Medical decision making narrative: This 59-year-old female presents for evaluation of right flank pain with radiation into the right lower quadrant. She has not had any urinary frequency or urgency but has pain when she urinates. She did take a positive UTI test at home and tested positive for leukocyte esterase. She has not had a fever or chills. She has not had any nausea or vomiting. She has not had any diarrhea. She is tender in the right flank and right lower quadrant of her abdomen. She was unable to produce any urine and states that she is having bladder spasms. An IV was placed and she was medicated with IV fluids and Toradol. Routine labs including CBC with differential, urinalysis, lactic acid and comprehensive metabolic profile was ordered. CT scan of the abdomen pelvis without contrast was ordered to rule out kidney stone. Lab Data Labs: Lab Results 02/26/24 02/26/24 Range/Units 06:30 07:10 WBC 10.2 (4.0-11.0) 10^3/uL RBC 4.98 (4.20-5.40) 10^6/uL Hgb 14.8 (12.0-16.0) g/dL Hct 44.0 (36.0-48.0) % MCV 88.4 (81.0-99.0) fL MCH 29.7 (26.7-34.0) pg MCHC 33.6 (29.9-35.2) g/dL RDW 13.3 (11.0-15.0) % Plt Count 282 (150-450) 10^3/uL MPV 9.1 L (9.5-13.5) fL Neut % (Auto) 64.1 (43.0-75.0) % Lymph % (Auto) 23.6 (20.5-60.0) % [place] % (Auto) 9.8 (1.7-12.0) % Eos % (Auto) 1.5 (0.9-7.0) % Baso % (Auto) 0.5 (0.2-2.0) % Neut # (Auto) 6.6 H (1.4-6.5) 10^3/uL Lymph # (Auto) 2.4 (1.2-3.8) 10^3/uL [place] # (Auto) 1.0 H (0.3-0.8) 10^3/uL Eos # (Auto) 0.2 (0.0-0.7) 10^3/uL Baso # (Auto) 0.1 (0.0-0.1) 10^3/uL Abs Immat Gran (auto) 0.05 H (0.00-0.03) 10^3/uL Imm/Tot Granulo (auto) 0.5 (0.0-0.5) % Sodium 139 (136-145) mmol/L Potassium 3.6 (3.5-5.1) mmol/L Chloride 103 (98-107) mmol/L Carbon Dioxide 24.2 (21.0-32.0) mmol/L Anion Gap 15.4 BUN 9.0 (7.0-18.0) mg/dL Creatinine 0.65 (0.55-1.02) mg/dL Est GFR ( Amer) >60 (>=60) Est GFR (Non-Af Amer) >60 (>=60) BUN/Creatinine Ratio 13.8 Glucose 103 (74-106) mg/dL Lactate 1.1 (0.4-2.0) mmol/L Calcium 9.0 (8.5-10.1) mg/dL Total Bilirubin 0.8 (0.2-1.0) mg/dL AST 14 L (15-37) U/L ALT 19 (14-59) U/L Alkaline Phosphatase 131 H (46-116) U/L Total Protein 7.4 (6.4-8.2) g/dL Albumin 3.5 (3.4-5.0) g/dL Globulin 3.9 g/dL Albumin/Globulin Ratio 0.9 Urine Color Dk. orange (YELLOW) Urine Clarity Slightly cloudy A (CLEAR) Urine pH Color interference A (5.0-9.0) Ur Specific [place] >=1.030 A (1.005-1.025) Urine Protein Color interference A (NEG/TRACE) mg/dL Urine Glucose (UA) Color interference A (NEGATIVE) mg/dL Urine Ketones Color interference A (NEGATIVE) mg/dL Urine Occult Blood Color interference A (NEGATIVE) Urine Nitrite Color interference A (NEGATIVE) Urine Bilirubin Color interference A (NEGATIVE) Urine Urobilinogen Color interference A (0.2-1.0) EU/dL Ur Leukocyte Esterase Color interference A (NEGATIVE) Urine RBC 2-5 A (0-2) #/HPF Urine WBC 20-50 A (NONE SEEN) #/HPF Ur Squamous Epith Cells Moderate A (NONE/RARE) #/LPF Urine Bacteria Moderate A (NONE SEEN) #/HPF Urine Mucus Large A (NONE SEEN) Ur Culture Indicated? Yes Imaging Data CT scan - abdomen: Radiologist's impression: ITS Impressions Abdomen/Pelvis CT 02/26/24 06:24 IMPRESSION: 1. There is some haziness along part of the sigmoid colon in the pelvis without significant associated diverticular disease with some induration of the fat as well as thickening of the underlying sigmoid colon, images 107-109 without perforation or abscess formation. There are some reactive fluid in the vicinity. 2. No nephro or ureterolithiasis. 3. Prior cholecystectomy as well as hysterectomy. 4. Appendix is not seen but no secondary signs of acute appendicitis. 5. There is a diverticulum along the proximal greater curvature of the stomach, essentially unchanged. Electronically authenticated by: DOUGLAS CRUZ Date: 02/26/2024 07:28 Discharge Plan Discharge Stand Alone Forms: Portal Instructions Chief Complaint: Urogenital-Female Clinical Impression: Acute right flank pain Patient Disposition: Home, Self-Care Time of Disposition Decision: 07:42 Mode of Transportation: Private Vehicle Prescriptions / Home Meds: New levofloxacin 500 mg tablet 500 mg PO DAILY 7 Days Qty: 7 0RF oxycodone-acetaminophen [Percocet] 5-325 mg tablet 1 tab PO Q6H Qty: 10 0RF No Action oxybutynin chloride 5 mg tablet extended release 24hr 5 mg PO DAILY trazodone 50 mg tablet 50 mg PO DAILY anastrozole 1 mg tablet 1 mg PO DAILY Print Language: Urdu Instructions: Flank Pain (ED) Referrals: MIGUEL JUAREZ [Primary Care Provider] - 1 week Documented by User: Sophia Iraheta DO 02/26/24 07:44 HPI - Female Genitourinary General Chief complaint: Urogenital-Female Stated complaint: RIGHT FLANK PAIN Time Seen by Provider: 02/26/24 06:14 Related Data Home Medications ?Medication ?Instructions ?Recorded ?Confirmed anastrozole 1 mg tablet 1 mg PO DAILY 02/26/24 02/26/24 oxybutynin chloride 5 mg 5 mg PO DAILY 02/26/24 02/26/24 tablet,extended release 24 hr trazodone 50 mg tablet 50 mg PO DAILY 02/26/24 02/26/24 Previous Rx's ?Medication ?Instructions ?Recorded levofloxacin 500 mg tablet 500 mg PO DAILY 7 days #7 tabs 02/26/24 oxycodone-acetaminophen 5 mg-325 1 tab PO Q6H #10 tabs 02/26/24 mg tablet (Percocet) Allergies Allergy/AdvReac Type Severity Reaction Status Date / Time codeine Allergy Unknown Verified 02/26/24 06:13 erythromycin base Allergy Unknown Verified 02/26/24 06:13 morphine Allergy Unknown Verified 02/26/24 06:13 tramadol [From Ultram] Allergy Unknown Verified 02/26/24 06:13 [facility] History (Updated 02/26/24 @ 06:42 by Mary Rhodes) Bladder spasms ?N32.89 - Other specified disorders of bladder (ICD-10) UTI (urinary tract infection) ?N39.0 - Urinary tract infection, site not specified (ICD-10) Social History Smoking status: Current every day smoker Exam Constitutional Vital Signs, click to edit/add: Last Vital Signs Temp 97.9 F 02/26/24 06:10 Pulse 72 02/26/24 06:10 Resp 18 02/26/24 06:10 BP 113/76 02/26/24 06:10 Pulse Ox 93 L 02/26/24 06:10 O2 Del Method Room Air 02/26/24 06:10 Course Vital Signs Vital signs: Vital Signs Temperature 97.9 F 02/26/24 06:10 Pulse Rate 72 02/26/24 06:10 Respiratory Rate 18 02/26/24 06:10 Blood Pressure 113/76 02/26/24 06:10 Pulse Oximetry 93 L 02/26/24 06:10 Oxygen Delivery Method Room Air 02/26/24 06:10 Temperature 97.9 F 02/26/24 06:10 Pulse Rate 72 02/26/24 06:10 Respiratory Rate 18 02/26/24 06:10 Blood Pressure 113/76 02/26/24 06:10 Pulse Oximetry 93 L 02/26/24 06:10 Oxygen Delivery Method Room Air 02/26/24 06:10 MDM - Female Genitourinary MDM Narrative Medical decision making narrative: This 59-year-old female presents for evaluation of right flank pain with radiation into the right lower quadrant. She has not had any urinary frequency or urgency but has pain when she urinates. She did take a positive UTI test at home and tested positive for leukocyte esterase. She has not had a fever or chills. She has not had any nausea or vomiting. She has not had any diarrhea. She is tender in the right flank and right lower quadrant of her abdomen. She was unable to produce any urine and states that she is having bladder spasms. An IV was placed and she was medicated with IV fluids and Toradol. Routine labs including CBC with differential, urinalysis, lactic acid and comprehensive metabolic profile was ordered. CT scan of the abdomen pelvis without contrast was ordered to rule out kidney stone. Patient's labs are nonacute. CT scan shows some haziness in the sigmoid colon no abscess no perforation possibly a diverticular disease but it is unclear. No obstructing kidney stone no bladder inflammation. Patient has no rash or evidence of shingles on that side of her body. Bowel inflammation is on the sigmoid colon which would cause pain in the left side typically but her pain is in the right side. I also asked her if this could be a back issue. She says she has a lot of back problems so possibly this is compression on the nerve in the spine and causing some radicular pain. Patient states the Toradol did not work but Dilaudid typically works for her. Patient given a dose of Dilaudid here in ED. I will also write her for some antibiotics that should cover bowel and urine. UA was unable to be assessed properly due to the Pyridium causing color change. Patient was instructed to return to ED if worsening symptoms, fevers vomiting or any other concerns. Patient is comfortable with care plan for home. Differential Diagnosis Differential diagnosis: Likely urinary tract infection, ovarian cyst and other (Diverticulitis acute appendicitis kidney stone lumbar radiculopathy) Medical Records Attestation: I reviewed the patient's medical records. Lab Data Attestation: I reviewed the patient's lab results. Labs: Lab Results 02/26/24 02/26/24 Range/Units 06:30 07:10 WBC 10.2 (4.0-11.0) 10^3/uL RBC 4.98 (4.20-5.40) 10^6/uL Hgb 14.8 (12.0-16.0) g/dL Hct 44.0 (36.0-48.0) % MCV 88.4 (81.0-99.0) fL MCH 29.7 (26.7-34.0) pg MCHC 33.6 (29.9-35.2) g/dL RDW 13.3 (11.0-15.0) % Plt Count 282 (150-450) 10^3/uL MPV 9.1 L (9.5-13.5) fL Neut % (Auto) 64.1 (43.0-75.0) % Lymph % (Auto) 23.6 (20.5-60.0) % [place] % (Auto) 9.8 (1.7-12.0) % Eos % (Auto) 1.5 (0.9-7.0) % Baso % (Auto) 0.5 (0.2-2.0) % Neut # (Auto) 6.6 H (1.4-6.5) 10^3/uL Lymph # (Auto) 2.4 (1.2-3.8) 10^3/uL [place] # (Auto) 1.0 H (0.3-0.8) 10^3/uL Eos # (Auto) 0.2 (0.0-0.7) 10^3/uL Baso # (Auto) 0.1 (0.0-0.1) 10^3/uL Abs Immat Gran (auto) 0.05 H (0.00-0.03) 10^3/uL Imm/Tot Granulo (auto) 0.5 (0.0-0.5) % Sodium 139 (136-145) mmol/L Potassium 3.6 (3.5-5.1) mmol/L Chloride 103 (98-107) mmol/L Carbon Dioxide 24.2 (21.0-32.0) mmol/L Anion Gap 15.4 BUN 9.0 (7.0-18.0) mg/dL Creatinine 0.65 (0.55-1.02) mg/dL Est GFR ( Amer) >60 (>=60) Est GFR (Non-Af Amer) >60 (>=60) BUN/Creatinine Ratio 13.8 Glucose 103 (74-106) mg/dL Lactate 1.1 (0.4-2.0) mmol/L Calcium 9.0 (8.5-10.1) mg/dL Total Bilirubin 0.8 (0.2-1.0) mg/dL AST 14 L (15-37) U/L ALT 19 (14-59) U/L Alkaline Phosphatase 131 H (46-116) U/L Total Protein 7.4 (6.4-8.2) g/dL Albumin 3.5 (3.4-5.0) g/dL Globulin 3.9 g/dL Albumin/Globulin Ratio 0.9 Urine Color Dk. orange (YELLOW) Urine Clarity Slightly cloudy A (CLEAR) Urine pH Color interference A (5.0-9.0) Ur Specific [place] >=1.030 A (1.005-1.025) Urine Protein Color interference A (NEG/TRACE) mg/dL Urine Glucose (UA) Color interference A (NEGATIVE) mg/dL Urine Ketones Color interference A (NEGATIVE) mg/dL Urine Occult Blood Color interference A (NEGATIVE) Urine Nitrite Color interference A (NEGATIVE) Urine Bilirubin Color interference A (NEGATIVE) Urine Urobilinogen Color interference A (0.2-1.0) EU/dL Ur Leukocyte Esterase Color interference A (NEGATIVE) Urine RBC 2-5 A (0-2) #/HPF Urine WBC 20-50 A (NONE SEEN) #/HPF Ur Squamous Epith Cells Moderate A (NONE/RARE) #/LPF Urine Bacteria Moderate A (NONE SEEN) #/HPF Urine Mucus Large A (NONE SEEN) Ur Culture Indicated? Yes Imaging Data CT scan - abdomen: Radiologist's impression: ITS Impressions Abdomen/Pelvis CT 02/26/24 06:24
[2024-02-26] MEDS: KETOROLAC TROMETHAMINE 30 MG/ML VIAL IVP (06:37)
[2024-02-26] MEDS: 0.9 % SODIUM CHLORIDE 1,000 ML 1000 ML IV (06:37)
[2024-02-26 06:51] LABS: Basophils Absolute Auto 0.1 10^3/uL (0.0-0.1); Basophils Percent Auto 0.5 % (0.2-2.0); Eosinophils Absolute Auto 0.2 10^3/uL (0.0-0.7); Eosinophils Percent Auto 1.5 % (0.9-7.0); Hemoglobin 14.8 g/dL (12.0-16.0); Immature Granulocytes Abs Auto 0.05 10^3/uL (0.00-0.03); Immature Granulocytes Pct Auto 0.5 % (0.0-0.5); Lymphocytes Absolute Auto 2.4 10^3/uL (1.2-3.8); Lymphocytes Percent Auto 23.6 % (20.5-60.0); Mean Corpuscular HGB Conc 33.6 g/dL (29.9-35.2); Mean Corpuscular Hemoglobin 29.7 pg (26.7-34.0); Mean Corpuscular Volume 88.4 fL (81.0-99.0); Mean Platelet Volume 9.1 fL (9.5-13.5); Monocytes Percent Auto 9.8 % (1.7-12.0); Neutrophils Absolute Auto 6.6 10^3/uL (1.4-6.5); Neutrophils Percent Auto 64.1 % (43.0-75.0); Platelet Count 282 10^3/uL (150-450); Red Blood Count 4.98 10^6/uL (4.20-5.40); Red Cell Distribution Width 13.3 % (11.0-15.0); White Blood Count 10.2 10^3/uL (4.0-11.0)
[2024-02-26 07:00] LABS: Alanine Aminotransferase 19 U/L (14-59); Albumin Globulin Ratio 0.9; Albumin Level 3.5 g/dL (3.4-5.0); Alkaline Phosphatase 131 U/L (46-116); Anion Gap 15.4; Aspartate Amino Transferase 14 U/L (15-37); BUN Creatinine Ratio 13.8; Bilirubin Total 0.8 mg/dL (0.2-1.0); Carbon Dioxide 24.2 mmol/L (21.0-32.0); Chloride 103 mmol/L (98-107); Estimated GFR (African America >60 (>=60); Estimated GFR (Non-African Ame >60 (>=60); Globulin 3.9 g/dL; Glucose 103 mg/dL (74-106); Potassium 3.6 mmol/L (3.5-5.1); Sodium 139 mmol/L (136-145); Total Protein 7.4 g/dL (6.4-8.2)
[2024-02-26 07:03] LABS: Lactate/Lactic Acid 1.1 mmol/L (0.4-2.0)
[2024-02-26] MEDS: PHENAZOPYRIDINE 100 MG TABLET 200 MG PO (07:12)
[2024-02-26 07:23] LABS: Color Urine DK. ORANGE (YELLOW); Specific Gravity Urine >=1.030 (1.005-1.025)
[2024-02-26 07:29] LABS: Bilirubin Urine COLOR INTERFERENCE (NEGATIVE); Blood Urine COLOR INTERFERENCE (NEGATIVE); Clarity Urine SLIGHTLY CLOUDY (CLEAR); Glucose Urine UA COLOR INTERFERENCE mg/dL (NEGATIVE); Ketones Urine COLOR INTERFERENCE mg/dL (NEGATIVE); Nitrite Urine COLOR INTERFERENCE (NEGATIVE); Protein Urine COLOR INTERFERENCE mg/dL (NEG/TRACE); pH Urine COLOR INTERFERENCE (5.0-9.0)
[2024-02-26 07:30] LABS: Leukocyte Esterase Urine COLOR INTERFERENCE (NEGATIVE); Urobilinogen Urine COLOR INTERFERENCE EU/dL (0.2-1.0)
[2024-02-26 07:33] LABS: WBC Urine 20-50 #/HPF (NONE SEEN)
[2024-02-26 07:34] LABS: Bacteria Urine MODERATE #/HPF (NONE SEEN); Mucus Urine LARGE (NONE SEEN); Squamous Epithelial Cell Urine MODERATE #/LPF (NONE/RARE)
[2024-02-26 07:35] LABS: Urine Culture Indicated YES
[2024-02-26] MEDS: HYDROMORPHONE HCL 0.5 MG/0.5 ML SYRINGE IV (07:48)
[2024-02-26 07:58] VITALS: BP 99/70; PULSE 68; O2SAT 96
== END 2024-02-26 07:58 | disposition home or self-care (01) ==
PROVIDERS: Emergency Provider Emergency Medicine; PCP Family Medicine
DX: R10.9 Unspecified abdominal pain (principal); F17.200 Nicotine dependence, unspecified, uncomplicated; E66.9 Obesity, unspecified; Z68.41 Body mass index [BMI] 40.0-44.9, adult
CPT/HCPCS: 36415; 74176; 80053; 81001; 83605; 85025; 87086; 96374; 96375; 99284; J1170; J1885

== ENCOUNTER 2024-08-24 12:21 | Emergency (ER) | payer OTHER, SELFPAY ==
[2024-08-24 12:25] VITALS: BP 168/85; PULSE 117; TEMP 37.3; O2SAT 92; BMI 40.4
--- NOTE | 2024-08-24 12:28 | XR_ITS ---
[address] [address] Patient Name: ILIANA DOUGLAS MRN: [id number] date: 1965 Sex: F Assigned Patient Location: ED.MAIN Current Patient Location: ED.MAIN Accession/Order Number: [id number] Exam Date: 08/24/2024 13:35 Report Date: 08/24/2024 14:41 At the request of: SADI MCCORMICK Procedure: XR chest 1V EXAM: XR chest 1V INDICATION: sob. COMPARISON: Chest x-ray 11/15/2021. TECHNIQUE: Single frontal view of the chest FINDINGS: Normal cardiomediastinal contours. No acute infiltrative process. No pleural effusion or pneumothorax. No acute osseous abnormality. XR/XR chest 1V IMPRESSION: No acute cardiopulmonary process. Electronically authenticated by: JJ TALAVERA Date: 08/24/2024 14:41
--- NOTE | 2024-08-24 12:28 | ECG_ITS ---
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
--- NOTE | 2024-08-24 12:34 | ED_ITS ---
HPI HPI - General Adult General Chief complaint: Shortness of Breath/Dyspnea Stated complaint: SHORTNESS OF BREATH, COUGH Time Seen by Provider: 08/24/24 12:28 Source: patient Mode of arrival: Wheelchair Limitations: no limitations History of Present Illness HPI narrative: The patient presented to us with 24 hours history of cough associated with a headache mostly frontal and neck pain and at addition to no chest pain The patient have difficulty breathing and no effect of the albuterol that she is taking She denies any nausea or vomiting any abdominal pain She does have fever and chills at home and she also denies any runny nose or sore throat That difficulty breathing is at rest and the patient was noted to be mildly tachypneic on arrival Related Data Home Medications ?Medication ?Instructions ?Recorded ?Confirmed anastrozole 1 mg tablet 1 mg PO DAILY 02/26/24 02/26/24 oxybutynin chloride 5 mg 5 mg PO DAILY 02/26/24 02/26/24 tablet,extended release 24 hr trazodone 50 mg tablet 50 mg PO DAILY 02/26/24 02/26/24 albuterol sulfate 90 mcg/actuation inhalation 08/24/24 aerosol inhaler Previous Rx's ?Medication ?Instructions ?Recorded oxycodone-acetaminophen 5 mg-325 1 tab PO Q6H #10 tabs 02/26/24 mg tablet (Percocet) Allergies Allergy/AdvReac Type Severity Reaction Status Date / Time codeine Allergy Unknown Verified 02/26/24 06:13 erythromycin base Allergy Unknown Verified 02/26/24 06:13 morphine Allergy Unknown Verified 02/26/24 06:13 tramadol (From Ultram) Allergy Unknown Verified 02/26/24 06:13 Opioid HPI Opioid Management Most Recent Opioid Data: Last Pain Scale 10 08/24/24 14:44 08/24/24 Last ED Pain Assessment 08/24/24 15:07 Last MAR Pain Assessment 08/24/24 14:44 Review of Systems ROS Status of ROS 10 or more systems reviewed and unremark able except as noted in history and below [facility] Medical History (Updated 08/24/24 @ 17:07 by Karmen Hutchinson MD) Bladder spasms ?N32.89 - Other specified disorders of bladder (ICD-10) UTI (urinary tract infection) ?N39.0 - Urinary tract infection, site not specified (ICD-10) Social History Smoking status: Current every day smoker Little interest or pleasure in doing things: not at all Feeling down, depressed, or hopeless: not at all Exam Narrative Exam Narrative: Nurses notes and vital signs reviewed and patient is not hypoxic. General: Well-appearing and in no apparent distress. Skin: Warm, dry, no pallor noted. No rash. Head: Normocephalic, atraumatic. Neck: Supple, non-tender. Eye: Pupils are equal, round and EOMI. No scleral icterus. Ears, Nose, Mouth, and Throat: TM are clear, no nasal mucosal hypertrophy. Oral mucosa is moist, no posterior oropharynx erythema, uvula is mid-line Cardiovascular: Regular Rate and Rhythm without murmur, gallop or rub. Respiratory: No accessory muscle use or respiratory distress. But the patient is tachypneic Lungs distant breathing sound bilaterally with a mild wheeze mostly in the left side, Musculoskeletal: normal ROM, no calf or popliteal tenderness, no lower extremity edema/swelling GI: Abdomen is soft, non-distended. Normal bowel sounds. No masses appreciated. No tenderness to palpation. No rebound, guarding, or rigidity noted. Neurological: A&O x4. No cranial nerve dysfunction observed. No truncal ataxia. Moves all extremities. Sensation intact. Psychiatric: Cooperative and interactive. Normal mood and affect. Constitutional Vital Signs, click to edit/add: Last Vital Signs Temp 99.1 F 08/24/24 12:25 Pulse 106 H 08/24/24 16:44 Resp 18 08/24/24 16:44 BP 119/74 08/24/24 16:44 Pulse Ox 93 L 08/24/24 16:44 O2 Del Method Room Air 08/24/24 16:44 Course Vital Signs Vital signs: Vital Signs Temperature 99.1 F 08/24/24 12:25 Pulse Rate 117 H 08/24/24 12:25 Respiratory Rate 24 H 08/24/24 12:25 Blood Pressure 168/85 H 08/24/24 12:25 Pulse Oximetry 92 L 08/24/24 12:25 Oxygen Delivery Method Room Air 08/24/24 12:25 Temperature 99.1 F 08/24/24 12:25 Pulse Rate 106 H 08/24/24 16:44 Respiratory Rate 18 08/24/24 16:44 Blood Pressure 119/74 08/24/24 16:44 Pulse Oximetry 93 L 08/24/24 16:44 Oxygen Delivery Method Room Air 08/24/24 16:44 Medical Decision Making MDM Narrative Medical decision making narrative: Upon arrival the patient had the EKG showing sinus tachycardia with a heart rate of 120 Patient presentation is mostly secondary to viral illness her COVID test was negative CBC chemistry showed no acute pathology and her troponin repeated twice was negative in addition to a lactic acid D-dimer was found to be elevated and she had a CT angio of the chest showed no PE it had an incidental finding of thyroid nodule that I explained to the patient that she to follow-up for with her doctor Patient was feeling much better after steroids and breathing treatment she was discharged home after she walked in the ER with no difficulty her pulse ox stayed at 93% and she mentioned that she is okay to go home the patient understand that in case of any worsening of her symptoms she will come back to the ER The patient headache is mostly secondary to viral illness she also had a CT head showing no acute pathology because she complained of severe pain that did not respond to Toradol Right now the patient was discharged home with a prednisone and a Z-Montrell and continue supportive care The patient is to follow up with primary care physician in next 2-3 days or to return to the emergency department should any of the signs or symptoms worsen or new symptoms develop. The patient agrees with the following Diagnosis and Treatment plan and the patient will be discharged home. Lab Data Labs: Lab Results 08/24/24 08/24/24 Range/Units 12:45 15:53 WBC 8.1 (4.0-11.0) 10^3/uL RBC 5.30 (4.20-5.40) 10^6/uL Hgb 15.6 (12.0-16.0) g/dL Hct 46.5 (36.0-48.0) % MCV 87.7 (81.0-99.0) fL MCH 29.4 (26.7-34.0) pg MCHC 33.5 (29.9-35.2) g/dL RDW 13.2 (11.0-15.0) % Plt Count 235 (150-450) 10^3/uL MPV 9.1 L (9.5-13.5) fL Neut % (Auto) 85.1 H (43.0-75.0) % Lymph % (Auto) 5.6 L (20.5-60.0) % [place] % (Auto) 8.0 (1.7-12.0) % Eos % (Auto) 0.5 L (0.9-7.0) % Baso % (Auto) 0.4 (0.2-2.0) % Neut # (Auto) 6.9 H (1.4-6.5) 10^3/uL Lymph # (Auto) 0.5 L (1.2-3.8) 10^3/uL [place] # (Auto) 0.7 (0.3-0.8) 10^3/uL Eos # (Auto) 0.0 (0.0-0.7) 10^3/uL Baso # (Auto) 0.0 (0.0-0.1) 10^3/uL Abs Immat Gran (auto) 0.03 (0.00-0.03) 10^3/uL Imm/Tot Granulo (auto) 0.4 (0.0-0.5) % PT 10.9 (9.0-11.6) sec INR 1.03 D-Dimer 0.67 H* (<=0.59) mg/L FEU Sodium 138 (136-145) mmol/L Potassium 3.8 (3.5-5.1) mmol/L Chloride 101 (98-107) mmol/L Carbon Dioxide 24.0 (21.0-32.0) mmol/L Anion Gap 16.8 BUN 6.0 L (7.0-18.0) mg/dL Creatinine 0.72 (0.55-1.02) mg/dL Est GFR ( Amer) >60 (>=60 mL/min/1.73m^2) Est GFR (Non-Af Amer) >60 (>=60 mL/min/1.73m^2) BUN/Creatinine Ratio 8.3 Glucose 106 (74-106) mg/dL Lactate 1.8 (0.4-2.0) mmol/L Calcium 9.0 (8.5-10.1) mg/dL Total Bilirubin 0.4 (0.2-1.0) mg/dL AST 17 (15-37) U/L ALT 21 (14-59) U/L Alkaline Phosphatase 117 H (46-116) U/L Troponin I High Sens <4.0 L 4.7 (4.0-51.3) pg/mL NT-Pro-B Natriuret Pep 39.0 (<=900.0) pg/mL Total Protein 7.3 (6.4-8.2) g/dL Albumin 3.6 (3.4-5.0) g/dL Globulin 3.7 g/dL Albumin/Globulin Ratio 1.0 Influenza Type A Ag Negative Influenza Type B Ag Negative SARS-CoV-2 Ag (CV2AG) Negative (NEGATIVE) Discharge Plan Discharge Chief Complaint: Shortness of Breath/Dyspnea Clinical Impression: COPD exacerbation, Acute viral syndrome Patient Disposition: Home, Self-Care Time of Disposition Decision: 17:07 Condition: Good Prescriptions / Home Meds: No Action oxybutynin chloride 5 mg tablet extended release 24hr 5 mg PO DAILY trazodone 50 mg tablet 50 mg PO DAILY anastrozole 1 mg tablet 1 mg PO DAILY oxycodone-acetaminophen [Percocet] 5-325 mg tablet 1 tab PO Q6H Qty: 10 0RF albuterol sulfate 90 mcg/actuation HFA aerosol inhaler INHALATION Print Language: Mexican Instructions: COPD (Chronic Obstructive Pulmonary Disease) (ED), Viral Syndrome (ED) Referrals: MIGUEL JUAREZ [Primary Care Provider] - 1 week
--- OUTSIDE RECORDS SUMMARY | 2024-08-24 12:45 | XMS_ITS | CCD ---
Author Organization [facility] Care Team Providers Care Repair Miller Name Role Phone Mulugeta Gotti Primary Care Provider Mulugeta Gotti Attending Provider Nina Montana Attending Provider Benjamin Mercado Attending Provider [phone] Mulugeta Gotti Primary Care Provider [phone] Mulugeta Gotti Attending Provider [phone] Chevy Ferreira Attending Provider Mulugeta Gotti Primary Care Provider Prasanna Weems Attending Provider [phone] Mulugeta Gotti DO Primary Care Provider Clemente PEGUERO, Mata Unavailable MULUGETA GOTTI Primary Care Physician Pushpa Chowdhury Unavailable Unavailable Prasanna Weems Unavailable DO Mulugeta Gotti Primary Care Provider [phone] DO Mulugeta Gotti Attending Provider DR MULUGETA GOTTI Primary Care Unavailable NEDRA, DR CHANELLE Maria Admitting Unavailable NEDRA, DR CHANELLE Maria Attending Unavailable NEDRA, DR CHANELLE Maria Consulting Unavailable FINESSE MARISCAL Consulting Unavailable BLESSING ZEPEDA Consulting Unavailable NEDRA, DR CHANELLE Maria Admitting Unavailable NEDRA, DR CHANELLE Marai Attending Unavailable SHEN, DR DALAL Primary Care Unavailable NEDRA, DR CHANELLE Maria Consulting Unavailable Shawn Preston Consulting Unavailable DR MULUGETA GOTTI Primary Care Unavailable JOSEE DUNAWAY Admitting Unavailable JOSEE DUNAWAY Attending Unavailable JOSEE DUNAWAY Consulting Unavailable WILLIAMS PIZARRO Consulting Unavailable SALLY Stephens Attending Provider AB Andrew Attending Provider Alicia Saunders Unavailable Mulugeta Gotti DO Primary Care Provider Clemente PEGUERO, Mata Unavailable Eli Sharla Unavailable Jose Lewis Unavailable Mulugeta Gotti DO Primary Care Provider [phone] Clemente PEGUERO, Mata Unavailable Rubia Mendosa Unavailable DO Mulugeta Gotti Primary Care Provider [phone] AB Benitez Attending Provider [phone] MD Finesse Tobar Attending Provider [phone] AB Frey Emergency Provider MULUGETA GOTTI Primary Care Unavailable SHAWN PRASAD JR Referring Unavailable DO Mulugeta Gotti Primary Care Provider [phone] AB Benitez Attending Provider [phone] BLESSING YANCEY Attending Unavailable SHAWN PRASAD JR Referring Unavailable MULUGETA GOTTI Primary Care Unavailable MULUGETA GOTTI Primary Care Unavailable CLEMENT RODAS Attending Unavailable LUIS XAVIER Referring Unavailable DO [place] [facility] Provider DO Mulugeta Gotti Primary Care Provider AB Benitez Attending Provider DO Nina Montana Attending Provider DO Mulugeta Gotti Primary Care Provider AB Benitez Attending Provider DO [place] Emergency Provider DO Nina Montana Attending Provider [phone] MD Prasanna Weems Attending Provider DO Mulugeta Gotti Primary Care Provider [phone] AB Benitez Attending Provider Lazara Barclay Unavailable RICE, Finesse W Referring Unavailable RICE, Finesse W Attending Unavailable NILPb Webb Attending Unavailable RICE, Finesse W Referring Unavailable RICE, Finesse W Attending Unavailable RICE, Finesse W Admitting Unavailable Orzech, Jada X Attending Unavailable Orzech, Jada X Admitting Unavailable Orzech, Jada X Attending Unavailable DO Mulugeta Gotti Primary Care Provider [phone] AB Benitez Attending Provider DO Mulugeta Gotti Primary Care Provider [phone] [facility] AB Maria Attending Provider Mulugeta Gotti DO Primary Care Provider [phone] SHAWN PRASAD JR Referring Unavailable MULUGETA GOTTI [...] Care Unavailable MULUGETA GOTTI Primary Care Unavailable DO Mulugeta Gotti Primary Care Provider MD Prasanna Weems Attending Provider MD Benjamin Mercado Attending Provider Mulugeta Gotti DO Primary Care Provider Pam Palomo DO Unavailable Mulugeta Gotti Primary Care Unavailable Eli, Sharla R Admitting Unavailable Sharla Benitez R Attending Unavailable Dank, Prasanna S Attending Unavailable Mulugeta Gotti Primary Care Unavailable Dank, Prasanna S Admitting Unavailable Mulugeta Gotti Primary Care Unavailable Missler, Sharla R Admitting Unavailable Eli, Sharla R Attending Unavailable Mulugeta Gotti Primary Care Unavailable Benjamin Mercado Admitting Unavailable Benjamin Mercado Attending Unavailable Dank, Prasanna S Attending Unavailable Mulugeta Gotti Primary Care Unavailable Dank, Prasanna S Admitting Unavailable Dank, Prasanna S Attending Unavailable Mulugeta Gotti [facility] Unavailable Prasanna Weems Admitting Unavailable MULUGETA GOTTI Attending Unavailable MULUGETA GOTTI Referring Unavailable NINA MONTANA Attending Unavailable MULUGETA GOTTI Attending Unavailable MULUGETA GOTTI Referring Unavailable MULUGETA GOTTI Attending Unavailable NINA MONTANA Attending Unavailable Unavailable Unavailable Unavailable Allergies Allergy Classification Reported Allergen(s) Allergy Type Date of Onset Reaction(s) Facility Barbiturates (4 sources) butalbital Drug Allergy 10-01-19 21 Itching [facility] Opioid Agonists (8 sources) Codeine Drug Allergy 10-01-19 21 Vomiting, Nausea [facility] strawberry allergenic extract (4 sources) strawberry allergenic extract Drug Allergy 10-01-19 21 [facility] (20 sources) butalbital; Translations: [butalbital] Drug Allergy 10-20-19 20 Itching [facility] (20 sources) Codeine; Translations: [codeine] Drug Allergy 09-30-19 08 GI Upset, Vomiting (disorder), Unknown [facility] Work Phone: (20 sources) strawberry allergenic extract; Translations: [strawberry] Drug Allergy 10-20-19 20 [facility] (20 sources) traMADol; Translations: [Tramadol] Drug Allergy 10-20-19 20 Vomiting (disorder) [facility] (20 sources) erythromycin base; Translations: [Erythromycin Base] Allergy to substance 08-29-20 19 Abdominal Pain, Abdominal Pain, diarrhea [facility] (20 sources) Erythromycin; Translations: [erythromycin] Drug Allergy 08-06-20 12 Diarrhea, Diarrhea (finding), Unknown [facility] Work Phone: (20 sources) traMADol; Translations: [TRAMADOL HCL] Drug Allergy 12-06-19 08 GI Upset [facility] (17 sources) environmental [Other] Propensity to adverse reactions 09-30-19 08 [facility] (16 sources) Acetaminophen / butalbital / Caffeine; Translations: [APAP/butalbital/ caffeine] Drug Allergy 05-17-20 23 Unknown (qualifier value), Itching, Itching (finding) [facility] (20 sources) Codeine Drug Allergy vomiting [facility] Other (20 sources) Aspartame; Translations: [aspartame] Drug Allergy 01-25-20 22 Diarrhea [facility] (2 sources) traMADol; Translations: [Ultram] Drug Allergy 08-29-20 19 [facility] (20 sources) Morphine; Translations: [MORPHINE] Drug Allergy 02-07-20 23 Unknown, Tremor (finding) [facility] (3 sources) OTHER; Translations: [OTHER] Propensity to adverse reactions (disorder) 09-30-19 08 [facility] (2 sources) BUTALBITAL-ACETAM INOPHEN-CAFF; Translations: [BUTALBITAL-ACETA MINOPHEN-CAFF] Propensity to adverse reactions to drug (disorder) 05-17-20 23 [facility] (2 sources) Azithromycin Drug Allergy 05-21-20 23 Unknown [facility] (2 sources) Doxycycline Drug Allergy 05-21-20 23 Nausea Only [facility] (2 sources) Cuayvasnxc-Fczy-N affeine Drug Allergy 05-21-20 23 Rash [facility] (1 source) Morphine Drug Allergy 04-09-20 24 [facility] Repository Medications Current Medications Medication Drug Class(es) Dates [...] Migraine headache Start Date: 05/12/20 Status: Ordered [id number] 200 actuat albuterol 0.09 mg/actuat metered dose inhaler (20 sources) beta2-Adrener gic Agonist Start: 11-12-2023 take 2 puff(s) by inhalation every six hours for wheezing albuterol HFA 90 mcg/act inhaler Indications: Mild intermittent asthmatic bronchitis with acute exacerbation (CMS/HCC) Inhale 2 puffs every 6 (six) hours if needed for wheezing 18 g 1 11/12/2023 Active Start: 05-19-2023 Albuterol Sulf ate (Ventolin Hfa) 90 mcg/actuation HFA aerosol inhaler [...] OR WHEEZING Inhalation for 30 Days Active anastrozole 1 mg oral tablet (20 sources) Aromatase Inhibitor Start: 12-07-2021 End: 11-23-2023 take 1 tablet by mouth once daily anastrozole (Arimidex) 1 MG chemo tablet Take 1 mg by mouth Daily. 06/04/2023 Active Comment on above: Take 1 tablet by [facility] once daily. TAKE ONE TABLET BY M OUTH EVERY DAY take 1 tablet by [facility] once daily {1 (ascorbic acid 7540 MG / polyethylene glycol 3350 47016 MG / potassium chloride 1200 MG / sodium ascorbate 71296 MG / sodium chloride 3200 MG Powder for Oral Solution) / 1 (polyethylene glycol 3350 822741 MG / potassium chloride 1000 MG / sodium chloride 2000 MG / sodium sulfate 9000 MG Powder for Oral Solution) } Pack [Plenvu] (6 sources) Osmotic Laxative, Vitamin C Start: 01-19-2021 Plenvu 140 GM dose 1 pouch at 4pm, dose 2 pouch A & B at 11pm Orally BID for 1 days BIN:[id number] PCN: [id number] GROUP:[id number] ID:[id number] January, Active Start: 01-19-2021 Plenvu 140 GM dose 1 pouch at 4pm, dose 2 pouch A & B at 11pm Orally BID for 1 days BIN:[id number]: CNRXGROUP:[id number] January, Active Calcium Carbonate / vitamin D3 [...] on above: Take 2 tablets by mo ut once daily. TROH-HZNZ-TMXCVTA-FOS- BROMELN ORAL (17 sources) HKLL-WZZZ-BONFSR E- FOS-BROMELN ORAL Take by mouth. 0 Active Comment on above: Take by mouth. Cranberry preparation (20 sources) Non-Standardized Food Allergenic Extract, Non-Standardized Plant Allergenic Extract Cranberry 48686 MG as directed Orally Active CRANBERRY cyanocobalamin, vitamin B-12, (VITAMIN B-12 ORAL) (14 sources) cyanocobalamin, vitamin B-12, (VITAMIN B-12 ORAL) Take by mouth once daily. 0 Active Comment on above: Take by mouth once d aily. d-mannose (8 sources) Start: 10-24-19 take 2 capsules by mouth once daily d-mannose Active 2 CAP PO Daily October 24, 2023 1:00am Start: 10-24-2023 take 2 capsules by m outh once daily d-mannose Active 2 CAP PO Daily October 24, 2023 12:00am Diclofenac (20 sources) Nonsteroidal Anti-inflammatory Drug Start: 02-07-2024 GNP Diclofenac So dium 1 % gel APPLY 2 grams topically 2-3 times DAILY 02/07/2024 Active Start: 02-07-2024 Diclofenac Sod ium Active 2 GM TOPICAL 2-3 TIMES PER DAY 100 30 February 07, 2024 12:16pm Start: 10-23-2023 take 75 mg by mouth twice cally y Diclofenac Sodium Active 75 MG PO Twice daily October 23, 2023 1:00am Start: 10-23-2023 End: 02-07-2024 apply 2 g topically twice daily Diclofenac Sodium Disc ontinued 2 GM TOPICAL Twice daily October 23, 2023 1:00am February 07, 2024 12:17pm Start: 08-19-2021 take 1 tablet by [facility] every twelve hours Diclofenac Sodium 75 MG [...] Start: 04-16-2023 take 2 tablets by mo [facility] twice daily Start: 02-06-2023 End: 03-08-2023 take [...] by [facility] twice daily. estrogens, conjugated (intermediate) 0.625 mg/ml vaginal cream (20 sources) Estrogen Start: 09-09-2021 conjugated estrogens 0.625 mg/g vaginal cream with applicator See Instructions, 30 gm, Refill(s) 1, apply a pea-sized amount 3x weekly, [facility], 167, cm, 07/20/21 8:40:00 EST, Height/Length Dosing, 136, kg, 07/20/21 8:40:00 EST, Weight Dosing Start Date: 09/09/21 Status: Ordered Start: 06-08-2021 conjugated est rogens (PREMARIN) vaginal cream See Instructions, 30 gm, Refill(s) 1, apply a pea-sized amount with the fingertip topically to the urethra and just inside the labia, [facility], 167, cm, 06/08/21 8:49:00 EDT, Height/Length Dosing, 136, kg, 06/08/21 8:49:00 EDT, We... 0 06/08/2021 Active Comment on above: See Instructions, 30 gm, Refill(s) 1, apply a pea-sized amount with the fingertip topically to the urethra and just inside the labia, [facility], 167, cm, 06/08/21 8:49:00 EDT, Height/Length Dosing, 136, kg, 06/08/21 8:49:00 EDT, We... fluconazole 150 mg oral tablet (7 sources) Azole Antifungal Start: 2 take 1 tablet by mouth once Diflucan 150 mg Tab 150 mg = 1 tab(s), Oral, Once, # 1 tab(s), Refills(s) 0, Pharmacy: [facility], 167, cm, 04/24/22 15:08:00 EDT, Height/Length Dosing, [...] three times daily. green tea leaf extract (8 sources) Start: 10-24-2023 take 6000 mg by [...] hour period take 1 tablet by [facility] three times daily at mealtime as needed Ibuprofen 800 MG 1 tablet with food or milk as needed Orally Three times a day Active L.acid/L.casei/B.bif/B.kulwant/F OS (PROBIOTIC BLEND ORAL) (17 sources) L.acid/L.casei/B .bif/B.kulwant/FOS (PROBIOTIC BLEND ORAL) Take by mouth. 0 Active Comment on above: Take by mouth. Lactobacillus Combination No .4 (Probiotic) 3 billion cell capsule (8 sources) [facility] rt: take 3 capsules by mouth once daily Lactobacillus Combination No.4 (Probiotic) 3 billion cell capsule Active 3000 MMU CELLS PO Daily October 23, 2023 1:00am administer with a meal Start: 10-23-2023 take 3 capsules by m out once daily Lactobacillus Combination No.4 (Probiotic) 3 [...] oral capsule (19 sources) Nitrofuran Antibacterial Start: End: take 1 capsule by mouth twice daily Macrobid 100 mg Cap 100 mg = 1 cap(s), Oral, BID, X 5 day(s), # 10 cap(s), Refills(s) 0, Pharmacy: [facility]/pharmacy #[id number], 167, cm, 02/16/23 12:08:00 EDT, Height/Length Dosing, 117, kg, 02/16/23 12:08:00 EDT, Weight Dosing Start Date: 02/16/23 Stop Date: 02/21/23 Status: Ordered nystatin [id number] unt/ml / triamcinolone acetonide 1 mg/ml topical cream (2 sources) Polyene Antifungal, Corticosteroid Start: nystatin-triamcino lone (Mycolog II) cream every 12 (twelve) hours. 12/04/2022 Active 24 hr oxybutynin chloride 5 mg extended release oral tablet (20 sources) Cholinergic Muscarinic Antagonist Start: take 1 tablet by mouth once daily in the morning oxybutynin XL (Ditropan-XL) 5 MG 24 hr tablet Indications: Urinary frequency TAKE 1 TABLET BY MOUTH ONCE DAILY IN THE MORNING 90 tablet 3 06/25/2024 Active Start: 05-26-2024 take 1 tablet by [facility] at bedtime oxybutynin (Ditropan) 5 MG tablet Indications: Bladder spasm TAKE 1 TABLET BY MOUTH IN THE MORNING, IN THE EVENING, AND BEFORE bedtime 14 tablet 05/26/2024 Active Start: 01-17-2022 End: 11-23-2023 take 5 mg by mouth once daily Oxybutynin Chloride Acti ve 5 MG PO Daily October 23, 2023 1:00am Start: 09-09-2020 End: 11-28-2021 take 5 mg by mouth twice daily Oxybutynin Chloride Dis continued 5 MG PO Twice daily September 09, 2020 1:00am November 28, 2021 1:16pm take 1 tablet by [facility] twice daily oxybutynin ER (DITROPAN XL) 10 [...] Ordered phenazopyridine hydrochloride 100 mg oral tablet (20 sources) Start: 02-16-2023 End: 02-19-2023 take 1 tablet by mouth three times daily as needed Pyridium 100 mg Tab 100 mg = 1 tab(s), Oral, TID, PRN Urinary discomfort, X 3 day(s), # 9 tab(s), Refills(s) 0, Pharmacy: [facility]/pharmacy #[id number], 167, cm, 02/16/23 12:08:00 EDT, Height/Length Dosing, 117, kg, 02/16/23 12:08:00 EDT, Weight Dosing Start Date: 02/16/23 Stop Date: 02/19/23 Status: Ordered Start: 04-24-2022 End: 04-30-2022 take 1 tablet by mouth three times daily as needed Pyridium 100 mg Tab 100 mg = 1 tab(s), Oral, TID, PRN Urinary discomfort, X 3 day(s), # 9 tab(s), Refills(s) 1, Pharmacy: [facility]/pharmacy #[id number], 167, cm, 04/24/22 15:08:00 EDT, Height/Length [...] Sympathomimetic Amine Anorectic Start: 10-24-2023 End: 11-28-2023 phentermine (Adipex-P) 37.5 MG tablet Every morning 10/24/2023 Active Start: 11-08-2018 End: 12-04-2018 take 1 tablet [...] sources) Serotonin-1b and Serotonin-1d Receptor Agonist Start: 1 take 1 tablet by mouth once daily as needed rizatriptan [employer] (Maxalt-ALLIED HEALTH INSTRUCTOR) 10 MG disintegrating tablet Indications: Intractable chronic migraine with aura with status migrainosus (CMS/HCC) TAKE ONE (1) TABLET BY MOUTH ONCE DAILY NEEDED 6 tablet 2 12/31/2023 Active Start: 05-12-2020 Maxalt 10 mg T ab [...] 09, 2020 1:00am December 07, 2021 1:32pm tiZANidine (Tyrese flex) 4 MG tablet every 8 (eight) hours. Active take 1 capsule by [facility] once daily at bedtime tiZANidine HCl 2 mg capsule Take 2 mg by mouth daily at bedtime. 0 Active take 1 tablet by [facility] every eight hours tiZANidine HCl 4 MG 1 tablet as needed Orally Three times a day Active Comment on above: Take 2 mg by mouth d aily at bedtime. topiramate 50 mg oral tablet (20 sources) Start: 11-28-2023 Topiramate Active 50 MG PO Daily November 28, 2023 12:00am Take half tab daily days 1 through 7 take 3 tablets by mo [facility] every twenty-four hours Topamax 25 MG 3 tablets Orally Once a da y Not-Taking/PRN traZODone hydrochloride 50 mg oral tablet (20 sources) Serotonin Reuptake Inhibitor Start: 04-15-2024 End: 07-14-2024 take 2 tablets by mouth at bedtime traZODone (Desyrel) 50 MG tablet Indications: Primary insomnia Take 2 tablets (100 mg) by mouth at bedtime 180 tablet 04/15/2024 07/14/2024 Active Start: 08-02-2023 take 1 tablet by [facility] twice daily traZODONE 50 mg Tab 50 [...] above: Take by mouth daily at bedtime. triamcinolone acetonide 1 mg/ml topical cream (2 sources) Corticosteroid Start: triamcinolone (Kenalog) 0.1 % cream Indications: Insect bite of left shoulder, initial encounter Apply topically 2 (two) times a day as needed (pain and swelling) 15 g 03/27/2024 Active 24 hr venlafaxine 75 mg extended release oral capsule (20 sources) Serotonin and Norepinephrine Reuptake Inhibitor Start: take 1 capsule by mouth once daily at mealtime venlafaxine XR (Effexor XR) 75 MG 24 hr capsule Indications: Situational anxiety TAKE 1 CAPSULE BY MOUTH ONCE DAILY IN THE MORNING with meals; DO not CRUSH, chew, OR split 30 capsule 2 05/27/2024 Active Start: 04-30-2018 End: 07-18-2023 take 1 capsule by mouth once daily in the morning Venlafaxine (Effexor Xr) 150 mg Capsule,Extended Release 24hr Discontinued 150 MG PO Every morning April 30, 2018 12:00am July 18, 2023 10:44am Start: 09-01-2016 take 150 mg by mouth once daily Effexor 150 mg, Oral, Daily, Other (see comment) Start Date: 09/01/16 Status: Ordered Venlafaxine HCl ER Not-Taking/PRN Venlafaxine HCl ER Active Comment on above: Take 150 mg by mouth once daily. vitamin B12 (16 sources) Vitamin B12 Start: 10-23-2023 take 1000 [...] that medication is not currently available from [employer]. Assessing for insurance coverage. Thanks Jul, Not-Taking Start: 07-14-2022 Wegovy 0.25 MG /0.5ML 0.25mg once weekly for four weeks, then increase to 0.5mg once weekly for four weeks Subcutaneous once weekly for 28 days Aware that medication is not currently available from [employer]. Assessing for insurance coverage. Thanks Jul, [...] by mouth every four to six hours Oxycodone-Acetamino phen (Percocet) 5-325 mg tablet Discontinued 1 TAB PO EVERY 4-6 HOURS 10 October 01, 2020 January 26, 2021 11:29am amoxicillin 500 mg oral tablet (20 sources) Penicillin-class Antibacterial Start: 12-31-2023 End: 03-17-2024 take 2000 mg by mouth once Amoxicillin Discontinued 2000 MG PO once 4 December 31, 2023 12:00am March 17, 2024 2:32pm Start: 11-28-2022 Amoxicillin 50 0 MG Take 2 grams 1 hour before dental procedure Orally as directed for 1 days Nov, Not-Taking/PRN amoxicillin 875 mg / clavulanate 125 mg oral tablet (19 sources) Penicillin-class Antibacterial Start: 12-08-2021 End: 01-25-2022 take 1 tablet by mouth twice daily Amoxicillin-Pot Clavulanate Discontinued 1 TAB PO Twice daily 8 December 08, 2021 12:00am January 25, 2022 10:34am azithromycin 250 mg oral tablet (20 sources) Macrolide Antimicrobial Start: 09-09-2020 End: 01-22-2021 take 2-5 tablets by mouth once daily [...] day(s), # 14 cap(s), Refills(s) 0, Pharmacy: [facility]/pharmacy #[id number], 167, cm, 04/24/22 15:08:00 EDT, Height/Length [...] completed, # 2 tab(s), Refills(s) 0, Pharmacy: [facility], 167, cm, 07/25/22 13:24:00 EST, Height/Elías... Start [...] 24, 2020 4:24pm take 1 capsule by mo [facility] every twenty-four hours Colace 100 MG 1 capsule as needed Orally Once a day Active doxepin hydrochloride 10 mg oral capsule (20 sources) Tricyclic Antidepressant Start: 10-20-2019 End: 09-09-2020 take 10 mg by mouth once daily at bedtime Doxepin Discontinued 10 MG PO Daily at bedtime October 20, 2019 1:00am September 09, 2020 12:55pm doxycycline hyclate 100 mg oral capsule (12 sources) Tetracycline-class Drug Start: 05-19-2023 End: 10-23-2023 [...] 3:23pm September 09, 2020 12:55pm lactobacillus acidophilus [id number] unt oral capsule (20 sources) Start: 10-24-2018 End: 10-20-2019 take 10 mg by mouth once daily Lactobacillus Acidophilus Discontinued 10 MG PO Daily October 24, 2018 1:00am October 20, 2019 3:40pm Start: 10-24-2018 End: 10-20-2019 take 10 mg by mouth once daily Lactobacillus Acidophil us Discontinued 10 MG PO Daily October 24, [...] hours Ondansetron Discontinued 4 MG PO Q6H October 18, 2018 1:00am November 08, 2018 8:52am Start: 05-01-2018 ondansetron 4 mg Tab Oral, 0 Refill(s), Refills(s) 0 Start Date: 05/01/18 Status: Ordered Start: 05-01-2018 End: 05-06-2018 take 1 tablet by mouth every eight hours Ondansetron (Zofran Odt) 8 mg tablet,disintegrating Discontinued 8 MG PO Q8H 10 May 01, 2018 12:00am May 06, 2018 12:02am oxyCODONE hydrochloride 30 mg oral tablet (20 sources) Opioid Agonist Start: 04-30-2018 End: 10-20-2019 take 30 mg by mouth every four to six hours Oxycodone Discontinued 30 MG PO EVERY 4-6 HOURS April 30, 2018 12:00am October 20, 2019 3:40pm predniSONE 50 mg oral tablet (20 sources) Start: 05-19-2023 End: 07-18-2023 take 50 mg by mouth once daily Prednisone Discontinued 50 MG PO Daily 01 05May 19, 2023 12:00am July 18, 2023 10:44am prednisone 15mg tab 1 tablet bid Not-Taking/PRN prednisone 15mg tab 1 tablet bid Active promethazine hydrochloride 25 mg oral tablet (19 sources) Phenothiazine Start: 11-28-2021 End: 07-18-2023 take 25 mg by mouth every six hours Promethazine Discontinued 25 MG PO Q6H November 28, 2021 12:00am July 18, 2023 10:44am rivaroxaban 10 mg oral tablet (20 sources) Factor Xa Inhibitor Start: 11-05-2019 End: 09-09-2020 take 1 tablet by mouth once daily Rivaroxaban (Xarelto) 10 mg Tablet Discontinued 10 MG PO Daily 0 November 05, 2019 1:00am September 09, [...] Active Comment on above: Take by mouth. Vitamin B 12 500 MCG (15 sources) take 2 tablets by mo uth once daily Vitamin B 12 500 MCG [...] that medication is not currently available from [employer]. Assessing for insurance coverage. Thanks Jul, [...] once weekly for 28 days Feb, Not-Taking/PRN Problems Active Problems Problem Classification Problem Date Documented Da te Episodic/Chronic Acquired foot deformities (2 sources) Acquired hallux valgus; Translations: [Hallux valgus (acquired), unspecified foot] Onset: 3 05-21-2023 Chronic Biliary tract disease (20 sources) Disorder of biliary tract; Translations: [Disease of biliary tract, unspecified] 12-06-2021 Chronic Cancer of breast (20 sources) Malignant tumor of breast ; Translations: [Malignant neoplasm of unspecified site of left female breast] Onset: 3 Chronic Diseases of white blood cells (19 sources) Leukocytosis; Translations: [Elevated white blood cell count, unspecified] 12-06-2021 Chronic Disorders of lipid metabolism (20 sources) Hypercholesterolemia; Translations: [Pure hypercholesterolemia, unspecified] Onset: 3 05-25-2015 Chronic Diverticulosis and diverticulitis (3 sources) Diverticulosis of colon; Translations: [Diverticulosis of large intestine without perforation or abscess without bleeding] Onset: 3 07-31-2023 Chronic Fluid and electrolyte disorders (19 sources) Dehydration; Translations: [Dehydration] 12-05-2021 Episodic Genitourinary symptoms and ill-defined conditions (13 sources) Incontinence; Translations: [Mixed incontinence] Onset: 3 05-04-2020 Chronic Headache; including migraine (20 sources) Migraine; Translations: [Migraine, unspecified, not intractable, without status migrainosus] Onset: 3 Chronic Miscellaneous mental health disorders (20 sources) Psychophysiologic insomnia; Translations: [Psychophysiologic insomnia] Chronic Mood disorders (20 sources) Major depressive disorder, single episode, unspecified; Translations: [Depression] Onset: 2 Chronic Nausea and vomiting (19 sources) Nausea and vomiting; Translations: [Nausea with vomiting, unspecified] 12-06-2021 Episodic Nonspecific chest pain (20 sources) Atypical chest pain; Translations: [Other chest pain] 09-09-2020 Episodic Osteoarthritis (20 sources) Arthritis; Translations: [Unspecified osteoarthritis, unspecified site] Onset: 3 05-25-2015 Chronic Other aftercare (1 source) Other assisted (current) drug therapy; Translations: [OTH [facility] CURRENT DRUG THERAPY] Onset: 2 Episodic Other congenital anomalies (2 sources) Congenital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 Type: BLOOD SPECIMENOrdering Facility: [facility] Address: [address] [place] [address] Performed By: #### 2 4323-8 ####[facility] LABCLIA [id number] [place] [address] Protein [Mass/Vol] 7.3 g/dL Normal 6.3-8.0 [facility] Comment on above: Order Comment: Speci men Type: BLOOD SPECIMENOrdering Facility: [facility] Address: [address] [place] [address] Performed By: #### 2 4323-8 ####[facility] LABCLIA [id number] [place] [address] Sodium [Moles/Vol] 142 mmol/L Normal 136-144 [facility] Comment on above: Order Comment: Speci men Type: BLOOD SPECIMENOrdering Facility: [facility] Address: [address] [place] [address] Performed By: #### 2 4323-8 ####[facility] LABCLIA [id number] [place] [address] Urea nitrogen [Mass/Vol] 9 mg/dL Normal 7-21 [facility] Comment on above: Order Comment: Speci men Type: BLOOD SPECIMENOrdering Facility: [facility] Address: [address] [place] [address] Performed By: #### 2 4323-8 ####[facility] LABCLIA [id number] [place] [address] Comprehensive metabolic 2000 panelOrdered By: Sandrita Giron on 01-03-2024 Albumin [Mass/Vol] 4.4 g/dL 3.9 - 4.9 g/dL [facility] ALP [Catalytic activity/Vol] 129 U/L High 34 - 123 U/L [facility] ALT [Catalytic activity/Vol] 14 U/L 7 - 38 U/L [facility] Anion gap [Moles/Vol] 10 mmol/L 9 - 18 mmol/L [facility] AST [Catalytic activity/Vol] 14 U/L 13 - 35 U/L [facility] Bilirubin [Mass/Vol] 0.2 mg/dL 0.2 - 1 .3 mg/dL [facility] Calcium [Mass/Vol] 9.8 mg/dL 8.5 - 10. 2 mg/dL [facility] Chloride [Moles/Vol] 104 mmol/L 97 - 10 5 mmol/L [facility] CO2 [Moles/Vol] 28 mmol/L 22 - 30 mmol/L [facility] Creatinine [Mass/Vol] 0.59 mg/dL 0.58 - 0.96 mg/dL [facility] GFR/1.73 sq M.predicted among non-blacks MDRD (S/P/Bld) [Vol rate/Area] 106 mL/min/{1.73_m2} - PINF [facility] Comment on above: Estimated Glomerular Filtration Rate [...] [Mass/Vol] 95 mg/dL 74 - 99 mg/dL [facility] Comment on above: The [place] Diabete s Association (ADA) provides guidance for [...] Standards of Medical Care in Diabetes 2016, [place] [employer]. Diabetes Care. 2016.39(Suppl 1). Interpretation and review of laboratory results Abnormal [facility] Potassium [Moles/Vol] 3.8 mmol/L 3.7 - 5.1 mmol/L [facility] Protein [Mass/Vol] 7.3 g/dL 6.3 - 8.0 g/dL [facility] Sodium [Moles/Vol] 142 mmol/L 136 - 144 mmol/L [facility] Urea nitrogen [Mass/Vol] 9 mg/dL 7 - 21 mg/dL [facility] A1C with Estimated Average G gayen 10-24-2023 Glucose [Mass/Vol] 105 mg/dL Normal [facility] Comment on above: Order Comment: Reaso n for Exam Obesity;Depression;Snores;DARREL (obstructive sleep apnea);[place] Result Comment: PERF ORMED BY: [place] [address] PATHOLOGIST GRAPHIC DESIGN PROFESSOR OTILIA SOTO M.D. Performed By: #### A 1C [facility] eA, LIPID, CMP, CBCNO, TSH3 wRFLX #### [facility] [address] [place] [address] #### LIPA #### [facility] , Alanine aminotransferase [En zymatic activity/volume] in Serum or PlasmaOrdered By: Sharla Benitez on 10-24-2023 ALT [Catalytic activity/Vol] 15 U/L Normal [facility] Comment on above: Order Comment: Reaso n for Exam Obesity;Depression;Snores;DARREL (obstructive sleep apnea);[place] Performed By: #### A 1C [facility] eA, LIPID, CMP, CBCNO, TSH3 wRFLX #### [facility] [address] [place] [address] [place] #### LIPA #### [facility] , Albumin [Mass/volume] in Ser um or Plasma by Bromocresol green (BCG) dye binding methoOrdered By: Sharla Benitez on 10-24-2023 Albumin BCG dye [Mass/Vol] 4.3 g/dL 3.5-5.7 [facility] Alkaline phosphatase [Enzyma tic activity/volume] in Serum or PlasmaOrdered By: Sharla Benitez on 10-24-2023 ALP [Catalytic activity/Vol] 101 U/L Normal 34-104 [facility] Comment on above: Order Comment: Reaso n for Exam Obesity;Depression;Snores;DARREL (obstructive sleep apnea);[place] Performed By: #### A 1C WT eA, LIPID, CMP, CBCNO, TSH3 wRFLX #### [facility] [address] [place] [address] #### LIPA #### [facility] , Aspartate aminotransferase [ Enzymatic activity/volume] in Serum or PlasmaOrdered By: Sharla Benitez on 10-24-2023 AST [Catalytic activity/Vol] 15 U/L Normal 13-39 [facility] Comment on above: Order Comment: Reaso n for Exam Obesity;Depression;Snores;DARREL (obstructive sleep apnea);[place] Performed By: #### A 1C WT eA, LIPID, CMP, CBCNO, TSH3 wRFLX #### [facility] [address] [place] [address] #### LIPA #### [facility] , Bilirubin.total [Mass/volume ] in Serum or PlasmaOrdered By: Sharla Benitez on 10-24-2023 Bilirubin [Mass/Vol] 0.4 mg/dL Normal 0.3-1.0 [facility] Comment on above: Order Comment: Reaso n for Exam Obesity;Depression;Snores;DARREL (obstructive sleep apnea);[place] Performed By: #### A 1C WT eA, LIPID, CMP, CBCNO, TSH3 wRFLX #### [facility] [address] [place] [address] [place] #### LIPA #### [facility] , Calcium [Mass/volume] in Ser um or PlasmaOrdered By: Sharla Benitez on 10-24-2023 Calcium [Mass/Vol] 9.5 mg/dL Normal 8.6-10.[address] [facility] Comment on above: Order Comment: Reaso n for Exam Obesity;Depression;Snores;DARREL (obstructive sleep apnea);[place] Performed By: #### A 1C WTH eA, LIPID, CMP, CBCNO, TSH3 wRFLX #### [facility] [address] [place] [address] [place] #### LIPA #### [facility] , Carbon dioxide, total [Moles /volume] in Serum or PlasmaOrdered By: Sharla Benitez on 10-24-2023 CO2 [Moles/Vol] 25.5 mmol/L Normal 21.0-31.0 [facility] Comment on above: Order Comment: Reaso n for Exam Obesity;Depression;Snores;DARREL (obstructive sleep apnea);[place] Performed By: #### A 1C [facility] eA, LIPID, CMP, CBCNO, TSH3 wRFLX #### [facility] [address] [place] [address] [place] #### LIPA #### [facility] , Chloride [Moles/volume] in S lito or PlasmaOrdered By: Sharla Benitez on 10-24-2023 Chloride [Moles/Vol] 107 mmol/L Normal 98-107 [facility] Comment on above: Order Comment: Reaso n for Exam Obesity;Depression;Snores;DARREL (obstructive sleep apnea);[place] Performed By: #### A 1C [facility] eA, LIPID, CMP, CBCNO, TSH3 wRFLX #### [facility] [address] [place] [address] [place] #### LIPA #### [facility] , Cholesterol [Mass/volume] in Serum or PlasmaOrdered By: Sharla Benitez on 10-24-2023 Cholesterol [Mass/Vol] 230 mg/dL High 140-200 [facility] Comment on above: Chol less than 200 m g/dl low riskChol 201-239 mg/dl borderline riskChol 240 mg/dl and greater high risk Order Comment: Reaso n for Exam Obesity;Depression;Snores;DARREL (obstructive sleep apnea);[place] Result Comment: Chol less than 200 mg/dl low risk Chol 201-239 mg/dl borderline risk Chol 240 mg/dl and greater high risk Performed By: #### A 1C WT eA, LIPID, CMP, CBCNO, TSH3 wRFLX #### [facility] [address] [place] [address] [place] #### LIPA #### [facility] , Cholesterol in LDL Calc [Mas s/Vol]Ordered By: Sharla Benitez on 10-24-2023 Cholesterol in LDL [Mass/Vol] 164 mg/dL 0-100 [facility] Comment on above: LDL ATP III CLASSIFI CATIONLDL less than 100 mg/dL OptimalLDL 100-129 mg/dL Near or above optimalLDL 130-159 mg/dL Borderline highLDL 160-189 mg/dL HighLDL greater than 189 mg/dL Very high Cholesterol in VLDL Calc [Ma ss/Vol]Ordered By: Sharla Benitez on 10-24-2023 Cholesterol in VLDL [Mass/Vol] 28 mg/dL [facility] Comprehensive Metabolic Pane kulwant 10-24-2023 Albumin [Mass/Vol] 4.3 g/dL Normal 3.5-5.7 [facility] Comment on above: Order Comment: Reaso n for Exam Obesity;Depression;Snores;DARREL (obstructive sleep apnea);[place] Performed By: #### A 1C WTH eA, LIPID, CMP, CBCNO, TSH3 wRFLX #### [facility] [address] [place] [address] [place] #### LIPA #### [facility] , GFR/1.73 sq M.predicted MDRD (S/P/Bld) [Vol rate/Area] mL/min/{1.73_m2} Normal [facility] Comment on above: Order Comment: Reaso n for Exam Obesity;Depression;Snores;DARREL (obstructive sleep apnea);[place] Performed By: #### A 1C [facility] eA, LIPID, CMP, CBCNO, TSH3 wRFLX #### [facility] [address] [place] [address] [place] #### LIPA #### [facility] , Creatinine [Mass/volume] in Serum or PlasmaOrdered By: Sharla Benitez on 10-24-2023 Creatinine [Mass/Vol] 0.61 mg/dL Normal 0.60-1.20 [facility] Comment on above: Order Comment: Reaso n for Exam Obesity;Depression;Snores;DARREL (obstructive sleep apnea);[place] Performed By: #### A 1C WT eA, LIPID, CMP, CBCNO, TSH3 wRFLX #### [facility] [address] [place] [address] [place] #### LIPA #### [facility] , Erythrocyte distribution wid th [Ratio] by Automated countOrdered By: Sharla Benitez on 10-24-2023 Erythrocyte distribution width (RBC) [Ratio] 14.3 % Normal 11.9-15.3 [facility] Comment on above: Order Comment: Reaso n for Exam Obesity;Depression;Snores;DARREL (obstructive sleep apnea);[place] Performed By: #### A 1C [facility] eA, LIPID, CMP, CBCNO, TSH3 wRFLX #### [address] #### LIPA #### [facility] , Erythrocytes [#/volume] in B lood by Automated countOrdered By: Sharla Benitez on 10-24-2023 RBC (Bld) [#/Vol] 5.15 10*6/uL High 3.60-5.00 [facility] Comment on above: Order Comment: Reaso n for Exam Obesity;Depression;Snores;DARREL (obstructive sleep apnea);Jan[place] Performed By: #### A 1C [facility] eA, LIPID, CMP, CBCNO, TSH3 wRFLX #### [place] [address] [place] #### LIPA #### [facility] , Glucose [Mass/volume] in Ser um or PlasmaOrdered By: Sharla Benitez on 10-24-2023 Glucose [Mass/Vol] 90 mg/dL Normal 70-[address] [facility] Comment on above: ADA recommended refe rence rangeRandom Glucose Reference Range is dependent on time and content of last meal. Glucose of more than 200 mg/dL in a nonstressed, ambulatory subject supports the diagnosis of Diabetes Mellitus. Order Comment: Reaso n for Exam Obesity;Depression;Snores;DARREL (obstructive sleep apnea);[place] Result Comment: [facility] Glucose Reference Range is dependent on time and content of last meal. Glucose of more than 200 mg/dL in a nonstressed, ambulatory subject supports the diagnosis of Diabetes Mellitus. ADA recommended reference range Performed By: #### A 1C [facility] eA, LIPID, CMP, CBCNO, TSH3 wRFLX #### [facility] [address] [place] [address] [place] #### LIPA #### [facility] , Glucose mean value [Mass/vol ume] in Blood Estimated from glycated hemoglobinOrdered By: Sharla Benitez on 10-24-2023 Average glucose Estimated from glycated hemoglobin (Bld) [Mass/Vol] 105 mg/dL [facility] Hematocrit [Volume Fraction] of Blood by Automated countOrdered By: Sharla Benitez on 10-24-2023 Hematocrit (Bld) [Volume fraction] 44.4 % Normal 34.0-46.4 [facility] Comment on above: Order Comment: Reaso n for Exam Obesity;Depression;Snores;DARREL (obstructive sleep apnea);[place] Performed By: #### A 1C [facility] eA, LIPID, CMP, CBCNO, TSH3 wRFLX #### [facility] [address] [place] [address] [place] #### LIPA #### [facility] , Hemoglobin A1c percentageOrd ered By: Sharla Benitez on 10-24-2023 HbA1c (Bld) [Mass fraction] 5.3 % Normal 4.3-5.6 [facility] Comment on above: Increased risk for d iabetes: 5.7 - 6.4diabetes: >6.4glycemic control for adults with diabetes: <7.0 Order Comment: Reaso n for Exam Obesity;Depression;Snores;DARREL (obstructive sleep apnea);[place] Result Comment: Incr eased risk for diabetes: 5.7 - 6.4 diabetes: >6.4 glycemic control for adults with diabetes: <7.0 Performed By: #### A 1C [facility] eA, LIPID, CMP, CBCNO, TSH3 wRFLX #### [facility] [address] [place] [address] [place] #### LIPA #### [facility] , Hemoglobin [Mass/volume] in BloodOrdered By: Sharla Benitez on 10-24-2023 Hemoglobin (Bld) [Mass/Vol] 15.5 g/dL High 11.8-15.4 [facility] Comment on above: Order Comment: Reaso n for Exam Obesity;Depression;Snores;DARREL (obstructive sleep apnea);[place] Performed By: #### A 1C [facility] eA, LIPID, CMP, CBCNO, TSH3 wRFLX #### [place] [address] [place] #### LIPA #### [facility] , Hemogram CBC Without Diffon 10-24-2023 Mean Corpuscular HGB Conc 35.0 g/dL Normal 32.0-35.0 [facility] Comment on above: Order Comment: Reaso n for Exam Obesity;Depression;Snores;DARREL (obstructive sleep apnea);[place] Performed By: #### A 1C [facility] eA, LIPID, CMP, CBCNO, TSH3 wRFLX #### [place] [address] [place] #### LIPA #### [facility] , WBC (Bld) [#/Vol] 6.6 10*3/uL Normal 3.8-11.6 [facility] Comment on above: Order Comment: Reaso n for Exam Obesity;Depression;Snores;DARREL (obstructive sleep apnea);Janice Performed By: #### A 1C [facility] eA, LIPID, CMP, CBCNO, TSH3 wRFLX #### [place] [address] [place] #### LIPA #### [facility] , Leukocytes [#/volume] correc cherry for nucleated erythrocytes in Blood by Automated counOrdered By: Sharla Benitez on 10-24-2023 WBC corrected for nucl RBC Auto (Bld) [#/Vol] 6.6 10*3/uL 3.8-11.6 [facility] Lipid Panelon 10-24-2023 LDL Cholesterol,Calculate d 164 mg/dL High 0-100 [facility] Comment on above: Order Comment: Reaso n for Exam Obesity;Depression;Snores;DARREL (obstructive sleep apnea);[place] Result Comment: LDL ATP III CLASSIFICATION LDL less than 100 mg/dL Optimal LDL 100-129 mg/dL Near or above optimal LDL 130-159 mg/dL Borderline high LDL 160-189 mg/dL High LDL greater than 189 mg/dL Very high Performed By: #### A 1C [facility] eA, LIPID, CMP, CBCNO, TSH3 wRFLX #### [facility] [address] [place] [address] #### LIPA #### [facility] , Triglyceride w/Reflex 144 mg/dL Normal 0-149 [facility] Comment on above: Order Comment: Reaso n for Exam Obesity;Depression;Snores;DARREL (obstructive sleep apnea);Janice Result Comment: TRIG ATP III CLASSIFICATION TRIG less than 150 mg/dL Normal TRIG 150-199 mg/dL Borderline high TRIG 200-500 mg/dL High TRIG greater than 500 mg/dL Very high Standard traceable to the Center for Disease Conrtrol and Prevention (CDC) test method. Performed By: #### A 1C [facility] eA, LIPID, CMP, CBCNO, TSH3 wRFLX #### [place] [address] [place] #### LIPA #### [facility] , VLDL CHOLESTEROL 28 mg/dL Normal [facility] Comment on above: Order Comment: Reaso n for Exam Obesity;Depression;Snores;DARREL (obstructive sleep apnea);[place] Performed By: #### A 1C [facility] eA, LIPID, CMP, CBCNO, TSH3 wRFLX #### [facility] [address] [place] [address] [place] #### LIPA #### [facility] , Lipoprotein (a)on 10-24-2023 Lipoprotein a [Mass/Vol] 35.7 mg/dL Normal <75.0 [facility] Comment on above: Order Comment: Reaso n for Exam Obesity;Depression;Snores;DARREL (obstructive sleep apnea);[place] Result Comment: Note : Values greater than or equal to 75.0 nmol/L may indicate an independent risk factor for CHD, but must be evaluated with caution when applied to non- populations due to the influence of genetic factors on Lp(a) across ethnicities. Performed at: - [facility] [id number] Fire Extinguisher Charger: Jayjay Oakley PhD, Phone: [phone] PERFORMED BY: [place] [address] PATHOLOGIST GRAPHIC DESIGN PROFESSOR OTILIA SOTO M.D. Performed By: #### A 1C WT eA, LIPID, CMP, CBCNO, TSH3 wRFLX #### [address] #### LIPA #### [facility] , MCH [Entitic mass] by [place] cherry countOrdered By: Sharla Benitez on 10-24-2023 MCH (RBC) [Entitic mass] 30.2 pg Normal 24.7-34.3 [facility] Comment on above: Order Comment: Reaso n for Exam Obesity;Depression;Snores;DARREL (obstructive sleep apnea);[place] Performed By: #### A 1C [facility] eA, LIPID, CMP, CBCNO, TSH3 wRFLX #### [place] [address] [place] #### LIPA #### [facility] , MCHC Auto (RBC) [Mass/Vol]Or dered By: Sharla Benitez on 10-24-2023 MCHC (RBC) [Mass/Vol] 35.0 g/dL 32.0-35.0 [facility] MCV [Entitic volume] by Auto mated countOrdered By: Sharla Benitez on 10-24-2023 MCV (RBC) [Entitic vol] 86.2 fL Normal 80-100 [facility] Comment on above: Order Comment: Reaso n for Exam Obesity;Depression;Snores;DARREL (obstructive sleep apnea);Janice Performed By: #### A 1C WT eA, LIPID, CMP, CBCNO, TSH3 wRFLX #### [facility] [address] [place] [address] [place] #### LIPA #### [facility] , No Panel InformationOrdered By: Sharla Benitez on 10-24-2023 Estimated GFR (CKD-EPI) > 60.0 mL/Min [facility] Creatinine Clearance (Chem N/A [facility] Platelet mean volume [Entiti c volume] in Blood by Automated countOrdered By: Sharla Benitez on 10-24-2023 Platelet mean volume (Bld) [Entitic vol] 7.1 fL Normal 6.3-10.7 [facility] Comment on above: Order Comment: Reaso n for Exam Obesity;Depression;Snores;DARREL (obstructive sleep apnea);Janice Result Comment: PERF ORMED BY: [place] [address] PATHOLOGIST GRAPHIC DESIGN PROFESSOR OTILIA SOTO M.D. Performed By: #### A 1C [facility] eA, LIPID, CMP, CBCNO, TSH3 wRFLX #### [address] #### LIPA #### [facility] , Platelets [#/volume] in Bloo d by Automated countOrdered By: Sharla Benitez on 10-24-2023 Platelets (Bld) [#/Vol] 260 10*3/uL Normal 150-450 [facility] Comment on above: Order Comment: Reaso n for Exam Obesity;Depression;Snores;DARREL (obstructive sleep apnea);Janice Performed By: #### A 1C [facility] eA, LIPID, CMP, CBCNO, TSH3 wRFLX #### [facility] [address] [place] [address] [place] #### LIPA #### [facility] , Potassium [Moles/volume] in Serum or PlasmaOrdered By: Sharla Benitez on 10-24-2023 Potassium [Moles/Vol] 4.0 mmol/L Normal 3.5-5.1 [facility] Comment on above: Order Comment: Reaso n for Exam Obesity;Depression;Snores;DARREL (obstructive sleep apnea);[place] Performed By: #### A 1C [facility] eA, LIPID, CMP, CBCNO, TSH3 wRFLX #### [facility] [address] [place] [address] [place] #### LIPA #### [facility] , Protein [Mass/volume] in Ser um or PlasmaOrdered By: Sharla Benitez on 10-24-2023 Protein [Mass/Vol] 7.2 g/dL Normal 6.4-8.[address] [facility] Comment on above: Order Comment: Reaso n for Exam Obesity;Depression;Snores;DARREL (obstructive sleep apnea);Janice Performed By: #### A 1C [facility] eA, LIPID, CMP, CBCNO, TSH3 wRFLX #### [facility] [address] [place] [address] [place] #### LIPA #### [facility] , Serum globulin measurement b y calculation (mass/volume)Ordered By: Sharla Benitez on 10-24-2023 Globulin (S) [Mass/Vol] 2.9 g/dL [facility] Comment on above: Order Comment: Reaso n for Exam Obesity;Depression;Snores;DARREL (obstructive sleep apnea);[place] Performed By: #### A 1C WT eA, LIPID, CMP, CBCNO, TSH3 wRFLX #### [facility] [address] [place] [address] [place] #### LIPA #### [facility] , Serum or plasma albumin/glob ulin mass ratioOrdered By: Sharla Benitez on 10-24-2023 Albumin/Globulin [Mass ratio] 1.5 {ratio} [facility] Comment on above: Order Comment: Reaso n for Exam Obesity;Depression;Snores;DARREL (obstructive sleep apnea);Janice Performed By: #### A 1C [facility] eA, LIPID, CMP, CBCNO, TSH3 wRFLX #### [facility] [address] [place] [address] [place] #### LIPA #### [facility] , Serum or plasma anion gap de terminationOrdered By: Sharla Eli on 10-24-2023 Anion gap [Moles/Vol] 12.5 mmol/L Normal 6.0-15.0 [facility] Comment on above: Order Comment: Reaso n for Exam Obesity;Depression;Snores;DARREL (obstructive sleep apnea);[place] Performed By: #### A 1C WT eA, LIPID, CMP, CBCNO, TSH3 wRFLX #### [facility] [address] [place] [address] [place] #### LIPA #### [facility] , Serum or plasma high density lipoprotein (HDL) cholesterol measurementOrdered By: Sharla Benitez on 10-24-2023 Cholesterol in HDL [Mass/Vol] 37 mg/dL Normal 23-92 [facility] Comment on above: HDL CHOL ATP-III CLA SSIFICATION Cardiovascular RiskHDL > or equal to 60 mg/dL LOWHDL < 40 mg/dL HIGH Order Comment: Reaso n for Exam Obesity;Depression;Snores;DARREL (obstructive sleep apnea);Janice Result Comment: HDL CHOL ATP-III CLASSIFICATION Cardiovascular Risk HDL > or equal to 60 mg/dL LOW HDL < 40 mg/dL HIGH Performed By: #### A 1C WTH eA, LIPID, CMP, CBCNO, TSH3 wRFLX #### [facility] [address] [place] [address] [place] #### LIPA #### [facility] , Serum or plasma lipoprotein a measurement (moles/volume)Ordered By: Sharla Benitez on 10-24-2023 Lipoprotein a [Moles/Vol] 35.7 nmol/L <75.0 [facility] Comment on above: Note: Values greater than or equal to 75.0 nmol/L may indicate an independent risk factor for CHD, but must be evaluated with caution when applied to non- populations due to the influence of genetic factors on Lp(a) across ethnicities.Performed at: [facility] [employer] [facility] [employer] [id number] Director: Jayjay Oakley PhD, Phone: [phone] Serum or plasma total choles terol/high density lipoprotein (HDL) cholesterol mass ratOrdered By: Sharla Benitez on 10-24-2023 Cholesterol.total/Cho lesterol in HDL [Mass ratio] 6.2 {ratio} Normal <5.0 [facility] Comment on above: Order Comment: Reaso n for Exam Obesity;Depression;Snores;DARREL (obstructive sleep apnea);[place] Performed By: #### A 1C WTH eA, LIPID, CMP, CBCNO, TSH3 wRFLX #### [facility] [address] [place] [address] #### LIPA #### [facility] , Sodium [Moles/volume] in Ser um or PlasmaOrdered By: Sharla Benitez on 10-24-2023 Sodium [Moles/Vol] 141 mmol/L Normal 136-[address] [facility] Comment on above: Order Comment: Reaso n for Exam Obesity;Depression;Snores;DARREL (obstructive sleep apnea);[place] Performed By: #### A 1C WTH eA, LIPID, CMP, CBCNO, TSH3 wRFLX #### [facility] [address] [place] [address] #### LIPA #### [facility] , Thyroid Stim Hormone w/Rflxo n 10-24-2023 Thyroid Stim Hormone w/Rflx 3.21 u[iU]/mL Normal 0.45-5.33 [facility] Comment on above: Order Comment: Reaso n for Exam Obesity;Depression;Snores;DARREL (obstructive sleep apnea);Janice Result Comment: PERF ORMED BY: [place] [address] PATHOLOGIST GRAPHIC DESIGN PROFESSOR OTILIA SOTO M.D. Performed By: #### A 1C WTH eA, LIPID, CMP, CBCNO, TSH3 wRFLX #### [facility] [address] [place] [address] [place] #### LIPA #### [facility] , Thyrotropin [Units/volume] i n Serum or PlasmaOrdered By: Sharla Benitez on 10-24-2023 TSH Qn 3.21 m[IU]/L 0.45-5.33 [facility] Triglyceride [Mass/volume] i n Serum or PlasmaOrdered By: Sharla Benitez on 10-24-2023 Triglyceride [Mass/Vol] 144 mg/dL 0-149 [facility] Comment on above: TRIG ATP III CLASSIF ICATIONTRIG less than 150 mg/dL NormalTRIG 150-199 mg/dL Borderline highTRIG 200-500 mg/dL High TRIG greater than 500 mg/dL Very highStandard traceable to the Center for Disease Conrtrol and Prevention (CDC) test method. Urea nitrogen [Mass/volume] in Serum or PlasmaOrdered By: Sharla Benitez on 10-24-2023 Urea nitrogen [Mass/Vol] 10 mg/dL Normal 7-25 [facility] Comment on above: Order Comment: Reaso n for Exam Obesity;Depression;Snores;DARREL (obstructive sleep apnea);[place] Performed By: #### A 1C WTH eA, LIPID, CMP, CBCNO, TSH3 wRFLX #### [facility] [address] [place] [address] #### LIPA #### [facility] , Ambulatory Visit Summaryon 1 10-02-2022 Ambulatory Visit Summary MARY DOUGLAS :1965 Visit Date:08/02/2023 Ambulatory Visit Instructions Your Care Team Attending Physician - Pb FOSS MD Primary Care Physician - MULUGETA GOTTI [...] for choosing us for your care. Normal [facility] ED Note-Physicianon 08-01-20 ED Note-Physician [id number] Normal [facility] RAD - CT Reporton 08-01-2023 RAD - CT Report [id number] Normal [facility] XR lumbar spine AP/LAT/FLX/E XTon 07-10-2023 XR lumbar spine AP/LAT/FLX/EXT [facility] [place] [address] XRay Report Signed Patient: Mary Douglas MR#: [id number] 0 : 1965 Acct:[id number] Age/Sex: 58 / F ADM Date: 07/10/23 Loc: Room: Type: [facility] Attending Dr: Prasanna Weems MD Copies to: [...] Phyllis Dowd M.D.07/10/2023 4:35 PM Dictation Location: [place] [address] Transcribed By: [facility] 07/10/23 163 Dictated By: Phyllis Dowd MD 07/10/23 163 Signed By: 07/10/23 1635 Normal [facility] Basophils Auto (Bld) [#/Vol] Ordered By: Denver Naranjo on 05-19-2023 Basophils (Bld) [#/Vol] 0.1 10*3/uL 0.0-0.2 [facility] Basophils/100 WBC Auto (Bld) Ordered By: Denver Naranjo on 05-19-2023 Basophils/100 WBC (Bld) 1.0 % . [facility] COVID CepheidOrdered By: Faustino Naranjo on 05-19-2023 SARS-CoV-2 (COVID-19) RNA IGLESIA+probe Ql (Unsp spec) [facility] SARS-CoV-2 (COVID-19) RNA IGLESIA+probe Ql (Unsp spec) [facility] COVID CepheidOrdered By: PRO VIDER TEMP on 05-19-2023 SARS-CoV-2 (COVID-19) Ab IA Ql Negative Negative [facility] Comment on above: This is a duplicate Cepheid Xpert Xpress CoV-2/Flu/RSV Plus RNA by RT-PCR result to be used for statistical tracking purpose only. Calcium [Mass/volume] in Ser um or PlasmaOrdered By: Denver Naranjo on 05-19-2023 Calcium [Mass/Vol] 8.9 mg/dL 8.6-10.[address] [facility] Carbon dioxide, total [Moles /volume] in Serum or PlasmaOrdered By: Denver Naranjo on 05-19-2023 CO2 [Moles/Vol] 26.6 mmol/L 21.0-31.0 [facility] Chloride [Moles/volume] in S lito or PlasmaOrdered By: Denver Naranjo on 05-19-2023 Chloride [Moles/Vol] 106 mmol/L 98-107 [facility] Creatinine [Mass/volume] in Serum or PlasmaOrdered By: Denver Naranjo on 05-19-2023 Creatinine [Mass/Vol] 0.66 mg/dL 0.60-1.20 [facility] Eosinophils Auto (Bld) [#/Vo l]Ordered By: Denver Naranjo on 05-19-2023 Eosinophils (Bld) [#/Vol] 0.0 10*3/uL 0.0-0.45 [facility] Eosinophils/100 WBC Auto (Bl d)Ordered By: Denver Naranjo on 05-19-2023 Eosinophils/100 WBC (Bld) 0.0 % . [facility] Erythrocyte distribution wid th Auto (RBC) [Ratio]Ordered By: Denver Naranjo on 05-19-2023 Erythrocyte distribution width (RBC) [Ratio] 14.2 % 11.9-15.3 [facility] Glucose [Mass/volume] in Ser um or PlasmaOrdered By: Denver Naranjo on 05-19-2023 Glucose [Mass/Vol] 87 mg/dL 70-[address] [facility] Comment on above: ADA recommended refe rence rangeRandom Glucose Reference Range is dependent on time and content of last meal. Glucose of more than 200 mg/dL in a nonstressed, ambulatory subject supports the diagnosis of Diabetes Mellitus. Hematocrit Auto (Bld) [Volum e fraction]Ordered By: Denver Naranjo on 05-19-2023 Hematocrit (Bld) [Volume fraction] 41.7 % 34.0-46.4 [facility] Hemoglobin [Mass/volume] in BloodOrdered By: Denver Naranjo on 05-19-2023 Hemoglobin (Bld) [Mass/Vol] 14.1 g/dL 11.8-15.4 [facility] Leukocytes [#/volume] correc cherry for nucleated erythrocytes in Blood by Automated counOrdered By: Denver Naranjo on 05-19-2023 WBC corrected for nucl RBC Auto (Bld) [#/Vol] 8.5 10*3/uL 3.8-11.6 [facility] Lymphocytes Auto (Bld) [#/Vo l]Ordered By: Denver Naranjo on 05-19-2023 Lymphocytes (Bld) [#/Vol] 1.8 10*3/uL 1.00-4.8 [facility] Lymphocytes/100 WBC Auto (Bl d)Ordered By: Denver Naranjo on 05-19-2023 Lymphocytes/100 WBC (Bld) 20.7 % . [facility] MCH Auto (RBC) [Entitic mass ]Ordered By: Denver Naranjo on 05-19-2023 MCH (RBC) [Entitic mass] 30.1 pg 24.7-34.3 [facility] MCHC Auto (RBC) [Mass/Vol]Or dered By: Denver Naranjo on 05-19-2023 MCHC (RBC) [Mass/Vol] 33.9 g/dL 32.0-35.0 [facility] MCV Auto (RBC) [Entitic vol] Ordered By: Denver Naranjo on 05-19-2023 MCV (RBC) [Entitic vol] 88.6 fL 80-100 [facility] Monocyte distribution width [Entitic volume] in Blood by AutomatedOrdered By: Denver Naranjo on 05-19-2023 Monocyte distribution width Auto (Bld) [Entitic vol] 19.18 % 0.00-20.00 [facility] Monocytes Auto (Bld) [#/Vol] Ordered By: Denver Naranjo on 05-19-2023 Monocytes (Bld) [#/Vol] 0.7 10*3/uL 0.0-0.8 [facility] Monocytes/100 WBC Auto (Bld) Ordered By: Denver Naranjo on 05-19-2023 Monocytes/100 WBC (Bld) 8.6 % . [facility] Natriuretic peptide B [Mass/ Vol]Ordered By: Denver Naranjo on 05-19-2023 Natriuretic peptide B (Bld) [Mass/Vol] 20.0 pg/mL 5-100 [facility] Neutrophils Auto (Bld) [#/Vo l]Ordered By: Denver Naranjo on 05-19-2023 Neutrophils (Bld) [#/Vol] 6.0 10*3/uL 1.8-7.7 [facility] Neutrophils/100 WBC Auto (Bl d)Ordered By: Denver Naranjo on 05-19-2023 Neutrophils/100 WBC (Bld) 69.7 % . [facility] No Panel InformationOrdered By: Denver Naranjo on 05-19-2023 Estimated GFR (CKD-EPI) > 60.0 mL/Min [facility] Creatinine Clearance (Chem 121.07 [facility] Nucleated erythrocytes [Pres ence] in Blood by Automated countOrdered By: Denver Naranjo on 05-19-2023 Nucleated RBC Auto Ql (Bld) 0.0 /100{WBC} 0-0.5 [facility] Platelet mean volume Auto (B ld) [Entitic vol]Ordered By: Denver Naranjo on 05-19-2023 Platelet mean volume (Bld) [Entitic vol] 7.2 fL 6.3-10.7 [facility] Platelets Auto (Bld) [#/Vol] Ordered By: Denver Naranjo on 05-19-2023 Platelets (Bld) [#/Vol] 237 10*3/uL 150-450 [facility] Potassium [Moles/volume] in Serum or PlasmaOrdered By: Denver Naranjo on 05-19-2023 Potassium [Moles/Vol] 3.9 mmol/L 3.5-5.1 [facility] RBC Auto (Bld) [#/Vol]Ordere d By: Denver Naranjo on 05-19-2023 RBC (Bld) [#/Vol] 4.70 10*6/uL 3.60-5.00 [facility] Serum or plasma anion gap de terminationOrdered By: Denver Naranjo on 05-19-2023 Anion gap [Moles/Vol] 10.3 mmol/L 6.0-15.0 [facility] Sodium [Moles/volume] in Ser um or PlasmaOrdered By: Denver Naranjo on 05-19-2023 Sodium [Moles/Vol] 139 mmol/L 136-[address] [facility] Troponin I.cardiac [Mass/vol ume] in Serum or Plasma by Detection limit <= 0.01 ng/Ordered By: Denver Naranjo on 05-19-2023 Troponin I.cardiac DL <= 0.01 ng/mL [Mass/Vol] 4.9 pg/mL 0.0-15.0 [facility] Urea nitrogen [Mass/volume] in Serum or PlasmaOrdered By: Denver Naranjo on 05-19-2023 Urea nitrogen [Mass/Vol] 11 mg/dL 7-25 [facility] WBC Auto (Bld) [#/Vol]Ordere d By: Denver Naranjo on 05-19-2023 WBC (Bld) [#/Vol] 8.5 10*3/uL 3.8-11.[address] [facility] ANES POSTPROC EVALon 023 ANES POSTPROC EVAL HNO ID: [id number] Author: Don Torres MD Service: Anesthesiology Author Type: Anesthesiologist Type: Anesthesia Postprocedure Evaluation Filed: 05/17/2023 8:57 AM Note Text: POST ANESTHESIA EVALUATION NOTE : 1965 Procedure Summary Date: 05/17/23 Room / Location: [facility] Endoscopy - ENDO Anesthesia Start: 741 Anesthesia Stop: 804 Procedure: ERCP Diagnosis: Encounter for removal of biliary stent (Biliary stent removal) Scheduled Providers: Luis Xavier MD; Don Torres MD; Clement Rodas APRN.INTERNAL CONTROL ANALYST Responsible Provider: Don Torres MD Anesthesia Type: [...] May 17, 2023 TIME: 8:57 AM CSN: [id number] Normal [facility] ANES PRE-OPon 05-17-2023 ANES PRE-OP HNO ID: [id number] Author: Don Torres MD Service: Anesthesiology Author Type: Anesthesiologist Type: Anesthesia Preprocedure Evaluation Filed: 05/17/2023 7:13 AM Note Text: ANESTHESIOLOGY DAY OF SURGERY NOTE : 1965 Procedure Information Date/Time: 05/17/23729 Scheduled providers: Luis Xavier MD; Don Torres MD; Clement Rodas APRN.INTERNAL CONTROL ANALYST Procedure: ERCP Location: [facility] Endoscopy - ENDO Estimated body mass index [...] and consent discussed: yes. Patient / Responsible Constitution Party agrees to proceed: yes Patient / Surrogate [...] the urethra and just inside the labia, [facility], [facility], 167, cm, 06/08/21 8:49:00 EDT, Height/Length Dosing, 136, kg, 06/08/21 8:49:00 EDT, We... - L.acid/L.casei/B.bif/B.kulwant /FOS (PROBIOTIC BLEND ORAL) Take by mouth. - CRANBERRY - VTHY-RRLM-OVIBCBE-FOS-BROM ELN ORAL Take by mouth. - trazodone [...] May 17, 2023 TIME: 7:12 AM CSN: [id number] [facility] 05-17-2023 [facility] Telephone ([facility]) -- MARY DOUGLAS ([id number]) 1965 F LV Date Time Provider Department 05/17/23 LUIS XAVIER [...] the urethra and just inside the labia, [facility], [facility], 167, cm, 06/08/21 8:49:00 EDT, Height/Length Dosing, 136, kg, 06/08/21 8:49:00 EDT, We... - L.acid/L.casei/B.bif/B.kulwant /FOS (PROBIOTIC BLEND ORAL) Take by mouth. - CRANBERRY - XRQD-XKPE-IHUIZAG-FOS-BROM ELN ORAL Take by mouth. - trazodone HCl (TRAZODONE ORAL) Take by mouth daily at bedtime. - tiZANidine HCl 2 mg capsule Take 2 mg by mouth daily at bedtime. - venlafaxine ER (EFFEXOR XR) 150 mg 24 hr capsule Take 150 mg by mouth once daily. 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 Procedure Code(s): --- Professional --- 70898, Endoscopic retrograde cholangiopancreatography (ERCP); with removal of foreign body(s) or stent(s) from biliary/pancreatic duct(s) 71992, Endoscopic retrograde cholangiopancreatography (ERCP); with removal of calculi/debris from biliary/pancreatic duct(s) Diagnosis Code(s): --- Professional --- T85.590A, Other mechanical complication of bile duct prosthesis, initial encounter K80.50, Calculus of bile duct without cholangitis or cholecystitis without obstruction Z46.59, Encounter for fitting and adjustment of other gastrointestinal appliance and device K83.8, Other specified diseases of biliary tract CPT copyright 2020 [employer]. All rights reserved. The codes documented in this report are preliminary and upon family support worker review may be revised to meet current compliance requirements. Attending Participation: I personally performed the entire procedure. Scope In: 7:49:47 AM Scope Out: 7:56:49 AM MD Luis Flores MD 05/17/2023 8:15:10 AM This report has been signed electronically by Luis Xavier MD Number of Addenda: 0 Note Initiated On: 05/17/2023 7:14 AM Estimated Blood Loss: Estimated blood loss: none. Normal [facility] HISTORY PHYSICALon 3 HISTORY PHYSICAL HNO ID: [id number] Author: Luis Xavier MD Service: Gastroenterology Author [...] the urethra and just inside the labia, [facility], [facility], 167, cm, 06/08/21 8:49:00 EDT, Height/Length Dosing, 136, kg, 06/08/21 8:49:00 EDT, We... 05/16/2023 Yes L.acid/L.casei/B.bif/B.kulwant /FOS (PROBIOTIC BLEND ORAL) Take by mouth. 05/16/2023 Yes NCRE-ORMV-VCQLLDT-FOS-BROM ELN ORAL Take by mouth. 05/16/2023 Yes [...] DATE: May 17, 2023 TIME: 7:32 AM [facility] NURSING PROGon 05-17-2023 NURSING PROG HNO ID: [id number] Author: Rupal Lombardo RN Service: Nursing Author Type: Registered Nurse Type: Nursing Progress Note Filed: 05/17/2023 8:39 AM Note Text: 0801 Pt received in Endo RR in satisfactory condition Pt denies c/o pain/discomfort 0830 Discharge instructions given to patient All questions/concerns addressed 0819 Pt sitting up and drinking fluids without incident 0838 Left Endo in satisfactory condition Rupal Lombardo RN [facility] NURSING PROG HNO ID: [id number] Author: Javier, , RN Service: Nursing Author Type: Registered Nurse [...] REFERRAL (RECOMMENDATION): None Electronically Signed By: Mary Herrera [facility] XR ERCP READ ONLYon 05-17-20 XR [...] Please see operative report for further details. Smeller: TATYANA Transcribe Date/Time: May 17 2023 2:44P Dictated by : DEJAN REID MD This examination was interpreted and the report reviewed and electronically signed by: DEJAN REID MD on May 17 2023 2:45PM EST [id number] [facility]20[facility] MARY DOUGLAS ([id number]) 1965 F LV Date Time Provider Department 04/20/23 SHAWN PRASAD [...] Upset Date Reviewed: 2023 Reviewed by: Perla Chapman, RN - Fully Assessed Reason for Visit: [...] the urethra and just inside the labia, [facility], [facility], 167, cm, 06/08/21 8:49:00 EDT, Height/Length Dosing, 136, kg, 06/08/21 8:49:00 EDT, We... - L.acid/L.casei/B.bif/B.kulwant /FOS (PROBIOTIC BLEND ORAL) Take by mouth. - CRANBERRY - BPRG-BPBY-WJXWGTE-FOS-BROM ELN ORAL Take by mouth. - trazodone HCl (TRAZODONE ORAL) Take by mouth daily at bedtime. - tiZANidine HCl 2 mg capsule Take 2 mg by mouth daily at bedtime. - venlafaxine ER (EFFEXOR XR) 150 mg 24 hr capsule Take 150 mg by mouth once daily. 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 difficile toxin genes IGLESIA+probe Ql (Stl) Negative Normal Negative for C. difficile toxin by PCR [facility] Comment on above: Order Comment: Speci men Type: STOOL SPECIMENOrdering Facility: [facility] Address: [address] [place] [id number] Performed By: #### 5 [id number] ####[facility] LABCLIA [id number] [facility] [id number] [place] [address] [place] Alanine aminotransferase [En zymatic activity/volume] in Serum or PlasmaOrdered By: Sharla Benitez on 04-18-2023 ALT [Catalytic activity/Vol] 15 U/L 7-52 [facility] Albumin [Mass/volume] in Ser um or Plasma by Bromocresol green (BCG) dye binding methoOrdered By: Sharla Benitez on 04-18-2023 Albumin BCG dye [Mass/Vol] 4.3 g/dL 3.5-5.7 [facility] Alkaline phosphatase [Enzyma tic activity/volume] in Serum or PlasmaOrdered By: Sharla Benitez on 04-18-2023 ALP [Catalytic activity/Vol] 114 U/L 34-104 [facility] Amylaseon 04-18-2023 Amylase 29 U/L Normal 29-103 U/L [facility] Other Amylase [Enzymatic activity/ volume] in Serum or PlasmaOrdered By: Sharla eBnitez on 04-18-2023 Amylase [Catalytic activity/Vol] 29 U/L 29-103 [facility] Aspartate aminotransferase [ Enzymatic activity/volume] in Serum or PlasmaOrdered By: Sharla Benitez on 04-18-2023 AST [Catalytic activity/Vol] 17 U/L 13-39 [facility] Basophils Auto (Bld) [#/Vol] Ordered By: Sharla Benitez on 04-18-2023 Basophils (Bld) [#/Vol] 0.1 10*3/uL 0.0-0.2 [facility] Basophils/100 WBC Auto (Bld) Ordered By: Sharla Benitez on 04-18-2023 Basophils/100 WBC (Bld) 0.7 % . [facility] Bilirubin.total [Mass/volume ] in Serum or PlasmaOrdered By: Sharla Benitez on 04-18-2023 Bilirubin [Mass/Vol] 0.3 mg/dL 0.3-1.0 [facility] Calcium [Mass/volume] in Ser um or PlasmaOrdered By: Sharla Benitez on 04-18-2023 Calcium [Mass/Vol] 9.2 mg/dL 8.6-10.[address] [facility] Carbon dioxide, total [Moles /volume] in Serum or PlasmaOrdered By: Sharla Benitez on 04-18-2023 CO2 [Moles/Vol] 23.2 mmol/L 21.0-31.0 [facility] Chloride [Moles/volume] in S lito or PlasmaOrdered By: Sharla Benitez on 04-18-2023 Chloride [Moles/Vol] 106 mmol/L 98-107 [facility] Complete Blood Count Auto Di ffon 04-18-2023 Basophils (Bld) [#/Vol] 0.409728774 10*3/uL Normal 0.0-0.2 10*3/uL [facility] Other Basophils/100 WBC (Bld) 0.700 % . % [facility] Other Eosinophils (Bld) [#/Vol] 0.315198796 10*3/uL Normal 0.0-0.45 10*3/uL [facility] Other Eosinophils/100 WBC (Bld) 0.000 % . % [facility] Other Erythrocyte distribution width (RBC) [Ratio] 14.200 % Normal 11.9-15.3 % [facility] Other Hematocrit (Bld) [Volume fraction] 43.400 % Normal 34.0-46.4 % [facility] Other Hemoglobin (Bld) [Mass/Vol] 14.628405 g/dL Normal 11.8-15.4 g/dL [facility] Other Lymphocytes (Bld) [#/Vol] 2.394534448 10*3/uL Normal 1.00-4.8 10*3/uL [facility] Other Lymphocytes/100 WBC (Bld) 28.900 % . % [facility] Other MCH (RBC) [Entitic mass] 29.9000 pg Normal 24.7-34.3 pg [facility] Other MCV (RBC) [Entitic vol] 88.2000 fL Normal 80-100 fL [facility] Other Monocytes (Bld) [#/Vol] 0.354613613 10*3/uL Normal 0.0-0.8 10*3/uL [facility] Other Monocytes/100 WBC (Bld) 7.800 % . % [facility] Other Neutrophils (Bld) [#/Vol] 4.167177501 10*3/uL Normal 1.8-7.7 10*3/uL [facility] Other Neutrophils/100 WBC (Bld) 62.600 % . % [facility] Other Platelet mean volume (Bld) [Entitic vol] 7.2000 fL Normal 6.3-10.7 fL [facility] Other WBC (Bld) [#/Vol] 7.207278273 10*3/uL Normal 3.8 -11.6 10*3/uL [facility] Other Complete Blood Count Auto Diff 7.8 10*3/uL Normal 3.8-11.6 10*3/uL [facility] Other Complete Blood Count Auto Diff 33.9 g/dL Normal 32.0-35.0 g/dL [facility] Other Complete Blood Count Auto Diff 0.1 /100{WBC} Normal 0-0.5 /100{WBC} [facility] Other Comprehensive Metabolic Pane kulwant 04-18-2023 Albumin [Mass/Vol] 4.479050 g/dL Normal 3.5-5.7 g/dL [facility] Other Bilirubin [Mass/Vol] 0.7936653 mg/dL Normal 0.3- 1.0 mg/dL [facility] Other Calcium [Mass/Vol] 9.7160837 mg/dL Normal 8.6-10 .3 mg/dL [facility] Other CO2 [Moles/Vol] 23.49922575 mmol/L Normal 21.0-3 1.0 mmol/L [facility] Other Creatinine [Mass/Vol] 0.25972468 mg/dL Low 0. 60-1.20 mg/dL [facility] Other GFR/1.73 sq M.predicted MDRD (S/P/Bld) [Vol rate/Area] mL/min/{1.73_m2} [facility] Other Potassium [Moles/Vol] 4.68898464 mmol/L Normal 3 .5-5.1 mmol/L [facility] Other Protein [Mass/Vol] 7.312613 g/dL Normal 6.4-8.9 g/dL [facility] Other Comprehensive Metabolic Panel 3.0 g/dL [facility] Other Creatinine [Mass/volume] in Serum or PlasmaOrdered By: Sharla Benitez on 04-18-2023 Creatinine [Mass/Vol] 0.57 mg/dL 0.60-1.20 [facility] Eosinophils Auto (Bld) [#/Vo l]Ordered By: Sharla Benitez on 04-18-2023 Eosinophils (Bld) [#/Vol] 0.0 10*3/uL 0.0-0.45 [facility] Eosinophils/100 WBC Auto (Bl d)Ordered By: Sharla Benitez on 04-18-2023 Eosinophils/100 WBC (Bld) 0.0 % . [facility] Erythrocyte distribution wid th Auto (RBC) [Ratio]Ordered By: Sharla Benitez on 04-18-2023 Erythrocyte distribution width (RBC) [Ratio] 14.2 % 11.9-15.3 [facility] Erythrocytes [#/volume] in B lood by Automated countOrdered By: Sharla Benitez on 04-18-2023 RBC (Bld) [#/Vol] 4.92 10*6/uL 3.60-5.00 [facility] Globulin Calc (S) [Mass/Vol] Ordered By: Sharla Benitez on 04-18-2023 Globulin (S) [Mass/Vol] 3.0 g/dL [facility] Glucose [Mass/volume] in Ser um or PlasmaOrdered By: Sharla Benitez on 04-18-2023 Glucose [Mass/Vol] 82 mg/dL 70-[address] [facility] Comment on above: ADA recommended refe rence rangeRandom Glucose Reference Range is dependent on time and content of last meal. Glucose of more than 200 mg/dL in a nonstressed, ambulatory subject supports the diagnosis of Diabetes Mellitus. Hematocrit Auto (Bld) [Volum e fraction]Ordered By: Sharla Benitez on 04-18-2023 Hematocrit (Bld) [Volume fraction] 43.4 % 34.0-46.4 [facility] Hemoglobin [Mass/volume] in BloodOrdered By: Sharla Benitez on 04-18-2023 Hemoglobin (Bld) [Mass/Vol] 14.7 g/dL 11.8-15.4 [facility] Leukocytes [#/volume] correc cherry for nucleated erythrocytes in Blood by Automated counOrdered By: Sharla Benitez on 04-18-2023 WBC corrected for nucl RBC Auto (Bld) [#/Vol] 7.8 10*3/uL 3.8-11.6 [facility] Lipaseon 04-18-2023 Lipase [Catalytic activity/Vol] 30.51374 U/L Normal 11.0-82.0 U/L [employer] Other Lipase [Enzymatic activity/v olume] in Serum or PlasmaOrdered By: Sharla Benitez on 04-18-2023 Lipase [Catalytic activity/Vol] 30.0 U/L 11.0-82.0 [facility] Lymphocytes Auto (Bld) [#/Vo l]Ordered By: Sharla Benitez on 04-18-2023 Lymphocytes (Bld) [#/Vol] 2.3 10*3/uL 1.00-4.8 [facility] Lymphocytes/100 WBC Auto (Bl d)Ordered By: Sharla Benitez on 04-18-2023 Lymphocytes/100 WBC (Bld) 28.9 % . [facility] MCH Auto (RBC) [Entitic mass ]Ordered By: Sharla Benitez on 04-18-2023 MCH (RBC) [Entitic mass] 29.9 pg 24.7-34.3 [facility] MCHC Auto (RBC) [Mass/Vol]Or dered By: Sharla Benitez on 04-18-2023 MCHC (RBC) [Mass/Vol] 33.9 g/dL 32.0-35.0 [facility] MCV Auto (RBC) [Entitic vol] Ordered By: Sharla Benitez on 04-18-2023 MCV (RBC) [Entitic vol] 88.2 fL 80-100 [facility] Monocytes Auto (Bld) [#/Vol] Ordered By: Sharla Benitze on 04-18-2023 Monocytes (Bld) [#/Vol] 0.6 10*3/uL 0.0-0.8 [facility] Monocytes/100 WBC Auto (Bld) Ordered By: Sharla Benitez on 04-18-2023 Monocytes/100 WBC (Bld) 7.8 % . [facility] Neutrophils Auto (Bld) [#/Vo l]Ordered By: Sharla Benitez on 04-18-2023 Neutrophils (Bld) [#/Vol] 4.9 10*3/uL 1.8-7.7 [facility] Neutrophils/100 WBC Auto (Bl d)Ordered By: Sharla Benitez on 04-18-2023 Neutrophils/100 WBC (Bld) 62.6 % . [facility] No Panel InformationOrdered By: Sharla Benitez on 04-18-2023 Estimated GFR (CKD-EPI) > 60.0 mL/Min [facility] Creatinine Clearance (Chem N/A [facility] Nucleated erythrocytes [Pres ence] in Blood by Automated countOrdered By: Sharla Benitez on 04-18-2023 Nucleated RBC Auto Ql (Bld) 0.1 /100{WBC} 0-0.5 [facility] Platelet mean volume Auto (B ld) [Entitic vol]Ordered By: Sharla Benitez on 04-18-2023 Platelet mean volume (Bld) [Entitic vol] 7.2 fL 6.3-10.7 [facility] Platelets [#/volume] in Bloo d by Automated countOrdered By: Sharla Benitez on 04-18-2023 Platelets (Bld) [#/Vol] 250 10*3/uL 150-450 [facility] Potassium [Moles/volume] in Serum or PlasmaOrdered By: Sharla Benitez on 04-18-2023 Potassium [Moles/Vol] 4.1 mmol/L 3.5-5.1 [facility] Protein [Mass/volume] in Ser um or PlasmaOrdered By: Sharla Benitez on 04-18-2023 Protein [Mass/Vol] 7.3 g/dL 6.4-8.[address] [facility] Serum or plasma albumin/glob ulin mass ratioOrdered By: Sharla Benitez on 04-18-2023 Albumin/Globulin [Mass ratio] 1.4 {ratio} [facility] Serum or plasma anion gap de terminationOrdered By: Sharla Benitez on 04-18-2023 Anion gap [Moles/Vol] 11.9 mmol/L 6.0-15.0 [facility] Sodium [Moles/volume] in Ser um or PlasmaOrdered By: Sharla Benitez on 04-18-2023 Sodium [Moles/Vol] 137 mmol/L 136-[address] [facility] Urea nitrogen [Mass/volume] in Serum or PlasmaOrdered By: Sharla Benitez on 04-18-2023 Urea nitrogen [Mass/Vol] 10 mg/dL 7-25 [facility] WBC Auto (Bld) [#/Vol]Ordere d By: Sharla Benitez on 04-18-2023 WBC (Bld) [#/Vol] 7.8 10*3/uL 3.8-11.[address] [facility] CBC W Auto Differential pane l (Bld)on 04-17-2023 Basophils (Bld) [#/Vol] 10*3/uL Normal <0.11 [facility] Comment on above: Order Comment: Speci men Type: BLOOD SPECIMENOrdering Facility: [facility] Address: [address] [place] [address] Performed By: #### 5 7021-8 ####[facility] LABCLIA [id number] [place] [address] Basophils/100 WBC (Bld) 0.1 % Normal [facility] Comment on above: Order Comment: Speci men Type: BLOOD SPECIMENOrdering Facility: [facility] Address: [address] [place] [address] Performed By: #### 5 7021-8 ####[facility] LABCLIA [id number] [place] [address] Differential cell count method Nom (Bld) Auto Normal [facility] Comment on above: Order Comment: Speci men Type: BLOOD SPECIMENOrdering Facility: [facility] Address: [address] [place] [address] Performed By: #### 5 7021-8 ####[facility] LABCLIA [id number] [place] [address] Eosinophils (Bld) [#/Vol] 10*3/uL Normal <0.46 [facility] Comment on above: Order Comment: Speci men Type: BLOOD SPECIMENOrdering Facility: [facility] Address: [address] [place] [address] Performed By: #### 5 7021-8 ####[facility] LABCLIA [id number] [place] [address] Eosinophils/100 WBC (Bld) 0.0 % Normal [facility] Comment on above: Order Comment: Speci men Type: BLOOD SPECIMENOrdering Facility: [facility] Address: [address] [address] Performed By: #### 5 7021-8 ####[facility] LABCLIA [id number] [place] [address] Erythrocyte distribution width (RBC) [Ratio] 13.4 % Normal 11.5-15.0 [facility] Comment on above: Order Comment: Speci men Type: BLOOD SPECIMENOrdering Facility: [facility] Address: [address] [place] [address] Performed By: #### 5 7021-8 ####[facility] LABCLIA [id number] [place] [address] Hematocrit (Bld) [Volume fraction] 47.2 % High 36.0-46.0 [facility] Comment on above: Order Comment: Speci men Type: BLOOD SPECIMENOrdering Facility: [facility] Address: [address] [place] [address] Performed By: #### 5 7021-8 ####[facility] LABCLIA [id number] [place] [address] Hemoglobin (Bld) [Mass/Vol] 15.6 g/dL High 11.5-15.5 [facility] Comment on above: Order Comment: Speci men Type: BLOOD SPECIMENOrdering Facility: [facility] Address: [address] [place] [address] Performed By: #### 5 7021-8 ####[facility] LABCLIA [id number] [place] [address] Immature granulocytes (Bld) [#/Vol] 10*3/uL Normal <0.10 [facility] Comment on above: Order Comment: Speci men Type: BLOOD SPECIMENOrdering Facility: [facility] Address: [address] [place] [address] Performed By: #### 5 7021-8 ####[facility] LABCLIA [id number] [place] [address] Immature granulocytes/100 WBC (Bld) 0.2 % Normal [facility] Comment on above: Order Comment: Speci men Type: BLOOD SPECIMENOrdering Facility: [facility] Address: [address] [place] [address] Performed By: #### 5 7021-8 ####[facility] LABCLIA [id number] [place] [address] Lymphocytes (Bld) [#/Vol] 2.28 10*3/uL Normal 1.00-4.00 [facility] Comment on above: Order Comment: Speci men Type: BLOOD SPECIMENOrdering Facility: [facility] Address: [address] [place] [address] Performed By: #### 5 7021-8 ####[facility] LABCLIA [id number] [place] [address] Lymphocytes/100 WBC (Bld) 28.4 % Normal [facility] Comment on above: Order Comment: Speci men Type: BLOOD SPECIMENOrdering Facility: [facility] Address: [address] [place] [address] Performed By: #### 5 7021-8 ####[facility] LABCLIA [id number] [place] [address] MCH (RBC) [Entitic mass] 30.0 pg Normal 26.0-34.0 [facility] Comment on above: Order Comment: Speci men Type: BLOOD SPECIMENOrdering Facility: [facility] Address: [address] [place] [address] Performed By: #### 5 7021-8 ####[facility] LABCLIA [id number] [place] [address] MCHC (RBC) [Mass/Vol] 33.1 g/dL Normal 30.5-36.0 [facility] Comment on above: Order Comment: Speci men Type: BLOOD SPECIMENOrdering Facility: [facility] Address: [address] [address] Performed By: #### 5 7021-8 ####[facility] LABIA [id number] [place] [address] MCV (RBC) [Entitic vol] 90.8 fL Normal 80.0-100.0 [facility] Comment on above: Order Comment: Speci men Type: BLOOD SPECIMENOrdering Facility: [facility] Address: [address] [place] [address] Performed By: #### 5 7021-8 ####[facility] LABIA [id number] [place] [address] Monocytes (Bld) [#/Vol] 0.61 10*3/uL Normal <0.87 [facility] Comment on above: Order Comment: Speci men Type: BLOOD SPECIMENOrdering Facility: [facility] Address: [address] [place] [address] Performed By: #### 5 7021-8 ####[facility] LABIA [id number] [place] [address] Monocytes/100 WBC (Bld) 7.6 % Normal [facility] Comment on above: Order Comment: Speci men Type: BLOOD SPECIMENOrdering Facility: [facility] Address: [address] [address] Performed By: #### 5 7021-8 ####[facility] LABCLIA [id number] [place] [address] Neutrophils (Bld) [#/Vol] 5.10 10*3/uL Normal 1.45-7.50 [facility] Comment on above: Order Comment: Speci men Type: BLOOD SPECIMENOrdering Facility: [facility] Address: [address] [place] [address] Performed By: #### 5 7021-8 ####[facility] LABCLIA [id number] [place] [address] Neutrophils/100 WBC (Bld) 63.7 % Normal [facility] Comment on above: Order Comment: Speci men Type: BLOOD SPECIMENOrdering Facility: [facility] Address: [address] [place] [address] Performed By: #### 5 7021-8 ####[facility] LABCLIA [id number] [place] [address] Nucleated RBC (Bld) [#/Vol] 10*3/uL Normal <0.01 [facility] Comment on above: Order Comment: Speci men Type: BLOOD SPECIMENOrdering Facility: [facility] Address: [address] [place] [address] Performed By: #### 5 7021-8 ####[facility] LABCLIA [id number] [place] [address] Nucleated RBC/100 WBC (Bld) [Ratio] 0.0 /100 WBC Normal [facility] Comment on above: Order Comment: Speci men Type: BLOOD SPECIMENOrdering Facility: [facility] Address: [address] [place] [address] Performed By: #### 5 7021-8 ####[facility] LABCLIA [id number] [place] [address] Platelet mean volume (Bld) [Entitic vol] 9.0 fL Normal 9.0-12.7 [facility] Comment on above: Order Comment: Speci men Type: BLOOD SPECIMENOrdering Facility: [facility] Address: [address] [place] [address] Performed By: #### 5 7021-8 ####[facility] LABCLIA [id number] [place] [address] Platelets (Bld) [#/Vol] 242 10*3/uL Normal 150-400 [facility] Comment on above: Order Comment: Speci men Type: BLOOD SPECIMENOrdering Facility: [facility] Address: [address] [place], [place] [address] Performed By: #### 5 7021-8 ####[facility] LABCLIA [id number] [place] [address] RBC (Bld) [#/Vol] 5.20 10*6/uL Normal 3.90-5.20 [facility] Comment on above: Order Comment: Speci men Type: BLOOD SPECIMENOrdering Facility: [facility] Address: [address] [address] Performed By: #### 5 7021-8 ####[facility] LABCLIA [id number] [place] [address] WBC (Bld) [#/Vol] 8.02 10*3/uL Normal 3.70-11.00 [facility] Comment on above: Order Comment: Speci men Type: BLOOD SPECIMENOrdering Facility: [facility] Address: [address] [address] Performed By: #### 5 7021-8 ####[facility] LABCLIA [id number] [place] [address] Basophils (Bld) [#/Vol] <0.11 k/uL [facility] Basophils/100 WBC (Bld) 0.1 % [facility] Differential cell count method Nom (Bld) Auto [facility] Eosinophils (Bld) [#/Vol] <0.46 k/uL [facility] Eosinophils/100 WBC (Bld) 0.0 % [facility] Erythrocyte distribution width (RBC) [Ratio] 13.4 % 11.5 - 15.0 % [facility] Hematocrit (Bld) [Volume fraction] 47.2 % High 36.0 - 46.0 % [facility] Hemoglobin (Bld) [Mass/Vol] 15.6 g/dL High 11.5 - 15.5 g/dL [facility] Immature granulocytes (Bld) [#/Vol] <0.10 k/uL [facility] Immature granulocytes/100 WBC (Bld) 0.2 % [facility] Lymphocytes (Bld) [#/Vol] 2.28 10*3/uL 1.00 - 4.00 k/uL [facility] Lymphocytes/100 WBC (Bld) 28.4 % [facility] MCH (RBC) [Entitic mass] 30.0 pg 26.0 - 34.0 pg [facility] MCHC (RBC) [Mass/Vol] 33.1 g/dL 30.5 - 36.0 g/dL [facility] MCV (RBC) [Entitic vol] 90.8 fL 80.0 - 100.0 fL [facility] Monocytes (Bld) [#/Vol] 0.61 10*3/uL <0.87 k/uL [facility] Monocytes/100 WBC (Bld) 7.6 % [facility] Neutrophils (Bld) [#/Vol] 5.10 10*3/uL 1.45 - 7.50 k/uL [facility] Neutrophils/100 WBC (Bld) 63.7 % [facility] Nucleated RBC (Bld) [#/Vol] <0.01 k/uL [facility] Nucleated RBC/100 WBC (Bld) [Ratio] 0.0 /100 WBC [facility] Platelet mean volume (Bld) [Entitic vol] 9.0 fL 9.0 - 12.7 fL [facility] Platelets (Bld) [#/Vol] 242 10*3/uL 150 - 400 k/uL [facility] RBC (Bld) [#/Vol] 5.20 10*6/uL 3.90 - 5.20 m/uL [facility] WBC (Bld) [#/Vol] 8.02 10*3/uL 3.70 - 11.00 k/uL [facility] Comprehensive metabolic 2000 panelon 04-17-2023 Albumin [Mass/Vol] 4.4 g/dL Normal 3.9-4.9 [facility] Comment on above: Order Comment: Speci men Type: BLOOD SPECIMENOrdering Facility: [facility] Address: [address] [place] [phone] Performed By: #### 2 4323-8 ####[facility] LABCLIA [id number] [place] [address] ALP [Catalytic activity/Vol] 136 U/L High 34-123 [facility] Comment on above: Order Comment: Speci men Type: BLOOD SPECIMENOrdering Facility: [facility] Address: [address] [address] Performed By: #### 2 4323-8 ####[facility] LABCLIA [id number] [place] [address] ALT [Catalytic activity/Vol] 16 U/L Normal 7-38 [facility] Comment on above: Order Comment: Speci men Type: BLOOD SPECIMENOrdering Facility: [facility] Address: [address] [address] Performed By: #### 2 4323-8 ####[facility] LABCLIA [id number] [place] [address] Anion gap [Moles/Vol] 14 mmol/L Normal 9-18 [facility] Comment on above: Order Comment: Speci men Type: BLOOD SPECIMENOrdering Facility: [facility] Address: [address] [place] [address] Performed By: #### 2 4323-8 ####[facility] LABCLIA [id number] [place] [address] AST [Catalytic activity/Vol] 18 U/L Normal 13-35 [facility] Comment on above: Order Comment: Speci men Type: BLOOD SPECIMENOrdering Facility: [facility] Address: [address] [address] Performed By: #### 2 4323-8 ####[facility] LABCLIA [id number] [place] [address] Bilirubin [Mass/Vol] mg/dL Low 0.2-1.3 [facility] Comment on above: Order Comment: Speci men Type: BLOOD SPECIMENOrdering Facility: [facility] Address: [address] [place] [address] Performed By: #### 2 4323-8 ####[facility] LABCLIA [id number] [place] [address] Calcium [Mass/Vol] 9.4 mg/dL Normal 8.5-10.2 [facility] Comment on above: Order Comment: Speci men Type: BLOOD SPECIMENOrdering Facility: [facility] Address: [address] [place] [address] Performed By: #### 2 4323-8 ####[facility] LABCLIA [id number] [place] [address] Chloride [Moles/Vol] 106 mmol/L High 97-105 [facility] Comment on above: Order Comment: Speci men Type: BLOOD SPECIMENOrdering Facility: [facility] Address: [address] [place] [address] Performed By: #### 2 4323-8 ####[facility] LABCLIA [id number] [place] [address] CO2 [Moles/Vol] 21 mmol/L Low 22-30 [facility] Comment on above: Order Comment: Speci men Type: BLOOD SPECIMENOrdering Facility: [facility] Address: [address] [place] [address] Performed By: #### 2 4323-8 ####[facility] LABCLIA [id number] [place] [address] Creatinine [Mass/Vol] 0.70 mg/dL Normal 0.58-0.96 [facility] Comment on above: Order Comment: Speci men Type: BLOOD SPECIMENOrdering Facility: [facility] Address: [address] [place] [address] Performed By: #### 2 4323-8 ####[facility] LABCLIA [id number] [place] [address] ESTIMATED GLOMERULAR FILTRATION RATE 102 mL/min/1.73m??? Normal >=60 [facility] Comment on above: Order Comment: Speci men Type: BLOOD SPECIMENOrdering Facility: [facility] Address: [address] [place] [address] Result Comment: Nesha mated Glomerular Filtration Rate [...] actual GFR. Performed By: #### 2 4323-8 ####[facility] LABCLIA [id number] [place] [address] Glucose [Mass/Vol] 96 mg/dL Normal 74-99 [facility] Comment on above: Order Comment: Speci mando Type: BLOOD SPECIMENOrdering Facility: [facility] Address: [address] [place] [phone] Result Comment: The [place] Diabetes Association (ADA) provides guidance for cutoff [...] Standards of Medical Care in Diabetes 2016, [place] [employer] Association. Diabetes Care. 2016.39(Suppl 1). Performed By: #### 2 4323-8 ####[facility] LABCLIA [id number] [place] [address] Potassium [Moles/Vol] 4.2 mmol/L Normal 3.7-5.1 [facility] Comment on above: Order Comment: Patrizia gilmore Type: BLOOD SPECIMENOrdering Facility: [facility] Address: [address] [place] [phone] Performed By: #### 2 4323-8 ####[facility] LABCLIA [id number] [place] [address] Protein [Mass/Vol] 7.1 g/dL Normal 6.3-8.0 [facility] Comment on above: Order Comment: Speci men Type: BLOOD SPECIMENOrdering Facility: [facility] Address: [address] [address] Performed By: #### 2 4323-8 ####[facility] LABCLIA [id number] [place] [address] Sodium [Moles/Vol] 141 mmol/L Normal 136-144 [facility] Comment on above: Order Comment: Speci men Type: BLOOD SPECIMENOrdering Facility: [facility] Address: [address] [place] [address] Performed By: #### 2 4323-8 ####[facility] LABCLIA [id number] [place] [address] Urea nitrogen [Mass/Vol] 13 mg/dL Normal 7-21 [facility] Comment on above: Order Comment: Speci men Type: BLOOD SPECIMENOrdering Facility: [facility] Address: [address] [place] [address] Performed By: #### 2 4323-8 ####[facility] LABIA [id number] [place] [address] CNCOon 04-05-2023 CNCO Letter Text Normal [facility] Reminderson 02-19-2023 Reminders - From: Fran Horta [...] MBO NEG Urine Culture Pt informed Normal [facility] C Urineon 02-18-2023 Bacteria identified Cx Nom (U) Microbiology PROCEDURE: Urine Culture [R1] SOURCE: U CleanCatch BODY SITE: COLLECTED DATE/TIME: 02/16/2023 13:14 EDT RECEIVED DATE/TIME: 02/16/2023 15:32 EDT START DATE/TIME: 02/16/2023 15:32 EDT FREE TEXT SOURCE: Orzech SCALE MODEL MAKER, DEFLECTOR OPERATOR-C, Orzech SCALE MODEL MAKER, DEFLECTOR OPERATOR-C, Jada X Jada X FINAL REPORTS Final Report [] Verified Date/Time: 02/18/2023 07:03 EDT 5,000 cfu/ml Mixed skin contaminants Performing Locations R1: This test was performed at: [facility], [address] [place] [address], [facility]- , [place], Normal [facility] Comment on above: Performed By: #### 2 [id number] ####[facility] [id number] [place] [address] Family Medicine Office/Clini c Noteon 02-16-2023 Family [...] with voice recognition artificial intelligence software, specifically InMyShow, proVITAL and or Dragon Ambient Experience. Substitutions may have occurred due to the [...] day(s), # 10 cap(s), Refills(s) 0, Pharmacy: [id number], 167, cm, 02/16/23 12:08:00 EDT, Height/Length Dosing, 117, kg, 02/16/23 12:08:00 EDT, Weight Dosing phenazopyridine, 100 mg = 1 tab(s), Oral, TID, PRN Urinary discomfort, X 3 day(s), # 9 tab(s), Refills(s) 0, Pharmacy: [id number], 167, cm, 02/16/23 12:08:00 EDT, Height/Length Dosing, 117, kg, 02/16/23 12:08:00 EDT, Weight Dosing Urine Culture Urnls Dip Stick Non-Auto w/o Micrscpy POC 41354 2. BMI 40.0-44.9, adult (Z68.41: Body mass [...] When Contact Information MULUGETA GOTTI DO [address], [facility] [address] [place] [address]- Additional Instructions: Patient Education Urinary Tract Infection, [...] day. Stop (more content not included)... Normal [facility] Comment on above: Result Comment: Elec tronically Signed By: ARIA Andrews APRN, [place] X\.jeff\Date and Time Signed: 02/16/23 12:42 EDT Patient [...] numbers. This can be done either in [place] ([place] or metric measurements. Note that charts and online BMI calculators are available to help you find your BMI quickly and easily without having to do these calculations yourself. To calculate your BMI in [place] ([place] measurements: 1. Measure your weight in [...] for Disease Control and Prevention: www.cdc.gov ? [place] Heart Association: www.heart.org ? National Heart, Lung, and Blood [place]: www.nhlbi.nih.gov Summary ? Body mass index (BMI) is a number that is calculated from a person's weight and height. ? BMI may help estimate how much of a person's weight is composed of fat. BMI can help identify those who may be at higher risk for certain medical problems. ? BMI can be measured using [place] measurements or metric measurements. ? BMI charts are used to identify whether you are underweight, normal weight, overweight, or obese. This information is not intended to replace advice given to you by your health care provider. Make sure you discuss any questions you have with your health care provider. Document Revised: 05/12/2020 Document Reviewed: 03/19/2020 Else[employer]zz[employer] Patient Education ? 2022 [employer]. Obstetrics and Gynecology Urinary Tract Infection, Adult [...] condition if: (more content not included)... Normal [facility] ANES POSTPROC EVALon 023 ANES POSTPROC EVAL HNO ID: [id number] Author: Blessing Yancey MD Service: Anesthesiology Author Type: Anesthesiologist Type: Anesthesia Postprocedure Evaluation Filed: 2023 9:31 AM Note Text: POST ANESTHESIA EVALUATION NOTE : 1965 Procedure Summary Date: 02/15/23 Room / Location: [facility] Endoscopy - ENDO Anesthesia Start: 730 Anesthesia Stop: 813 Procedure: ERCP Diagnosis: Choledocholithiasis RUQ abdominal pain (Abdominal pain of suspected biliary origin) Scheduled Providers: Luis Xavier MD; Naima Bell APRN.INTERNAL CONTROL ANALYST; Blessing Yancey MD Responsible Provider: Blessing Yancey [...] Douglas DATE: 2023 TIME: 9:31 AM CSN: [id number] Normal [facility] ANES PRE-OPon 2023 ANES PRE-OP HNO ID: [id number] Author: Blessing Yancey MD Service: Anesthesiology Author Type: Anesthesiologist Type: Anesthesia Preprocedure Evaluation Filed: 2023 7:21 AM Note Text: ANESTHESIOLOGY DAY OF SURGERY NOTE : 1965 Procedure Information Date/Time: 02/15/23729 Scheduled providers: Luis Xavier MD; Naima Bell APRN.INTERNAL CONTROL ANALYST; Blessing Yancey MD Procedure: ERCP Location: [facility] Endoscopy - ENDO Estimated body mass index [...] and consent discussed: yes. Patient / Responsible [employer] Party agrees to proceed: yes Patient / Surrogate [...] none. Vitals Value Taken Time BP 121/73 2313 Pulse 75 02/15/23 0713 Resp 16 02/15/23712 Temp 36.2 ?C (97.2 [...] (PROBIOTIC BLEND ORAL) Take by mouth. - [id number] ELN ORAL Take by mouth. - trazodone [...] the urethra and just inside the labia, [facility], [facility], 167, cm, 06/08/21 8:49:00 EDT, Height/Length Dosing, [...] Douglas DATE: 2023 TIME: 7:20 AM CSN: [id number] [facility] 2023 CNPN Telephone (GASTNO) -- MARY DOUGLAS ([id number]) 1965 F Date Time Provider Department 02/15/23 [...] scheduled ERCP W/STENT REMOVAL, , 05/17/2023 at [facility]. Claudia Mathew II Allergies As of [...] biliary stent [Z46.89] Order(s):ERCP [GI18] Order #: [id number] FUTURE Prescriptions as of 04/05/2023 - WEGOVY [...] the urethra and just inside the labia, [facility], [facility], 167, cm, 06/08/21 8:49:00 EDT, Height/Length Dosing, 136, kg, 06/08/21 8:49:00 EDT, We... - L.acid/L.casei/B.bif/B.kulwant /FOS (PROBIOTIC BLEND ORAL) Take by mouth. - CRANBERRY - CXWM-NGQF-HPNKIME-FOS-BROM ELN ORAL Take by mouth. - trazodone HCl (TRAZODONE ORAL) Take by mouth daily at bedtime. - tiZANidine HCl 2 mg capsule Take 2 mg by mouth daily at bedtime. - venlafaxine ER (EFFEXOR XR) 150 mg 24 hr capsule Take 150 mg by mouth once daily. 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 Prasad last year at [facility] with findings of sludge. Providers: Luis Xavier MD, Jareth Kirby RN, Melisa Vaughn RN (Assisting Nurse) Patient Profile: This is a [...] therapeutic intervention. Procedure Code(s): --- Professional --- 74580, Endoscopic retrograde cholangiopancreatography (ERCP); with placement of endoscopic stent into biliary or pancreatic duct, including pre- and post-dilation and guide wire passage, when performed, including sphincterotomy, when performed, each stent 57327, Endoscopic retrograde cholangiopancreatography (ERCP); with removal of calculi/debris from biliary/pancreatic duct(s) Diagnosis Code(s): --- Professional --- K80.51, Calculus of bile duct without cholangitis or cholecystitis with obstruction R10.9, Unspecified abdominal pain R74.8, Abnormal levels of other serum enzymes R93.2, Abnormal findings on diagnostic imaging of liver and biliary tract CPT copyright 2020 [employer]. All rights reserved. The codes documented in this report are preliminary and upon family support worker review may be revised to meet current compliance requirements. Attending Participation: I personally performed the entire procedure. Scope In: 7:51:48 AM Scope Out: 7:58:51 AM MD Luis Flores MD 2023 8:11:06 AM This report has been signed electronically by Luis Xavier MD Number of Addenda: 0 Note Initiated On: 2023 7:19 AM (more content not included)... Normal [facility] HISTORY PHYSICALon 3 HISTORY PHYSICAL HNO ID: [id number] Author: Luis Xavier MD Service: Gastroenterology Author [...] BLEND ORAL) Take by mouth. 02/14/2023 Yes NZHM-PLFL-PYEBRJG-FOS-BROM ELN ORAL Take by mouth. 02/14/2023 Yes [...] the urethra and just inside the labia, [facility], [facility], 167, cm, 06/08/21 8:49:00 EDT, Height/Length Dosing, [...] Douglas DATE: 2023 TIME: 7:21 AM Normal [facility] NURSING PROGon 2023 NURSING PROG HNO ID: [id number] Author: Perla Chapman RN Service: ? Author [...] Endo in satisfactory condition Perla Chapman RN [facility] NURSING PROG HNO ID: [id number] Author: Rupal Lombardo RN Service: Nursing Author [...] (RECOMMENDATION): None Electronically Signed By: Rupal Lombardo [facility] XR ERCP READ ONLYon 02-16-20 XR ERCP [...] IMPRESSION: Please see operative note for details Smeller: TATYANA Transcribe Date/Time: Feb 21 2023 10:51A Dictated by : JS OCAMPO MD This examination was interpreted and the report reviewed and electronically signed by: JS OCAMPO MD on Feb 21 2023 10:54AM EST [id number] Normal [facility] US ABD RIGHT UPPER QUADRANTo n 02-14-2023 US ABD RIGHT UPPER QUADRANT * * *Final Report* * * DATE OF EXAM: Feb 14 2023 7:47AM VHU 1032 - US ABD RIGHT UPPER QUADRANT [...] hydronephrosis. Ascites: None. IMPRESSION: Status post cholecystectomy. [facility] Transcribe Date/Time: Feb 14 2023 8:05A Dictated by : DEJAN REID MD This examination was interpreted and the report reviewed and electronically signed by: DEJAN REID MD on Feb 14 2023 8:08AM EST [id number] Normal [facility] US ABD SPLEEN -NBon 02-15-20 23 US ABD SPLEEN -NB * * *Final Report* * * DATE OF EXAM: Feb 14 2023 7:47AM VHU 1232 - US ABD SPLEEN -NB / [...] hydronephrosis. Ascites: None. IMPRESSION: Status post cholecystectomy. Smeller: TATYANA Transcribe Date/Time: Feb 14 2023 8:05A Dictated by : DEJAN REID MD This examination was interpreted and the report reviewed and electronically signed by: DEJAN REID MD on Feb 14 2023 8:08AM EST [id number] Normal [facility] CNCOon 02-12-2023 CNCO Letter Text Normal [facility] CNPNon 02-09-2023 [facility] -- MARY DOUGLAS ([id number]) 1965 F Date Time Provider Department 02/09/23 SHAWN PRASAD JR [facility] During your visit today, we recorded the following information about you: Ilan Preston 02/09/2023 12:44 PM Signed Eugenie Douglas is calling Shawn Prasad Jr., DO today to request her US order be faxed to [facility]. She does not have a fax number, but their phone number is [phone]. She is trying to see if they can get her in sooner than 02/14, but they will not tell her anything without having an order. Patient has been identified by name and birthdate. Duration of symptoms: N/A Person calling: self Call patient at: at home [phone] (home) [phone] (work) [phone] (cell) Was an appointment scheduled: No Closing statement: Results or non-symptom based questions: Thank you for calling [facility], your call will be returned within the [...] pain [R10.11] Order(s):US ABD RIGHT UPPER QUADRANT [[id number]] Order #: [id number] FUTURE Prescriptions as of 05/06/2023 - colestipol [...] the urethra and just inside the labia, [facility], [facility], 167, cm, 06/08/21 8:49:00 EDT, Height/Length Dosing, 136, kg, 06/08/21 8:49:00 EDT, We... - L.acid/L.casei/B.bif/B.kulwant /FOS (PROBIOTIC BLEND ORAL) Take by mouth. - CRANBERRY - MEML-JZLT-DKFAERQ-FOS-BROM ELN ORAL Take by mouth. - trazodone HCl (TRAZODONE ORAL) Take by mouth daily at bedtime. - tiZANidine HCl 2 mg capsule Take 2 mg by mouth daily at bedtime. - venlafaxine ER (EFFEXOR XR) 150 mg 24 hr capsule Take 150 mg by mouth once daily. 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 - L.acid/L.casei/B.bif/B.kulwant /FOS (PROBIOTIC BLEND ORAL) Take by mouth. - CRANBERRY - AHJC-MJZB-HEMAWLO-FOS-BROM ELN ORAL Take by mouth. - trazodone HCl (TRAZODONE ORAL) Take by mouth daily at bedtime. - tiZANidine HCl 2 mg capsule Take 2 mg by mouth daily at bedtime. - venlafaxine ER (EFFEXOR XR) 150 mg 24 hr capsule Take 150 mg by mouth once daily. 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] 04/15/2008 [...] by RUBIA HANSEN RN on 02/07/23 Normal [facility] CBC W Auto Differential pane l (Bld)on 02-06-2023 Basophils (Bld) [#/Vol] 0.05 10*3/uL Normal <0.11 [facility] Comment on above: Order Comment: Speci men Type: BLOOD SPECIMENOrdering Facility: [facility] Address: [address] [place] [address] Performed By: #### 5 3578-8 ####[facility] LABCLIA [id number] [address] [place] Basophils/100 WBC (Bld) 0.6 % Normal [facility] Comment on above: Order Comment: Speci men Type: BLOOD SPECIMENOrdering Facility: [facility] Address: [address] [place] [address] Performed By: #### 5 7021-8 ####[facility] LABCLIA [id number] [place] [address] [place] Differential cell count method Nom (Bld) Auto Normal [facility] Comment on above: Order Comment: Speci men Type: BLOOD SPECIMENOrdering Facility: [facility] Address: [address] [place] [address] Performed By: #### 5 7021-8 ####[facility] LABCLIA [id number] [place] [address] [place] Eosinophils (Bld) [#/Vol] 0.11 10*3/uL Normal <0.46 [facility] Comment on above: Order Comment: Speci men Type: BLOOD SPECIMENOrdering Facility: [facility] Address: [address] [place], [place] [address] Performed By: #### 5 7021-8 ####[facility] LABCLIA [id number] [address] [place] Eosinophils/100 WBC (Bld) 1.4 % Normal [facility] Comment on above: Order Comment: Speci men Type: BLOOD SPECIMENOrdering Facility: [facility] Address: [address] [place], [place] [address] Performed By: #### 5 7021-8 ####[facility] LABCLIA [id number] [place] [address] [place] Erythrocyte distribution width (RBC) [Ratio] 14.2 % Normal 11.5-15.0 [facility] Comment on above: Order Comment: Speci men Type: BLOOD SPECIMENOrdering Facility: [facility] Address: [address] Performed By: #### 5 7021-8 ####[facility] LABIA [id number] [place] [address] [place] Hematocrit (Bld) [Volume fraction] 47.5 % High 36.0-46.0 [facility] Comment on above: Order Comment: Speci men Type: BLOOD SPECIMENOrdering Facility: [facility] Address: [address] Performed By: #### 5 7021-8 ####[facility] LABIA [id number] [place] [address] [place] Hemoglobin (Bld) [Mass/Vol] 15.6 g/dL High 11.5-15.5 [facility] Comment on above: Order Comment: Speci men Type: BLOOD SPECIMENOrdering Facility: [facility] Address: [address] Performed By: #### 5 7021-8 ####[facility] LABIA [id number] [address] [place] Immature granulocytes (Bld) [#/Vol] 0.03 10*3/uL Normal <0.10 [facility] Comment on above: Order Comment: Speci men Type: BLOOD SPECIMENOrdering Facility: [facility] Address: [address] Performed By: #### 5 7021-8 ####[facility] LABIA [id number] [address] [place] Immature granulocytes/100 WBC (Bld) 0.4 % Normal [facility] Comment on above: Order Comment: Speci men Type: BLOOD SPECIMENOrdering Facility: [facility] Address: [address] Performed By: #### 5 7021-8 ####[facility] LABCLIA [id number] [place] [address] [place] Lymphocytes (Bld) [#/Vol] 2.49 10*3/uL Normal 1.00-4.00 [facility] Comment on above: Order Comment: Speci men Type: BLOOD SPECIMENOrdering Facility: [facility] Address: [address] [place] [address] Performed By: #### 5 7021-8 ####[facility] LABCLIA [id number] [place] [address] [place] Lymphocytes/100 WBC (Bld) 31.1 % Normal [facility] Comment on above: Order Comment: Speci men Type: BLOOD SPECIMENOrdering Facility: [facility] Address: [address] [place] [address] Performed By: #### 5 7021-8 ####[facility] LABIA [id number] [address] [place] MCH (RBC) [Entitic mass] 29.6 pg Normal 26.0-34.0 [facility] Comment on above: Order Comment: Speci men Type: BLOOD SPECIMENOrdering Facility: [facility] Address: [address] [place] [address] Performed By: #### 5 7021-8 ####[facility] LABIA [id number] [address] [place] MCHC (RBC) [Mass/Vol] 32.8 g/dL Normal 30.5-36.0 [facility] Comment on above: Order Comment: Speci men Type: BLOOD SPECIMENOrdering Facility: [facility] Address: [address] [place] [address] Performed By: #### 5 7021-8 ####[facility] LABIA [id number] [id number] [address] [place] MCV (RBC) [Entitic vol] 90.1 fL Normal 80.0-100.0 [facility] Comment on above: Order Comment: Speci men Type: BLOOD SPECIMENOrdering Facility: [facility] Address: [address] [place], [place] [address] Performed By: #### 5 7021-8 ####[facility] LABCLIA [id number] [place] [address] [place] Monocytes (Bld) [#/Vol] 0.69 10*3/uL Normal <0.87 [facility] Comment on above: Order Comment: Speci men Type: BLOOD SPECIMENOrdering Facility: [facility] Address: [address] [place], [place] [address] Performed By: #### 5 7021-8 ####[facility] LABCLIA [id number] [address] [place] Monocytes/100 WBC (Bld) 8.6 % Normal [facility] Comment on above: Order Comment: Speci men Type: BLOOD SPECIMENOrdering Facility: [facility] Address: [address] [place], [place] [address] Performed By: #### 5 7021-8 ####[facility] LABCLIA [id number] [place] [address] [place] Neutrophils (Bld) [#/Vol] 4.63 10*3/uL Normal 1.45-7.50 [facility] Comment on above: Order Comment: Speci men Type: BLOOD SPECIMENOrdering Facility: [facility] Address: [address] [place], [place] [address] Performed By: #### 5 7021-8 ####[facility] LABCLIA [id number] [place] [address] [place] Neutrophils/100 WBC (Bld) 57.9 % Normal [facility] Comment on above: Order Comment: Speci men Type: BLOOD SPECIMENOrdering Facility: [facility] Address: [address] [place], [place] Performed By: #### 5 7021-8 ####[facility] LABCLIA [id number] [place] [address] [place] Nucleated RBC (Bld) [#/Vol] 10*3/uL Normal <0.01 [facility] Comment on above: Order Comment: Speci men Type: BLOOD SPECIMENOrdering Facility: [facility] Address: [address] [place] [address] Performed By: #### 5 7021-8 ####[facility] LABCLIA [id number] [place] [address] [place] Nucleated RBC/100 WBC (Bld) [Ratio] 0.0 /100 WBC Normal [facility] Comment on above: Order Comment: Speci men Type: BLOOD SPECIMENOrdering Facility: [facility] Address: [address] [place] [address] Performed By: #### 5 7021-8 ####[facility] LABIA [id number] [place] [address] [place] Platelet mean volume (Bld) [Entitic vol] 9.6 fL Normal 9.0-12.7 [facility] Comment on above: Order Comment: Speci men Type: BLOOD SPECIMENOrdering Facility: [facility] Address: [address] [place] [address] Performed By: #### 5 7021-8 ####[facility] LABCLIA [id number] [place] [address] [place] Platelets (Bld) [#/Vol] 317 10*3/uL Normal 150-400 [facility] Comment on above: Order Comment: Speci men Type: BLOOD SPECIMENOrdering Facility: [facility] Address: [address] [place] [address] Performed By: #### 5 7021-8 ####[facility] LABCLIA [id number] [place] [address] [place] RBC (Bld) [#/Vol] 5.27 10*6/uL High 3.90-5.20 [facility] Comment on above: Order Comment: Speci men Type: BLOOD SPECIMENOrdering Facility: [facility] Address: [address] [place] [address] Performed By: #### 5 7021-8 ####[facility] LABCLIA [id number] [address] [facility] WBC (Bld) [#/Vol] 8.00 10*3/uL Normal 3.70-11.00 [facility] Comment on above: Order Comment: Speci men Type: BLOOD SPECIMENOrdering Facility: [facility] Address: [address] [place] [address] Performed By: #### 5 7021-8 ####[facility] LABCLIA [id number] [address] [facility] CNOVon 02-06-2023 CNOV Office Visit ([facility] ) -- MARY DOUGLAS ([id number]) 1965 F Date Time Provider Department 02/06/23 8:00 AM SHAWN PRASAD JR [facility] During your visit today, we recorded the [...] ago. She was evaluated in ER at [facility] a month ago. Common [...] 1.00 - 4.00 k/uL 2.22 2.95 2.62 Gove% % 8.1 8.1 7.8 Abs Gove <0.87 k/uL 0.69 0.93 (H) 0.71 Eosin% [...] See Instruction (more content not included)... Normal [facility] 02-06-2023 LORAINE Telephone (SAMI) -- STELLAMARY ([id number]) 1965 F Date Time Provider Department 02/06/23 [...] ago. She was evaluated in ER at [facility] a month ago. Common [...] scheduled ERCP , 2022 at 7:30am at [facility]. Claudia Pool Adm Asst II Rubia [...] the urethra and just inside the labia, [facility], 167, cm, 06/08/21 8:49:00 EDT, Height/Length Dosing, 136, kg, 06/08/21 8:49:00 EDT, We... - L.acid/L.casei/B.bif/B.kulwant /FOS (PROBIOTIC BLEND ORAL) Take by mouth. - CRANBERRY - GAJA-LJZB-YKSTKLK-FOS-BROM ELN ORAL Take by mouth. - trazodone HCl (TRAZODONE ORAL) Take by mouth daily at bedtime. - tiZANidine HCl 2 mg capsule Take 2 mg by mouth daily at bedtime. - venlafaxine ER (EFFEXOR XR) 150 mg 24 hr capsule Take 150 mg by mouth once daily. 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] 04/15/2008 [...] by CLAUDIA POP II on 02/07/23 Normal [facility] Hepatic function 2000 panelo n 02-06-2023 Albumin [Mass/Vol] 4.4 g/dL Normal 3.9-4.9 [facility] Comment on above: Order Comment: Speci men Type: BLOOD SPECIMENOrdering Facility: [facility] Address: [address] [place] [address] Performed By: #### 2 4325-3 ####[facility] LABIA [id number] [place] [address] [place] ALP [Catalytic activity/Vol] 140 U/L High 34-123 [facility] Comment on above: Order Comment: Speci men Type: BLOOD SPECIMENOrdering Facility: [facility] Address: [address] [place] [address] Performed By: #### 2 0265-3 ####[facility] LABIA [id number] [place] [address] [place] ALT [Catalytic activity/Vol] 22 U/L Normal 7-38 [facility] Comment on above: Order Comment: Speci men Type: BLOOD SPECIMENOrdering Facility: [facility] Address: [address] [place] [address] Performed By: #### 2 4325-3 ####[facility] LABCLIA [id number] [place] [address] [place] AST [Catalytic activity/Vol] 22 U/L Normal 13-35 [facility] Comment on above: Order Comment: Speci men Type: BLOOD SPECIMENOrdering Facility: [facility] Address: [address] Performed By: #### 2 4325-3 ####[facility] LABCLIA [id number] [place] [address] [place] Bilirubin [Mass/Vol] 0.3 mg/dL Normal 0.2-1.3 [facility] Comment on above: Order Comment: Speci men Type: BLOOD SPECIMENOrdering Facility: [facility] Address: [address] Performed By: #### 2 4325-3 ####[facility] LABCLIA [id number] [address] [place] Bilirubin.conjugated [Mass/Vol] mg/dL Normal <0.2 [facility] Comment on above: Order Comment: Speci men Type: BLOOD SPECIMENOrdering Facility: [facility] Address: [address] [place], [place] [address] Performed By: #### 2 4325-3 ####[facility] LABCLIA [id number] [place] [address] [place] Protein [Mass/Vol] 7.5 g/dL Normal 6.3-8.0 [facility] Comment on above: Order Comment: Speci men Type: BLOOD SPECIMENOrdering Facility: [facility] Address: [address] Performed By: #### 2 4325-3 ####[facility] LABCLIA [id number] [place] [address] [place] PT panel Coag (PPP)on 2022 INR Coag (PPP) [Relative time] 1.0 {INR} Normal 0.9-1.3 [facility] Comment on above: Order Comment: Patrizia gilmore Type: BLOOD SPECIMENOrdering Facility: [facility] Address: [address] [place] [id number] Result Comment: Mariya min K Antagonist (VKA) Therapeutic Range: INR 2 to 3 (Target INR of 2.5) Note: For patients treated with VKA drugs, such as warfarin, the [employer] 2012 Guideline recommends [...] Chest 2012, 141:7S-47S Abdirashid RA, et al. [facility] 2017, 70: 252-289 Performed By: #### 1 4979-9, 63515-0 ####[facility] LABIA [id number] [place] [address] [place] PT Coag (PPP) [Time] 10.3 s Normal 9.7-13.0 [facility] Comment on above: Order Comment: Patrizia gilmore Type: BLOOD SPECIMENOrdering Facility: [facility] Address: [place] [address] Performed By: #### 1 4979-9, 15087-5 ####[facility] LABIA [id number] [place] [id number] [place] aPTT PPPon 02-06-2023 aPTT Coag (PPP) [Time] 31.0 s Normal 23.0-32.4 [facility] Comment on above: Order Comment: Speci men Type: BLOOD SPECIMENOrdering Facility: [facility] Address: [address] [place] [address] Result Comment: Cielo en Plasma [employer]quot Performed By: #### 1 4979-9, 53479-5 ####[facility] LABCLIA [id number] [id number] [facility] CNPNon 01-17-2023 CNPN Telephone (INTMLN) -- MARY DOUGLAS ([id number]) 1965 [facility] Date Time Provider Department 01/17/23 SHAWN PRASAD JR INTDARÍO During your visit today, we recorded the following information about you: Toni Perez 01/17/2023 12:01 PM Signed Sharla with [facility] is calling Shawn Prasad Jr., DO today Patient used to see him when he was at [facility]. She is having issues with sludge without having a gallbladder, diarrhea, nausea. Asking to schedule to patient and send referral over as soon as possible. Please advise No chief complaint on file. Patient has been identified by name and birthdate. Duration of symptoms: N/A Person calling: self Call Sharla sharla [phone] ext [phone] Was an appointment scheduled: No Closing statement: Results or non-symptom based questions: Thank you for calling [facility], your call will be returned within the next business day. Cece Rick Ma 01/18/2023 8:39 AM Gissel Magdaleno from [facility] calling back to see if Dr. Prasad will okay urgent request for patient to be seen for Gallbladder Sludge. Please advise. Rubia Hansen RN 01/18/2023 9:[address] Prasad, please see attached message. Not sure if gallbladder sludge is an urgent diagnosis? We also have DESIGN ENGINE[employer]'s who have openings sooner. Please advise. Rubia Arce RN, RN 01/18/2023 9:34 AM Signed Not quite sure what they are referring to about gall bladder sludge but ok to add on February 06 at 0800 or can see one of the quarry worker if needs seen sooner. Shawn Prasad Jr., DO Please schedule pt for office visit with either Dr. Prasad or PROPOSAL WRITER's. Quang Pepper or Pam Phelps often have sooner appts available. Thank you Rubia Cervantes Mindi 01/18/2023 9:58 AM Signed Checked for soonest [...] the urethra and just inside the labia, [facility], [facility], 167, cm, 06/08/21 8:49:00 EDT, Height/Length Dosing, 136, kg, 06/08/21 8:49:00 EDT, We... - L.acid/L.casei/B.bif/B.kulwant /FOS (PROBIOTIC BLEND ORAL) Take by mouth. - CRANBERRY - FQOY-FRRY-XKIIMUI-FOS-BROM ELN ORAL Take by mouth. - trazodone HCl (TRAZODONE ORAL) Take by mouth daily at bedtime. - tiZANidine HCl 2 mg capsule Take 2 mg by mouth daily at bedtime. - venlafaxine ER (EFFEXOR XR) 150 mg 24 hr capsule Take 150 mg by mouth once daily. 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] 04/15/2008 [...] Status:Closed by TONI PEREZ on 09/06/23 Normal [facility] Alanine aminotransferase [En zymatic activity/volume] in Serum or PlasmaOrdered By: Kellie Frey on 01-11-2023 ALT [Catalytic activity/Vol] 15 U/L 7-52 [facility] Albumin [Mass/volume] in Ser um or Plasma by Bromocresol green (BCG) dye binding methoOrdered By: Kellie Frey on 01-11-2023 Albumin BCG dye [Mass/Vol] 4.2 g/dL 3.5-5.7 [facility] Alkaline phosphatase [Enzyma tic activity/volume] in Serum or PlasmaOrdered By: Kellie Frey on 01-11-2023 ALP [Catalytic activity/Vol] 121 U/L 34-104 [facility] Aspartate aminotransferase [ Enzymatic activity/volume] in Serum or PlasmaOrdered By: Kellie Frey on 01-11-2023 AST [Catalytic activity/Vol] 18 U/L 13-39 [facility] Automated erythrocytes count in urine sediment (number/area)Ordered By: Kellie Frey on 01-11-2023 RBC Auto (Urine sed) [#/Area] 1-2 [HPF] 0-4 [facility] Automated leukocytes count i n urine sediment (number/area)Ordered By: Kellie Frey on 01-11-2023 WBC Auto (Urine sed) [#/Area] Innumerable [HPF] 0-4 [facility] Basophils Auto (Bld) [#/Vol] Ordered By: Kellie Frey on 01-11-2023 Basophils (Bld) [#/Vol] 0.1 10*3/uL 0.0-0.2 [facility] Basophils/100 WBC Auto (Bld) Ordered By: Kellie Frey on 01-11-2023 Basophils/100 WBC (Bld) 1.0 % . [facility] Bilirubin Test strip Ql (U)O rdered By: Kellie Frey on 01-11-2023 Bilirubin Ql (U) Negative Negative [facility] Bilirubin.direct [Mass/volum e] in Serum or PlasmaOrdered By: Kellie Frey on 01-11-2023 Bilirubin.direct [Mass/Vol] 0.00 mg/dL 0.03-0.18 [facility] Comment on above: If the DBIL is less than 0.1, IBIL is not able to becalculated. Bilirubin.total [Mass/volume ] in Serum or PlasmaOrdered By: Kellie Frey on 01-11-2023 Bilirubin [Mass/Vol] 0.5 mg/dL 0.3-1.0 [facility] Calcium [Mass/volume] in Ser um or PlasmaOrdered By: Kellie Frey on 01-11-2023 Calcium [Mass/Vol] 9.3 mg/dL 8.6-10.[address] [facility] Carbon dioxide, total [Moles /volume] in Serum or PlasmaOrdered By: Kellie Frey on 01-11-2023 CO2 [Moles/Vol] 22.3 mmol/L 21.0-31.0 [facility] Chloride [Moles/volume] in S lito or PlasmaOrdered By: Kellie Frey on 01-11-2023 Chloride [Moles/Vol] 103 mmol/L 98-107 [facility] Color Auto (U)Ordered By: Teagan Frey on 01-11-2023 Color (U) Dark yellow Yellow [facility] Creatinine [Mass/volume] in Serum or PlasmaOrdered By: Kellie Frey on 01-11-2023 Creatinine [Mass/Vol] 0.63 mg/dL 0.60-1.20 [facility] Eosinophils Auto (Bld) [#/Vo l]Ordered By: Kellie Frey on 01-11-2023 Eosinophils (Bld) [#/Vol] 0.1 10*3/uL 0.0-0.45 [facility] Eosinophils/100 WBC Auto (Bl d)Ordered By: Kellie Frey on 01-11-2023 Eosinophils/100 WBC (Bld) 1.7 % . [facility] Erythrocyte distribution wid th Auto (RBC) [Ratio]Ordered By: Kellie Frey on 01-11-2023 Erythrocyte distribution width (RBC) [Ratio] 14.4 % 11.9-15.3 [facility] Globulin Calc (S) [Mass/Vol] Ordered By: Kellie Frey on 01-11-2023 Globulin (S) [Mass/Vol] 3.0 g/dL [facility] Glucose [Mass/volume] in Ser um or PlasmaOrdered By: Kellie Frey on 01-11-2023 Glucose [Mass/Vol] 84 mg/dL 70-100 [facility] Comment on above: ADA recommended refe rence rangeRandom Glucose Reference Range is dependent on time and content of last meal. Glucose of more than 200 mg/dL in a nonstressed, ambulatory subject supports the diagnosis of Diabetes Mellitus. Hematocrit Auto (Bld) [Volum e fraction]Ordered By: Kellie Frey on 01-11-2023 Hematocrit (Bld) [Volume fraction] 45.2 % 34.0-46.4 [facility] Hemoglobin [Mass/volume] in BloodOrdered By: Kellie Frey on 01-11-2023 Hemoglobin (Bld) [Mass/Vol] 15.3 g/dL 11.8-15.4 [facility] Ketones Auto test strip (U) [Mass/Vol]Ordered By: Kellie Frey on 01-11-2023 Ketones (U) [Mass/Vol] Trace Negative [facility] Lab Reportson 01-11-2023 Lab Reports [id number]#1.00CD:127 Normal [facility] Lab Reports [id number]#1.00CD:127 Normal [facility] Leukocytes [#/volume] correc cherry for nucleated erythrocytes in Blood by Automated counOrdered By: Kellie Frey on 01-11-2023 WBC corrected for nucl RBC Auto (Bld) [#/Vol] 6.8 10*3/uL 3.8-11.6 [facility] Lipase [Enzymatic activity/v olume] in Serum or PlasmaOrdered By: Kellie Frey on 01-11-2023 Lipase [Catalytic activity/Vol] 25.0 U/L 11.0-82.0 [facility] Lymphocytes Auto (Bld) [#/Vo l]Ordered By: Kellie Frey on 01-11-2023 Lymphocytes (Bld) [#/Vol] 1.9 10*3/uL 1.00-4.8 [facility] Lymphocytes/100 WBC Auto (Bl d)Ordered By: Kellie Frey on 01-11-2023 Lymphocytes/100 WBC (Bld) 27.3 % . [facility] MCH Auto (RBC) [Entitic mass ]Ordered By: Kellie Frey on 01-11-2023 MCH (RBC) [Entitic mass] 29.2 pg 24.7-34.3 [facility] MCHC Auto (RBC) [Mass/Vol]Or dered By: Kellie Frey on 01-11-2023 MCHC (RBC) [Mass/Vol] 33.9 g/dL 32.0-35.0 [facility] MCV Auto (RBC) [Entitic vol] Ordered By: Kellie Frey on 01-11-2023 MCV (RBC) [Entitic vol] 86.3 fL 80-100 [facility] Monocyte distribution width [Entitic volume] in Blood by AutomatedOrdered By: Kellie Frey on 01-11-2023 Monocyte distribution width Auto (Bld) [Entitic vol] 18.59 % 0.00-20.00 [facility] Monocytes Auto (Bld) [#/Vol] Ordered By: Kellie Frey on 01-11-2023 Monocytes (Bld) [#/Vol] 0.6 10*3/uL 0.0-0.8 [facility] Monocytes/100 WBC Auto (Bld) Ordered By: Kellie Frey on 01-11-2023 Monocytes/100 WBC (Bld) 8.2 % . [facility] Neutrophils Auto (Bld) [#/Vo l]Ordered By: Kellie Frey on 01-11-2023 Neutrophils (Bld) [#/Vol] 4.2 10*3/uL 1.8-7.7 [facility] Neutrophils/100 WBC Auto (Bl d)Ordered By: Kellie Frey on 01-11-2023 Neutrophils/100 WBC (Bld) 61.8 % . [facility] Nitrite Test strip Ql (U)Ord ered By: Kellie Frey on 01-11-2023 Nitrite Ql (U) Positive Negative [facility] No Panel InformationOrdered By: Kellie Frey on 01-11-2023 Estimated GFR (CKD-EPI) > 60.0 mL/Min [facility] Creatinine Clearance (Chem 135.99 [facility] Nucleated erythrocytes [Pres ence] in Blood by Automated countOrdered By: Kellie Frey on 01-11-2023 Nucleated RBC Auto Ql (Bld) 0.1 /100{WBC} 0-0.5 [facility] Platelet mean volume Auto (B ld) [Entitic vol]Ordered By: Kellie Frey on 01-11-2023 Platelet mean volume (Bld) [Entitic vol] 7.3 fL 6.3-10.7 [facility] Platelets Auto (Bld) [#/Vol] Ordered By: Kellie Frey on 01-11-2023 Platelets (Bld) [#/Vol] 266 10*3/uL 150-450 [facility] Potassium [Moles/volume] in Serum or PlasmaOrdered By: Kellie Frey on 01-11-2023 Potassium [Moles/Vol] 4.2 mmol/L 3.5-5.1 [facility] Protein Auto test strip (U) [Mass/Vol]Ordered By: Kellie Frey on 01-11-2023 Protein (U) [Mass/Vol] Negative Negative [facility] Protein [Mass/volume] in Ser um or PlasmaOrdered By: Kellie Frey on 01-11-2023 Protein [Mass/Vol] 7.2 g/dL 6.4-8.[address] [facility] RBC Auto (Bld) [#/Vol]Ordere d By: Kellie Frey on 01-11-2023 RBC (Bld) [#/Vol] 5.23 10*6/uL 3.60-5.00 [facility] Reminderson 01-11-2023 Reminders - From: Qian Maravilla To: JACINTO - PA - Results; Sent: 01/08/2023 08:34:40 EDT Show up: 01/10/2023 08:34:00 EDT Subject: Urine C&S Reminder Message Please Remember to:_ PATIENT RELATED REMINDER:_ ( ) Call Patient ( ) Ask Patient to ( ) Call Relative ( ) Schedule Patient ( X ) Follow up on Results Pt [place] [facility] [place] for C&S due to Burning/Frequency ( ) Other: PROVIDER RELATED REMINDER:_ ( ) Cat Cracker Operator ( ) Call Pharmacy ( ) Call Lab ( ) Other: Special Instructions:_ Comments:_ From: Judie Morgan ([facility] - Results) To: RUBIA MEJÍA PA-C; Sent: 01/11/2023 14:53:22 EDT ! Show up: 01/11/2023 14:52:00 EDT Subject: RE: Urine C&S + culture in chart From: RUBIA MEJÍA PA-C To: [facility] Clinical; Sent: 01/11/2023 16:51:25 EDT Show up: 01/11/2023 16:50:00 EDT Subject: +cx advise pt urine cx+. abx sent to pharmacy. finish entire course abx. call office if sx persist after finishing. LOLA [will send in different encounter as I am unable to order abx off this reminder. Bactrim x 10d] Normal [facility] Serum or plasma albumin/glob ulin mass ratioOrdered By: Kellie Frey on 01-11-2023 Albumin/Globulin [Mass ratio] 1.4 {ratio} [facility] Serum or plasma anion gap de terminationOrdered By: Kellie Frey on 01-11-2023 Anion gap [Moles/Vol] 13.9 mmol/L 6.0-15.0 [facility] Serum or plasma non-glucuron idated bilirubin measurement (mass/volume)Ordered By: Kellie Frey on 01-11-2023 Bilirubin.indirect [Mass/Vol] 0.5 mg/dL [facility] Sodium [Moles/volume] in Ser um or PlasmaOrdered By: Kellie Frey on 01-11-2023 Sodium [Moles/Vol] 135 mmol/L 136-[address] [facility] Specific gravity Auto test s trip (U) [Rel density]Ordered By: Kellie Frey on 01-11-2023 Specific gravity (U) [Rel density] 1.048 1.001-1.03 0 [facility] Squamous epithelial cells de tection in urine sediment by light microscopyOrdered By: Kellie Frey on 01-11-2023 Epithelial cells.squamous LM Ql (Urine sed) 1-2 [HPF] 0-2 [facility] Urea nitrogen [Mass/volume] in Serum or PlasmaOrdered By: Kellie Frey on 01-11-2023 Urea nitrogen [Mass/Vol] 8 mg/dL 7-25 [facility] Urine bacteria detection by automated methodOrdered By: Kellie Frey on 01-11-2023 Bacteria Auto Ql (U) 4+ None Seen [facility] Urine clarity by refractomet ry automatedOrdered By: Kellie Frey on 01-11-2023 Clarity Refractometry automated (U) Cloudy Clear [facility] Urine glucose measurement by automated test strip (mass/volume)Ordered By: Kellie Frey on 01-11-2023 Glucose Auto test strip (U) [Mass/Vol] Normal mg/dL Normal [facility] Urine hemoglobin detection b y automated test stripOrdered By: Kellie Frey on 01-11-2023 Hemoglobin Auto test strip Ql (U) Trace Negative [facility] Urine leukocyte esterase det ection by automated test stripOrdered By: Kellie Frey on 01-11-2023 Leukocyte esterase Auto test strip Ql (U) 3+ Negative [facility] Urobilinogen Auto test strip (U) [Mass/Vol]Ordered By: Kellie Frey on 01-11-2023 Urobilinogen (U) [Mass/Vol] Normal mg/dL Normal [facility] WBC Auto (Bld) [#/Vol]Ordere d By: Kellie Frey on 01-11-2023 WBC (Bld) [#/Vol] 6.8 10*3/uL 3.8-11.[address] [facility] pH Auto test strip (U)Ordere d By: Kellie Frey on 01-11-2023 pH (U) 6.0 [pH] 5.0-9.0 [facility] Lab Reportson 01-09-2023 Lab Reports [id number]:127 Normal [facility] Urine culture routineOrdered By: Finesse Tobar on 01-08-2023 Bacteria identified Cx Nom (U) Klebsiella aerogenes [facility] CA 27.29 BLOODon 01-06-2023 Cancer Ag 27- Qn 18.1 [arb'U]/mL <38.6 U/mL [facility] CBC W Auto Differential pane l (Bld)on 01-04-2023 Basophils (Bld) [#/Vol] 0.04 10*3/uL Normal <0.11 [facility] Comment on above: Order Comment: Speci men Type: BLOOD SPECIMENOrdering Facility: [facility] Address: [address] [place] [address] Performed By: #### 5 7021-8 ####[facility] LABCLIA [id number] [place] [address] Basophils/100 WBC (Bld) 0.4 % Normal [facility] Comment on above: Order Comment: Speci men Type: BLOOD SPECIMENOrdering Facility: [facility] Address: [address] [place] [address] Performed By: #### 5 7021-8 ####[facility] LABCLIA [id number] [place] [address] Differential cell count method Nom (Bld) Auto Normal [facility] Comment on above: Order Comment: Speci men Type: BLOOD SPECIMENOrdering Facility: [facility] Address: [address] [place] [address] Performed By: #### 5 7021-8 ####[facility] LABCLIA [id number] [place] [address] Eosinophils (Bld) [#/Vol] 0.19 10*3/uL Normal <0.46 [facility] Comment on above: Order Comment: Speci men Type: BLOOD SPECIMENOrdering Facility: [facility] Address: [address] [address] Performed By: #### 5 7021-8 ####[facility] LABCLIA [id number] [place] [address] Eosinophils/100 WBC (Bld) 2.1 % Normal [facility] Comment on above: Order Comment: Speci men Type: BLOOD SPECIMENOrdering Facility: [facility] Address: [address] [place] [address] Performed By: #### 5 7021-8 ####[facility] LABCLIA [id number] [place] [address] Erythrocyte distribution width (RBC) [Ratio] 13.7 % Normal 11.5-15.0 [facility] Comment on above: Order Comment: Speci men Type: BLOOD SPECIMENOrdering Facility: [facility] Address: [address] [place] [address] Performed By: #### 5 7021-8 ####[facility] LABCLIA [id number] [place] [address] Hematocrit (Bld) [Volume fraction] 46.6 % High 36.0-46.0 [facility] Comment on above: Order Comment: Speci men Type: BLOOD SPECIMENOrdering Facility: [facility] Address: [address] [place] [address] Performed By: #### 5 7021-8 ####[facility] LABCLIA [id number] [place] [address] Hemoglobin (Bld) [Mass/Vol] 15.5 g/dL Normal 11.5-15.5 [facility] Comment on above: Order Comment: Speci men Type: BLOOD SPECIMENOrdering Facility: [facility] Address: [address] [place] [address] Performed By: #### 5 7021-8 ####[facility] LABCLIA [id number] [place] [address] Immature granulocytes (Bld) [#/Vol] 0.03 10*3/uL Normal <0.10 [facility] Comment on above: Order Comment: Speci men Type: BLOOD SPECIMENOrdering Facility: [facility] Address: [address] [address] Performed By: #### 5 7021-8 ####[facility] LABCLIA [id number] [place] [address] Immature granulocytes/100 WBC (Bld) 0.3 % Normal [facility] Comment on above: Order Comment: Speci men Type: BLOOD SPECIMENOrdering Facility: [facility] Address: [address] [place] [address] Performed By: #### 5 7021-8 ####[facility] LABCLIA [id number] [place] [address] Lymphocytes (Bld) [#/Vol] 2.62 10*3/uL Normal 1.00-4.00 [facility] Comment on above: Order Comment: Speci men Type: BLOOD SPECIMENOrdering Facility: [facility] Address: [address] [place] [address] Performed By: #### 5 7021-8 ####[facility] LABIA [id number] [place] [address] Lymphocytes/100 WBC (Bld) 28.7 % Normal [facility] Comment on above: Order Comment: Speci men Type: BLOOD SPECIMENOrdering Facility: [facility] Address: [address] [place] [address] Performed By: #### 5 7021-8 ####[facility] LABCLIA [id number] [place] [address] MCH (RBC) [Entitic mass] 29.0 pg Normal 26.0-34.0 [facility] Comment on above: Order Comment: Speci men Type: BLOOD SPECIMENOrdering Facility: [facility] Address: [address] [place] [address] Performed By: #### 5 7021-8 ####[facility] LABCLIA [id number] [place] [address] MCHC (RBC) [Mass/Vol] 33.3 g/dL Normal 30.5-36.0 [facility] Comment on above: Order Comment: Speci men Type: BLOOD SPECIMENOrdering Facility: [facility] Address: [address] [place] [address] Performed By: #### 5 7021-8 ####[facility] LABCLIA [id number] [place] [address] MCV (RBC) [Entitic vol] 87.1 fL Normal 80.0-100.0 [facility] Comment on above: Order Comment: Speci men Type: BLOOD SPECIMENOrdering Facility: [facility] Address: [address] [place] [address] Performed By: #### 5 7021-8 ####[facility] LABCLIA [id number] [place] [address] Monocytes (Bld) [#/Vol] 0.71 10*3/uL Normal <0.87 [facility] Comment on above: Order Comment: Speci men Type: BLOOD SPECIMENOrdering Facility: [facility] Address: [address] [place] [address] Performed By: #### 5 7021-8 ####[facility] LABCLIA [id number] [place] [address] Monocytes/100 WBC (Bld) 7.8 % Normal [facility] Comment on above: Order Comment: Speci men Type: BLOOD SPECIMENOrdering Facility: [facility] Address: [address] [place] [address] Performed By: #### 5 7021-8 ####[facility] LABIA [id number] [place] [address] Neutrophils (Bld) [#/Vol] 5.54 10*3/uL Normal 1.45-7.50 [facility] Comment on above: Order Comment: Speci men Type: BLOOD SPECIMENOrdering Facility: [facility] Address: [address] [address] Performed By: #### 5 7021-8 ####[facility] LABCLIA [id number] [place] [address] Neutrophils/100 WBC (Bld) 60.7 % Normal [facility] Comment on above: Order Comment: Speci men Type: BLOOD SPECIMENOrdering Facility: [facility] Address: [address] [place] [address] Performed By: #### 5 7021-8 ####[facility] LABCLIA [id number] [place] [address] Nucleated RBC (Bld) [#/Vol] 10*3/uL Normal <0.01 [facility] Comment on above: Order Comment: Speci men Type: BLOOD SPECIMENOrdering Facility: [facility] Address: [address] [place] [address] Performed By: #### 5 7021-8 ####[facility] LABCLIA [id number] [place] [address] Nucleated RBC/100 WBC (Bld) [Ratio] 0.0 /100 WBC Normal [facility] Comment on above: Order Comment: Speci men Type: BLOOD SPECIMENOrdering Facility: [facility] Address: [address] [place] [address] Performed By: #### 5 7021-8 ####[facility] LABCLIA [id number] [place] [address] Platelet mean volume (Bld) [Entitic vol] 8.9 fL Low 9.0-12.7 [facility] Comment on above: Order Comment: Speci men Type: BLOOD SPECIMENOrdering Facility: [facility] Address: [address] [place] [address] Performed By: #### 5 7021-8 ####[facility] LABCLIA [id number] [place] [address] Platelets (Bld) [#/Vol] 288 10*3/uL Normal 150-400 [facility] Comment on above: Order Comment: Speci men Type: BLOOD SPECIMENOrdering Facility: [facility] Address: [address] [place] [address] Performed By: #### 5 7021-8 ####[facility] LABCLIA [id number] [place] [address] RBC (Bld) [#/Vol] 5.35 10*6/uL High 3.90-5.20 [facility] Comment on above: Order Comment: Speci men Type: BLOOD SPECIMENOrdering Facility: [facility] Address: [address] [place] [address] Performed By: #### 5 7021-8 ####[facility] LABCLIA [id number] [place] [address] WBC (Bld) [#/Vol] 9.13 10*3/uL Normal 3.70-11.00 [facility] Comment on above: Order Comment: Speci men Type: BLOOD SPECIMENOrdering Facility: [facility] Address: [address] [place] [address] Performed By: #### 5 7021-8 ####[facility] LABCLIA [id number] [place] [address] Basophils (Bld) [#/Vol] 0.04 10*3/uL <0.11 k/uL [facility] Basophils/100 WBC (Bld) 0.4 % [facility] Differential cell count method Nom (Bld) Auto [facility] Eosinophils (Bld) [#/Vol] 0.19 10*3/uL <0.46 k/uL [facility] Eosinophils/100 WBC (Bld) 2.1 % [facility] Erythrocyte distribution width (RBC) [Ratio] 13.7 % 11.5 - 15.0 % [facility] Hematocrit (Bld) [Volume fraction] 46.6 % High 36.0 - 46.0 % [facility] Hemoglobin (Bld) [Mass/Vol] 15.5 g/dL 11.5 - 15.5 g/dL [facility] Immature granulocytes (Bld) [#/Vol] 0.03 10*3/uL <0.10 k/uL [facility] Immature granulocytes/100 WBC (Bld) 0.3 % [facility] Lymphocytes (Bld) [#/Vol] 2.62 10*3/uL 1.00 - 4.00 k/uL [facility] Lymphocytes/100 WBC (Bld) 28.7 % [facility] MCH (RBC) [Entitic mass] 29.0 pg 26.0 - 34.0 pg [facility] MCHC (RBC) [Mass/Vol] 33.3 g/dL 30.5 - 36.0 g/dL [facility] MCV (RBC) [Entitic vol] 87.1 fL 80.0 - 100.0 fL [facility] Monocytes (Bld) [#/Vol] 0.71 10*3/uL <0.87 k/uL [facility] Monocytes/100 WBC (Bld) 7.8 % [facility] Neutrophils (Bld) [#/Vol] 5.54 10*3/uL 1.45 - 7.50 k/uL [facility] Neutrophils/100 WBC (Bld) 60.7 % [facility] Nucleated RBC (Bld) [#/Vol] <0.01 k/uL [facility] Nucleated RBC/100 WBC (Bld) [Ratio] 0.0 /100 WBC [facility] Platelet mean volume (Bld) [Entitic vol] 8.9 fL Low 9.0 - 12.7 fL [facility] Platelets (Bld) [#/Vol] 288 10*3/uL 150 - 400 k/uL [facility] RBC (Bld) [#/Vol] 5.35 10*6/uL High 3.90 - 5.20 m/uL [facility] WBC (Bld) [#/Vol] 9.13 10*3/uL 3.70 - 11.00 k/uL [facility] CNOVSPon 01-04-2023 CNOVSP Visit (SP) Office ([facility]) -- MARY DOUGLAS ([id number]) 1965 F Date Time Provider Department 01/04/23 2:30 PM [...] the urethra and just inside the labia, [facility], [facility], 167, cm, 06/08/21 8:49:00 EDT, Height/Length Dosing, 136, kg, 06/08/21 8:49:00 EDT, We... L.acid/L.casei/B.bif/B.kulwant /FOS (PROBIOTIC BLEND ORAL) Take by mouth. CRANBERRY PRZK-IXQV-LJOYAKD-FOS-BROM ELN ORAL Take by mouth. trazodone HCl [...] left female breast (HCC) 10/2020 Narcotic dependence ([facility]) Pop Rdz Neck pain Pneumonia Smoker PAST [...] [place] and sent[place] [place] Fragments of 2 lymph nodes, negative for meta (more content not included)... Normal [facility] Cancer Ag27-29 SerPl-aCncon 01-04-2023 Cancer Ag 27-29 Qn 18.1 [arb'U]/mL Normal <38.6 C [facility] Comment on above: Order Comment: Speci men Type: BLOOD SPECIMENOrdering Facility: [facility] Address: [address] [address] Result Comment: The CA27.29 test was performed using the Siemens Isonasaur XP chemiluminometric immunoassay method. Results obtained with different assay methods or kits cannot be used interchangeably. Performed By: #### 1 7842-6 ####[facility] LABCLIA [id number] [place] [address] [place] Comprehensive metabolic 2000 panelon 01-04-2023 Albumin [Mass/Vol] 4.6 g/dL Normal 3.9-4.9 [facility] Comment on above: Order Comment: Speci men Type: BLOOD SPECIMENOrdering Facility: [facility] Address: [address] [address] Performed By: #### 2 4323-8 ####[facility] LABCLIA [id number] [place] [address] ALP [Catalytic activity/Vol] 161 U/L High 34-123 [facility] Comment on above: Order Comment: Speci [facility] Type: BLOOD SPECIMENOrdering Facility: [facility] Address: [address] [address] Performed By: #### 2 4323-8 ####[facility] LABCLIA [id number] [place] [address] ALT [Catalytic activity/Vol] 19 U/L Normal 7-38 [facility] Comment on above: Order Comment: Speci men Type: BLOOD SPECIMENOrdering Facility: [facility] Address: [address] [place] [address] Performed By: #### 2 4323-8 ####[facility] LABCLIA [id number] [place] [address] Anion gap [Moles/Vol] 8 mmol/L Low 9-18 [facility] Comment on above: Order Comment: Speci men Type: BLOOD SPECIMENOrdering Facility: [facility] Address: [address] [place] [address] Performed By: #### 2 4323-8 ####[facility] LABCLIA [id number] [place] [address] AST [Catalytic activity/Vol] 20 U/L Normal 13-35 [facility] Comment on above: Order Comment: Speci men Type: BLOOD SPECIMENOrdering Facility: [facility] Address: [address] [place] [address] Performed By: #### 2 4323-8 ####[facility] LABCLIA [id number] [place] [address] Bilirubin [Mass/Vol] 0.2 mg/dL Normal 0.2-1.3 [facility] Comment on above: Order Comment: Speci men Type: BLOOD SPECIMENOrdering Facility: [facility] Address: [address] [place] [address] Performed By: #### 2 4323-8 ####[facility] LABCLIA [id number] [place] [address] Calcium [Mass/Vol] 10.3 mg/dL High 8.5-10.2 [facility] Comment on above: Order Comment: Speci men Type: BLOOD SPECIMENOrdering Facility: [facility] Address: [address] [place] [address] Performed By: #### 2 4323-8 ####[facility] LABCLIA [id number] [place] [address] Chloride [Moles/Vol] 101 mmol/L Normal 97-105 [facility] Comment on above: Order Comment: Speci men Type: BLOOD SPECIMENOrdering Facility: [facility] Address: [address] [address] Performed By: #### 2 4323-8 ####[facility] LABCLIA [id number] [place] [address] CO2 [Moles/Vol] 28 mmol/L Normal 22-30 [facility] Comment on above: Order Comment: Speci men Type: BLOOD SPECIMENOrdering Facility: [facility] Address: [address] [place] [address] Performed By: #### 2 4323-8 ####[facility] LABCLIA [id number] [place] [address] Creatinine [Mass/Vol] 0.67 mg/dL Normal 0.58-0.96 [facility] Comment on above: Order Comment: Speci men Type: BLOOD SPECIMENOrdering Facility: [facility] Address: [address] [place] [address] Performed By: #### 2 4323-8 ####[facility] LABCLIA [id number] [place] [address] ESTIMATED GLOMERULAR FILTRATION RATE 103 mL/min/1.73m??? Normal >=60 [facility] Comment on above: Order Comment: Speci men Type: BLOOD SPECIMENOrdering Facility: [facility] Address: [address] [place] [address] Result Comment: Nesha mated Glomerular Filtration Rate [...] actual GFR. Performed By: #### 2 4323-8 ####[facility] LABCLIA [id number] [place] [address] Glucose [Mass/Vol] 103 mg/dL High 74-99 [facility] Comment on above: Order Comment: Speci men Type: BLOOD SPECIMENOrdering Facility: [facility] Address: [address] [place] [id number] Result Comment: The [place] [employer] (ADA) provides guidance for cutoff [...] Standards of Medical Care in Diabetes 2016, [place] [employer]. Diabetes Care. 2016.39(Suppl 1). Performed By: #### 2 4323-8 ####[facility] LABCLIA [id number] [place] [address] Potassium [Moles/Vol] 4.0 mmol/L Normal 3.7-5.1 [facility] Comment on above: Order Comment: Speci men Type: BLOOD SPECIMENOrdering Facility: [facility] Address: [address] [place] [address] Performed By: #### 2 4323-8 ####[facility] LABCLIA [id number] [place] [address] Protein [Mass/Vol] 7.8 g/dL Normal 6.3-8.0 [facility] Comment on above: Order Comment: Speci men Type: BLOOD SPECIMENOrdering Facility: [facility] Address: [address] [address] Performed By: #### 2 4323-8 ####[facility] LABCLIA [id number] [place] [address] Sodium [Moles/Vol] 137 mmol/L Normal 136-144 [facility] Comment on above: Order Comment: Speci men Type: BLOOD SPECIMENOrdering Facility: [facility] Address: [address] [address] Performed By: #### 2 4323-8 ####[facility] LABCLIA [id number] [place] [address] Urea nitrogen [Mass/Vol] 10 mg/dL Normal 7-21 [facility] Comment on above: Order Comment: Speci men Type: BLOOD SPECIMENOrdering Facility: [facility] Address: [address] [address] Performed By: #### 2 4323-8 ####[facility] LABCLIA [id number] [place] [address] Albumin [Mass/Vol] 4.6 g/dL 3.9 - 4.9 g/dL [facility] ALP [Catalytic activity/Vol] 161 U/L High 34 - 123 U/L [facility] ALT [Catalytic activity/Vol] 19 U/L 7 - 38 U/L [facility] Anion gap [Moles/Vol] 8 mmol/L Low 9 - 18 mmol/L [facility] AST [Catalytic activity/Vol] 20 U/L 13 - 35 U/L [facility] Bilirubin [Mass/Vol] 0.2 mg/dL 0.2 - 1 .3 mg/dL [facility] Calcium [Mass/Vol] 10.3 mg/dL High 8.5 - 10. 2 mg/dL [facility] Chloride [Moles/Vol] 101 mmol/L 97 - 10 5 mmol/L [facility] CO2 [Moles/Vol] 28 mmol/L 22 - 30 mmol/L [facility] Creatinine [Mass/Vol] 0.67 mg/dL 0.58 - 0.96 mg/dL [facility] Estimated Glomerular Filtration Rate 103 mL/min/1.73m >=60 mL/min/1.7 3m [facility] Glucose [Mass/Vol] 103 mg/dL High 74 - 99 mg/dL [facility] Potassium [Moles/Vol] 4.0 mmol/L 3.7 - 5.1 mmol/L [facility] Protein [Mass/Vol] 7.8 g/dL 6.3 - 8.0 g/dL [facility] Sodium [Moles/Vol] 137 mmol/L 136 - 144 mmol/L [facility] Urea nitrogen [Mass/Vol] 10 mg/dL 7 - 21 mg/dL [facility] A1C with Estimated Average G luon 01-03-2023 HbA1c (Bld) [Mass fraction] 5.600 % Normal 4.3-5.6 % [facility] [employer] Other HbA1c (Bld) [Mass fraction] 114 mg/dL [employer] Other Alanine aminotransferase [En zymatic activity/volume] in Serum or PlasmaOrdered By: Sharla Benitez on 01-03-2023 ALT [Catalytic activity/Vol] 15 U/L 7-52 [facility] Albumin [Mass/volume] in Ser um or Plasma by Bromocresol green (BCG) dye binding methoOrdered By: Sharla Benitez on 01-03-2023 Albumin BCG dye [Mass/Vol] 4.3 g/dL 3.5-5.7 [facility] Alkaline phosphatase [Enzyma tic activity/volume] in Serum or PlasmaOrdered By: Sharla Benitez on 01-03-2023 ALP [Catalytic activity/Vol] 135 U/L 34-104 [facility] Aspartate aminotransferase [ Enzymatic activity/volume] in Serum or PlasmaOrdered By: Sharla Benitez on 01-03-2023 AST [Catalytic activity/Vol] 17 U/L 13-39 [facility] Bilirubin.total [Mass/volume ] in Serum or PlasmaOrdered By: Sharla Benitez on 01-03-2023 Bilirubin [Mass/Vol] 0.4 mg/dL 0.3-1.0 [facility] Calcium [Mass/volume] in Ser um or PlasmaOrdered By: Sharla Benitez on 01-03-2023 Calcium [Mass/Vol] 9.3 mg/dL 8.6-10.[address] [facility] Carbon dioxide, total [Moles /volume] in Serum or PlasmaOrdered By: Sharla Benitez on 01-03-2023 CO2 [Moles/Vol] 27.5 mmol/L 21.0-31.0 [facility] Chloride [Moles/volume] in S lito or PlasmaOrdered By: Sharla Benitez on 01-03-2023 Chloride [Moles/Vol] 104 mmol/L 98-107 [facility] Cholesterol [Mass/volume] in Serum or PlasmaOrdered By: Sharla Benitez on 01-03-2023 Cholesterol [Mass/Vol] 231 mg/dL 140-200 [facility] Comment on above: Chol less than 200 m g/dl low riskChol 201-239 mg/dl borderline riskChol 240 mg/dl and greater high risk Cholesterol in LDL Calc [Mas s/Vol]Ordered By: Sharla Benitez on 01-03-2023 Cholesterol in LDL [Mass/Vol] 164 mg/dL 0-100 [facility] Comment on above: LDL ATP III CLASSIFI CATIONLDL less than 100 mg/dL OptimalLDL 100-129 mg/dL Near or above optimalLDL 130-159 mg/dL Borderline highLDL 160-189 mg/dL HighLDL greater than 189 mg/dL Very high Cholesterol in VLDL Calc [Ma ss/Vol]Ordered By: Sharla Benitez on 01-03-2023 Cholesterol in VLDL [Mass/Vol] 30 mg/dL [facility] Comprehensive Metabolic Pane kulwant 01-03-2023 Albumin [Mass/Vol] 4.214362 g/dL Normal 3.5-5.7 g/dL [facility] Other Bilirubin [Mass/Vol] 0.5670323 mg/dL Normal 0.3- 1.0 mg/dL [facility] Other Calcium [Mass/Vol] 9.0381331 mg/dL Normal 8.6-10 .3 mg/dL [facility] Other CO2 [Moles/Vol] 27.37134547 mmol/L Normal 21.0-3 1.0 mmol/L [facility] Other Creatinine [Mass/Vol] 0.89455862 mg/dL Normal 0. 60-1.20 mg/dL [facility] Other GFR/1.73 sq M.predicted MDRD (S/P/Bld) [Vol rate/Area] mL/min/{1.73_m2} [facility] Other Potassium [Moles/Vol] 5.79019631 mmol/L Normal 3 .5-5.1 mmol/L [facility] Other Protein [Mass/Vol] 7.284932 g/dL Normal 6.4-8.9 g/dL [facility] Other Comprehensive Metabolic Panel 2.9 g/dL [employer] Other Creatinine [Mass/volume] in Serum or PlasmaOrdered By: Sharla Benitez on 01-03-2023 Creatinine [Mass/Vol] 0.77 mg/dL 0.60-1.20 [facility] Globulin Calc (S) [Mass/Vol] Ordered By: Sharla Benitez on 01-03-2023 Globulin (S) [Mass/Vol] 2.9 g/dL [facility] Glucose [Mass/volume] in Ser um or PlasmaOrdered By: Sharla Benitez on 01-03-2023 Glucose [Mass/Vol] 83 mg/dL 70-[address] [facility] Comment on above: ADA recommended refe [...] from glycated hemoglobin (Bld) [Mass/Vol] 114 mg/dL [facility] Hemoglobin A1c percentageOrd ered By: Sharla Benitez on 01-03-2023 HbA1c (Bld) [Mass fraction] 5.6 % 4.3-5.6 [facility] Comment on above: Increased risk for d iabetes: 5.7 - 6.4diabetes: >6.4glycemic control for adults with diabetes: <7.0 Lipid Panelon 01-03-2023 Cholesterol in LDL Elph Qn 164 mg/dL High 0-100 mg/dL [facility] [employer] Other Lipid Panel 153 mg/dL High 0-149 mg/dL [facility] [employer] Other Lipid Panel 30 mg/dL [facility] [employer] Other No Panel InformationOrdered By: Sharla Benitez on 01-03-2023 Estimated GFR (CKD-EPI) > 60.0 mL/Min [facility] Creatinine Clearance (Chem N/A [facility] Potassium [Moles/volume] in Serum or PlasmaOrdered By: Shalra Benitez on 01-03-2023 Potassium [Moles/Vol] 5.0 mmol/L 3.5-5.1 [facility] Protein [Mass/volume] in Ser um or PlasmaOrdered By: Sharla Benitez on 01-03-2023 Protein [Mass/Vol] 7.2 g/dL 6.4-8.[address] [facility] Serum or plasma albumin/glob ulin mass ratioOrdered By: Sharla Benitez on 01-03-2023 Albumin/Globulin [Mass ratio] 1.5 {ratio} [facility] Serum or plasma anion gap de terminationOrdered By: Sharla Benitez on 01-03-2023 Anion gap [Moles/Vol] 13.5 mmol/L 6.0-15.0 [facility] Serum or plasma high density lipoprotein (HDL) cholesterol measurementOrdered By: Sharla Benitez on 01-03-2023 Cholesterol in HDL [Mass/Vol] 36 mg/dL 35-85 [facility] Comment on above: HDL CHOL ATP-III CLA SSIFICATION Cardiovascular RiskHDL > or equal to 60 mg/dL LOWHDL < 40 mg/dL HIGH Serum or plasma total choles terol/high density lipoprotein (HDL) cholesterol mass ratOrdered By: Sharla Benitez on 01-03-2023 Cholesterol.total/Cho lesterol in HDL [Mass ratio] 6.4 {ratio} <5.0 [facility] Sodium [Moles/volume] in Ser um or PlasmaOrdered By: Sharla Benitez on 01-03-2023 Sodium [Moles/Vol] 140 mmol/L 136-[address] [facility] Triglyceride [Mass/volume] i n Serum or PlasmaOrdered By: Sharla Benitez on 01-03-2023 Triglyceride [Mass/Vol] 153 mg/dL 0-149 [facility] Comment on above: TRIG ATP III CLASSIF ICATIONTRIG less than 150 mg/dL NormalTRIG 150-199 mg/dL Borderline highTRIG 200-500 mg/dL High TRIG greater than 500 mg/dL Very highStandard traceable to the Center for Disease Conrtrol and Prevention (CDC) test method. Urea nitrogen [Mass/volume] in Serum or PlasmaOrdered By: Sharla Benitez on 01-03-2023 Urea nitrogen [Mass/Vol] 10 mg/dL 7-25 [facility] Vitamin B12 ser/plasOrdered By: Sharla Benitez on 01-03-2023 Cobalamin (Vitamin B12) [Mass/Vol] 518 pg/mL 180-914 [facility] Ambulatory Visit Summaryon 0 09-12-2022 Ambulatory Visit Summary MARY DOUGLAS :1965 Visit Date:09/12/2022 Ambulatory Visit Instructions Your Diagnosis Other urethral stricture, female Recurrent UTI OAB (overactive bladder) Asymptomatic microscopic hematuria Tests Performed Urnls Dip Stick Auto w/o Microscopy POC 04503 Your Care Team Attending Physician - Finesse [...] with EKATERINA PEGUERO, RENALDO Franklin When: Where: [address] [place] [address]- Medications What How Much When Why Instructions [...] Urnls Dip Stick Auto w/o Microscopy POC 91627 (09/12/2022) Bilirubin Urine Dipstick - Negative Blood Urine Dipstick - Trace-intact Glucose Urine Dipstick - Negative Ketones Urine Dipstick - Negative Leukocytes Urine Dipstick - Trace Nitrite Urine Dipstick - Negative Protein Urine Dipstick - Negative Specific [place] Urine Dipstick - 1.025 Urine Appearance Urine [...] (urinary c (more content not included)... Normal [facility] Patient Educationon 09-12-19 23 Patient Education Urology [...] Follow these instructions at home: ? Take [id number] and prescription medicines only as told by [...] 09/15/2016 Document Revised: 04/02/2019 Document Reviewed: 04/02/2019 [email or web address] Patient Education ? 2019 [employer] [facility] Urology Office/Clinic Noteon 09-12-2022 Urology [...] When Contact Information EKATERINA PEGUERO, Finesse Rey, [address] [place] [address]- Additional Instructions: PRN Patient Education Urethral Stricture [...] vaginal c (more content not included)... Normal [facility] Comment on above: Result Comment: Elec tronically Signed By: Finesse TOBAR MD\.br\Date and Time Signed: 09/12/22 13:44 EST\.br\Electronically Co-Signed By: Judie Morgan\.br\Date and Time Co-Signed: 09/12/22 13:40 EST Coding Summary.on 08-21-2022 Coding Summary. [id number] Gh0bWw +PGhlYWQ+KF2VZDGqD37lhYIhz I0JU4wHVK3NQPLGGZRBSN0KQH7 lzAK5ALvxQ3EbrhYd MpuhpVYqHD31UQc0XIK9kSatVG jjgK1koSFqN6a4PyQqPE70pJ43 PSziLOUjHnS3VrVkeafeiFPq J5tyFuKwjKUiCjl+PHRhYmxlIH imCKToLTrnRZVxViMgkPckNM1r Rl8fHUZvYBYwwOvtwURvQiZv k8gtQUZhIFnqPW4fuGgjS2DnnN F4TZQel6r6Uw79oVB+PHRkIHN0 dRttMAcee065HuNvg7dwEVO3 bLCnHPtiPOV9J41pi7S2MJUtHF DbLRU2mWF5rX4msRpvmndtX5Ql eMQpJkA0TCO7fOKzxH5ozOsc jrmngD2gZgb+L01ZYI6XWIEKZM 6JNqw3C4IbVmkjvVY+OY99XZBp IS56hOLlhMOzi3vzrYg4VpCi PWCtUZK5tLioRRjhu8BuHQVsH1 8acFMrw9W6JUJiuGsezHGuZmIf iET3yE0bXNvjoozip5smrfcz Xbdvi1unhx90rM69T14gQLaaAQ TmLPO5OKPaUBQkoQkmul5diA0p Ii8+JPnvd3jgt3pgmZw0LeTb ODCxbpRpuEmkWNL1a3UvXg70W4 UciWqvd7QcOye3qp08mTDhh5K4 uNK6WDbsLWCfnC2vAPbqOlS6 FOOjDlDjiC11qKUeHDeuXh6tcB zkgLzuHY8uARRyghueJZLfvD8s WYQpnUHdoYbuYD8rMKAezauu w393XpJhSAB0IUUsvYGlZ8DoyB 4vPhCxFBSuXQNjO8QfoGZuUYqe O875LCquWtV0QDBlmnPmW8Zd QQYmuToxRuU1l5N9Pq4Pc3Pqii cxRKR7LTdyTSPxNdL2JzGxBjG8 C4VqLgp8KLZisDytKD7lD3Mq DBDdfvivphfwsLE3IFZrTEImaY 69rZJwRHkaTh5yy7P3f128KELf OQXmjO66Zh4fyUsqOHQciSGL eC6kgrhza7pyaolpNrLkRNEdCO t7VDi8QHOpfPyoCrFnPIH0JhZ0 LSZ4jBFonX8jjTtkagolfT2a Oyc+A35gnY0gRFE5KPJ2fdgwUD AuzuHtMD79ZH01V5GiRmeddKKs bGU+NJTkvlPurSfmMW3eSoAh d5isr5MeMZooZ1TjGEUmLCfmVl r9AZUhQWV6vCT2qM3pGSXsKQid z0B3cOU3E7NzjwEncz7xh1io JAUdPWuvV52ntMIgy3W3FQYhzD G5GVWejCasVgIywE83Kjh+PGNv pGcwx2JbHrmmn9pvi8lnbOi7 WwHyEJSofeNipXwaULI1f5JiPz 14Y92tNNlfQZKxTBCnXQAoTMVc pLvfdb2ndB6hUh2+PGNvbCB3 yRV1eQ4gXIXfIuV4HEfhG739Mq NeiFAsZgxnl7yax2msdLa5MvMj DNJmzcQeqKcpOPL2u1NrAw33 T48fMNtjFKAjZLGuBSVpFHMbkA iyxf4iiG6eIa7+MA7qt6sfok14 tH22mSW+UNYbOHM7zFakCTvu RKQzcU4oJSluHpF0AEEpErIweX 97aOKcQLgrKg9uaOabdVetSG2y NOOgjdeuq596KgJlw6zvOUJe sKCeOUcrOOW9N16xb7R7JUVcML QmKOU3kEW6uF5lpPlancrylXDx qYkzjnXiaGdcSQrmCUofI101 IHRvcDsnPlBhdGllbnQgTmFtZT w2H8AbZnk5EDBojZhqAX4abMXt QRedRj2vhXekhTqlSU9rFETv wyjhx703UfNbv9ynNHJzqDEcET xqBIN2F51tl1D4YBFaWNCmKES3 xMH0pH4kpDfqiahteXVahAmc fsMokZrxKAisXKbaH086AIFfnR exWfEadtLnEHJflXN4PS13RW50 yUNee1K8xFE6Y3CoBSCjpfel xcyyuGR9SIPuIBHnvI79Ol3uzA onLd2xBCYpNDG3USMxnXOkS5Th nE4hOxGjSVSxXBLcX6LsgCQq UPppI563QJilAcS3JWAkhmPaL3 LjASEmwSsaCsR7b0C5Wv7FQ5V4 XE79MA78hTKny2S5mMF9Z0Mx ZWTqngejcnhnwIG3YIMfGFTboG 12Fk5yjZhpJu8oUBIuSMZ3QJUg hUNhV8XsfR4iIpKtVQUfSYFr P1GofLZxTMilG961VZpfUwE8PW OscgFsR3VeGDDhkPmtUxW6k7A9 Wp7XFQp3FA18CS12yYSxp2W4 dHV9W4YsRRQtiyocwufdtMY6SU MnXLNlgB24Yz5ljLwvAd3aWAYu FXD6KWNzsLDxK0MdcS5fPyUi IDUwFPNsC0NnaWHlLDymM624EG exNqD4PAWwurSkK0WgKLYxdMlp PiM1c2J5Uf6YBTZgBQ83DOV1 aNQ2PL84IZ74R6PnXujttPYjuB U+PHRhYmxlIHdpZHRoPScxMDAl OzQcrOzcSJ5iZx5sSCHbQTUb gDbwlOPjVyXkl3hwPXEzWRttWL 6zuEuaW3UwqDL0SBUol6q6Rh57 C17iB1NrtOS+DINnmDZ7lBZ5 eR0hMoLbYjH2SXrxP619JyAejR GqRwpew4dzx9ahaMu9MkK0HKRo puKzxYlqQKS6o9MpUf70E80a IHdpZHRoPSIxNSUiIHZhbGlnbj 1mdL8lRo4+HTQrgGU9iNI0zF2u AlRfSdF0GRmyO374LxIhyJEn Yftfz8kzc1vbmJt5ErLdUQIcjc LtzBvcZLM7a0MsKk07J1XeiRkx a3CbCak1zy86kAPop6U9gAS7 Q5XoBTDmmpugxYXfrWajIW4kLA NqddxgBOLkxZ8lNEZgW6q8OyNp XuK5QYhjY1QfkaJ1JNMrxYNw XYvzDDH1W19ds5N2PRHqHNXvWK T0iDN7fG3tlXwleuumzYTrpNid fzHryZhvMYmaTLzbT096BVRf nYzfPFUwvY5bGSSopDKxpHgqTJ 4wNTBpbjsnPkFMQkVSVCwgTUFS JVUCVE79KZ75fSVio9M2qON2 A8JlKRRfstchfbxtvUL9YBPdTO RssT39xSHyKPvkMo4qa0Q5y011 HUCnAPWkoX17Tm0syDtiEFKf bRQTpK2abjinf5yunshkVwAlMS HgHSs9DBd1WYPqgXqoJoAjAXQ8 XrU4TIO8eBQaaJ1kuKrvcqzo lH3cXxz+SVCoLVSuLJb6NhskrG Q+XIIdYPZ5iEwkTVztMOWspF0o AAVsR3c6JdYrDdF1ZOdjM5Fc YOKjxkpcGu26jQ8wLkHfNsW5CD oyO8CxlcY6RHTtdCVsAYujWXD2 J08vu5F5TREkUTWzYEV6mIV7 vU7wtGvahpwbdODdtXbqraNsiY swQZpeIXvsH420XEYfxVhuGpO0 WJcoFPOgPX28IC76hDEjo8A7 bFM1S4RwTWWxyfoddttlfFO8SS BoMRZogZ07xMNhVHidSe1ud0S9 y257MFZjLFFzaB43Ch6hnJeq QCRycKQTfX7gaemir8wvfteeKa TtXZMaTBt0MSu0UGOyjMpvXqEl DSS5WoF7MED2aRUfuK1afRan wqdffX9yDlw+UjEkTEbgCI14NZ 53kBOdc9X5nMO8T6HnQGOvasde hkacoME2BOEuZEEebK36hBBb PGnaWz0mp7L7k170IDUeICQboO 96Ra8foBrcXDQnuDNErD2dpwpu b8zidmpmHqVmDQUpGMf4BLv9 ZDMkeCuoZmFzICN9XqR7ANT0fQ QbzV3xjJplcgypiV6xPcu+T3V0 tFJ4mDJgyEjmbGG+NQ15hl75 T2XxFdjmXed1DKFtLWQ3iHY9vE 2qIKMtKPmvc1E4sCK8M7PefkLf gz7hu1mjJWWgUHlhA25gtJXq v0D0IOQeqYZ7LSDkcFsuOjOslL 93Oyc+DQHawCzzn9NcTrwpe4ag l9affBk8IsDmFGMwidVpyPgk UOB8t0FpCb00W25vYYegMWWsWD NxNUJkDYLkdQjrvr7avR6vOo4+ OIGnwGY8nZS6bF4eQfWvBlR7 KPgfN761TcHxbLIqJnytz1jlu0 oorQv7PjVmQJEbcpGsiZyuJLF5 j9BqAm17V3FngNpre7AmXjm5 nb15ePFlg5G2sNM8Z1YnMSJgzo pkeDDyuFtzGW9mHAKbnpbcRFCf qG6mXNWuT0b8PqSaSaA8VQih T7ZqvoM4FHWawFVpPWWauWOBdR 3hizcwn8ftnshxXjTfBLXrJFi5 RKh9YGNrpDezJrAqDSC7DnX5 NLB4xEZynL9ioAbpucmocC3fEd c+RDi2u5zsiKPyPT9eeKG2TN82 WX19dZMml5Q3oRR5U0GmOAXl gikmoiuqaRA9UFKkMLQfpO99Zo 9akEoxSz3lYEPyNBL3YCQstYFr G2QofJ8fSxSbEVXfVNOkD3Sr xRJtVFvqY983YPbaJfR1ILMrqs UgK2ExPGObqBixMcD6c4S6Gi8T TV99NO00FO68vJGjq3P1jZQ1 K0VyVXNakguljmqcpDL4TWUvIM GmzB59Ol5crQcfRy1vJMYpNGR1 XMFtzUQtH7SnfV5gZkQuFJHy WBGtX4OtvCMnPXmpZ787FIvePu C9QTFqqjPoK6YsURDhtUrjMlO9 c9V9Tf2QCq98CW66KE58yUPb y0B8sKY4E9OeIVJlcbpssbvbwF A5ETUkVFRkrH74Av2oqKobVo5o PPAsLIZ9NMKmlBZhI6QemP0j XoZhYTRmLOGqM0FnrVRwFCdaE9 67QMcrJaN5STBwpeRbN9IpFWEc tKcqLjR3s5H2Pz5BRVabyow6 Z7PnErjimGE+CL13NXFzKL92gI OdxQCho4htwDb5BdTtBYVrERK9 tBfuGAcwr6RiZXNlX18jlIKw c2U6 (more content not included)... Normal [facility] C Urineon 08-19-2022 Bacteria identified Cx Nom [...] Locations R1: [facility] [address] [place] [address], [id number] , , [facility] Comment on above: Performed By: #### [id number] ####[facility] [address] [place] [address] Consent for Procedure/Surger yon 08-17-2022 Consent for Procedure/Surgery [id number]:127 Normal [facility] Consent for Treatmenton 08-03 Consent for Treatment [id number]:127 Normal [facility] Inpatient Patient Summaryon 08-17-2022 Inpatient Patient Summary [place] [id number] Clinical Summary Person Information Name: MARY DOUGLAS Age: 57 Years : 1965 Sex: Female PCP: MULUGETA GOTTI DO Marital Status: Race: White Ethnicity: Non- or Language: Chilean Visit Id: Visit Reason: RECURRENT UTI Speciality: Acuity: Enc Type: Outpatient Med Service: Surgery Arrival: 08/17/2022 08:07:34 Discharge: Dispo Type: Address: [address] [place] [address] [phone] Provider Notes: Diagnosis: Problems Active Right flank [...] Follow up: With: Address: When: Finesse TOBAR [address] [place] [address] Business (1) Within 2 to 4 weeks With: Address: When: [place] [phone] Business (1) Patient Education Information: [facility] IntraOperative Documentson 1 10-18-2021 IntraOperative Documents [id number]:127 [facility] Main OR Intraoperative Recor don 08-17-2022 Main OR Intraoperative Record IntraOp Document Type FTURO Summary Primary Physician: Finesse TOBAR MD Finalized Date/Time: 08/17/22 09:15:53 Pt. Name: STELLAMARY/Sex: 1965 Female Med Rec #: [id number] Physician: Finesse TOBAR MD Financial #: [id number] Pt. Type: O Room/Bed: / Admit/Disch: 08/17/22 08:07:34 - Institution: Case Times FTURO Entry 1 Patient Times In Room 08/17/22 09:01:00 Out Room 08/17/22 09:13:00 Procedure Times Start 08/17/22 09:03:00 Stop 08/17/22 09:10:00 Anesthesia Times Last Modified By: Melisa Oliver RN 08/17/22 09:15:47 Case Attendance FTURO Entry 1 Entry 2 Entry 3 Case Attendee EKATERINA PEGUERO, Finesse [place] CAT WAGON OPERATOR, Perla Oliver RN, Melisa Shanks Role Performed Surgeon - Primary Scrub - Primary Manager Icu - Primary Time In 08/17/22 09:01:00 08/17/22 09:01:00 08/17/22 09:01:00 Time Out 08/17/22 09:13:00 08/17/22 09:13:00 08/17/22 09:13:00 Procedure CYSTOSCOPY LOCAL WITH CYSTOSCOPY LOCAL WITH CYSTOSCOPY LOCAL WITH URETHRAL DILATION(.) URETHRAL DILATION(.) URETHRAL DILATION(.) Comments Last Modified By: Melisa Oliver RN, RN, Melisa Haddad RN 08/17/22 09:15:48 08/17/22 [...] Signed By: Melisa Oliver RN 08/17/22 09:15 Normal [facility] Main OR Preoperative Recordo n 08-17-2022 Main OR Preoperative Record Holding Area Document Type FTURO Summary Primary Physician: Finesse TOBAR MD Finalized Date/Time: 08/17/22 09:07:06 Pt. Name: MARY DOUGLAS Eugenie Collins/Sex: 1965 Female Med Rec #: [id number] Physician: Finesse TOBAR MD Financial #: [id number] Pt. Type: O Room/Bed: / Admit/Disch: 08/17/22 [...] Yes Pain Comment: fibromyalgia Skin Integrity Intact, [place], Warm, & Dry Vitals - EU Blood Pressure 101/70 Pulse 82 bpm Respirations 18 br/min SPO2 95 % RN Reviewed Yes Last Modified By: Melisa Oliver RN 08/17/22 09:07:05 Finalized By: Melisa Oliver RN Document Signatures Signed By: Sharla Shaw LPN 08/17/22 08:17 Melisa Oliver RN 08/17/22 09:07 Normal [facility] Operative Reporton Operative Report Patient: EMILY DOUGLAS Age: 57 years Sex: Female : 1965 [...] urine. The Urethra was dilated to: 28 [place] w/ sounds. Specimens Removed: UA LAP CUTTER TRUER OPERATOR dilated the patient's urethra to 28 [place] bladder mucosa was good distended well I [...] and bladder washing will help break the [place] of chronic infections.. Devices Implanted: None. Removal: Cystoscope is removed, The patient tolerated it well. Postoperative Information Discharge: Patient is discharged home with antibiotic coverage, Follow up arranged. Normal [facility] Comment on above: Result Comment: Elec tronically Signed By: Finesse TOBAR MD\.br\Date and Time Signed: 08/17/22 09:13 EST Outpatient Surgery Discharge Instructionon 08-17-2022 Outpatient Surgery Discharge Instruction [address] [address] Patient Discharge Instructions PERSON INFORMATION [...] 911 Follow up: With: Address: When: Finesse TOBAR [address] [place] [id number] Business (1) Within 2 to 4 weeks With: Address: When: Finesse TOBAR [address] [place] [phone] Business (1) Comment: PATIENT EDUCATION INFORMATION Instructions: I, STELLA, F, have received the attached patient education materials/instructions [...] to serve you. Thank you for choosing [facility] Normal [facility] Patient Educationon 08-17-20 22 Patient Education Normal [facility] Ferritin [Mass/volume] in Se rum or PlasmaOrdered By: Racquel Andrew on 06-21-2022 Ferritin [Mass/Vol] 84.9 ng/mL 11-306.8 [facility] Folate [Mass/volume] in Seru m or PlasmaOrdered By: Racquel Andrew on 06-21-2022 Folate [Mass/Vol] 6.8 ng/mL >5.9 [facility] Comment on above: Folate reference ran ge: >5.9 ng/mlThe WHO technical consultation on folate and vitamin [id number] has determined that folate concentrations lessthan 4 ng/ml are considered deficient. Laboratory - Chemistry and C hemistry - challengeOrdered By: Racquel Andrew on 06-21-2022 Cobalamin (Vitamin B12) [Mass/Vol] 217 pg/mL 180-914 [facility] Magnesium [Mass/Vol] 1.9 mg/dL 1.6-2.6 [facility] Phosphate [Mass/volume] in S lito or PlasmaOrdered By: Racquel Andrew on 06-21-2022 Phosphate [Mass/Vol] 3.4 mg/dL 2.5-4.6 [facility] TSH DL <= 0.005 mIU/L QnOrde red By: Racquel Andrew on 06-21-2022 TSH Qn 2.76 m[IU]/L 0.45-5.33 [facility] CBC AUTO DIFFon 05-28-2022 BASO # 0.1 103/ul Normal 0.0-0.1 [facility] Comment on above: Performed By: #### C BC ####[facility] [address] [place] [address]Dr. Gaurang Womack Basophils/100 WBC (Bld) 0.7 % Normal 0.2-2.0 [facility] Comment on above: Performed By: #### C BC ####[facility] [address] [place] [address]Dr. Gaurang Womack EO # 0.6 103/ul Normal 0.0-0.7 [facility] Comment on above: Performed By: #### C BC ####[facility] [address] [place] [id number]. Gaurang Womack Eosinophils/100 WBC (Bld) 5.6 % Normal 0.9-7.0 [facility] Comment on above: Performed By: #### C BC ####[facility] [address] [place] [id number]. Gaurang Womack Erythrocyte distribution width (RBC) [Ratio] 13.8 % Normal 11.0-15.0 [facility] Comment on above: Performed By: #### C BC ####[facility] [address] [place] [address]Dr. Gaurang Womack Hematocrit (Bld) [Volume fraction] 45.0 % Normal 36.0-48.0 [facility] Comment on above: Performed By: #### C BC ####[facility] [address] [place] [address]DrEb Womack Hemoglobin (Bld) [Mass/Vol] 15.0 g/dL Normal 12.0-16.0 [facility] Comment on above: Performed By: #### C BC ####[facility] [address] [place], [place] [address]DrEb Womack IG # 0.06 10e3/ul Critically high 0.00-0.03 [facility] Comment on above: Performed By: #### C BC ####[facility] [address] [place], [place] [address]DrEb Womack IG % 0.6 % Critically high 0.0-0.5 [facility] Comment on above: Performed By: #### C BC ####[facility] [address] [place], [place] [address]DrEb Womack LYMPH # 2.3 103/ul Normal 1.2-3.8 [facility] Comment on above: Performed By: #### C BC ####[facility] [address] [place], [place] [address]DrEb Womack Lymphocytes/100 WBC (Bld) 23.6 % Normal 20.5-60.0 [facility] Comment on above: Performed By: #### C BC ####[facility] [address] [place], [place] [address]DrEb Womack MANUAL DIFF REQ NO Normal [facility] Comment on above: Performed By: #### C BC ####[facility] [address] [place] [address]DrEb Womack MCH (RBC) [Entitic mass] 29.5 pg Normal 26.7-34.0 [facility] Comment on above: Performed By: #### C BC ####[facility] [address] [place] [address]Dr. Gaurang Womack MCHC (RBC) [Mass/Vol] 33.3 g/dL Normal 29.9-35.2 [facility] Comment on above: Performed By: #### C BC ####[facility] [address] [place] [address]Dr. Garuang Womack MCV (RBC) [Entitic vol] 88.4 fL Normal 81.0-99.0 [facility] Comment on above: Performed By: #### C BC ####[facility] [address] [place], [place] [address]DrEb Womack MONO # 0.7 103/ul Normal 0.3-0.8 [facility] Comment on above: Performed By: #### C BC ####[facility] [address] [place], [place] [address]Dr. Gaurang Womack Monocytes/100 WBC (Bld) 7.5 % Normal 1.7-12.0 [facility] Comment on above: Performed By: #### C BC ####[facility] [address] [place], [place] [address]DrEb Womack NEUT # 6.0 103/ul Normal 1.4-6.5 [facility] Comment on above: Performed By: #### C BC ####[facility] [address] [place], [place] [address]Dr. Gaurang Womack Neutrophils/100 WBC (Bld) 62.0 % Normal 43.0-75.0 [facility] Comment on above: Performed By: #### C BC ####[facility] [address] [place], [place] [address]DrEb Womack Platelet mean volume (Bld) [Entitic vol] 8.8 fL Critically low 9.5-13.5 [facility] Comment on above: Performed By: #### C BC ####[facility] [address] [place], [place] [address]Dr. Gaurang Womack PLT 273 103/ul Normal 150-450 [facility] Comment on above: Performed By: #### C BC ####[facility] [address] [place], [place] [address]Ra. Gaurang Womack RBC 5.09 106/ul Normal 4.20-5.40 [facility] Comment on above: Performed By: #### C BC ####[facility] [address] [place], [place] [address]Zz. Gaurang Womack WBC 9.7 103/ul Normal 4.0-11.0 [facility] Comment on above: Performed By: #### C BC ####[facility] [address] [place], [place] [address]Vy. Gaurang Womack CT ABD/PELVIS WO CONon 05-28 CT [...] WILLIAMS PIZARRO Date: 2022-05-28 14:15 Normal [facility] CULTURE BLOODon 05-28-2022 Microscopic examination of blood, culture Culture Observations: NO GROWTH AT 5 DAYS. Normal [facility] Comment on above: Performed By: #### B LDCX2 #### [facility] [address] [address] [address] Gaurang Womack Microscopic examination of blood, culture Culture Observations: NO GROWTH AT 5 DAYS. Normal [facility] Comment on above: Performed By: #### B LDCX1 ####[facility] [address] [place] [address]Dr. Gaurang Womack ER URINE PROFILEon 2 Bilirubin Ql (U) Negative Normal NEGATIVE [facility] Comment on above: Performed By: #### U MICRO, ERUR #### [facility] [address] [address] [address] Gaurang Womack Clarity (U) CLEAR Normal CLEAR [facility] Comment on above: Performed By: #### U MICRO, ERUR #### [facility] [address] [place] [address] Dr. Gaurang Womack Color (U) LT. YELLOW Normal YELLOW [facility] Comment on above: Performed By: #### U MICRO, ERUR #### [facility] [address] [place] [address] Dr. Gaurang Womack ERUAHD A micrscopic examina tion will be performed if indicated. Normal [facility] Comment on above: Performed By: #### U MICRO, ERUR #### [facility] [address] [place] [address] Dr. Gaurang Womack Glucose Ql (U) Negative Normal NEGATIVE [facility] Comment on above: Performed By: #### U MICRO, ERUR #### [facility] [address] [place] [address] Dr. Gaurang Womack Hemoglobin Ql (U) TRACE-INTACT Abnormal NEGATIVE [facility] Comment on above: Performed By: #### U MICRO, ERUR #### [facility] [address] [place] [address] Dr. Gaurang Womack Ketones Ql (U) Negative Normal NEGATIVE [facility] Comment on above: Performed By: #### U MICRO, ERUR #### [facility] [address] [place] [address] Dr. Gaurang Womack LEUKOCYTES Negative Normal NEGATIVE [facility] Comment on above: Performed By: #### U MICRO, ERUR #### [facility] [address] [place] [address] Dr. Gaurang Womack Nitrite Ql (U) Negative Normal NEGATIVE [facility] Comment on above: Performed By: #### U MICRO, ERUR #### [facility] [address] [place] [address] Dr. Gaurang Womack pH (U) 6.0 [pH] Normal 5-9 [facility] Comment on above: Performed By: #### U MICRO, ERUR #### [facility] [address] [place] [address] Dr. Gaurang Womack SPEC GRAVITY 1.020 Normal 1.005-<=1. 025 [facility] Comment on above: Performed By: #### U MICRO, ERUR #### [facility] [address] [place] [address] Dr. Gaurang Womack UA PROTEIN Negative Normal NEGATIVE/ TRACE [facility] Comment on above: Performed By: #### U MICRO, ERUR #### [facility] [address] [place] [address] Dr. Gaurang Womack UR MICRO IND INDICATED Normal [facility] Comment on above: Performed By: #### U MICRO, ERUR #### [facility] [address] [place] [address] Dr. Gaurang Womack Urobilinogen Qn (U) 0.2 {Sharmin'U}/dL Normal 0.2 - 1. 0 [facility] Comment on above: Performed By: #### U MICRO, ERUR #### [facility] [address] [place] [address] Dr. Gaurang Womack LACTATE/LACTIC ACIDon 2021 Lactate [Moles/Vol] 1.2 mmol/L Normal 0.4-1.9 [facility] Comment on above: Performed By: #### L ACT #### [facility] [address] [place] [address] Dr. Gaurang Womack PROF 14(COMP METB)on 022 Albumin [Mass/Vol] 3.6 g/dL Normal 3.4-5.0 [facility] Comment on above: Performed By: #### C MP #### [facility] [address] [address] [address] Gaurang Womack Albumin/Globulin [Mass ratio] 0.9 {ratio} Normal [facility] Comment on above: Performed By: #### C MP #### [facility] [address] [address] [address] Gaurang Womack ALP [Catalytic activity/Vol] 132 U/L Critically high 46-116 [facility] Comment on above: Performed By: #### C MP #### [facility] [address] [address] [address] Gaurang Womack ALT [Catalytic activity/Vol] 25 U/L Normal 14-59 [facility] Comment on above: Performed By: #### C MP #### [facility] [address] [place] [address] Dr. Gaurang Womack Anion gap [Moles/Vol] 13.1 mmol/L Normal [facility] Comment on above: Performed By: #### C MP #### [facility] [address] [place] [address] Dr. Gaurang Womack AST [Catalytic activity/Vol] 18 U/L Normal 15-37 [facility] Comment on above: Performed By: #### C MP #### [facility] [address] [place] [address] Dr. Gaurang Womack Bilirubin [Mass/Vol] 0.2 mg/dL Normal 0.2-1.0 [facility] Comment on above: Performed By: #### C MP #### [facility] [address] [place] [address] Dr. Gaurang Womack Calcium [Mass/Vol] 8.9 mg/dL Normal 8.5-10.1 [facility] Comment on above: Performed By: #### C MP #### [facility] [address] [place] [address] Dr. Gaurang Womack Chloride [Moles/Vol] 104 mmol/L Normal 98-107 [facility] Comment on above: Performed By: #### C MP #### [facility] [address] [address] [address] Gaurang Womack CO2 [Moles/Vol] 23.5 mmol/L Normal 21.0-32.0 [facility] Comment on above: Performed By: #### C MP #### [facility] [address] [address] [address] Gaurang Womack Creatinine [Mass/Vol] 0.60 mg/dL Normal 0.55-1.02 [facility] Comment on above: Performed By: #### C MP #### [facility] [address] [place] [address] Dr. Gaurang Womack EGFR-AF [place] >60 Normal >=60 [facility] Comment on above: Performed By: #### C MP #### [facility] [address] [place] [address] Dr. Gaurang Womack EGFR-NON AF [place] >60 Normal >=60 [facility] Comment on above: Performed By: #### C MP #### [facility] [address] [place] [address] Dr. Gaurang Womack Globulin (S) [Mass/Vol] 4.1 g/dL Normal [facility] Comment on above: Performed By: #### C MP #### [facility] [address] [place] [address] Dr. Gaurang Womack Glucose [Mass/Vol] 92 mg/dL Normal 74-106 [facility] Comment on above: Performed By: #### C MP #### [facility] [address] [place] [address] Dr. Gaurang Womack Potassium [Moles/Vol] 3.6 mmol/L Normal 3.5-5.1 [facility] Comment on above: Performed By: #### C MP #### [facility] [address] [place] [address] Dr. Gaurang Womack Protein [Mass/Vol] 7.7 g/dL Normal 6.4-8.2 [facility] Comment on above: Performed By: #### C MP #### [facility] [address] [place] [address] Dr. Gaurang Womack Sodium [Moles/Vol] 137 mmol/L Normal 136-145 [facility] Comment on above: Performed By: #### C MP #### [facility] [address] [place] [address] Dr. Gaurang Womack Urea nitrogen [Mass/Vol] 8.0 mg/dL Normal 7.0-18.0 [facility] Comment on above: Performed By: #### C MP #### [facility] [address] [place] [address] Dr. Gaurang Womack Urea nitrogen/Creatinine [Mass ratio] 13.3 mg/mg Normal [facility] Comment on above: Performed By: #### C MP #### [facility] [address] [place] [address] Dr. Gaurang Womack URINE MICROSCOPIC ONLYon BACTERIA NONE SEEN Normal NONE SEEN [facility] Comment on above: Performed By: #### U MICRO, ERUR #### [facility] [address] [place] [address] Dr. Gaurang Womack Bacteria identified Cx Nom (U) NOT INDICATED Normal [facility] Comment on above: Performed By: #### U MICRO, ERUR #### [facility] [address] [place] [address] Dr. Gaurang Womack CAST NONE SEEN Normal NONE SEEN [facility] Comment on above: Performed By: #### U MICRO, ERUR #### [facility] [address] [place] [address] Dr. Gaurang Womack Crystals LM Nom (Urine sed) NONE SEEN Normal NONE SEEN [facility] Comment on above: Performed By: #### U MICRO, ERUR #### [facility] [address] [place] [address] Dr. Gaurang Womack Epithelial cells LM Ql (Urine sed) MODERATE Abnormal NONE SEEN /RARE [facility] Comment on above: Performed By: #### U MICRO, ERUR #### [facility] [address] [place] [address] Dr. Gaurang Womack MUCOUS NONE SEEN Normal NONE SEEN [facility] Comment on above: Performed By: #### U MICRO, ERUR #### [facility] [address] [address] [address] Gaurang Womack RBC NONE SEEN Abnormal 0-2 [facility] Comment on above: Performed By: #### U MICRO, ERUR #### [facility] [address] [address] [address] Gaurang Womack WBC NONE SEEN Normal NONE SEEN [facility] Comment on above: Performed By: #### U MICRO, ERUR #### [facility] [address] [address] [address] Gaurang Womack Creatinine and Glomerular fi ltration rate.predicted panel (S/P/Bld)Ordered By: Mulugeta Gotti on 04-27-2022 Creatinine [Mass/Vol] 0.51 mg/dL 0.44-1.03 [facility] Estimated glomerular filtrat ion rate (GFR) non- AmericanOrdered By: Mulugeta Gotti on 04-27-2022 GFR/1.73 sq M.predicted among non-blacks MDRD (S/P/Bld) [Vol rate/Area] > 60 mL/Min [facility] Glucose mean value [Mass/vol ume] in Blood Estimated from glycated hemoglobinOrdered By: Mulugeta Gotti on 04-27-2022 Average glucose Estimated from glycated hemoglobin (Bld) [Mass/Vol] 111 mg/dL [facility] Hemoglobin A1c percentageOrd ered By: Mulugeta Gotti on 04-27-2022 HbA1c (Bld) [Mass fraction] 5.5 % 4.3-5.6 [facility] Comment on above: Increased risk for d iabetes: 5.7 - 6.4 diabetes: >6.4 glycemic control for adults with diabetes: <7.0 Increased risk for d iabetes: 5.7 - 6.4diabetes: >6.4glycemic control for adults with diabetes: <7.0 No Panel InformationOrdered By: Mulugeta Gotti on 04-27-2022 Estimated GFR () > 60 mL/Min [facility] Comment on above: GFR estimated refere nce range: According to KDOQI guidelines, <60 ml/min/1.73m2 is sufficient to diagnose a patient with chronic kidney disease. Pharmacy Creatinine Clearance (Chem N/A [facility] Serum or plasma calcium reinier urement (mass/volume)Ordered By: Mulugeta Gotti on 04-27-2022 Calcium [Mass/Vol] 9.0 mg/dL 8.2-10.[address] [facility] Serum or plasma chloride nuria surement (moles/volume)Ordered By: Mulugeta Gotti on 04-27-2022 Chloride [Moles/Vol] 105 mmol/L 95-114 [facility] Serum or plasma glucose reinier urement (mass/volume)Ordered By: Mulugeta Gotti on 04-27-2022 Glucose [Mass/Vol] 87 mg/dL 70-[address] [facility] Comment on above: ADA recommended refe [...] on 04-27-2022 Potassium [Moles/Vol] 3.9 mmol/L 3.5-5.1 [facility] Serum or plasma sodium measu rement (moles/volume)Ordered By: Mulugeta Gotti on 04-27-2022 Sodium [Moles/Vol] 135 mmol/L 136-[address] [facility] Serum or plasma total carbon dioxide measurement (moles/volume)Ordered By: Mulugeta Gotti on 04-27-2022 CO2 [Moles/Vol] 23.1 mmol/L 22.0-30.0 [facility] Serum or plasma urea nitroge n measurement (mass/volume)Ordered By: Mulugeta Gotti on 04-27-2022 Urea nitrogen [Mass/Vol] 10 mg/dL 9-23 [facility] Q - DAVY MULTIPLEX W/ REFLEX TO 11 ANTIBODY CASCADEon 12-12-2021 ANACHOICE(R) SCREEN Negative Normal NEGATIVE [facility] Comment on above: Order Comment: [facility] performed at: [facility], [facility], [address] [place] [address], [address] [place], [address], Process Coach: Anshu Da Silva MD [facility] Collection Date/Time: [facility] Results Received Date/Time: [facility] Reported Date/Time: Result Comment: A ne gative DAVY Multiplex, with Reflex to 11 Antibody Ida indicates the absence of detectable antibodies to component analytes consisting of double stranded DNA (dsDNA), chromatin, ribonucleoprotein (SHOEMAKER CUSTOM), Meek/SHOEMAKER CUSTOM (Sm/SHOEMAKER CUSTOM), Meek (Sm), SS-A, SS-B, Karissa-1, centromere B, Scl-70 and ribosomal P. A negative result should be interpreted in the context of the clinical and laboratory findings and does not rule out autoimmune disease characterized by other autoantibody specificities such as rheumatoid arthritis, autoimmune hepatitis, primary biliary cirrhosis, autoimmune thyroiditis, Gilliam's disease, pernicious anemia, autoimmune neuropathies, vasculitis, celiac disease, and bullous disease. For additional information, please refer to http://education.Incentive/faq/HZW016 (This link is being provided for informational/ educational purposes only.) Performed By: #### 1 [id number] #### [facility] [address] [place] [address] RBC Sedimentation Rateon ESR (Bld) [Velocity] 25.00 mm/h Normal 0.00-30.00 [facility] Comment on above: Performed By: #### E SR, RF #### [facility] [address] [place], [place] [id number] Rheumatoid Factoron 12-13-19 22 RF <10 Normal [facility] Comment on above: Performed By: #### E SR, RF #### [facility] [address] [place], [place] [id number] AMYLASEon 11-16-2021 Amylase [Catalytic activity/Vol] 34 U/L Normal 31-110 [facility] Comment on above: Performed By: #### C MP, BEAU, LIPA #### [facility] [address] [place], [place] [address] Dr. Gaurang Womack CBC AUTO DIFFon 11-16-2021 BASO # 0.0 103/ul Normal 0.0-0.1 [facility] Comment on above: Performed By: #### C BC #### [facility] [address] [address] [address] Gaurang Womack Basophils/100 WBC (Bld) 0.3 % Normal 0.2-2.0 [facility] Comment on above: Performed By: #### C BC #### [facility] [address] [place] [address] Dr. Gaurang Womack EO # 0.2 103/ul Normal 0.0-0.7 [facility] Comment on above: Performed By: #### C BC #### [facility] [address] [place] [address] Dr. Gaurang Womack Eosinophils/100 WBC (Bld) 3.0 % Normal 0.9-7.0 [facility] Comment on above: Performed By: #### C BC #### [facility] [address] [place] [address] Dr. Gaurang Womack Erythrocyte distribution width (RBC) [Ratio] 14.4 % Normal 11.0-15.0 [facility] Comment on above: Performed By: #### C BC #### [facility] [address] [place] [address] Dr. Gaurang Womack Hematocrit (Bld) [Volume fraction] 42.0 % Normal 36.0-48.0 [facility] Comment on above: Performed By: #### C BC #### [facility] [address] [place] [address] Dr. Gaurang Womack Hemoglobin (Bld) [Mass/Vol] 14.0 g/dL Normal 12.0-16.0 [facility] Comment on above: Performed By: #### C BC #### [facility] [address] [place] [address] Dr. Gaurang Womack IG # 0.03 10e3/ul Normal 0.00-0.03 [facility] Comment on above: Performed By: #### C BC #### [facility] [address] [place] [address] Dr. Gaurang Womack IG % 0.4 % Normal 0.0-0.5 [facility] Comment on above: Performed By: #### C BC #### [facility] [address] [place] [address] Dr. Gaurang Womack LYMPH # 2.0 103/ul Normal 1.2-3.8 [facility] Comment on above: Performed By: #### C BC #### [facility] [address] [place] [address] Dr. Gaurang Womack Lymphocytes/100 WBC (Bld) 25.5 % Normal 20.5-60.0 [facility] Comment on above: Performed By: #### C BC #### [facility] [address] [place] [address] Dr. Gaurang Womack MANUAL DIFF REQ NO Normal [facility] Comment on above: Performed By: #### C BC #### [facility] [address] [place] [address] Dr. Gaurang Womack MCH (RBC) [Entitic mass] 29.4 pg Normal 26.7-34.0 [facility] Comment on above: Performed By: #### C BC #### [facility] [address] [place] [address] Dr. Gaurang Womack MCHC (RBC) [Mass/Vol] 33.3 g/dL Normal 29.9-35.2 [facility] Comment on above: Performed By: #### C BC #### [facility] [address] [place] [address] Dr. Gaurang Womack MCV (RBC) [Entitic vol] 88.1 fL Normal 81.0-99.0 [facility] Comment on above: Performed By: #### C BC #### [facility] [address] [place] [address] Dr. Gaurang Womack MONO # 0.8 103/ul Normal 0.3-0.8 [facility] Comment on above: Performed By: #### C BC #### [facility] [address] [place] [address] Dr. Gaurang Womack Monocytes/100 WBC (Bld) 9.5 % Normal 1.7-12.0 [facility] Comment on above: Performed By: #### C BC #### [facility] [address] [place] [address] Dr. Gaurang Womack NEUT # 4.9 103/ul Normal 1.4-6.5 [facility] Comment on above: Performed By: #### C BC #### [facility] [address] [place] [address] Dr. Gaurang Womack Neutrophils/100 WBC (Bld) 61.3 % Normal 43.0-75.0 [facility] Comment on above: Performed By: #### C BC #### [facility] [address] [place] [address] Dr. Gaurang Womack Platelet mean volume (Bld) [Entitic vol] 8.7 fL Critically low 9.5-13.5 [facility] Comment on above: Performed By: #### C BC #### [facility] [address] [place] [address] Dr. Gaurang Womack PLT 273 103/ul Normal 150-450 [facility] Comment on above: Performed By: #### C BC #### [facility] [address] [place] [address] Dr. Gaurang Womack RBC 4.77 106/ul Normal 4.20-5.40 [facility] Comment on above: Performed By: #### C BC #### [facility] [address] [place] [address] Dr. Gaurang Womack WBC 7.9 103/ul Normal 4.0-11.0 [facility] Comment on above: Performed By: #### C BC #### [facility] [address] [place] [address] ABD/PELVIS WO CONon [...] by: BLESSING ZEPEDA Date: 2021-11-15 23:41 Normal [facility] LACTATE/LACTIC ACIDon 2021 Lactate [Moles/Vol] 1.3 mmol/L Normal 0.7-2.0 [facility] Comment on above: Performed By: #### L ACT ####[facility] [address] [place], [place] [address]QeEb Womack LIPASEon 11-16-2021 Lipase [Catalytic activity/Vol] 153.0 U/L Normal 23.0-300.0 [facility] Comment on above: Performed By: #### C MP BEAU, LIPA ####[facility] [address] [place] [address]Dr. Gaurang Womack PROF 14(COMP METB)on 022 Albumin [Mass/Vol] 3.4 g/dL Critically low 3.5-5.0 [facility] Comment on above: Performed By: #### C MP, BEAU, LIPA ####[facility] [address] [place] [address]Dr. Gaurang Womack Albumin/Globulin [Mass ratio] 0.8 {ratio} Normal [facility] Comment on above: Performed By: #### C MP BEAU, LIPA ####[facility] [address] [place], [place] [address]Dr. Gaurang Womack ALP [Catalytic activity/Vol] 149 U/L Critically high 38-126 [facility] Comment on above: Performed By: #### C CLARA BEAU, LIPA ####[facility] [address] [place], [place] [address]Dr. Gaurang Womack ALT [Catalytic activity/Vol] 29 U/L Normal 9-52 [facility] Comment on above: Performed By: #### C CLARA BEAU, LIPA ####[facility] [address] [place], [place] [address]Dr. Gaurang Womack Anion gap [Moles/Vol] 13.9 mmol/L Normal [facility] Comment on above: Performed By: #### C MP BEAU, LIPA ####[facility] [address] [place] [address]Dr. Gaurang Womack AST [Catalytic activity/Vol] 21 U/L Normal 14-36 [facility] Comment on above: Performed By: #### C CLARA BEAU, LIPA ####[facility] [address] [place], [place] [address]Dr. Gaurang Womack Bilirubin [Mass/Vol] 0.2 mg/dL Normal 0.2-1.3 [facility] Comment on above: Performed By: #### C MP, BEAU, LIPA ####[facility] [address] [place] [address]Dr. Gaurang Womack Calcium [Mass/Vol] 9.0 mg/dL Normal 8.4-10.2 [facility] Comment on above: Performed By: #### C MP, BEAU, LIPA ####[facility] [address] [place] [address]Dr. Gaurang Womack Chloride [Moles/Vol] 104 mmol/L Normal 98-107 [facility] Comment on above: Performed By: #### C MP, BEAU, LIPA ####[facility] [address] [place] [address]Dr. Gaurang Womack CO2 [Moles/Vol] 25.6 mmol/L Normal 22.0-30.0 [facility] Comment on above: Performed By: #### C MP, BEAU, LIPA ####[facility] [address] [place], [place] [address]Dr. Gaurang Womack Creatinine [Mass/Vol] 0.75 mg/dL Normal 0.52-1.04 [facility] Comment on above: Performed By: #### C MP, BEAU, LIPA ####[facility] [address] [place], [place] [address]Dr. Gaurang Womack EGFR-AF [place]ER >60 Normal >=60 [facility] Comment on above: Performed By: #### C MP, BEAU, LIPA ####[facility] [address] [place], [place] [address]Dr. Gaurang Womack EGFR-NON AF [place] >60 Normal >=60 [facility] Comment on above: Performed By: #### C MP, BEAU, LIPA ####[facility] [address] [place] [address]Dr. Gaurang Womack Globulin (S) [Mass/Vol] 4.1 g/dL Normal [facility] Comment on above: Performed By: #### C MP, BEAU, LIPA ####[facility] [address] [place], [place] [address]Dr. Gaurang Womack Glucose [Mass/Vol] 109 mg/dL Critically high 74-106 [facility] Comment on above: Performed By: #### C BEAU ELIZABETH LIPA ####[facility] [address] [place] [address]Dr. Gaurang Womack Potassium [Moles/Vol] 3.5 mmol/L Normal 3.4-5.0 [facility] Comment on above: Performed By: #### C BEAU ELIZABETH LIPA ####[facility] [address] [place] [address]Dr. Gaurang Womack Protein [Mass/Vol] 7.5 g/dL Normal 6.1-8.2 [facility] Comment on above: Performed By: #### C BEAU ELIZABETH LIPA ####[facility] [address] [place] [address]Dr. Gaurang Womack Sodium [Moles/Vol] 140 mmol/L Normal 137-145 [facility] Comment on above: Performed By: #### C BEAU ELIZABETH LIPA ####[facility] [address] [place] [address]Dr. Gaurang Womack Urea nitrogen [Mass/Vol] 10.0 mg/dL Normal 7.0-17.0 [facility] Comment on above: Performed By: #### C BEAU ELIZABETH LIPA ####[facility] [address] [place] [address]Dr. Gaurang Womack Urea nitrogen/Creatinine [Mass ratio] 13.3 mg/mg Normal [facility] Comment on above: Performed By: #### C BEAU ELIZABETH LIPA ####[facility] [address] [place] [address]Dr. Gaurang Womack US SINGLE QUAD RT UPPERon [...] by: SHAWN PRESTON Date: 2021-11-16 07:54 Normal [facility] XR CHEST 1 Von 11-16-2021 XR CHEST [...] by: FINESSE MARISCAL Date: 2021-11-15 22:44 Normal [facility] Complete Blood Counton 11-04 Erythrocyte distribution width (RBC) [Ratio] 14.5 % Normal 11.0-15.0 [facility] Comment on above: Performed By: #### C CLARA LIPLuis Armando, CBC #### [facility] [address] [place], [place] [id number] Hematocrit (Bld) [Volume fraction] 43.1 % Normal 35.0-47.0 [facility] Comment on above: Performed By: #### C CLARA LIPD, CBC #### [facility] [address] [place], [place] [id number] Hemoglobin (Bld) [Mass/Vol] 14.1 g/dL Normal 11.6-15.5 [facility] Comment on above: Performed By: #### C CLARA LIPD, CBC #### [facility] [address] [place], [place] [id number] MCH (RBC) [Entitic mass] 28.9 pg Normal 27.0-33.0 [facility] Comment on above: Performed By: #### C CLARA LIPD, CBC #### [facility] [address] [place], [place] [id number] MCHC (RBC) [Mass/Vol] 32.7 g/dL Normal 32.0-36.0 [facility] Comment on above: Performed By: #### C MP, LIPD, CBC #### [facility] [address] [place], [place] [id number] MCV (RBC) [Entitic vol] 88 fL Normal 80-100 [facility] Comment on above: Performed By: #### C MP, LIPD, CBC #### [facility] [address] [place], [place] [id number] Platelet mean volume (Bld) [Entitic vol] 9.30 fL Normal 7.50-12.50 [facility] Comment on above: Performed By: #### C MP, LIPD, CBC #### [facility] [address] [place], [place] [id number] Platelets (Bld) [#/Vol] 276 10*3/uL Normal 140-400 [facility] Comment on above: Performed By: #### C MP, LIPD, CBC #### [facility] [address] [place], [place] [id number] RBC (Bld) [#/Vol] 4.88 10*6/uL Normal 3.90-5.20 [facility] Comment on above: Performed By: #### C MP, LIPD, CBC #### [facility] [address] [place], [place] [id number] RDW-SD 46.8 fL Normal 37.0-50.0 [facility] Comment on above: Performed By: #### C MP, LIPD, CBC #### [facility] [address] [place], [place] [id number] WBC (Bld) [#/Vol] 10.4 10*3/uL Normal 3.8-11.0 [facility] Comment on above: Performed By: #### C MP, LIPD, CBC #### [facility] [address] [place], [place] [id number] Comprehensive Metabolic Pane kulwant 11-04-2021 Albumin [Mass/Vol] 4.2 g/dL Normal 3.6-5.1 [facility] Comment on above: Performed By: #### C CLARA LIPD, CBC #### [facility] [address] [place], [place] [id number] Albumin/Globulin [Mass ratio] 1.7 {ratio} Normal 1.0-2.5 [facility] Comment on above: Performed By: #### C MP LIPD, CBC #### [facility] [address] [place], [place] [id number] ALP [Catalytic activity/Vol] 160 U/L High 35-119 [facility] Comment on above: Performed By: #### C CLARA LIPD, CBC #### [facility] [address] [place], [place] [id number] ALT [Catalytic activity/Vol] 17 U/L Normal 6-33 [facility] Comment on above: Result Comment: 08/03 Female reference range changed. Performed By: #### C MP LIPD, CBC #### [facility] [address] [place], [place] [id number] Anion gap [Moles/Vol] 18 mmol/L Normal 12-20 [facility] Comment on above: Result Comment: Effe ctive 09/08/2019 reference range changed. Performed By: #### C MP LIPD, CBC #### [facility] [address] [place], [place] [id number] AST [Catalytic activity/Vol] 18 U/L Normal 9-34 [facility] Comment on above: Performed By: #### C MP LIPD, CBC #### [facility] [address] [place], [place] [id number] Bilirubin [Mass/Vol] 0.31 mg/dL Normal 0.30-1.20 [facility] Comment on above: Performed By: #### C MP LIPD, CBC #### [facility] [address] [place], [place] [id number] BUN/CREA 15 Ratio Normal 6-22 [facility] Comment on above: Performed By: #### C MP LIPD, CBC #### [facility] [address] [place], [place] [id number] Calcium [Mass/Vol] 9.3 mg/dL Normal 8.6-10.2 [facility] [place] [facility] Comment on above: Performed By: #### C CLARA LIPD, CBC #### [facility] [address] [place], [place] [id number] Chloride [Moles/Vol] 108 mmol/L High 98-107 [facility] Comment on above: Performed By: #### C CLARA LIPD, CBC #### [facility] [address] [place], [place] [id number] CO2 [Moles/Vol] 20 mmol/L Normal 20-31 [facility] Comment on above: Performed By: #### C CLARA LIPD, CBC #### [facility] [address] [place], [place] [id number] Creatinine [Mass/Vol] 0.5 mg/dL Low 0.6-1.4 [facility] Comment on above: Performed By: #### C CLARA LIPD, CBC #### [facility] [address] [place], [place] [id number] eGFRAA 176 mL/min/1.73m2 Normal >60 [facility] Comment on above: Performed By: #### C CLARA LIPD, CBC #### [facility] [address] [place], [place] [id number] eGFRNAA 145 mL/min/1.73m2 Normal >60 [facility] Comment on above: Performed By: #### C CLARA LIPD, CBC #### [facility] [address] [place], [place] [id number] Globulin (S) [Mass/Vol] 2.5 g/dL Normal 1.9-3.7 [facility] Comment on above: Performed By: #### C CLARA LIPD, CBC #### [facility] [address] [place], [place] [id number] Glucose [Mass/Vol] 97 mg/dL Normal 65-99 [facility] [place] [facility] Comment on above: Result Comment: For FASTING Glucose --- ADA reference ranges: Normal 65-99 mg/dl Prediabetes 100-125 Diabetes >/= 126 Performed By: #### C MP, LIPD, CBC #### [facility] [address] [place] [id number] Potassium [Moles/Vol] 4.1 mmol/L Normal 3.5-5.5 [facility] Comment on above: Performed By: #### C MP, LIPD, CBC #### [facility] [address] [facility] [place] [id number] Protein [Mass/Vol] 6.7 g/dL Normal 6.1-8.1 [facility] Comment on above: Performed By: #### C MP, LIPD, CBC #### [facility] [address] [facility] [place] [id number] Sodium [Moles/Vol] 142 mmol/L Normal 135-146 [facility] Comment on above: Performed By: #### C MP, LIPD, CBC #### [facility] [address] [facility] [place] [id number] Urea nitrogen [Mass/Vol] 7 mg/dL Normal 7-25 [facility] Comment on above: Performed By: #### C MP, LIPD, CBC #### [facility] [address] [facility] [place] [id number] Lipid Panelon 11-04-2021 Cholesterol [Mass/Vol] 199 mg/dL Normal 125-200 [facility] Comment on above: Result Comment: Low risk < 200mg/dL Borderline risk 201-239 mg/dl High risk > or equal to 240 Performed By: #### C MP, LIPD, CBC #### [facility] [address] [facility] [place] [id number] Cholesterol in HDL [Mass/Vol] 34 mg/dL Low >40 [facility] Comment on above: Result Comment: High Cardiovascular Risk HDL <40 mg/dL Low Cardiovascular Risk HDL > or equal to 60 mg/dl Performed By: #### C MP, LIPD, CBC #### [facility] [address] [place], [place] [id number] Cholesterol in LDL [Mass/Vol] 133 mg/dL Normal [facility] Comment on above: Result Comment: LDL ATP III CLASSIFICATION LDL less than 100 mg/dl Optimal LDL 100-129 mg/dl Near or above optimal LDL 130-159 Borderline high LDL 160-189 High LDL greater than 189 mg/dl Very High Performed By: #### C MP, LIPD, CBC #### [facility] [address] [place], [place] [id number] Cholesterol in VLDL [Mass/Vol] 32 mg/dL Normal [facility] Comment on above: Performed By: #### C MP, LIPD, CBC #### [facility] [address] [place], [place] [id number] Cholesterol.total/Cho lesterol in HDL [Mass ratio] 6 {ratio} Normal [facility] Comment on above: Performed By: #### C MP, LIPD, CBC #### [facility] [address] [place], [place] [id number] Triglyceride [Mass/Vol] 159 mg/dL High 30-150 [facility] Comment on above: Result Comment: TRIG ATPIII CLASSIFICATIONS TRIG less than 150 mg/dl Normal TRIG 150-199 mg/dl Borderline High TRIG 200-500 mg/dl High TRIG greather than 500 mg/dl Very High Performed By: #### C MP, LIPD, CBC #### [facility] [address] [place], [place] [id number] COVID-19 SOFIAon 01-24-2021 SARS-CoV+SARS-CoV-2 (COVID-19) Ag IA.rapid Ql (Resp) Negative Negative [facility] Comment on above: This is a duplicate [facility] SARS Antigen (ANUM) result to be used for statistical tracking purpose only. No Panel Informationon 01-24 SARS Antigen (LFIA) [facility] No Panel Informationon 11-02 Reverse Triiodothyronine (T3) 16.5 ng/dL [facility] Comment on above: This test was develo ped and its performance characteristicsdetermined by [employer]. It has not been cleared orapproved by the Food and Drug Administration.Performed at: [address] [id number] Director: Neymar Ibarra MD, Phone: [phone] Serum or plasma thyroid stim ulating hormone (TSH) measurement by high sensitivity meton 11-02-2020 TSH Qn 2.96 u[iU]/mL 0.45-5.33 [facility] TSH DL <= 0.005 mIU/L Qnon 0 11-02-2020 TSH Qn 2.96 m[IU]/L 0.45-5.33 [facility] Thyroxine (T4) free [Mass/vo lume] in Serum or Plasmaon 11-02-2020 Free T4 [Mass/Vol] 0.62 ng/dL 0.61-1.12 [facility] Triiodothyronine (T3) Free [ Mass/volume] in Serum or Plasmaon 11-02-2020 Free T3 [Mass/Vol] 3.49 pg/mL 2.50-3.90 [facility] COVID-19 Positive/Negativeon 09-29-2020 COVID-19 Positive/Negative Negative Negative [facility] Comment on above: Testing for SARS-CoV -2 by RT-PCRThis test was developed and its performance characteristics determined by [employer] and validated at the [facility]. This test has not been FDA cleared [...] Otheron 09-29-2020 Coronavirus 2019 PCR Interp N/A [facility] Activated partial thrombopla stin time (aPTT) in platelet poor plasma by coagulation aon 09-09-2020 aPTT Coag (PPP) [Time] 36.1 s 23.0-35.0 [facility] Automated basophil %on 09-09 Basophils/100 WBC (Bld) 0.6 % [facility] Automated basophil counton 0 09-09-2020 Basophils (Bld) [#/Vol] 0.1 10*3/uL 0.0-0.2 [facility] Automated blood lymphocyte c ount (number/volume)on 09-09-2020 Lymphocytes (Bld) [#/Vol] 2.3 10*3/uL 1.00-4.8 [facility] Automated blood lymphocyte c ount as percentage of total leukocyteson 09-09-2020 Lymphocytes/100 WBC (Bld) 26.0 % [facility] Automated blood monocyte cou nton 09-09-2020 Monocytes (Bld) [#/Vol] 0.8 10*3/uL 0.0-0.8 [facility] Automated blood platelet cou nt (count/volume)on 09-09-2020 Platelets (Bld) [#/Vol] 280 10*3/uL 150-450 [facility] Automated blood platelet nuria n volume measurementon 09-09-2020 Platelet mean volume (Bld) [Entitic vol] 7.3 fL 6.3-10.7 [facility] Automated eosinophil %on Eosinophils/100 WBC (Bld) 2.3 % [facility] Automated eosinophil counton 09-09-2020 Eosinophils (Bld) [#/Vol] 0.2 10*3/uL 0.0-0.45 [facility] Automated erythrocyte distri bution width ratioon 09-09-2020 Erythrocyte distribution width (RBC) [Ratio] 14.3 % 11.9-15.3 [facility] Automated erythrocyte mean c orpuscular hemoglobin (mass per erythrocyte)on 09-09-2020 MCH (RBC) [Entitic mass] 29.2 pg 24.7-34.3 [facility] Automated erythrocyte mean c orpuscular hemoglobin concentration measurement (mass/volon 09-09-2020 MCHC (RBC) [Mass/Vol] 33.8 g/dL 32.0-35.[address] [facility] Automated erythrocyte mean c orpuscular volumeon 09-09-2020 MCV (RBC) [Entitic vol] 86.3 fL 80-100 [facility] Automated monocyte %on 09-09 Monocytes/100 WBC (Bld) 9.1 % [facility] Automated neutrophil %on Neutrophils/100 WBC (Bld) 62.0 % [facility] Blood erythrocytes automated count (number/volume)on 09-09-2020 RBC (Bld) [#/Vol] 4.62 10*6/uL 3.60-5.00 [facility] Blood hemoglobin measurement (mass/volume)on 09-09-2020 Hemoglobin (Bld) [Mass/Vol] 13.5 g/dL 11.8-15.4 [facility] Blood leukocytes automated c ount (number/volume)on 09-09-2020 WBC (Bld) [#/Vol] 9.0 10*3/uL 4.5-11.0 [facility] Blood neutrophil count by au tomated method (number/volume)on 09-09-2020 Neutrophils (Bld) [#/Vol] 5.6 10*3/uL 1.8-7.7 [facility] Body fluid albumin measureme nt (mass/volume)on 09-09-2020 Albumin (Body fld) [Mass/Vol] 3.6 g/dL 3.2-5.5 [facility] COVID-19 SOFIAon 09-09-2020 COVID-19 NARGIS Negative Negative [facility] Comment on above: This is a duplicate test result based off of the [facility] SARS Antigen (ANUM) test performed within the Microbiology department. [facility] 09-09-2020 Natriuretic peptide B (Bld) [Mass/Vol] 7.0 pg/mL 5-100 [facility] Creatine kinase [Enzymatic a ctivity/volume] in Serum or Plasmaon 09-09-2020 CK [Catalytic activity/Vol] 81 U/L 22-269 [facility] Estimated glomerular filtrat ion rate (GFR) non- Americanon 09-09-2020 GFR/1.73 sq M predicted among non-blacks MDRD (S/P/Bld) [Vol rate/Area] mL/min/{1.73_m2} [facility] Hematocrit [Volume Fraction] of Blood by Automated counton 09-09-2020 Hematocrit (Bld) [Volume fraction] 39.9 % 34.0-46.4 [facility] Hematologyon 09-09-2020 PT Coag (PPP) [Time] 11.9 s 9.0-12.9 [facility] Otheron 09-09-2020 SARS Antigen (LFIA) [facility] GFR/1.73 sq M.predicted MDRD (S/P/Bld) [Vol rate/Area] mL/min/{1.73_m2} [facility] Comment on above: GFR estimated refere nce range: According to KDOQI guidelines, <60 ml/min/1.73m2 is sufficient to diagnose a patient with chronic kidney disease. Lipase [Catalytic activity/Vol] 28.0 U/L 22-51 [facility] Nucleated RBC/100 WBC (Bld) [Ratio] 0.2 % 0-0.5 [facility] Creatinine Clearance (Chem 143.58 [facility] Platelet poor plasma interna tional normalized ratio (INR) by coagulation assay (relaton 09-09-2020 INR Coag (PPP) [Relative time] 1.1 {INR} [facility] Comment on above: INR Therapeutic Rang e [...] Plasmaon 09-09-2020 Protein [Mass/Vol] 7.0 g/dL 6.1-7.9 [facility] Serum globulin measurement b y calculation (mass/volume)on 09-09-2020 Globulin (S) [Mass/Vol] 3.4 g/dL [facility] Serum or plasma alanine allen otransferase measurement without P-5'-P (enzymatic activion 09-09-2020 ALT No additional P-5'-P [Catalytic activity/Vol] 25 U/L 10-60 [facility] Serum or plasma albumin/glob ulin mass ratioon 09-09-2020 Albumin/Globulin [Mass ratio] 1.1 {ratio} [facility] Serum or plasma alkaline alexis sphatase measurement (enzymatic activity/volume)on 09-09-2020 ALP [Catalytic activity/Vol] 101 U/L 32-92 [facility] Serum or plasma amylase reinier urement (enzymatic activity/volume)on 09-09-2020 Amylase [Catalytic activity/Vol] 34 U/L 28-100 [facility] Serum or plasma aspartate am inotransferase measurement (enzymatic activity/volume)on 09-09-2020 AST [Catalytic activity/Vol] 30 U/L 10-42 [facility] Serum or plasma calcium reinier urement (mass/volume)on 09-09-2020 Calcium [Mass/Vol] 8.9 mg/dL 8.2-10.2 [facility] Serum or plasma cardiac trop onin I measurement (mass/volume)on 09-09-2020 Troponin I.cardiac [Mass/Vol] ng/mL 0-0.02 [facility] Comment on above: JAMA GA Cut off value > or equal to 0.03 ng/mL in conjunction with clinical conditions of myocardial infarction.([email or web address].org/guidelines) Serum or plasma chloride nuria surement (moles/volume)on 09-09-2020 Chloride [Moles/Vol] 103 mmol/L 95-114 [facility] Serum or plasma creatine kin ase MB (CKMB)/total creatine kinase (CK) ratio by calculaon 09-09-2020 CK.MB Calc [Catalytic fraction] 1.6 0.00-2.50 [facility] Serum or plasma creatine kin ase MB measurement (mass/volume)on 09-09-2020 CK.MB [Mass/Vol] 1.3 ng/mL 0.6-6.3 [facility] Serum or plasma creatinine m easurement with calculation of estimated glomerular filtron 09-09-2020 Creatinine [Mass/Vol] 0.64 mg/dL 0.44-1.[address] [facility] Serum or plasma glucose reinier urement (mass/volume)on 09-09-2020 Glucose [Mass/Vol] 104 mg/dL 70-100 [facility] Comment on above: ADA recommended refe rence rangeRandom Glucose Reference Range is dependent on time and content of last meal. Glucose of more than 200 mg/dL in a nonstressed, ambulatory subject supports the diagnosis of Diabetes Mellitus. Serum or plasma potassium me asurement (moles/volume)on 09-09-2020 Potassium [Moles/Vol] 3.5 mmol/L 3.5-5.[address] [facility] Serum or plasma sodium measu rement (moles/volume)on 09-09-2020 Sodium [Moles/Vol] 137 mmol/L 136-146 [facility] Serum or plasma total biliru bin measurement (mass/volume)on 09-09-2020 Bilirubin [Mass/Vol] 0.3 mg/dL 0.3-1.2 [facility] Serum or plasma total carbon dioxide measurement (moles/volume)on 09-09-2020 CO2 [Moles/Vol] 21.1 mmol/L 22.0-30.0 [facility] Serum or plasma urea nitroge n measurement (mass/volume)on 09-09-2020 Urea nitrogen [Mass/Vol] 9 mg/dL 9- [facility] Vital Signs Date Time Vital Sign Value Performing Clinician Facility 06-26-2024 14:37-0400 Body height 167.6 cm [employer] DO Work Phone: [facility] 06-26-2024 14:37-0400 Body mass index (BMI) [Ratio] 43.74 kg/m2 [employer] DO Work Phone: [facility] 06-26-2024 14:37-0400 Body weight 122.92 kg [employer] [employer] DO Work Phone: [facility] 06-26-2024 14:37-0400 Diastolic blood pressure 70 mm[Hg] NinaLumi [place] DO Work Phone: [facility] 06-26-2024 14:37-0400 Systolic blood pressure 122 mm[Hg] [employer] DO Work Phone: [facility] 04-09-2024 13:41-0400 Diastolic blood pressure 80 mm[Hg] DO Mulugeta Shen Work Phone: [facility] 04-09-2024 13:41-0400 Heart rate 99 /min DO Mulugeta Shen Work Phone: 2([phone] [place] [address] 04-09-2024 13:41-0400 SaO2% (BldA) [Mass fraction] 97 % DO Mulugeta Mirandaer Work Phone: [facility] 04-09-2024 13:41-0400 Systolic blood pressure 120 mm[Hg] DO Mulugeta Shen Work Phone: 6(641)[phone] [address] 04-02-2024 09:55-0400 Diastolic blood pressure 69 mm[Hg] DO Mulugeta Shen Work Phone: 4(282)[phone] [address] 04-02-2024 09:55-0400 Heart rate 82 /min DO Mulugeta Mirandaer Work Phone: 2(795)595-577797 [place] [address] 04-02-2024 09:55-0400 Respiratory rate 16 /min DO Mulugeta Mirandaer Work Phone: 0(464)[phone] [place] [address] 04-02-2024 09:55-0400 SaO2% (BldA) [Mass fraction] 94 % DO Mulugeta Mirandaer Work Phone: 6(877)[phone] [place] [address] 04-02-2024 09:55-0400 Systolic blood pressure 115 mm[Hg] DO Mulugeta Mirandaer Work Phone: 4(194)[phone] [address] 04-02-2024 09:11-0400 Inhaled oxygen flow rate 3 L/min DO Mulugeta Mirandaer Work Phone: 0(476)[phone] [place] [address] 04-02-2024 08:13-0400 Body height 167.64 cm DO Mulugeta Shen Work Phone: 8(578)[phone] [address] 04-02-2024 08:13-0400 Body weight 117.02 kg DO Mulugeta Shen Work Phone: 5(714)[phone] [address] 03-17-2024 14:37-0400 Diastolic blood pressure 70 mm[Hg] [facility] 03-17-2024 14:37-0400 Heart rate 93 /min [facility] 03-17-2024 14:37-0400 SaO2% (BldA) [Mass fraction] 98 % [facility] 03-17-2024 14:37-0400 Systolic blood pressure 110 mm[Hg] [facility] 01-03-2024 14:20-0400 Body height 167.6 cm Benjamin Mercado MD Work Phone: [facility] 01-03-2024 14:20-0400 Body mass index (BMI) [Ratio] 41.83 kg/m2 Benjamin Mercado MD Work Phone: [facility] 01-03-2024 14:20-0400 Body temperature 97.2 [degF] Benjamin Mercado MD Work Phone: [facility] 01-03-2024 14:20-0400 Body weight 117.5 kg Benjamin Mercado MD Work Phone: [facility] 01-03-2024 14:20-0400 Diastolic blood pressure 84 mm[Hg] Benjamin Mercado MD Work Phone: [facility] 01-03-2024 14:20-0400 Heart rate 88 /min Benjamin Mercado MD Work Phone: [facility] 01-03-2024 14:20-0400 Respiratory rate 16 /min Benjamin Mercado MD Work Phone: [facility] 01-03-2024 14:20-0400 SaO2% (BldA) [Mass fraction] 96 % Benjamin Mercado MD Work Phone: [facility] 01-03-2024 14:20-0400 Systolic blood pressure 123 mm[Hg] Benjamin Mercado MD Work Phone: [facility] 11-28-2023 14:02-0400 Body height 168.91 cm DO Mulugeta Gotti Work Phone: [facility] 11-28-2023 14:02-0400 Body mass index (BMI) [Ratio] 41.3 kg/m2 DO Mulugeta Gotti Work Phone: [facility] 11-28-2023 14:02-0400 Body weight 118.01 kg DO Mulugeta Shen Work Phone: [facility] 11-28-2023 14:02-0400 Diastolic blood pressure 65 mm[Hg] DO Mulugeta Shen Work Phone: [facility] 11-28-2023 14:02-0400 Heart rate 89 /min DO Mulugeta Shen Work Phone: [facility] 11-28-2023 14:02-0400 Respiratory rate 18 /min DO Mulugeta Shen Work Phone: [facility] 11-28-2023 14:02-0400 SaO2% (BldA) [Mass fraction] 96 % DO Mulugeta Shen Work Phone: [facility] 11-28-2023 14:02-0400 Systolic blood pressure 91 mm[Hg] DO Mulugeta Mirandaer Work Phone: [facility] 10-24-2023 14:46-0500 Body height 168.91 cm DO Muulgeta Shen Work Phone: [facility] 10-24-2023 14:46-0500 Body mass index (BMI) [Ratio] 41.6 kg/m2 DO Mulugeta Shen Work Phone: [facility] 10-24-2023 14:46-0500 Body weight 118.84 kg DO Mulugeta Mirandaer Work Phone: [facility] 10-24-2023 14:46-0500 Diastolic blood pressure 69 mm[Hg] DO Mulugeta Shen Work Phone: [facility] 10-24-2023 14:46-0500 Heart rate 89 /min DO Mulugeta Shen Work Phone: [facility] 10-24-2023 14:46-0500 SaO2% (BldA) [Mass fraction] 98 % DO Mulugeta Shen Work Phone: [facility] 10-24-2023 14:46-0500 Systolic blood pressure 100 mm[Hg] DO Mulugeta Shen Work Phone: [facility] 08-29-2023 07:15-0500 Body height 168.91 cm Sharla Missler Other [facility] 08-29-2023 07:15-0500 Body mass index (BMI) [Ratio] 40.57 kg/m2 Sharla Missler Other [employer] [facility] [employer] Other 08-29-2023 07:15-0500 Body weight 115.76 kg Sharla Missler Other [employer] [facility] [employer] Other 08-29-2023 07:15-0500 Body weight 115.75 kg DO Dalal Shen Work Phone: [facility] 08-29-2023 07:15-0500 Diastolic blood pressure 78 mm[Hg] Sharla Missler Other [facility] 08-29-2023 07:15-0500 Respiratory rate 18 /min Sharla Missler Other [employer] [facility] [employer] Other 08-29-2023 07:15-0500 SaO2% (BldA) [Mass fraction] 96 % Sharla Missler Other [employer] [facility] [employer] Other 08-29-2023 07:15-0500 Systolic blood pressure 111 mm[Hg] Sharla Missler Other [facility] 08-22-2023 09:00-0500 Body height 168.91 cm Lazara Barclay Other [facility] 08-22-2023 09:00-0500 Diastolic blood pressure 57 mm[Hg] Lazara Barclay Other [facility] 08-22-2023 09:00-0500 Systolic blood pressure 89 mm[Hg] Lazara Barclay Other [facility] 08-02-2023 14:23-0500 Blood Pressure Location Pb NILL [facility] 08-02-2023 14:23-0500 Diastolic blood pressure 74 mm[Hg] Pb SOLANOL [facility] 08-02-2023 14:23-0500 Heart rate 84 /min Pb NILL [facility] [place] 08-02-2023 14:23-0500 Respiratory rate 16 /min Pb SOLANOL [facility] [place] 08-02-2023 14:23-0500 Systolic blood pressure 113 mm[Hg] Pb SOLANOL [facility] [place] 07-25-2023 09:00-0500 Body height 168.91 cm [employer] Other [employer] Other 07-25-2023 09:00-0500 SaO2% (BldA) [Mass fraction] 96 % [employer] Other [employer] Other 07-18-2023 12:15-0500 Diastolic blood pressure 84 mm[Hg] DO Mulugeta Mirandaer Work Phone: [facility] 07-18-2023 12:15-0500 Heart rate 92 /min DO Mulugeta Shen Work Phone: [facility] 07-18-2023 12:15-0500 Respiratory rate 16 /min DO Mulugeta Shen Work Phone: [facility] 07-18-2023 12:15-0500 SaO2% (BldA) [Mass fraction] 99 % DO Mulugeta Shen Work Phone: [facility] 07-18-2023 12:15-0500 Systolic blood pressure 124 mm[Hg] DO Mulugeta Shen Work Phone: [facility] 07-18-2023 11:14-0500 Inhaled oxygen flow rate 3 L/min DO Mulugeta Gotti Work Phone: [facility] 07-18-2023 09:40-0500 Body height 167.64 cm DO Mulugeta Gotti Work Phone: [facility] 07-18-2023 09:40-0500 Body weight 112.49 kg DO Mulugeta Gotti Work Phone: [facility] 07-10-2023 11:00-0500 Body height 168.91 cm Prasanna Weems Other [facility] [employer] Other 07-10-2023 11:00-0500 Body mass index (BMI) [Ratio] 40.54 kg/m2 Prasanna Weems Other [employer] Other 07-10-2023 11:00-0500 Body weight 115.67 kg Prasanna Weems Other [employer] Other 07-10-2023 11:00-0500 Diastolic blood pressure 80 mm[Hg] Prasanna Weems Other [employer] Other 07-10-2023 11:00-0500 SaO2% (BldA) [Mass fraction] 97 % Prasanna Weems Other [employer] Other 07-10-2023 11:00-0500 Systolic blood pressure 110 mm[Hg] Prasanna Weems Other [employer] Other 05-28-2023 08:15-0400 Body height 168.91 cm Sharla Benitez Other [employer] Other 05-28-2023 08:15-0400 Body mass index (BMI) [Ratio] 39.71 kg/m2 Sharla Benitez Other [employer] Other 05-28-2023 08:15-0400 Body weight 113.31 kg Sharla Missler Other [employer] Other 05-28-2023 08:15-0400 Diastolic blood pressure 83 mm[Hg] Sharla Missler Other [employer] Other 05-28-2023 08:15-0400 Respiratory rate 18 /min Sharla Missler Other [employer] Other 05-28-2023 08:15-0400 SaO2% (BldA) [Mass fraction] 95 % Sharla Missler Other [employer] Other 05-28-2023 08:15-0400 Systolic blood pressure 114 mm[Hg] Sharla Missler Other [employer] Other 05-19-2023 22:51-0400 Diastolic blood pressure 53 mm[Hg] DO Mulugeta Mirandaer Work Phone: [facility] 05-19-2023 22:51-0400 Heart rate 88 /min DO Mulugeta Mirandaer Work Phone: [facility] 05-19-2023 22:51-0400 Respiratory rate 22 /min DO Mulugeta Mirandaer Work Phone: [facility] 05-19-2023 22:51-0400 SaO2% (BldA) [Mass fraction] 95 % DO Mulugeta Mirandaer Work Phone: [facility] 05-19-2023 22:51-0400 Systolic blood pressure 113 mm[Hg] DO Mulugeta Shen Work Phone: [facility] 05-19-2023 21:05-0400 Body temperature 98.5 [degF] DO Mulugeta Mirandaer Work Phone: [facility] 05-19-2023 21:04-0400 Body height 167.64 cm DO Mulugeta Gotti Work Phone: [facility] 05-19-2023 21:04-0400 Body weight 112.49 kg DO Mulugeta Gotti Work Phone: [facility] 05-17-2023 08:15-0400 Diastolic blood pressure 71 mm[Hg] Luis Xavier MD Work Phone: [facility] 05-17-2023 08:15-0400 Heart rate 76 /min Luis Xavier MD Work Phone: [facility] 05-17-2023 08:15-0400 Respiratory rate 17 /min Luis Xavier MD Work Phone: [facility] 05-17-2023 08:15-0400 SaO2% (BldA) [Mass fraction] 95 % Luis Xavier MD Work Phone: [facility] 05-17-2023 08:15-0400 Systolic blood pressure 96 mm[Hg] Luis Xavier MD Work Phone: [facility] 05-17-2023 08:01-0400 Body temperature 96.8 [degF] Luis Xavier MD Work Phone: [facility] 04-16-2023 08:15-0400 Body height 168.91 cm Sharla Benitez Other [employer] Other 04-16-2023 08:15-0400 Body mass index (BMI) [Ratio] 39.47 kg/m2 Sharla Missler Other [employer] Other 04-16-2023 08:15-0400 Body weight 112.63 kg Sharla Missler Other [employer] Other 04-16-2023 08:15-0400 Diastolic blood pressure 68 mm[Hg] Sharlaher Hagenler Other [employer] Other 04-16-2023 08:15-0400 Respiratory rate 20 /min Sharla Missler Other [employer] Other 04-16-2023 08:15-0400 SaO2% (BldA) [Mass fraction] 96 % Sharla Missler Other [employer] Other 04-16-2023 08:15-0400 Systolic blood pressure 94 mm[Hg] Sharla Missler Other [employer] Other 04-04-2023 15:15-0400 Body height 168.91 cm Alicia Fitt Other [employer] Other 04-04-2023 15:15-0400 Body mass index (BMI) [Ratio] 39.79 kg/m2 Alicia Fitt Other [employer] Other 04-04-2023 15:15-0400 Body weight 113.54 kg Alicia Fitt Other [employer] Other 02-19-2023 08:30-0400 Body height 168.91 cm Sharla Missler Other [employer] Other 02-19-2023 08:30-0400 Body mass index (BMI) [Ratio] 41.11 kg/m2 Sharla Missler Other [employer] Other 02-19-2023 08:30-0400 Body weight 117.3 kg Sharla Missler Other [employer] Other 02-19-2023 08:30-0400 Diastolic blood pressure 72 mm[Hg] Sharla Missler Other [employer] Other 02-19-2023 08:30-0400 Respiratory rate 18 /min Sharla Missler Other [employer] Other 02-19-2023 08:30-0400 SaO2% (BldA) [Mass fraction] 97 % Sharla Missler Other [employer] Other 02-19-2023 08:30-0400 Systolic blood pressure 101 mm[Hg] Sharla Missler Other [employer] Other 02-16-2023 12:04-0400 Blood Pressure Location Jada Orzech [facility] 02-16-2023 12:04-0400 Body temperature 98.6 [degF] Jada Orzech [facility] 02-16-2023 12:04-0400 Diastolic blood pressure 78 mm[Hg] Jada Orzech [facility] 02-16-2023 12:04-0400 Heart rate 68 /min Jada Orzech [facility] 02-16-2023 12:04-0400 SaO2% (BldA) [Mass fraction] 96 % Jada Orzech [facility] 02-16-2023 12:04-0400 Systolic blood pressure 120 mm[Hg] Jada Orzech [facility] 02-06-2023 07:38-0400 Body height 167.6 cm Shawn Prasad Jr., DO Work Phone: [facility] 02-06-2023 07:38-0400 Body weight 117.94 kg Shawn Prasad Jr., DO Work Phone: [facility] 02-06-2023 07:38-0400 Diastolic blood pressure 72 mm[Hg] Shawn Prasad JrEb, DO Work Phone: [facility] 02-06-2023 07:38-0400 Heart rate 86 /min Shawn Prasad JrEb, DO Work Phone: [facility] 02-06-2023 07:38-0400 SaO2% (BldA) [Mass fraction] 97 % Shawn Prasad JrEb, DO Work Phone: [facility] 02-06-2023 07:38-0400 Systolic blood pressure 106 mm[Hg] Shawn Prasad JrEb, DO Work Phone: [facility] 01-11-2023 13:55-0400 Diastolic blood pressure 66 mm[Hg] DO Mulugeta Shen Work Phone: [facility] 01-11-2023 13:55-0400 Heart rate 71 /min DO Mulugeta Shen Work Phone: [facility] 01-11-2023 13:55-0400 Respiratory rate 17 /min DO Mulugeta Shen Work Phone: [facility] 01-11-2023 13:55-0400 SaO2% (BldA) [Mass fraction] 95 % DO Mulugeta Shen Work Phone: [facility] 01-11-2023 13:55-0400 Systolic blood pressure 117 mm[Hg] DO Mulugeta Shen Work Phone: [facility] 01-11-2023 10:48-0400 Body height 170.18 cm DO Mulugeta Shen Work Phone: [facility] 01-11-2023 10:48-0400 Body temperature 97.9 [degF] DO Mulugeta Shen Work Phone: [facility] 01-11-2023 10:48-0400 Body weight 121.05 kg DO Mulugeta Shen Work Phone: [facility] 01-04-2023 14:11-0400 Body height 167.6 cm Benjamin Mercado MD Work Phone: [facility] 01-04-2023 14:11-0400 Body temperature 97.3 [degF] Benjamin Mercado MD Work Phone: [facility] 01-04-2023 14:11-0400 Body weight 121.84 kg Benjamin Mercado MD Work Phone: [facility] 01-04-2023 14:11-0400 Diastolic blood pressure 84 mm[Hg] Benjamin Mercado MD Work Phone: [facility] 01-04-2023 14:11-0400 Heart rate 96 /min Benjamin Mercado MD Work Phone: [facility] 01-04-2023 14:11-0400 Respiratory rate 16 /min Benjamin Mercado MD Work Phone: [facility] 01-04-2023 14:11-0400 SaO2% (BldA) [Mass fraction] 95 % Benjamin Mercado MD Work Phone: [facility] 01-04-2023 14:11-0400 Systolic blood pressure 121 mm[Hg] Benjamin Mercado MD Work Phone: [facility] 12-25-2022 09:30-0400 Body height 168.91 cm Sharla Benitez Other [employer] Other 12-25-2022 09:30-0400 Body mass index (BMI) [Ratio] 43.11 kg/m2 Sharlaher Hagenler Other [employer] Other 12-25-2022 09:30-0400 Body weight 123.02 kg Sharlaher Hagenler Other [employer] Other 12-25-2022 09:30-0400 Diastolic blood pressure 78 mm[Hg] Sharlaher Hagenler Other [employer] Other 12-25-2022 09:30-0400 Respiratory rate 18 /min Sharla Missler Other [employer] Other 12-25-2022 09:30-0400 SaO2% (BldA) [Mass fraction] 97 % Sharla Missler Other [employer] Other 12-25-2022 09:30-0400 Systolic blood pressure 109 mm[Hg] Sharla Missler Other [employer] Other 10-30-2022 09:00-0500 Body height 168.91 cm Sharla Missler Other [employer] Other 10-30-2022 09:00-0500 Body mass index (BMI) [Ratio] 44.07 kg/m2 Sharla Missler Other [employer] Other 10-30-2022 09:00-0500 Body weight 125.74 kg Sharla Missler Other [employer] Other 10-30-2022 09:00-0500 Diastolic blood pressure 70 mm[Hg] Sharla Missler Other [employer] Other 10-30-2022 09:00-0500 Respiratory rate 18 /min Sharla Missler Other [employer] Other 10-30-2022 09:00-0500 SaO2% (BldA) [Mass fraction] 96 % Sharla Missler Other [employer] Other 10-30-2022 09:00-0500 Systolic blood pressure 101 mm[Hg] Sharla Missler Other [employer] Other 09-27-2022 09:00-0500 Body height 168.91 cm Sharla Missler Other [employer] Other 09-27-2022 09:00-0500 Body mass index (BMI) [Ratio] 45.13 kg/m2 Sharla Missler Other [employer] Other 09-27-2022 09:00-0500 Body weight 128.78 kg Sharla Missler Other [employer] Other 09-27-2022 09:00-0500 Diastolic blood pressure 69 mm[Hg] Sharla Missler Other [employer] Other 09-27-2022 09:00-0500 Respiratory rate 18 /min Sharla Missler Other [employer] Other 09-27-2022 09:00-0500 SaO2% (BldA) [Mass fraction] 95 % Sharla Missler Other [employer] Other 09-27-2022 09:00-0500 Systolic blood pressure 101 mm[Hg] Sharla Missler Other [employer] Other 09-12-2022 12:34-0500 Blood Pressure Location Finesse RICE [facility] 09-12-2022 12:34-0500 Diastolic blood pressure 69 mm[Hg] Finesse RICE [facility] 09-12-2022 12:34-0500 Heart rate 78 /min Finesse RICE [facility] 09-12-2022 12:34-0500 Respiratory rate 16 /min Finesse RICE [facility] 09-12-2022 12:34-0500 Systolic blood pressure 104 mm[Hg] Finesse RICE [facility] 08-21-2022 15:45-0500 Body height 168.91 cm Sharla Missler Other [employer] Other 08-21-2022 15:45-0500 Body mass index (BMI) [Ratio] 45.94 kg/m2 Sharla Missler Other [employer] Other 08-21-2022 15:45-0500 Body weight 131.09 kg Sharla Missler Other [employer] Other 08-21-2022 15:45-0500 Diastolic blood pressure 79 mm[Hg] Sharla Missler Other [employer] Other 08-21-2022 15:45-0500 Respiratory rate 18 /min Sharla Missler Other [employer] Other 08-21-2022 15:45-0500 SaO2% (BldA) [Mass fraction] 95 % Sharla Missler Other [employer] Other 08-21-2022 15:45-0500 Systolic blood pressure 128 mm[Hg] Sharla Missler Other [employer] Other 08-02-2022 16:15-0500 Body height 168.91 cm Alicia Saunders Other [employer] Other 07-25-2022 13:22-0500 Blood Pressure Location RUBIA MEJÍA [facility] 07-25-2022 13:22-0500 Diastolic blood pressure 85 mm[Hg] RUBIA MEJÍA [facility] 07-25-2022 13:22-0500 Heart rate 86 /min RUBIA MEJÍA [facility] 07-25-2022 13:22-0500 Systolic blood pressure 132 mm[Hg] RUBIA MEJÍA [facility] 07-14-2022 09:00-0500 Body height 168.91 cm Sharla Missler Other [employer] Other 07-14-2022 09:00-0500 Body mass index (BMI) [Ratio] 47.29 kg/m2 Sharla Missler Other [employer] Other 07-14-2022 09:00-0500 Body weight 134.95 kg Sharla Missler Other [employer] Other 07-14-2022 09:00-0500 Diastolic blood pressure 63 mm[Hg] Sharla Missler Other [employer] Other 07-14-2022 09:00-0500 Respiratory rate 20 /min Sharla Missler Other [employer] Other 07-14-2022 09:00-0500 SaO2% (BldA) [Mass fraction] 92 % Sharla Missler Other [employer] Other 07-14-2022 09:00-0500 Systolic blood pressure 109 mm[Hg] Sharla Missler Other [employer] Other 07-06-2022 14:42-0400 Body height 167.6 cm Benjamni Mercado MD Work Phone: [facility] 07-06-2022 14:42-0400 Body temperature 97.59 [degF] Benjamin Mercado MD Work Phone: [facility] 07-06-2022 14:42-0400 Body weight 134.3 kg Benjamin Mercado MD Work Phone: [facility] 07-06-2022 14:42-0400 Diastolic blood pressure 75 mm[Hg] Benjamin Mercado MD Work Phone: [facility] 07-06-2022 14:42-0400 Heart rate 122 /min Benjamin Mercado MD Work Phone: [facility] 07-06-2022 14:42-0400 Respiratory rate 18 /min Benjamin Mercado MD Work Phone: [facility] 07-06-2022 14:42-0400 SaO2% (BldA) [Mass fraction] 97 % Benjamin Mercado MD Work Phone: [facility] 07-06-2022 14:42-0400 Systolic blood pressure 132 mm[Hg] Benjamin Mercado MD Work Phone: [facility] 02-02-2022 14:45-0400 Body height 170.18 cm Prasanna Weems Other [employer] Other 02-02-2022 14:45-0400 Body mass index (BMI) [Ratio] 46.04 kg/m2 Prasanna Weems Other [employer] Other 02-02-2022 14:45-0400 Body weight 133.36 kg Prasanna Weems Other [employer] Other 02-02-2022 14:45-0400 Diastolic blood pressure 82 mm[Hg] Prasanna Weems Other [employer] Other 02-02-2022 14:45-0400 SaO2% (BldA) [Mass fraction] 96 % Prasanna Weems Other [employer] Other 02-02-2022 14:45-0400 Systolic blood pressure 124 mm[Hg] Prasanna Weems Other [employer] Other 01-20-2022 12:30-0400 Body height 170.18 cm Prasanna Weems Other [facility] Other 01-20-2022 12:30-0400 Body mass index (BMI) [Ratio] 46.04 kg/m2 Prasanna Weems Other [facility] Other 01-20-2022 12:30-0400 Body weight 133.36 kg Prasanna Weems Other [facility] Other 01-20-2022 12:30-0400 Diastolic blood pressure 80 mm[Hg] Prasanna Weems Other [facility] Other 01-20-2022 12:30-0400 Systolic blood pressure 124 mm[Hg] Prasanna Weems Other [employer] Other 01-17-2022 08:39-0400 Blood Pressure Location RUBIA MEJÍA [facility] 01-17-2022 08:39-0400 Diastolic blood pressure 83 mm[Hg] RUBIA MEJÍA [facility] 01-17-2022 08:39-0400 Heart rate 95 /min RUBIA MEJÍA [facility] 01-17-2022 08:39-0400 Respiratory rate 16 /min RUBIA MEJÍA [facility] 01-17-2022 08:39-0400 Systolic blood pressure 120 mm[Hg] RUBIA MEJÍA [facility] 09-12-2021 15:30-0500 Body height 170.18 cm Prasanna Pabonky Other [employer] Other 09-12-2021 15:30-0500 Body mass index (BMI) [Ratio] 46.36 kg/m2 Prasanna Pabonky Other [employer] Other 09-12-2021 15:30-0500 Body weight 134.27 kg Prasanna Dank Other [employer] Other 09-12-2021 15:30-0500 Diastolic blood pressure 80 mm[Hg] Prasannakevan Weems Other [employer] Other 09-12-2021 15:30-0500 Systolic blood pressure 120 mm[Hg] Prasannakevan Weems Other [employer] Other 08-19-2021 13:00-0500 Body height 170.18 cm Prasannakevan Weems Other [employer] Other 08-19-2021 13:00-0500 Body mass index (BMI) [Ratio] 47.76 kg/m2 Prasanna Weems Other [employer] Other 08-19-2021 13:00-0500 Body weight 138.35 kg Prasanna Weems Other [employer] Other 08-19-2021 13:00-0500 Diastolic blood pressure 60 mm[Hg] Prasanna Weems Other [facility] Other 08-19-2021 13:00-0500 Systolic blood pressure 100 mm[Hg] Prasanna Weems Other [employer] Other 01-26-2021 12:31-0400 Diastolic blood pressure 62 mm[Hg] Mulugeta Shen Work Phone: [facility] 01-26-2021 12:31-0400 Heart rate 87 /min Mulugeta Shen Work Phone: [facility] 01-26-2021 12:31-0400 Respiratory rate 20 /min Mulugeta Gotti Work Phone: [facility] 01-26-2021 12:31-0400 SaO2% (BldA) [Mass fraction] 95 % Mulugeta Shen Work Phone: [facility] 01-26-2021 12:31-0400 Systolic blood pressure 95 mm[Hg] Mulugeta Gotti Work Phone: [facility] 01-26-2021 11:25-0400 Body height 167.64 cm Mulugeta Gotti Work Phone: [facility] 01-26-2021 11:25-0400 Body mass index (BMI) [Ratio] 51.1 kg/m2 Mulugeta Gotti Work Phone: [facility] 01-26-2021 11:25-0400 Body weight 143.78 kg Mulugeta Gotti Work Phone: [facility] 10-01-2020 13:14-0500 BP Diastolic 88 mm[Hg] [facility] 10-01-2020 13:14-0500 BP Systolic 146 mm[Hg] [facility] 10-01-2020 13:14-0500 Pulse (Heart Rate) 98 /min [facility] 10-01-2020 13:14-0500 Pulse Oximetry 94 % [facility] 10-01-2020 13:14-0500 Respiratory Rate 16 /min [facility] 10-01-2020 12:15-0500 Body Temperature 98 [degF] [facility] 10-01-2020 11:52-0500 BMI (Body Mass Index) 52.5 kg/m2 [facility] 10-01-2020 11:52-0500 Body weight 147.6 kg [facility] 10-01-2020 11:52-0500 Height 167.64 cm [facility] 09-09-2020 13:42-0500 BP Diastolic 66 mm[Hg] [facility] 09-09-2020 13:42-0500 BP Systolic 127 mm[Hg] [facility] 09-09-2020 13:42-0500 Pulse (Heart Rate) 85 /min [facility] 09-09-2020 13:42-0500 Pulse Oximetry 94 % [facility] 09-09-2020 13:42-0500 Respiratory Rate 18 /min [facility] 09-09-2020 10:14-0500 Body Temperature 98.1 [degF] [facility] 09-09-2020 10:07-0500 BMI (Body Mass Index) 47.9 kg/m2 [facility] 09-09-2020 10:07-0500 Body weight 134.71 kg [facility] 09-09-2020 10:07-0500 Height 167.64 cm [facility] 08-31-2020 09:45-0500 Body Temperature 96.5 [degF] [facility] 08-31-2020 09:45-0500 BP Diastolic 78 mm[Hg] Mulugeta [facility] 08-31-2020 09:45-0500 BP Systolic 121 mm[Hg] [facility] 08-31-2020 09:45-0500 Pulse (Heart Rate) 97 /min Mulugeta [facility] 08-31-2020 09:45-0500 Pulse Oximetry 97 % [facility] 08-31-2020 09:45-0500 Respiratory Rate 16 /min Mulugeta [facility] Encounters Encounter Date Encounter Type Care Provider Facility Start: 06-26-2024 End: 06-26-2024 Office outpatient visit 25 minutes Nina Montana DO Work Phone: [facility] Comment on above: Malignant neoplasm o f lower-outer quadrant of left breast of female, estrogen receptor positive (CMS/HCC) (Primary Dx); Estrogen receptor positive Start: 06-26-2024 End: 06-26-2024 ambulatory NINA MONTANA Not Available Start: 06-23-2024 End: 06-23-2024 Patient encounter procedure DO Mulugeta Shen Work Phone: [facility] Work Phone: Start: 06-23-2024 End: 06-23-2024 ambulatory DO Mulugeta Gotti Work Phone: [facility] Work Phone: Start: 04-09-2024 End: 04-09-2024 ambulatory DO Mulugeta Gotti Work Phone: [facility] Work Phone: Start: 04-09-2024 End: 04-09-2024 Patient encounter procedure DO Mulugeta Gotti Work Phone: [facility] Work Phone: Start: 04-02-2024 Non-patient / Non-visit DO Divya Gotti Work Phone: [facility] Work Phone: Start: 04-02-2024 End: 04-02-2024 Admission to same day surgery center DO Mulugeta Gotti Work Phone: [facility] Work Phone: Start: 04-02-2024 End: 04-02-2024 ambulatory DO Mulugeta Gotti Work Phone: [facility] Work Phone: Start: 03-27-2024 End: 03-27-2024 ambulatory MULUGETA GOTTI Not Available Start: 03-17-2024 End: 03-17-2024 ambulatory [facility] Work Phone: Start: 03-17-2024 End: 03-17-2024 Patient encounter procedure [facility] Work Phone: Start: 02-27-2024 End: 02-27-2024 ambulatory MULUGETA GOTTI Not Available Start: 01-03-2024 End: 01-03-2024 ambulatory MULUGETA GOTTI Facility:[facility] Start: 01-03-2024 End: 01-03-2024 ambulatory [...] 11-28-2023 ambulatory DO Mulugeta Gotti Work Phone: [facility] Work Phone: Start: 11-28-2023 End: 11-28-2023 Patient encounter procedure DO Mulugeta Gotti Work Phone: [facility] Work Phone: Start: 11-23-2023 Refill Benjamin Mercado MD Work Phone: Hematology/Oncology Comment on above: Refill Request Start: 11-12-2023 End: 11-12-2023 ambulatory MULUGETA GOTTI Not Available Start: 10-24-2023 End: 10-24-2023 ambulatory DO Mulugeta Gotti Work Phone: [facility] Work Phone: Start: 10-24-2023 End: 10-24-2023 Patient encounter procedure DO Mulugeta Gotti Work Phone: [facility] Work Phone: Start: 10-24-2023 End: 10-24-2023 Patient encounter procedure DO Mulugeta Gotti Work Phone: [facility] [place] Work Phone: Start: 10-24-2023 End: 10-24-2023 ambulatory DO Mulugeta Gotti Work Phone: [facility] Work Phone: Start: 10-04-2023 End: 10-04-2023 ambulatory Sharla Missler Other [employer] Other Start: 10-04-2023 Telephone encounter Sharla [facility] Start: 09-04-2023 End: 09-04-2023 ambulatory Sharla Missler Other [employer] Other Start: 09-04-2023 Telephone [facility] Start: 08-29-2023 (FCCCWMNF/U) Weight Management f/u [facility] Start: 08-29-2023 Registered Recurring DO Mulugeta sheikh Work Phone: [facility] Work Phone: Start: 08-29-2023 End: 08-29-2023 ambulatory Mulugeta Gotti [facility] Other Start: 08-29-2023 End: 08-29-2023 Patient encounter procedure DO Mulugeta Gotti Work Phone: [facility] Work Phone: Start: 08-22-2023 End: 08-22-2023 ambulatory Lazara Barclay Other [employer] Other Start: 08-22-2023 Office outpatient vi sit 15 minutes Lazara Barclay [facility] Start: 08-22-2023 End: 08-22-2023 Patient encounter procedure DO Mulugeta Gotti Work Phone: [facility] Work Phone: Start: 08-07-2023 (PROC) PROCEDURE Prasanna Weems [facility] Start: 08-07-2023 End: 08-07-2023 ambulatory Prasanna Weems Other [employer] Other Start: 08-02-2023 End: 08-03-2023 ambulatory Pb Crow PRUDENCE Facility: [place] Start: 08-02-2023 End: 08-02-2023 Patient encounter procedure Pb FOSS [facility] [place] Start: 07-30-2023 ambulatory Finesse EKATERINA Facility:[facility] [place] Start: 07-25-2023 End: 07-25-2023 ambulatory Lazara Barclay Other [employer] Other Start: 07-25-2023 Office outpatient vi sit 15 minutes Lazara Barclay [facility] Start: 07-18-2023 (PROC) PROCEDURE Prasanna Weems [facility] Start: 07-18-2023 End: 07-18-2023 Admission to same day surgery center DO Mulugeta Gotti Work Phone: [facility] Work Phone: Start: 07-18-2023 End: 07-18-2023 ambulatory DO Mulugeta Gotti Work Phone: [facility] Work Phone: Start: 07-10-2023 End: 07-10-2023 Patient encounter procedure DO Mulugeta Gotti Work Phone: [facility] [place] Work Phone: Start: 07-10-2023 End: 07-10-2023 ambulatory DO Mulugeta Gotti Work Phone: [employer] Other Start: 07-10-2023 Office outpatient vi sit 25 minutes Prasanna CALVILLO [facility] Start: 06-22-2023 End: 06-22-2023 ambulatory DO Mulugeta Gotti Work Phone: [facility] Work Phone: Start: 06-22-2023 End: 06-22-2023 Patient encounter procedure DO Mulugeta Gotti Work Phone: [facility] Work Phone: Start: 05-28-2023 Registered Recurring DO Mulugeta sheikh Work Phone: [facility] Work Phone: Start: 05-28-2023 (FCCCWMNF/U) Weight Management f/u Sharla [facility] Start: 05-28-2023 End: 05-28-2023 ambulatory Sharla Benitez Other [employer] Other Start: 05-28-2023 Telephone encounter [facility] Start: 05-19-2023 End: 05-19-2023 Emergency department patient visit DO Mulugeta Gotti Work Phone: [facility]Emer[facility] Work Phone: Start: 05-17-2023 Telephone encounter Luis landry MD Work Phone: Gastroenterology Comment on above: Patient Update (S/p ERCP with stent removal today) Start: 05-17-2023 ambulatory MULUGETA GOTTI Facility: [facility] Start: 05-17-2023 End: 05-17-2023 Subsequent hospital visit by physician Luis Xavier MD Work Phone: [facility] End[facility] - ENDO Comment on above: Encounter for remova l of biliary stent [Z46.89] Start: 05-11-2023 ambulatory Luis Xavier MD Work Phone: [facility] - ENDO Start: 04-20-2023 End: 04-20-2023 ambulatory Sharla Benitez Other [employer] Other Start: 04-20-2023 Telephone encounter [facility] Comment on above: Results Start: 04-19-2023 End: 04-19-2023 ambulatory MULUGETA María Elena GOTTI Facility:[facility] Start: 04-18-2023 End: 04-18-2023 ambulatory DO Mulugeta Gotti Work Phone: [facility] Work Phone: Start: 04-18-2023 End: 04-18-2023 Patient encounter procedure DO Mulugeta Gotti Work Phone: [facility] [place] Work Phone: Start: 04-17-2023 End: 04-18-2023 ambulatory MULUGETA GOTTI Facility:[facility] Start: 04-16-2023 Registered Recurring DO Mulugeta sheikh Work Phone: [facility] Work Phone: Start: 04-16-2023 (FCCCWMNF/U) Weight Management f/u [facility] Start: 04-16-2023 End: 04-16-2023 ambulatory Sharla Benitez Other [employer] Other Start: 04-12-2023 ambulatory Shawn Prasad DO Work Phone: Gastgroenterology Comment on above: My symptoms Start: 04-10-2023 End: 04-10-2023 ambulatory Sharla Missler Other [employer] Other Start: 04-10-2023 Telephone encounter Sharla Eli [facility] Start: 04-04-2023 ([facility] RD FU) [facility] F/ U [employer]d [employer] Alicia Mansoordione [facility] Start: 04-04-2023 End: 04-04-2023 ambulatory Alicia Saunders Other [employer] Other Start: 02-22-2023 End: 02-22-2023 ambulatory Sharla Missler Other [employer] Other Start: 02-22-2023 Telephone encounter Sharlaher Benitez [facility] Start: 02-19-2023 ([facility]) Weight Management f/u Sharla [facility] Start: 02-19-2023 End: 02-19-2023 ambulatory Sharla Missler Other [employer] Other Start: 02-16-2023 End: 02-17-2023 ambulatory Jada X Orzech Facility[facility] Start: 02-16-2023 End: 02-17-2023 ambulatory Jada X Orzech Facility:[facility] Start: 02-16-2023 End: 02-16-2023 Lab Drop off Jada X Orzech [facility] Start: 02-16-2023 End: 02-16-2023 Patient encounter procedure Jada X Orzech [facility] Start: 2023 Telephone encounter Luis landry MD Work Phone: Gastroenterology Comment on above: Follow Up (Needs rep eat ERCP for stent removal in 2 months) Start: 2023 ambulatory BLESSING YANCEY Facility:[facility] Start: 02-14-2023 ambulatory MULUGETA GOTTI Facility: [facility] Start: 02-09-2023 ambulatory SHAWN PRASAD JR Facili ty:[facility] Start: 02-09-2023 End: 02-09-2023 Subsequent hospital visit by physician [facility] Comment on above: Left without seen Start: 02-08-2023 ambulatory Luis Xavier MD Work Phone: [facility] - ENDO Start: 02-07-2023 Telephone encounter Shawn villagomez DO Work Phone: Gastroenterology Comment on above: Results Start: 02-06-2023 Telephone encounter Shawn villagomez DO Work Phone: Gastroenterology Comment on above: Procedure (Needs ERC P with Dr. Xavier) Start: 02-06-2023 End: 02-06-2023 ambulatory SHAWN PRASAD JR Facility:[facility] Start: 02-06-2023 End: 02-06-2023 Patient encounter procedure Shawn Prasad DO Work Phone: Gastgroenterology Comment on above: Choledocholithiasis (Primary Dx); RUQ abdominal pain; Irritable bowel syndrome with diarrhea Start: 01-11-2023 End: 01-11-2023 Emergency department patient visit DO Mulugeta Gotti Work Phone: [facility] Work Phone: Start: 01-08-2023 End: 01-08-2023 ambulatory DO Mulugeta Gotti Work Phone: [facility] Work Phone: Start: 01-08-2023 End: 01-08-2023 Patient encounter procedure DO Mulugeta Gotti Work Phone: [facility] [place] Work Phone: Start: 01-04-2023 End: 01-04-2023 ambulatory BENJAMIN MERCADO Facility:[facility] Start: 01-04-2023 End: 01-04-2023 ambulatory Benjamin Mercado MD Work Phone: Hematology/Oncology Comment on above: Malignant neoplasm o f lower-outer quadrant of left breast of female, estrogen receptor positive (HCC) (Primary Dx) Start: 01-04-2023 End: 01-04-2023 Patient encounter procedure Benjamin Mercado MD Work Phone: [facility] Start: 01-03-2023 End: 01-03-2023 ambulatory DO Mulugeta Gotti Work Phone: [facility] Work Phone: Start: 01-03-2023 End: 01-03-2023 Patient encounter procedure DO Mulugeta Gotti Work Phone: [facility] [place] Work Phone: Start: 12-25-2022 (FCCCWMNF/U) Weight Management f/u [facility] Start: 12-25-2022 End: 12-25-2022 [facility] [employer] Other Start: 12-25-2022 Registered Recurring DO Mulugeta sheikh Work Phone: [facility] Work Phone: Start: 11-28-2022 End: 11-28-2022 ambulatory Rubia Mendosa Other [employer] Other Start: 11-28-2022 Refill Benjamin Mercado MD Work Phone: Hematology/Oncology Comment on above: Refill Request Start: 11-28-2022 Telephone encounter Rubia Mendosa [facility] Start: 10-30-2022 (FCCCWMNF/U) Weight Management f/u [facility] Start: 10-30-2022 End: 10-30-2022 ambulatory Sharla ler Other [employer] Other Start: 10-16-2022 End: 10-16-2022 ambulatory Sharla Missler Other [employer] Other Start: 10-16-2022 [facility] Start: 10-09-2022 End: 10-09-2022 ambulatory Sharla Missler Other [employer] Other Start: 10-09-2022 Telephone encounter Sharla Benitez [facility] Start: 09-27-2022 (FCCCWMNF/U) Weight Management f/u Sharla Benitez [facility] Start: 09-27-2022 End: 09-27-2022 ambulatory Sharlaher Hagenler Other [employer] Other Start: 09-27-2022 IBT for Obesity init ial 30 min (Max charge 2 units) Alicia Saunders [facility] Start: 09-12-2022 End: 09-13-2022 ambulatory Finesse TOBAR Facility:[facility] Start: 09-12-2022 End: 09-12-2022 Patient encounter procedure Finesse TOBAR [facility] Start: 08-21-2022 (FCCCWMNF/U) Weight Management f/u Sharla Benitez [facility] Start: 08-21-2022 End: 08-21-2022 ambulatory Sharlaher Hagenler Other [employer] Other Start: 08-17-2022 End: 08-18-2022 ambulatory Finesse TOBAR Facility:[facility] Start: 08-17-2022 End: 08-17-2022 Patient encounter procedure Finesse TOBAR [facility] Start: 08-15-2022 End: 08-15-2022 ambulatory Sharla Benitez Other [employer] Other Start: 08-15-2022 Telephone encounter Sharla Seo [facility] Start: 08-02-2022 End: 08-02-2022 ambulatory Alicia Fitt Other [employer] Other Start: 08-02-2022 IBT FOR OBESITY GROU P 2-10 30M Aliciamanpreet Maxdione [facility] Start: 08-02-2022 Telephone encounter Jose machado [facility] Start: 07-25-2022 End: 07-25-2022 Patient encounter procedure RUBIA MEJÍA [facility] Start: 07-14-2022 End: 07-14-2022 ambulatory Sharla Benitez Other [employer] Other Start: 07-14-2022 Nutrition therapy Sharla Benitez [facility] Start: 07-06-2022 End: 07-06-2022 ambulatory Benjamin Mercado MD Work Phone: Hematology/Oncology Comment on above: Malignant neoplasm o f lower-outer quadrant of left breast of female, estrogen receptor positive (HCC) (Primary Dx) Start: 07-06-2022 End: 07-06-2022 Patient encounter procedure Benjamin Mercado MD Work Phone: [facility] Start: 06-30-2022 End: 06-30-2022 ambulatory Alicia Fitt Other [employer] Other Start: 06-30-2022 Telephone encounter Alicia maciel [facility] Start: 06-21-2022 End: 06-21-2022 ambulatory DO Mulugeta Gotti Work Phone: [facility] Work Phone: Start: 06-21-2022 End: 06-21-2022 Patient encounter procedure DO Mulugeta Gotti Work Phone: [facility] [place] Start: 06-21-2022 End: 06-21-2022 ambulatory DO Mulugeta Gotti Work Phone: [facility] Work Phone: Start: 06-21-2022 End: 06-21-2022 Patient encounter procedure DO Mulugeta Gotti Work Phone: [facility] Start: 05-28-2022 End: 05-28-[address] MULUGETA GOTTI Facility: Start: 05-15-2022 End: 05-15-2022 Patient encounter procedure Finesse TOBAR [facility] Start: 04-27-2022 End: 04-27-2022 Patient encounter procedure DO Mulugeta Gotti Work Phone: [facility] Start: 04-24-2022 End: 04-24-2022 Lab Drop off Harris Landry [facility] Start: 04-24-2022 End: 04-24-2022 Patient encounter procedure Harris Varnermons [facility] Start: 02-02-2022 End: 02-02-2022 ambulatory Prasanna Weems Other [employer] Other Start: 02-02-2022 Office outpatient vi sit 15 minutes Prasanna Weems [facility] Start: 01-25-2022 (Procedure) Short Prasanna Weems [facility] Start: 01-25-2022 End: 01-25-2022 ambulatory Prasanna Weems Other [employer] Other Start: 01-20-2022 End: 01-20-2022 ambulatory Prasanna Weems Other [employer] Other Start: 01-20-2022 Office outpatient vi sit 15 minutes Prasanna Dank [facility] [place] Start: 01-17-2022 End: 01-17-2022 Lab Drop off Jack PERSAUD [facility] Start: 01-17-2022 End: 01-17-2022 Patient encounter procedure RUBIA Jose MEJÍA [facility] Start: 12-14-2021 Telephone encounter Benjamin mcneil MD Work Phone: Hematology/Oncology Comment on above: Lab Orders Start: 11-16-2021 End: 11-17-[address] CHANELLE MEEK Facility:[facility] Start: 11-16-2021 End: 11-16-[address] MULUGETA GOTTI Facility:[facility] Start: 09-12-2021 End: 09-12-2021 ambulatory Prasanna Dank Other [employer] Other Start: 09-12-2021 Office outpatient vi sit 15 minutes Prasanna Dank [facility] Start: 08-19-2021 End: 08-19-2021 ambulatory Prasanna Weems Other [employer] Other Start: 08-19-2021 Office outpatient vi sit 15 minutes Prasanna Dank [facility] [place] Start: 02-26-2021 End: 02-26-2021 Patient encounter procedure Mulugeta Gotti Work Phone: -[facility] Start: 02-22-2021 End: 02-22-2021 Patient encounter procedure [facility] Start: 01-26-2021 End: 01-26-2021 Admission to same day surgery center Mulugeta Gotti Work Phone: -[facility] Start: 01-24-2021 End: 01-24-2021 Patient encounter procedure Mulugeta Gotti Work Phone: -Pre-Surgical Testing Start: 11-02-2020 End: 11-02-2020 Patient encounter procedure [facility] Start: 10-22-2020 End: 10-22-2020 Patient encounter procedure Mulugeta Gotti [facility] Start: 10-01-2020 End: 10-01-2020 Admission to day surgery Mulugeta Gotti [facility] Start: 09-29-2020 End: 09-29-2020 Patient encounter procedure Mulugeta Gotti -Pre-Surgica l Testing Start: 09-24-2020 End: 09-24-2020 Departed Referred Mulugeta Gotti -Pre-Surgical Testin g Start: 09-24-2020 End: 09-24-2020 Patient encounter procedure Mulugeta Gotti -Pre-Surgica l Testing Start: 09-09-2020 End: 09-09-2020 Emergency department patient visit Mulugeta Gotti -Emergency Room Start: 08-31-2020 End: 08-31-2020 Admission to day surgery Mulugeta Gotti -Ultrasound Cnt r for Breast Car Start: 08-23-2020 End: 08-23-2020 Patient encounter procedure Mulugeta Gotti -Ultrasound Cntr for Breast Car Start: 08-20-2020 End: 08-20-2020 Patient encounter procedure Mulugeta [facility] Start: 08-12-2020 End: 08-12-2020 Patient encounter procedure Mulugeta Gotti -Electrodiag nostics Procedures Date Procedure Procedure Detail Performing Clinician Start: 06-23-2024 Bilateral mammography DO Mulugeta Gotti Work Phone: Start: 06-23-2024 Dual energy X-ray absorptiometry DO Mulugeta Gotti Work Phone: Start: 04-02-2024 Local anesthetic sacral epidural block DO Mulugeta Gotti Work Phone: Start: 07-18-2023 Local anesthetic lumbar facet joint nerve block DO Mulugeta Gotti Work Phone: Start: 07-10-2023 X-ray of lumbar spine, four views DO Mulugeta Gotti Work Phone: Start: 06-22-2023 Bilateral mammography DO Mulugeta Gotti Work Phone: Start: 05-21-2023 H/O: hysterectomy Status post hysterectomy Nina Montana DO Work Phone: Start: 05-19-2023 Plain chest X-ray DO Mulugeta Gotti Work Phone: Start: 05-19-2023 SARS-CoV-2, Influenza & RSV (PCR) DO Mulugeta Gotti Work Phone: Start: 05-17-2023 End: 05-17-2023 Ercp dx collection specimen brushing/washing Luis Xavier MD Work Phone: Start: 02-14-2023 Us abdominal real time w/image limited Shawn Prasad DO Work Phone: Start: 01-11-2023 Computed tomography of abdomen and pelvis with contrast DO Mulugeta Gotti Work Phone: Start: 01-08-2023 Urine culture DO Mulugeta Gotti Work Phone: Start: 06-21-2022 Bilateral mammography DO Mulugeta Gotti Work Phone: Start: 06-29-2021 Adult depression screening assessment Benjamin Mercado MD Work Phone: Start: 02-26-2021 MR lumbar spine wo con Mulugeta Gotti Work Phone: Start: 02-22-2021 X-ray of lumbar spine, four views Mulugeta Gotti Work Phone: Start: 01-26-2021 Diagnostic endoscopic examination on colon Mulugeta Mirandaer Work Phone: Start: 01-26-2021 Colonoscopy Nina Montana DO Work Phone: Start: 01-24-2021 SARS Antigen (LFIA) Mulugeta Mirandaer Work Phone: Start: 10-22-2020 Dual energy X-ray photon absorptiometry Mulugeta Gotti Start: 10-01-2020 Mammography of surgical specimen of left breast Mulugeta Gotti Start: 10-01-2020 Lumpectomy of left breast Mulugeta Gotti Start: 10-01-2020 Radionuclide sentinel lymph node study Mulugeta Gotti Start: 09-30-2020 Mammography Mulugeta Gotti Start: 09-30-2020 Ultrasonography guided needle localization of lesion of left breast Mulugeta Gotti Start: 09-09-2020 SARS Antigen (LFIA) Mulugeta Gotti Start: 09-09-2020 CT angiography of thorax Mulugeta Gotti Start: 08-31-2020 Mammography Mulugeta Gotti Start: 08-31-2020 Core needle biopsy of breast Mulugeta Gotti Start: 08-23-2020 Ultrasonography of left breast Mulugeta Gotti Start: 08-20-2020 Screening mammography Mulugeta Gotti Start: 09-14-2016 Right Shoulder Arthroscopy RUBIA Shanks Start: 08-20-2012 Colonoscopy Benjamin Mercado MD Work Phone: Start: 05-17-2011 Mammography Benjamin Mercado MD Work Phone: Cholecystectomy RUBIA RODRIGUEZ Colonoscopy RUBIA MEJÍA Excision of axillary lymph node Pb FOSS Excision of bunion Pb SANCHEZ H/O: hysterectomy RUBIA LINDSAY left knee arthroscopy DUTCHNITHYA MEJÍA Lumpectomy of left breast [place] [facility]OSS Repair of joint of r ight knee Pb FOSS Tonsillectomy RUBIA MEJÍA Vaginal hysterectomy Pb FOSS Plan of Treatment Date Care Activity Detail Author Start: 01-26-2031 Screening for malignant neoplasm of colon [facility] Start: 10-05-2027 Urine microalbumin profile [facility] Start: 10-03-2027 Urine microalbumin profile DTAP,TDAP,TD (3 - Td or Tdap) [facility] Start: 01-02-2027 Diabetes Screening Diabetes Screening [facility] Start: 04-17-2026 DIABETES SCREEN DIABETES SCREEN [facility] Start: 04-17-2026 Diabetes Screening Diabetes Screening [facility] Start: 01-04-2026 DIABETES SCREEN DIABETES SCREEN [facility] Start: 07-06-2025 DIABETES SCREEN DIABETES SCREEN [facility] Start: 12-25-2024 End: 12-25-2024 Patient encounter procedure 12/25/2024 2:45 PM EDT Office Visit [facility] [address] [place] [id number] Nina Montana DO [address] [place] [address] [facility] [address] [facility] Start: 06-23-2024 DIABETES SCREEN DIABETES SCREEN [facility] Start: 06-22-2024 Screening for malignant neoplasm of breast Mammogram Screening [facility] Start: 05-04-2024 Influenza vaccination [facility] Start: 04-02-2024 [facility] Start: 01-03-2024 End: 04-03-2024 Cancer Ag 27-29 [Units/volume] in Serum or Plasma [facility] Work Phone: Comment on above: Expected: 01/03/2024, Expires: 4 Start: 09-03-2023 Behavioral Health Screening Behavioral Health Screening [facility] Start: 09-03-2023 Depression Assessment Depression Assessment [facility] Start: 07-18-2023 [facility] Start: 05-19-2023 Plain chest X-ray XR chest 1V portable [facility] Start: 05-19-2023 XR Chest Single view [facility] Start: 05-04-2023 Covid-19 Vaccine () Covid-19 Vaccine () [facility] Start: 05-04-2023 Influenza vaccination [facility] Start: 04-17-2023 End: 06-17-2023 Comprehensive metabolic 2000 panel - Serum or Plasma [facility] Work Phone: Comment on above: Expected: 04/17/2023, Expires: 3 Start: 02-06-2023 End: 04-08-2023 aPTT in Platelet poor plasma by Coagulation assay [facility] Work Phone: Comment on above: Expected: 02/06/2023, Expires: 3 Start: 02-06-2023 End: 04-08-2023 CBC W Auto Differential panel - Blood [facility] Work Phone: Comment on above: Expected: 02/06/2023, Expires: 3 Start: 02-06-2023 End: 04-08-2023 Hepatic function 2000 panel - Serum or Plasma [facility] Work Phone: Comment on above: Expected: 02/06/2023, Expires: 3 Start: 02-06-2023 End: 04-08-2023 PT panel - Platelet poor plasma by Coagulation assay [facility] Work Phone: Comment on above: Expected: 02/06/2023, Expires: 3 Start: 01-11-2023 Bacteria identified in Urine by Culture [facility] Start: 01-11-2023 [facility] Start: 01-08-2023 Bacteria identified in Urine by Culture [facility] Start: 09-03-2022 DEPRESSION ASSESSMENT DEPRESSION ASSESSMENT [facility] Start: 08-20-2022 Colonoscopy COLONOSCOPY [facility] Start: 08-20-2022 COLORECTAL CANCER SCREENING COLORECTAL CANCER SCREENING [facility] Start: 08-20-2022 Screening for malignant neoplasm of colon [facility] Start: 06-29-2022 Adult depression screening assessment DEPRESSION SCREENING [facility] Start: 05-04-2022 Influenza vaccination [facility] Start: 01-17-2022 Screening for malignant neoplasm of colon FOBT [facility] Start: 12-14-2021 End: 02-13-2022 Cancer Ag 27-29 [Units/volume] in Serum or Plasma CA 27.29 BLOOD Lab Routine Malignant neoplasm of female breast, unspecified estrogen receptor status, unspecified laterality, unspecified site of breast (HCC) Expected: 12/14/2021, Expires: 02/13/2022 [facility] Work Phone: Comment on above: Expected: 12/14/2021, Expires: 2 Start: 12-14-2021 End: 02-13-2022 CBC W Auto Differential panel - Blood CBC + DIFF Lab Routine Malignant neoplasm of female breast, unspecified estrogen receptor status, unspecified laterality, unspecified site of breast (HCC) Expected: 12/14/2021, Expires: 02/13/2022 [facility] Work Phone: Comment on above: Expected: 12/14/2021, Expires: 2 Start: 12-14-2021 End: 02-13-2022 Comprehensive metabolic 2000 panel - Serum or Plasma COMP METABOLIC PANEL Lab Routine Malignant neoplasm of female breast, unspecified estrogen receptor status, unspecified laterality, unspecified site of breast (HCC) Expected: 12/14/2021, Expires: 02/13/2022 [facility] Work Phone: Comment on above: Expected: 12/14/2021, Expires: 2 Start: 09-03-2021 DEPRESSION ASSESSMENT DEPRESSION ASSESSMENT [facility] Start: 06-24-2021 COVID-19 VACCINE (4 - Booster for Pfizer series) COVID-19 VACCINE (4 - Booster for Pfizer series) [facility] Start: 06-24-2021 COVID-19 VACCINE (4 - Pfizer series) COVID-19 VACCINE (4 - Pfizer series) [facility] Start: 06-22-2021 COVID-19 VACCINE (3 - Booster for Pfizer series) COVID-19 VACCINE (3 - Booster for Pfizer series) [facility] Start: 05-25-2021 COVID-19 VACCINE (3 - Pfizer risk 4-dose series) COVID-19 VACCINE (3 - Pfizer risk 4-dose series) [facility] Start: 10-18-2018 PNEUMOCOCCAL (2 - PCV) PNEUMOCOCCAL (2 - PCV) [facility] Start: 10-18-2018 Pneumococcal vaccination [facility] Start: 05-17-2017 PAP TESTING PAP TESTING [facility] Start: 05-17-2017 Screening for malignant neoplasm of cervix Pap Testing [facility] Start: 2017 Influenza vaccination LUNG CANCER SCREENING [facility] Start: 2017 Screening for malignant neoplasm of lung Lung Cancer Screening [facility] Start: 2017 SHINGRIX VACCINE (1 of 2) SHINGRIX VACCINE (1 of 2) [facility] Start: 05-17-2012 Mammography [facility] Start: 05-17-2012 Screening for malignant neoplasm of breast Mammogram Screening [facility] Start: 02-16-2012 COLOGUARD (FIT-DNA) COLOGUARD (FIT-DNA) [facility] Start: 02-16-[address] COLONOGRAPHY [facility] Start: 02-16-2012 FECAL OCCULT BLOOD FECAL OCCULT BLOOD [facility] Start: 02-16-2012 Lipid 1996 panel - Serum or Plasma Lipid Screening [facility] Start: 02-16-2012 Lipid panel Lipid Screening [facility] Start: 02-16-2012 LIPID SCREEN LIPID SCREEN [facility] Start: 02-16-2012 Screening for malignant neoplasm of colon [facility] Start: 02-16-2012 SIGMOIDOSCOPY SIGMOIDOSCOPY [facility] Start: 1997 HPV TESTING HPV TESTING [facility] Start: 1997 Screening for malignant neoplasm of cervix HPV Testing [facility] Start: 1986 Hepatitis B Vaccine (1 of 3 - 19+ 3-dose series) Hepatitis B Vaccine (1 of 3 - 19+ 3-dose series) [facility] Start: 1985 HEPATITIS C SCREENING HEPATITIS C SCREENING [facility] Start: 1985 Hepatitis C screening Hepatitis C Screening [facility] Start: 1985 HIV SCREENING HIV SCREENING [facility] Start: 1985 HIV screening HIV Screening [facility] Start: 1967 HEPATITIS B (1 of 3 - 3-dose series) HEPATITIS B (1 of 3 - 3-dose series) [facility] Start: 1967 Hepatitis B Vaccine (1 of 3 - 3-dose series) Hepatitis B Vaccine (1 of 3 - 3-dose series) [facility] Start: 1967 Screening for malignant neoplasm of colon [facility] Clostridioides difficile toxin genes [Presence] in Stool by IGLESIA with probe detection C. DIFFICILE PCR Lab Routine Diarrhea, unspecified type Ordered: 04/17/2023 [facility] Work Phone: Comment on above: Ordered: 04/17/2023 End: 02-01-2025 DXA Skeletal system.axial Views for bone density DXA-AXIAL SKELETON Radiology Routine Malignant neoplasm of lower-outer quadrant of left breast of female, estrogen receptor positive (HCC) Encounter for screening for osteoporosis 1 Occurrences starting 01/03/2024 until 02/01/2025 [facility] Comment on above: 1 Occurrences starting 01/03/2024 until 02/01/2025 End: 02-07-2024 ERCP ERCP Endoscopy ABDON Choledocholithiasis RUQ abdominal pain 1 Occurrences starting 02/06/2023 until 02/07/2024 [facility] Work Phone: Comment on above: 1 Occurrences starting 02/06/2023 until 02/07/2024 End: 02-16-2024 ERCP ERCP Endoscopy Routine Encounter for removal of biliary stent 1 Occurrences starting 2023 until 02/16/2024 [facility] Work Phone: Comment on above: 1 Occurrences starting 2023 until 02/16/2024 Lipoprotein a [Moles/volume] in Serum or Plasma [facility] End: 02-01-2025 MG Breast - bilateral Diagnostic DANTE DIAGNOSTIC BILATERAL Radiology Routine Malignant neoplasm of lower-outer quadrant of left breast of female, estrogen receptor positive (HCC) 1 Occurrences starting 01/03/2024 until 02/01/2025 [facility] Comment on above: 1 Occurrences starting 01/03/2024 until 02/01/2025 Patient Education [facility] Patient referral [facility] End: 03-07-2024 US ABD RIGHT UPPER QUADRANT US ABD RIGHT UPPER QUADRANT Radiology Today Choledocholithiasis RUQ abdominal pain 1 Occurrences starting 02/06/2023 until 03/07/2024 [facility] Work Phone: Comment on above: 1 Occurrences starting 02/06/2023 until 03/07/2024 Yeast detection [facility] Immunizations Immunization Date Immunization Notes Care Provider Rebecca muñoz 04-29-2021 SARS-CoV-2 (COVID-19 ) Ad26 vaccine, recombinant RUBIA MEJÍA [facility] 04-27-2021 COVID-19 Pfizer Prasanna Dank Other [facility] 04-08-2021 SARS-CoV-2 (COVID-19 ) Ad26 vaccine, recombinant RUBIA MEJÍA [facility] 04-06-2021 COVID-19 Pfizer Prasanna Dank Other [facility] 10-07-2019 influenza virus vaccine, unspecified formulation RUBIA MEJÍA [facility] 10-07-2019 Influenza, injectabl e, Madin Felecia Canine Kidney, preservative free, quadrivalent DO Mulugeta Gotti Work Phone: [facility] 10-07-2019 Influenza, injectabl e, Madin Felecia Canine Kidney, quadrivalent with preservative Prasanna Dank Other [facility] 06-13-2018 influenza virus vaccine, unspecified formulation RUBIA MEJÍA [facility] 06-13-2018 influenza, injectabl e, quadrivalent, contains preservative Benjamin Mercado MD Work Phone: [facility] 06-13-2018 influenza, injectabl e, quadrivalent, preservative free Benjamin Mercado MD Work Phone: [facility] 10-18-2017 pneumococcal polysaccharide vaccine, 23 valent Prasanna Dank Other [facility] 10-05-2017 influenza, seasonal, injectable, preservative free Benjamin Mercado MD Work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 myelopathy or radiculopathy Assessments No Assessments Information AvailableNo Assessments Information [...] Hypertension Unknown Diabetes mellitus Unknown Arthritis Unknown Relationship Condition Age at Onset Recorded Date/T artie father Diabetes mellitus Unknown Coronary artery disease Unknown Myocardial infarction Unknown Obesity Unknown Heart disease Unknown Unknown daughter Migraine headache Unknown Parathyroid neoplasm Unknown Calculus of kidney Unknown mother Thyroiditis Unknown Osteoarthritis Unknown Fibromyalgia Unknown brother Thyroiditis Unknown aunt Family history of th yroid disease Unknown maternal grandfather Unknown Hypertension Unknown maternal grandmother Unknown Diabetes mellitus Unknown Arthritis Unknown Summary [...] section and content) DATE CREATED AUTHOR 12/13/2021 [facility] DATE CREATED AUTHOR AUTHOR'S ORGANIZ ATION 06/14/2022 [facility] DATE CREATED AUTHOR AUTHOR'S ORGANIZ ATION 02/14/2023 [facility] DATE CREATED AUTHOR AUTHOR'S ORGANIZ ATION 05/18/2023 [facility] DATE CREATED AUTHOR AUTHOR'S ORGANIZ ATION 08/03/2023 [facility] DATE CREATED AUTHOR AUTHOR'S ORGANIZ ATION 01/05/2024 [facility] DATE CREATED AUTHOR AUTHOR'S ORGANIZ ATION 06/27/2024 [facility] DATE CREATED AUTHOR AUTHOR'S ORGANIZ ATION 06/28/2024 [facility] d[facility] Specialists EPIC Source Comments (unrecognize d section and content) In the event this informatio n is protected by the Federal Confidentiality of Alcohol and Drug Abuse Patient Records regulations: The Federal rules restrict any use of the information to criminally investigate or prosecute any alcohol or drug abuse patient.[facility] the event this information is protected by the Federal Confidentiality of Alcohol and Drug Abuse Patient Records regulations: The Federal rules restrict any use of the information to criminally investigate or prosecute any alcohol or drug abuse patient.[facility] the event this information is protected by the Federal Confidentiality of Alcohol and Drug Abuse Patient Records regulations: The Federal rules restrict any use of the information to criminally investigate or prosecute any alcohol or drug abuse patient.[facility] the event this information is protected by the Federal Confidentiality of Alcohol and Drug Abuse Patient Records regulations: The Federal rules restrict any use of the information to criminally investigate or prosecute any alcohol or drug abuse patient.[facility] the event this information is protected by the Federal Confidentiality of Alcohol and Drug Abuse Patient Records regulations: The Federal rules restrict any use of the information to criminally investigate or prosecute any alcohol or drug abuse patient.[facility] the event this information is protected by the Federal Confidentiality of Alcohol and Drug Abuse Patient Records regulations: The Federal rules restrict any use of the information to criminally investigate or prosecute any alcohol or drug abuse patient.[facility] the event this information is protected by the Federal Confidentiality of Alcohol and Drug Abuse Patient Records regulations: The Federal rules restrict any use of the information to criminally investigate or prosecute any alcohol or drug abuse patient.[facility] the event this information is protected by the Federal Confidentiality of Alcohol and Drug Abuse Patient Records regulations: The Federal rules restrict any use of the information to criminally investigate or prosecute any alcohol or drug abuse patient.[facility] the event this information is protected by the Federal Confidentiality of Alcohol and Drug Abuse Patient Records regulations: The Federal rules restrict any use of the information to criminally investigate or prosecute any alcohol or drug abuse patient.[facility] the event this information is protected by the Federal Confidentiality of Alcohol and Drug Abuse Patient Records regulations: The Federal rules restrict any use of the information to criminally investigate or prosecute any alcohol or drug abuse patient.[facility] the event this information is protected by the Federal Confidentiality of Alcohol and Drug Abuse Patient Records regulations: The Federal rules restrict any use of the information to criminally investigate or prosecute any alcohol or drug abuse patient.[facility] the event this information is protected by the Federal Confidentiality of Alcohol and Drug Abuse Patient Records regulations: The Federal rules restrict any use of the information to criminally investigate or prosecute any alcohol or drug abuse patient.[facility] the event this information is protected by the Federal Confidentiality of Alcohol and Drug Abuse Patient Records regulations: The Federal rules restrict any use of the information to criminally investigate or prosecute any alcohol or drug abuse patient.[facility] the event this information is protected by the Federal Confidentiality of Alcohol and Drug Abuse Patient Records regulations: The Federal rules restrict any use of the information to criminally investigate or prosecute any alcohol or drug abuse patient.[facility] the event this information is protected by the Federal Confidentiality of Alcohol and Drug Abuse Patient Records regulations: The Federal rules restrict any use of the information to criminally investigate or prosecute any alcohol or drug abuse patient.[facility] the event this information is protected by the Federal Confidentiality of Alcohol and Drug Abuse Patient Records regulations: The Federal rules restrict any use of the information to criminally investigate or prosecute any alcohol or drug abuse patient.[facility] the event this information is protected by the Federal Confidentiality of Alcohol and Drug Abuse Patient Records regulations: The Federal rules restrict any use of the information to criminally investigate or prosecute any alcohol or drug abuse patient.[facility] Reason for Visit (unrecogniz ed section and [...] stent removal today Reason Comments Breast Cancer Reason Comments 3yr. 9mos. Lt. lumpectomy W/mamms Care Teams (unrecognized sec tion and content) Team Status: Active Member Role Status Dates Mulugeta Gotti DO Primary Care Provider Active Team Status: Inactive Member Role Status Kapil Gotti DO Primary Care Provider Active Sharla Benitez APRN Attending Provider Active Team Status: Active Member Role Status Kapil Gotti DO Primary Care Provider Active Sharla Benitez APRN Attending Provider Active Repair Miller Relationship Specialty Start Date End Date Mulugeta Gotti DO PCP - General 09/30/07 Mata Cornejo MD [address] [place] [address] [place] [address] Physician Radiation Oncology 10/20/20 Team Status: Inactive Member Role Status Kapil Gotti DO Primary Care Provider, Attending Prov chrisr Active Team Status: Inactive Member Role Status Dates Mulugeta Gotti DO Primary Care Provider Active Racquel Andrew APRN Attending Provider Active Team Status: Inactive Member Role Status Dates Mulugeta Gotti DO Primary Care Provider Active Jaylene Stephens PA-C Attending Provider Active Repair Miller Relationship Specialty Start Date End Date Mulugeta Gotti, DO PCP - General 09/30/07 Mata Cornejo MD [address] [place] [address] Physician Radiation Oncology 10/20/20 Team Status: Inactive Member Role Status Dates Mulugeta Gotti DO Primary Care Provider Active Finesse Tobar MD Attending Provider Active Team Status: Inactive Member Role Status Dates Mulugeta Gotti DO Primary Care Provider Active Kellie Frey APRN Emergency Provider Active Repair Miller Relationship Specialty Start Date End Date Mulugeta Gotti, DO PCP - General 09/30/07 Mata Cornejo MD [address] [place] [address] Physician Radiation Oncology 10/20/20 Repair Miller Relationship Specialty Start Date End Date Mulugeta Gotti, DO PCP - General 09/30/07 Mata Cornejo MD [address] [place] [address] Physician Radiation Oncology 10/20/20 Repair Miller Relationship Specialty Start Date End Date Mulugeta Gotti, DO PCP - General 09/30/07 Mata Cornejo MD [address] [place] [address] Physician Radiation Oncology 10/20/20 Repair Miller Relationship Specialty Start Date End Date Mulugeta Gotti, DO PCP - General 09/30/07 Mata Cornejo MD [address] [place] [address] Physician Radiation Oncology 10/20/20 Repair Miller Relationship Specialty Start Date End Date Mulugeta Gotti DO PCP - General 09/30/07 Mata Cornejo MD [address] [place] [address] Physician Radiation Oncology 10/20/20 Repair Miller Relationship Specialty Start Date End Date Mulugeta Gotti DO PCP - General 09/30/07 Mata Cornejo MD [address] [place] [address] Physician Radiation Oncology 10/20/20 Repair Miller Relationship Specialty Start Date End Date Mulugeta Gotti DO PCP - General 09/30/07 Mata Cornejo MD [address] [place] [address] Physician Radiation Oncology 10/20/20 Repair Miller Relationship Specialty Start Date End Date Mulugeta Gotti DO PCP - General 09/30/07 Mata Cornejo MD [address] [place] [address] Physician Radiation Oncology 10/20/20 Repair Miller Relationship Specialty Start Date End Date Mulugeta Gotti DO PCP - General 09/30/07 Mata Cornejo MD [address] [place] [address] Physician Radiation Oncology 10/20/20 Repair Miller Relationship Specialty Start Date End Date Mulugeta Gotti DO PCP - General 09/30/07 Mata Cornejo MD [address] [facility] [place] [address] Physician Radiation Oncology 10/20/20 Repair Miller Relationship Specialty Start Date End Date Mulugeta Gotti DO PCP - General 09/30/07 Mata Cornejo MD [address] [facility] [place] [place] [address] Physician Radiation Oncology 10/20/20 Team Status: Inactive Member Role Status Dates Mulugeta Gotti DO Primary Care Provider Active Denver Naranjo , DO Emergency Provider Active Team Status: Inactive Member Role Status Kapil Gotti DO Primary Care Provider Active Nina Montana DO Attending Provider Active Team Status: Inactive Member Role Status Kapil Gotti DO Primary Care Provider Active Prasanna [...] October 24, 2023 End: October 24, 2023 Repair Miller Relationship Specialty Start Date End Date Mulugeta Gotti DO PCP - General 09/30/07 Mata Cornejo MD [address] [place] [address] [place] [address] Physician Radiation Oncology 10/20/20 Team Status: Inactive Member Role Status Dates Mulugeta Gotti DO Primary Care Provider Active St art: November 28, 2023 End: November 28, 2023 Sharla [place] APRN Attending Provider Active Start: November 28, 2023 End: November 28, 2023 Team Status: Inactive Member Role Status Dates Mulugeta Gotti DO Primary Care Provider Active St art: March 17, 2024 End: March 17, 2024 Prasanna Weems MD Attending Provider Active Sta rt: March 17, 2024 End: March 17, 2024 Team Status: Inactive Member Role Status Dates Mulugeta Gotti DO Primary Care Provider Active St art: April 02, 2024 End: April 02, 2024 Prasanna Weems MD Attending Provider Active Sta rt: April 02, 2024 End: April 02, 2024 Team Status: Active Member Role Status Kapil Gtoti DO Primary Care Provider Active St art: April 02, 2024 Prasanna Weems MD Attending Provider, Other Provider Active Start: April 02, 2024 Team Status: Inactive Member Role Status Kapil Gotti DO Primary Care Provider Active St art: April 09, 2024 End: April 09, 2024 Prasanna Weems MD Attending Provider Active Sta rt: April 09, 2024 End: April 09, 2024 Team Status: Inactive Member Role Status Kapil Gotti DO Primary Care Provider Active St art: June 23, 2024 End: June 23, 2024 Benjamin Mercado MD Attending Provider Active Star t: June 23, 2024 End: June 23, 2024 Repair Miller Relationship Specialty Start Date End Date Mulugeta Gotti DO [address] [place] [address] PCP - General Family Medicine 02/26/23 Pam Palomo DO [address] [place] [address] Referring Physician Neurology 10/30/23 FOR RECORDS PERTAINING TO PATIENTS WHO ARE [...] BE BASED ON THE PRIMARY CLINICAL RECORDS. [facility]. provides no warranty or guarantee of the accuracy or completeness of information in this document.
[2024-08-24] MEDS: FAMOTIDINE/PF 20 MG/2 ML VIAL IV (12:52)
[2024-08-24] MEDS: ONDANSETRON PF 4 MG/2 ML VIAL IV (12:53)
[2024-08-24] MEDS: METHYLPREDNISOLONE SOD SUCC PF 125 MG/2 ML VIAL IVP (12:53)
[2024-08-24] MEDS: IPRATROPIUM/ALBUTEROL SULFATE 3 ML AMPUL.NEB IH (12:54)
[2024-08-24 12:55] VITALS: PULSE 118; O2SAT 92
[2024-08-24 13:03] LABS: Basophils Percent Auto 0.4 % (0.2-2.0); Eosinophils Percent Auto 0.5 % (0.9-7.0); Hematocrit 46.5 % (36.0-48.0); Hemoglobin 15.6 g/dL (12.0-16.0); Immature Granulocytes Abs Auto 0.03 10^3/uL (0.00-0.03); Immature Granulocytes Pct Auto 0.4 % (0.0-0.5); Lymphocytes Absolute Auto 0.5 10^3/uL (1.2-3.8); Lymphocytes Percent Auto 5.6 % (20.5-60.0); Mean Corpuscular HGB Conc 33.5 g/dL (29.9-35.2); Mean Corpuscular Hemoglobin 29.4 pg (26.7-34.0); Mean Corpuscular Volume 87.7 fL (81.0-99.0); Mean Platelet Volume 9.1 fL (9.5-13.5); Monocytes Absolute Auto 0.7 10^3/uL (0.3-0.8); Neutrophils Absolute Auto 6.9 10^3/uL (1.4-6.5); Neutrophils Percent Auto 85.1 % (43.0-75.0); Platelet Count 235 10^3/uL (150-450); Red Cell Distribution Width 13.2 % (11.0-15.0); White Blood Count 8.1 10^3/uL (4.0-11.0)
[2024-08-24 13:14] LABS: INR 1.03; Prothrombin Time 10.9 sec (9.0-11.6)
--- NOTE | 2024-08-24 13:14 | ECG_ITS ---
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
[2024-08-24 13:15] LABS: Influenza Virus A Antigen Negative; Influenza Virus B Antigen Negative; Internal Control Within Normal Limits
[2024-08-24 13:16] LABS: Internal Control Within Normal Limits; SARS-CoV-2 Ag NEGATIVE (NEGATIVE)
[2024-08-24 13:18] LABS: D Dimer 0.67 mg/L FEU (<=0.59)
[2024-08-24 13:19] LABS: Alanine Aminotransferase 21 U/L (14-59); Albumin Level 3.6 g/dL (3.4-5.0); Alkaline Phosphatase 117 U/L (46-116); Anion Gap 16.8; Aspartate Amino Transferase 17 U/L (15-37); BUN Creatinine Ratio 8.3; Bilirubin Total 0.4 mg/dL (0.2-1.0); Chloride 101 mmol/L (98-107); Estimated GFR (African America >60 (>=60 mL/min/1.73m^2); Estimated GFR (Non-African Ame >60 (>=60 mL/min/1.73m^2); Globulin 3.7 g/dL; Glucose 106 mg/dL (74-106); Potassium 3.8 mmol/L (3.5-5.1); Sodium 138 mmol/L (136-145); Total Protein 7.3 g/dL (6.4-8.2); Troponin I High Sensitivity <4.0 pg/mL (4.0-51.3)
--- NOTE | 2024-08-24 13:29 | CT_ITS ---
[address] [address] Patient Name: ILIANA DOUGLAS MRN: [id number] date: 1965 Sex: F Assigned Patient Location: ER Current Patient Location: ER Accession/Order Number: [id number] Exam Date: 08/24/2024 15:00 Report Date: 08/24/2024 16:02 At the request of: SADI MCCORMICK Procedure: CT head/brain wo con EXAM: CT Head Without Intravenous Contrast CLINICAL INDICATION: headache TECHNIQUE: Axial computed tomography images of the head/brain without intravenous contrast. This CT exam was performed using one or more of the following dose reduction techniques: automated exposure control, adjustment of the mA and/or kV according to patient size, and/or use of iterative reconstruction technique. COMPARISON: No relevant prior studies available. FINDINGS: BRAIN AND EXTRA-AXIAL SPACES: Unremarkable. No hemorrhage. No significant white matter disease. No edema. No ventriculomegaly. Slight global volume loss BONES/JOINTS: Unremarkable. No acute fracture. SOFT TISSUES: Unremarkable. SINUSES: Unremarkable as visualized. No acute sinusitis. MASTOID AIR CELLS: Unremarkable as visualized. No mastoid effusion. CT/CT head/brain wo con IMPRESSION: No acute findings. Electronically authenticated by: CARIDAD HAWKINS Date: 08/24/2024 16:02
--- NOTE | 2024-08-24 13:29 | CT_ITS ---
[address] [address] Patient Name: ILIANA DOUGLAS MRN: [id number] date: 1965 Sex: F Assigned Patient Location: ER Current Patient Location: Accession/Order Number: [id number] Exam Date: 08/24/2024 15:00 Report Date: 08/24/2024 16:18 At the request of: SADI MCCORMICK Procedure: CT angio chest EXAM: CT angio chest HISTORY: tachycardia shortness of breath and tachycardia . Clinical suspicion of pulmonary embolus. COMPARISON: Chest x-ray 08/24/[address] abdomen pelvis including the lower chest 02/26/2024 and earlier. TECHNIQUE: CTA chest PE protocol. Axial scans with reformatted coronal sagittal images, MIP images. Individualized dose reduction used for this exam. Contrast: 100 mL Omnipaque 350 FINDINGS: Pulmonary arteries: Evaluation limited by motion and streak artifact but no embolus or thrombus seen. Normal sized pulmonary artery. Lungs/pleura: Dependent bilateral groundglass and consolidative density both lung pascual most prominent right lung base. Atelectasis versus pneumonitis. No dense consolidation or edema. The anterior lung pascual are clear. No pleural effusion or pneumothorax. Mediastinum: No significant adenopathy, lymph nodes up to 1 cm. Normal central airways. Unremarkable esophagus. Cardiac/vascular: Cardiomegaly. No significant coronary calcification. No pericardial effusion. No lower neck adenopathy. Nodular asymmetry posterior left thyroid 1.5 cm probable thyroid nodule. Could be assessed without ultrasound. No axillary mass or adenopathy. No suspicious bone lesion. Upper abdomen without acute abnormality. Pneumobilia unchanged. Gastric diverticulum. CT/CT angio chest IMPRESSION: 1. Negative for pulmonary embolus. 2. Dependent lung density bilateral, question atelectasis/scarring versus pneumonitis. No dense consolidation or edema. Poorly demonstrated on chest x-ray. 3. Questionable nodule posterior left thyroid 1.5 cm. Could be followed with routine ultrasound. Electronically authenticated by: DAVID HAN Date: 08/24/2024 16:18
[2024-08-24 14:04] VITALS: BP 138/92; PULSE 118; O2SAT 93
[2024-08-24 14:37] LABS: Lactate/Lactic Acid 1.8 mmol/L (0.4-2.0)
[2024-08-24] MEDS: HYDROMORPHONE HCL 0.5 MG/0.5 ML SYRINGE IV ×2 (14:44→16:43)
[2024-08-24 15:36] VITALS: BP 124/67; PULSE 110; O2SAT 93
[2024-08-24 16:18] LABS: Troponin I High Sensitivity 4.7 pg/mL (4.0-51.3)
[2024-08-24 16:44] VITALS: BP 119/74; PULSE 106; O2SAT 93
[2024-08-24] MEDS: LEVOFLOXACIN 750 MG TABLET PO (17:16)
== END 2024-08-24 17:30 | disposition home or self-care (01) ==
PROVIDERS: Emergency Provider Emergency Medicine; PCP Family Medicine
DX: J44.1 Chronic obstructive pulmonary disease with (acute) exacerbation (principal); B34.9 Viral infection, unspecified; R06.02 Shortness of breath; F17.200 Nicotine dependence, unspecified, uncomplicated; R79.89 Other specified abnormal findings of blood chemistry; R51.9 Headache, unspecified
CPT/HCPCS: 36415; 70450; 71045; 71275; 80053; 83605; 83880; 84484; 85025; 85378; 85610; 87804; 87811; 93005; 94640; 96374; 96375; 96376; 99285; J1171; J2405; J2919; Q9967

== ENCOUNTER 2025-03-02 20:04 | Emergency (ER) | payer OTHER, SELFPAY ==
--- NOTE | 2025-03-02 20:14 | CT_ITS ---
The [address] [address] Patient Name: ILIANA DOUGLAS MRN: [id number] date: 1965 Sex: F Assigned Patient Location: ED.MAIN Current Patient Location: ED.MAIN Accession/Order Number: [id number] Exam Date: 03/02/2025 21:40 Report Date: 03/02/2025 21:46 At the request of: DARLENE RUIZ MD Procedure: CT abdomen pelvis wo con CT Abdomen and Pelvis withoutcontrast TECHNIQUE: Axial imaging with 2-D reconstruction. . The CT exam was performed using one or more the following dose reduction techniques: Automated exposure control, adjustment of the MA and/or Kv according to patient size, or use of the iterative reconstruction technique. COMPARISON: 02/26/2024 History: Left flank pain. Hematuria. LIMITATIONS: None LOWER THORAX mild atelectasis LIVER: Fatty hepatomegaly GALLBLADDER: Cholecystectomy clips identified. BILE DUCTS: Pneumobilia likely related to cholecystectomy. SPLEEN: Unremarkable PANCREAS: Unremarkable ADRENAL GLANDS: Unremarkable KIDNEYS:Unremarkable AORTA: No abdominal aortic aneurysm identified. RETROPERITONEUM: No significant retroperitoneal abnormalities identified. MESENTERY:Unremarkable STOMACH:Unremarkable SMALL BOWEL: The small bowel loops are nondistended. APPENDIX: The appendix is normal. COLON: Mild burden of stool throughout the colon. URINARY BLADDER: Urinary bladder is unremarkable. REPRODUCTIVE SYSTEM: Reproductive structures are unremarkable. PNEUMOPERITONEUM: None PERITONEAL FLUID:None BONY STRUCTURES: Unremarkable ABDOMINAL WALL: Unremarkable CT/CT abdomen pelvis wo con IMPRESSION: No acute findings. Fatty hepatomegaly. No obstructive uropathy Impression dictated by: Donavan Veliz M.D. 03/02/2025 9:46 PM Dictation Location: [facility] Electronically authenticated by: [id number] Y Date: 03/02/2025 21:46
[2025-03-02 20:18] VITALS: BP 120/76; TEMP 36.6; O2SAT 98; BMI 45.7
--- NOTE | 2025-03-02 20:26 | ED.GENADUL1 ---
HPI HPI - General Adult General Chief complaint: Urogenital-Female Stated complaint: BACK PAIN, UROLOGICAL ISSUE Time Seen by Provider: 03/02/25 20:14 Source: patient Mode of arrival: Wheelchair Limitations: no limitations History of Present Illness HPI narrative: This 60-year-old female presents to the ED with a chief complaint left flank pain that she has had since yesterday. She reports nausea but no vomiting and has had some chills. She saw her PCP today and was diagnosed with urinary tract infection and placed on levofloxacin. Pain does not radiate into the legs and is worse with local palpation or twisting and turning movements. Related Data Home Medications ?Medication ?Instructions ?Recorded ?Confirmed anastrozole 1 mg tablet 1 mg PO DAILY 02/26/24 02/26/24 oxybutynin chloride 5 mg 5 mg PO DAILY 02/26/24 02/26/24 tablet,extended release 24 hr trazodone 50 mg tablet 50 mg PO DAILY 02/26/24 02/26/24 albuterol sulfate 90 mcg/actuation inhalation 08/24/24 aerosol inhaler Previous Rx's ?Medication ?Instructions ?Recorded oxycodone-acetaminophen 5 mg-325 1 tab PO Q6H #10 tabs 02/26/24 mg tablet (Percocet) guaifenesin 600 mg tablet, 600 mg PO BID PRN congestion #10 08/24/24 extended release 12 hr (Mucinex) tabs levofloxacin 750 mg tablet 750 mg PO DAILY 7 days #7 tabs 08/24/24 prednisone 50 mg tablet 50 mg PO DAILY 5 days #5 tabs 08/24/24 hydrocodone 5 mg-acetaminophen 325 1 tab PO Q6H PRN pain 5 days #20 03/02/25 mg tablet tabs methocarbamol 750 mg tablet 750 mg PO TID #20 tabs 03/02/25 Allergies Allergy/AdvReac Type Severity Reaction Status Date / Time codeine Allergy Unknown Verified 02/26/24 06:13 erythromycin base Allergy Unknown Verified 02/26/24 06:13 morphine Allergy Unknown Verified 02/26/24 06:13 tramadol (From Ultram) Allergy Unknown Verified 02/26/24 06:13 Opioid HPI Opioid Management Most Recent Opioid Data: Last Pain Scale 9 03/02/25, 21:23 Last MAR Pain Assessment 03/02/25, 20:41 Review of Systems ROS Status of ROS 10 or more systems reviewed and unremarkable except as noted in history and below [facility] Medical History Bladder spasms ?N32.89 - Other specified disorders of bladder (ICD-10) UTI (urinary tract infection) ?N39.0 - Urinary tract infection, site not specified (ICD-10) Social History Smoking status: Current every day smoker Little interest or pleasure in doing things: not at all Feeling down, depressed, or hopeless: not at all Exam Narrative Exam Narrative: Patient appears in acute distress due to pain. Vital signs are stable and are as documented. HEENT exam is normal to inspection. The neck is supple. Lung sounds are clear to auscultation bilaterally with good air entry. Heart has regular rate and rhythm. Abdomen is protuberant, soft nontender and there is no fluid wave or organomegaly. Patient is exquisitely tender to palpation over the left paralumbar soft tissue and left CVA region. Lower extremities are warm and dry and there is no tenderness. Constitutional Vital Signs, click to edit/add: Last Vital Signs Temp 98 F 03/02/25 20:18 Resp 14 03/02/25 23:06 BP 108/62 03/02/25 23:06 Pulse Ox 98 03/02/25 20:18 O2 Del Method Room Air 03/02/25 20:18 Course Vital Signs Vital signs: Vital Signs Temperature 98 F 03/02/25 20:18 Respiratory Rate 20 03/02/25 20:18 Blood Pressure 120/76 03/02/25 20:18 Pulse Oximetry 98 03/02/25 20:18 Oxygen Delivery Method Room Air 03/02/25 20:18 Temperature 98 F 03/02/25 20:18 Respiratory Rate 14 03/02/25 23:06 Blood Pressure 108/62 03/02/25 23:06 Pulse Oximetry 98 03/02/25 20:18 Oxygen Delivery Method Room Air 03/02/25 20:18 Medical Decision Making [facility] Narrative Medical decision making narrative: Patient presents with left flank pain. Urinalysis has bacteria and white cells but also a large number of squamous epithelial cells and may represent contamination. The specimen will be cultured. Her pain was treated with 2 doses of IV Dilaudid which helped. She was also administered IV Toradol for pain as well as IV Norflex. I suspect that the stronger component of her pain is of musculoskeletal etiology. CT scan of the abdomen pelvis is nondiagnostic. My plan is to place her on [place] and Robaxin and have her seek follow-up in the next 2 or 3 days with her PCP. She may return anytime for worsening symptoms. Lab Data Labs: Lab Results 03/02/25 03/02/25 Range/Units 20:34 21:30 WBC 12.4 H (4.0-11.0) 10^3/uL RBC 5.05 (4.20-5.40) 10^6/uL Hgb 15.2 (12.0-16.0) g/dL Hct 44.3 (36.0-48.0) % MCV 87.7 (81.0-99.0) fL MCH 30.1 (26.7-34.0) pg MCHC 34.3 (29.9-35.2) g/dL RDW 13.6 (11.0-15.0) % Plt Count 296 (150-450) 10^3/uL MPV 9.1 L (9.5-13.5) fL Neut % (Auto) 62.1 (43.0-75.0) % Lymph % (Auto) 27.0 (20.5-60.0) % [place] % (Auto) 8.3 (1.7-12.0) % Eos % (Auto) 1.7 (0.9-7.0) % Baso % (Auto) 0.3 (0.2-2.0) % Neut # (Auto) 7.7 H (1.4-6.5) 10^3/uL Lymph # (Auto) 3.4 (1.2-3.8) 10^3/uL [place] # (Auto) 1.0 H (0.3-0.8) 10^3/uL Eos # (Auto) 0.2 (0.0-0.7) 10^3/uL Baso # (Auto) 0.0 (0.0-0.1) 10^3/uL Abs Immat Gran (auto) 0.07 H (0.00-0.03) 10^3/uL Imm/Tot Granulo (auto) 0.6 H (0.0-0.5) % Sodium 140 (136-145) mmol/L Potassium 3.8 (3.5-5.1) mmol/L Chloride 104 (98-107) mmol/L Carbon Dioxide 24.8 (21.0-32.0) mmol/L Anion Gap 15.0 BUN 13.0 (7.0-18.0) mg/dL Creatinine 0.75 (0.55-1.02) mg/dL Est GFR ( Amer) >60 (>=60 mL/min/1.73m^2) Est GFR (Non-Af Amer) >60 (>=60 mL/min/1.73m^2) BUN/Creatinine Ratio 17.3 Glucose 108 H (74-106) mg/dL Calcium 9.3 (8.5-10.1) mg/dL Total Bilirubin 0.2 (0.2-1.0) mg/dL AST 12 L (15-37) U/L ALT 18 (14-59) U/L Alkaline Phosphatase 137 H (46-116) U/L Total Protein 7.1 (6.4-8.2) g/dL Albumin 3.2 L (3.4-5.0) g/dL Globulin 3.9 g/dL Albumin/Globulin Ratio 0.8 Urine Color Dk. orange (YELLOW) Urine Clarity Clear (CLEAR) Urine pH Color interference A (5.0-9.0) Ur Specific [place] >=1.030 A (1.005-1.025) Urine Protein Color interference A (NEG/TRACE) mg/dL Urine Glucose (UA) Color interference A (NEGATIVE) mg/dL Urine Ketones Color interference A (NEGATIVE) mg/dL Urine Occult Blood Color interference A (NEGATIVE) Urine Nitrite Color interference A (NEGATIVE) Urine Bilirubin Color interference A (NEGATIVE) Urine Urobilinogen Color interference A (0.2-1.0) EU/dL Ur Leukocyte Esterase Color interference A (NEGATIVE) Urine RBC 5-10 A (0-2) #/HPF Urine WBC 10-20 A (NONE SEEN) #/HPF Ur Squamous Epith Cells Moderate A (NONE/RARE) #/LPF Urine Crystals None seen (None Seen) #/HPF Urine Bacteria Large A (NONE SEEN) #/HPF Urine Casts None seen (NONE SEEN) #/LPF Urine Mucus Large A (NONE SEEN) Ur Culture Indicated? Yes-[facility] [place] Discharge Plan Discharge Chief Complaint: Urogenital-Female Clinical Impression: Left flank pain Patient Disposition: Home, Self-Care Time of Disposition Decision: 22:47 Condition: Fair Mode of Transportation: Private Vehicle Prescriptions / Home Meds: New methocarbamol 750 mg tablet 750 mg PO TID Qty: 20 0RF hydrocodone-acetaminophen 5-325 mg tablet 1 tab PO Q6H PRN (Reason: pain) 5 Days Qty: 20 0RF No Action oxybutynin chloride 5 mg tablet extended release 24hr 5 mg PO DAILY trazodone 50 mg tablet 50 mg PO DAILY anastrozole 1 mg tablet 1 mg PO DAILY oxycodone-acetaminophen [Percocet] 5-325 mg tablet 1 tab PO Q6H Qty: 10 0RF albuterol sulfate 90 mcg/actuation HFA aerosol inhaler INHALATION prednisone 50 mg tablet 50 mg PO DAILY 5 Days Qty: 5 0RF guaifenesin [Mucinex] 600 mg tablet extended release 12hr 600 mg PO BID PRN (Reason: congestion) Qty: 10 0RF levofloxacin 750 mg tablet 750 mg PO DAILY 7 Days Qty: 7 0RF Print Language: Setswana Instructions: Flank Pain (ED) Additional Instructions: Continue current antibiotic. Drink extra fluids. [place] and Robaxin as prescribed for pain. Apply heat to left flank for pain relief as needed. Follow-up with your physician in the next 2 or 3 days. Return for worsening symptoms. Referrals: MIGUEL JUAREZ [Primary Care Provider, Family Practice] - 1 week Discharge Date/Time: 03/02/25 23:10
[2025-03-02] MEDS: 0.9 % SODIUM CHLORIDE 1,000 ML 1000 ML IV (20:37)
[2025-03-02] MEDS: ONDANSETRON PF 4 MG/2 ML VIAL IV (20:40)
[2025-03-02] MEDS: HYDROMORPHONE HCL 0.5 MG/0.5 ML SYRINGE IV ×2 (20:41→21:22)
[2025-03-02 20:56] LABS: Basophils Percent Auto 0.3 % (0.2-2.0); Eosinophils Absolute Auto 0.2 10^3/uL (0.0-0.7); Eosinophils Percent Auto 1.7 % (0.9-7.0); Hematocrit 44.3 % (36.0-48.0); Hemoglobin 15.2 g/dL (12.0-16.0); Immature Granulocytes Abs Auto 0.07 10^3/uL (0.00-0.03); Immature Granulocytes Pct Auto 0.6 % (0.0-0.5); Lymphocytes Absolute Auto 3.4 10^3/uL (1.2-3.8); Mean Corpuscular HGB Conc 34.3 g/dL (29.9-35.2); Mean Corpuscular Hemoglobin 30.1 pg (26.7-34.0); Mean Corpuscular Volume 87.7 fL (81.0-99.0); Mean Platelet Volume 9.1 fL (9.5-13.5); Monocytes Percent Auto 8.3 % (1.7-12.0); Neutrophils Absolute Auto 7.7 10^3/uL (1.4-6.5); Neutrophils Percent Auto 62.1 % (43.0-75.0); Platelet Count 296 10^3/uL (150-450); Red Blood Count 5.05 10^6/uL (4.20-5.40); Red Cell Distribution Width 13.6 % (11.0-15.0); White Blood Count 12.4 10^3/uL (4.0-11.0)
[2025-03-02 21:11] LABS: Alanine Aminotransferase 18 U/L (14-59); Albumin Globulin Ratio 0.8; Albumin Level 3.2 g/dL (3.4-5.0); Alkaline Phosphatase 137 U/L (46-116); Aspartate Amino Transferase 12 U/L (15-37); BUN Creatinine Ratio 17.3; Bilirubin Total 0.2 mg/dL (0.2-1.0); Calcium 9.3 mg/dL (8.5-10.1); Carbon Dioxide 24.8 mmol/L (21.0-32.0); Chloride 104 mmol/L (98-107); Estimated GFR (African America >60 (>=60 mL/min/1.73m^2); Estimated GFR (Non-African Ame >60 (>=60 mL/min/1.73m^2); Globulin 3.9 g/dL; Glucose 108 mg/dL (74-106); Potassium 3.8 mmol/L (3.5-5.1); Sodium 140 mmol/L (136-145); Total Protein 7.1 g/dL (6.4-8.2)
[2025-03-02] MEDS: KETOROLAC TROMETHAMINE 30 MG/ML VIAL 15 MG IVP (21:23)
[2025-03-02] MEDS: ORPHENADRINE 60 MG/2 ML VIAL IV (21:23)
[2025-03-02 21:46] LABS: Clarity Urine CLEAR (CLEAR); Color Urine DK. ORANGE (YELLOW); Specific Gravity Urine >=1.030 (1.005-1.025)
[2025-03-02 21:47] LABS: Bilirubin Urine COLOR INTERFERENCE (NEGATIVE); Blood Urine COLOR INTERFERENCE (NEGATIVE); Glucose Urine UA COLOR INTERFERENCE mg/dL (NEGATIVE); Ketones Urine COLOR INTERFERENCE mg/dL (NEGATIVE); Leukocyte Esterase Urine COLOR INTERFERENCE (NEGATIVE); Nitrite Urine COLOR INTERFERENCE (NEGATIVE); Protein Urine COLOR INTERFERENCE mg/dL (NEG/TRACE); Urobilinogen Urine COLOR INTERFERENCE EU/dL (0.2-1.0); pH Urine COLOR INTERFERENCE (5.0-9.0)
[2025-03-02 21:49] LABS: Urine Microscopic Indicated YES
[2025-03-02 21:55] LABS: Bacteria Urine LARGE #/HPF (NONE SEEN); Mucus Urine LARGE (NONE SEEN); Squamous Epithelial Cell Urine MODERATE #/LPF (NONE/RARE)
[2025-03-02 21:57] LABS: Cast Seen? NONE SEEN #/LPF (NONE SEEN); Crystals Seen? None Seen #/HPF (None Seen)
[2025-03-02 21:58] LABS: Urine Culture Indicated YES-FRMC
[2025-03-02 23:06] VITALS: BP 108/62
== END 2025-03-02 23:10 | disposition home or self-care (01) ==
PROVIDERS: Emergency Provider Emergency Medicine; PCP Family Medicine
DX: R10.9 Unspecified abdominal pain (principal); Z90.49 Acquired absence of other specified parts of digestive tract; N39.0 Urinary tract infection, site not specified; F17.200 Nicotine dependence, unspecified, uncomplicated
CPT/HCPCS: 36415; 74176; 80053; 81001; 85025; 87086; 96374; 96375; 96376; 99285; J1171; J1885; J2360; J2405